=== PATIENT | female | born 1945 | race Caucasian/White ===

== ENCOUNTER 2018-06-09 00:29 | Outpatient (CLI) | payer MEDICARE, OTHER, SELFPAY ==
--- NOTE | 2018-06-09 13:30 | DI.CTLCSR_ITS ---
SYMPTOMS/DIAGNOSIS: FORMER SMOKER, Z87.891, COPD, J44.0 CT CHEST, LUNG CANCER SCREENING PROTOCOL: CT examination of the chest was performed utilizing the lung cancer screening protocol. Images obtained through the upper abdomen show a 3.1 cm in diameter aneurysm of the abdominal aorta. Correlation with abdominal ultrasound recommended to evaluate the entire abdominal aorta and assess maximal aneurysm size. There is no evidence of mediastinal or hilar adenopathy. Tracheobronchial tree appears intact. There is scattered peripheral pulmonary and pleural scarring. No consolidation. No nodule. CONCLUSION: No pulmonary nodule identified. Incidental finding of 3.1 cm in diameter incompletely imaged upper abdominal aortic aneurysm. Abdominal ultrasound recommended to evaluate extent and size of abdominal aortic aneurysm. Category 1. Lung-RAD Category: 1- Negative Lung- RAD Management of Findings: Continue annual LDCT screening in 12 months
== END 2018-06-09 00:49 ==
PROVIDERS: PCP Student in an Organized Health Care Education/Training Program; Visit Provider Internal Medicine
DX: Z12.2 Encounter for screening for malignant neoplasm of respiratory organs (principal); J44.0 Chronic obstructive pulmonary disease with (acute) lower respiratory infection; I71.4 Abdominal aortic aneurysm, without rupture; Z87.891 Personal history of nicotine dependence
CPT/HCPCS: G0297

== ENCOUNTER 2018-07-20 16:07 | Outpatient (REF) | payer MEDICARE, OTHER, SELFPAY | END 2018-07-20 16:27 | LOC: LBN 16:07 | PROVIDERS: PCP Student in an Organized Health Care Education/Training Program; Visit Provider Nurse Practitioner Family | DX: R35.0 Frequency of micturition (principal) | CPT/HCPCS: 87077; 87086; 87186 ==

== ENCOUNTER 2018-10-14 15:03 | Outpatient (CLI) | payer MEDICARE, OTHER, SELFPAY ==
--- NOTE | 2018-10-14 14:30 | DI.RAD_ITS ---
SYMPTOMS/DIAGNOSIS: COUGH, LUNG CRACKLES, SHORTNESS OF BREATH, R06.02, R09.89 CHEST X-RAY, FRONTAL AND LATERAL VIEWS: Comparison is 02/24/16. The heart size and pulmonary vasculature are stable and within normal limits. There is again seen scarring in the left lung base. This appears unchanged compared to the prior examination. No new infiltrates, effusions or pneumothoraces are identified. The lungs appear hyperinflated consistent with underlying COPD. Degenerative changes are seen in the spine. IMPRESSION: COPD. No acute pulmonary process.
== END 2018-10-14 15:23 ==
PROVIDERS: PCP Student in an Organized Health Care Education/Training Program; Visit Provider Student in an Organized Health Care Education/Training Program
DX: R05 Cough (principal); R06.02 Shortness of breath; R09.89 Other specified symptoms and signs involving the circulatory and respiratory systems; J44.9 Chronic obstructive pulmonary disease, unspecified
CPT/HCPCS: 71046

== ENCOUNTER 2019-03-26 08:25 | Outpatient (REF) | payer MEDICARE, OTHER, SELFPAY ==
[2019-03-26 13:39] LABS: HGB 13.9 g/dL (12.0-15.5); Mean Corp. HGB Concentration 32.3 g/dL (32.0-36.0); Mean Corpuscular Hemoglobin 30.1 pg (27.0-33.0); Mean Corpuscular Volume 93.1 fL (80-95); Mean Platelet Volume 9.5 fL (8.0-11.0); Platelet Count 227 x1000/uL (130-400); RBC 4.62 m/cumm (4.00-5.20); RBC Distribution Width 13.4 % (11.7-14.6); White Blood Cell Count 3.71 k/cumm (4.4-10.8)
[2019-03-26 13:47] LABS: ALT 25 U/L (12-78); AST 31 U/L (15-37); Albumin 3.1 g/dL (3.4-5.0); Alkaline Phosphatase 144 U/L (46-116); Anion Gap 12.5 mmol/L (3-11); BUN 18 mg/dL (7-18); Bilirubin, Total 0.4 mg/dL (0.2-1.0); CO2 23.5 mmol/L (21.0-32.0); CREATININE 0.79 mg/dL (0.55-1.02); Calcium 8.7 mg/dL (8.5-10.1); Calculated LDL 110; Chloride 107 mmol/L (98-107); Cholesterol 177 mg/dL (50-200); Glucose 100 mg/dL (70-100); HDL Cholesterol 55 mg/dL (40-60); Potassium 4.1 mmol/L (3.5-5.1); Sodium 143 mmol/L (136-145); Total Protein 6.3 g/dL (6.4-8.2); Triglyceride 63 mg/dL (30-150)
== END 2019-03-26 08:45 ==
LOC: LBN 08:25
PROVIDERS: PCP Student in an Organized Health Care Education/Training Program; Visit Provider Student in an Organized Health Care Education/Training Program
DX: J44.9 Chronic obstructive pulmonary disease, unspecified (principal); R79.89 Other specified abnormal findings of blood chemistry; R53.83 Other fatigue; Z13.6 Encounter for screening for cardiovascular disorders
CPT/HCPCS: 80053; 80061; 83721; 85027

== ENCOUNTER 2019-06-28 00:29 | Outpatient (CLI) | payer MEDICARE, OTHER, SELFPAY ==
--- NOTE | 2019-06-28 13:30 | DI.CTLCSR_ITS ---
EXAM: CT CHEST LUNG CANCER SCREEN CLINICAL HISTORY: PERSONAL H/O NICOTINE DEPENDENCE, Z87.891. TECHNIQUE: COMPARISON: CT CHEST LUNG CANCER SCREEN from 06/09/2018 FINDINGS: Emphysematous changes are demonstrated in the lungs. There are regions of scarring involving the left lower lobe. No infiltrate, mass or nodular density is identified. As visualized, the hilar structu res appear intact. There is no evidence of adenopathy. There is no evidence of a pleural or pericardi al effusion. The aorta appears intact. IMPRESSION: COPD. No evidence of a pulmonary mass, or nodule or adenopathy. This is a lung RADS category 1 examin [facility]. Follow-up surveillance with a repeat low-dose chest CT in 1 year is recommended. Lung RADS Cat 1 - Negative: No nodules and definitely benign nodules
== END 2019-06-28 00:49 ==
PROVIDERS: PCP Student in an Organized Health Care Education/Training Program; Visit Provider Internal Medicine
DX: Z12.2 Encounter for screening for malignant neoplasm of respiratory organs (principal); J44.9 Chronic obstructive pulmonary disease, unspecified; Z87.891 Personal history of nicotine dependence
CPT/HCPCS: G0297

== ENCOUNTER 2019-07-23 16:28 | Outpatient (REF) | payer MEDICARE, OTHER, SELFPAY | END 2019-07-23 16:48 | LOC: LBO 16:28 | PROVIDERS: PCP Student in an Organized Health Care Education/Training Program; Visit Provider Student in an Organized Health Care Education/Training Program | DX: N39.0 Urinary tract infection, site not specified (principal) | CPT/HCPCS: 87086 ==

== ENCOUNTER 2019-07-27 15:59 | Outpatient (REF) | payer MEDICARE, OTHER, SELFPAY | END 2019-07-27 16:19 | LOC: LBN 15:59 | PROVIDERS: PCP Student in an Organized Health Care Education/Training Program; Visit Provider Nurse Practitioner Family | DX: R10.32 Left lower quadrant pain (principal) | CPT/HCPCS: 87086 ==

== ENCOUNTER 2019-07-30 01:16 | Outpatient (CLI) | payer MEDICARE, OTHER, SELFPAY ==
--- NOTE | 2019-07-30 08:55 | DI.CT_ITS ---
EXAM: CT ABDOMEN PELVIS WO/W CLINICAL HISTORY: Hematuria and LLQ pain, R31.9 TECHNIQUE: CT examination of the abdomen and pelvis was performed utilizing CT urogram protocol. COMPARISON: PELVIS TRANSVAG from 03/03/2015 CHEST - LUNG CANCER SCREENING from 06/17/2017 CT CHEST LUNG CANCER SCREEN from 06/09/2018 FINDINGS: Note is made of apparent areas of consolidation of the left lung base. Liver, spleen and pancreas are unremarkable. Gallbladder not visualized. No biliary dilatation. Sm all fat containing umbilical hernia noted. No other significant abdominal wall hernia seen. No abdo frances or pelvic adenopathy. There is a 39 millimeter in diameter infrarenal abdominal aortic aneurysm. No other significant vasc ular abnormality seen apart from mild atheromatous calcification of aorta and origins of the major vi sceral vessels. Appendix is normal. Colonic diverticulosis noted. without diverticulitis. Note is made of a 5 cm in diameter low-attenuation homogeneous left ovarian lesion with minimal rim calcification, this is cons istent with an ovarian cyst and unchanged in size from previous pelvic ultrasound of 2014. Adrenals appear normal. There is no evidence of tract calcification. There is an approximately 1 cm in diameter intermediate attenuation well-circumscribed mass of the lower pole of the left kidney, t his may represent a hyperdense renal cyst. MR correlation or follow-up CT in 6 months should be cons idered to further evaluate this indeterminate lesion. IMPRESSION: 1. Unexpected finding of apparent left lower lobe consolidation, please correlate clinically regardin g the possibility of pneumonia. This finding was not present on previous examination of 06/09/2018. 2. 39 millimeter in diameter infrarenal abdominal aortic aneurysm. 3. Unchanged 5 cm left ovarian cyst. 4. Indeterminate but probably benign left renal cortical lesion, likely hyperdense cyst. Follow-up C T or additional evaluation with renal MRI recommended.
[2019-07-30 09:31] LABS: CREATININE 0.73 mg/dL (0.55-1.02)
[2019-07-30 09:55] LABS: ALT 25 U/L (14-59); AST 19 U/L (15-37); Albumin 2.6 g/dL (3.4-5.0); Alkaline Phosphatase 131 U/L (46-116); Bilirubin, Direct 0.13 mg/dL (0.00-0.20); Bilirubin, Total 0.4 mg/dL (0.2-1.0); Total Protein 6.5 g/dL (6.4-8.2)
[2019-07-30] MEDS: Omnipaque 350 MG/ML 100 ML BTL IJ (10:25)
--- NOTE | 2019-07-30 10:35 | DI.US_ITS ---
EXAM: US PELVIS TRANSVAGINAL CLINICAL HISTORY: Hx left ovarian cyst on US 2014, LLQ, R10.32 TECHNIQUE: Ultrasound performed using standard protocol. COMPARISON: PELVIS TRANSVAG from 03/03/2015 FINDINGS: Pelvic ultrasound was performed transabdominally and transvaginally. Limited scanning of the kidneys is unremarkable. Note is again made of a previously described simple cyst of the left ovary with mi nimal rim calcification measuring up to about 4.3 cm in diameter. Some myometrial calcifications are noted consistent with uterine fibroids. No gross mass identified. Endometrial stripe is about 4 mi llimeters in thickness and appears homogeneous. No free fluid identified in the cul-de-sac. Right ovary nonvisualized. IMPRESSION: Stable left ovarian cyst. Presumed calcified uterine fibroids. No other significant findings.
== END 2019-07-30 01:36 ==
PROVIDERS: Internal Medicine; PCP Student in an Organized Health Care Education/Training Program; Visit Provider Nurse Practitioner Family
DX: R10.32 Left lower quadrant pain (principal); R31.9 Hematuria, unspecified; N83.292 Other ovarian cyst, left side; D25.9 Leiomyoma of uterus, unspecified; J44.9 Chronic obstructive pulmonary disease, unspecified; R91.8 Other nonspecific abnormal finding of lung field; K42.9 Umbilical hernia without obstruction or gangrene; I71.4 Abdominal aortic aneurysm, without rupture; N28.1 Cyst of kidney, acquired
CPT/HCPCS: 80076; 74178; 76830; 76856; 82565; J3490

== ENCOUNTER 2019-08-13 10:12 | Outpatient (REF) | payer MEDICARE, OTHER, SELFPAY ==
[2019-08-13 13:59] LABS: Bilirubin Negative (Negative); Blood Trace-lysed (Negative); Clarity Sl Cloudy (Clear); Glucose Negative (Negative); Ketones Negative (Negative); Leukocyte Esterase Moderate (Negative); Nitrite Negative (Negative); Specific Gravity 1.015 (1.005-1.025); Urobilinogen 0.2 EU/dL (Up TO 0.2); pH 5.5 (5-8)
[2019-08-13 14:22] LABS: Bacteria Packed HPF (Negative)
[2019-08-13 14:23] LABS: C & S Indicated? C&S Done As Ordered
[2019-08-13 14:36] LABS: WBC >50 HPF (0-5)
== END 2019-08-13 10:32 ==
LOC: LBN 10:12
PROVIDERS: PCP Student in an Organized Health Care Education/Training Program; Visit Provider Student in an Organized Health Care Education/Training Program
DX: R30.0 Dysuria (principal); R31.9 Hematuria, unspecified
CPT/HCPCS: 87077; 81003; 81015; 87086; 87186

== ENCOUNTER → 2019-10-26 12:47 | Outpatient (BNVA) | payer MEDICARE, OTHER, SELFPAY | PROVIDERS: PCP Student in an Organized Health Care Education/Training Program; Referring Provider Student in an Organized Health Care Education/Training Program; Visit Provider Urology | DX: R31.29 Other microscopic hematuria (principal); R35.0 Frequency of micturition; N28.89 Other specified disorders of kidney and ureter | CPT/HCPCS: 81003; 99203; 99214 ==

== ENCOUNTER 2019-11-08 16:46 | Outpatient (CLI) | payer MEDICARE, OTHER, SELFPAY ==
--- NOTE | 2019-11-08 16:04 | DI.RAD_ITS ---
EXAM: XR CHEST 2V PA LATERAL INDICATION: r/o acute process/PNA; scattered rhonchi exp whEEZE, J44.1 COPD W/ EXACERBATION COMPARISON: XR CHEST 2V PA LATERAL from 10/14/2018 TECHNIQUE: 2D digital imaging was performed. FINDINGS: The heart size is within normal limits. There is atherosclerosis of the thoracic aorta. The pulmona ry vasculature is otherwise unremarkable. There is scarring again seen in the left lung base. There does appear to be an infiltrate in the left lower lobe. No pleural effusion or pneumothorax is iden tified. There is underlying COPD. Stable degenerative changes are seen in the spine. IMPRESSION: Left basilar infiltrate. This may represent atelectasis or pneumonia.
== END 2019-11-08 17:06 ==
PROVIDERS: PCP Student in an Organized Health Care Education/Training Program; Visit Provider Nurse Practitioner Adult Health
DX: R91.8 Other nonspecific abnormal finding of lung field (principal); J98.8 Other specified respiratory disorders; R06.2 Wheezing; J44.1 Chronic obstructive pulmonary disease with (acute) exacerbation
CPT/HCPCS: 71046

== ENCOUNTER 2019-11-26 00:57 | Outpatient (CLI) | payer MEDICARE, OTHER, SELFPAY ==
[2019-11-26 12:02] LABS: ALT 24 U/L (14-59); AST 20 U/L (15-37); Albumin 3.1 g/dL (3.4-5.0); Alkaline Phosphatase 111 U/L (46-116); Bilirubin, Total 0.3 mg/dL (0.2-1.0); Total Protein 6.3 g/dL (6.4-8.2)
== END 2019-11-26 01:17 ==
PROVIDERS: PCP Student in an Organized Health Care Education/Training Program; Visit Provider Internal Medicine
DX: J44.9 Chronic obstructive pulmonary disease, unspecified (principal); J98.4 Other disorders of lung; M48.14 Ankylosing hyperostosis [Forestier], thoracic region
CPT/HCPCS: 36415; 80076; 71046

== ENCOUNTER 2019-11-26 02:41 | Outpatient (CLI) | payer MEDICARE, OTHER, SELFPAY ==
--- NOTE | 2019-11-26 10:25 | DI.RAD_ITS ---
EXAM: XR CHEST 2V PA LATERAL INDICATION: CHRONIC OBSTRUCTIVE LUNG DISEASE J44.9. COMPARISON: XR CHEST 2V PA LATERAL from 10/14/2018 CT ABDOMEN PELVIS WO/W from 07/30/2019 TECHNIQUE: 2D digital imaging was performed. FINDINGS: The heart size is within normal limits. The aorta shows calcification and mild tortuosity. Scarri ng is seen at the left lung base. No definite superimposed infiltrate, effusion or pulmonary edema i s seen. Flowing osteophytes are noted in the thoracic spine. IMPRESSION: No acute abnormality. DATA REPOSITORY: RADIATION DOSE DELIVERED:
== END 2019-11-26 03:01 ==
PROVIDERS: PCP Student in an Organized Health Care Education/Training Program; Visit Provider Internal Medicine
DX: J44.9 Chronic obstructive pulmonary disease, unspecified (principal); J98.4 Other disorders of lung; M48.14 Ankylosing hyperostosis [Forestier], thoracic region
CPT/HCPCS: 71046

== ENCOUNTER 2019-12-28 16:24 | Outpatient (CLI) | payer MEDICARE, OTHER, SELFPAY ==
[2019-12-28 18:38] LABS: Bilirubin Negative (Negative); Blood Trace-lysed (Negative); Clarity Cloudy (Clear); Glucose Negative (Negative); Ketones Negative (Negative); Leukocyte Esterase Moderate (Negative); Nitrite Negative (Negative); Urobilinogen 0.2 EU/dL (Up TO 0.2)
[2019-12-28 18:46] LABS: Bacteria Many HPF (Negative); C & S Indicated? Yes; Casts Negative LPF (Negative); Crystals Negative HPF (Negative); Epithelial Cells Rare HPF (Negative); Mucus Negative (Negative); Other Cells Negative (Negative); RBC 0-2 HPF (0-2); WBC >50 HPF (0-5)
== END 2019-12-28 16:44 ==
LOC: LBO 16:24 → LBN 16:27
PROVIDERS: PCP Student in an Organized Health Care Education/Training Program; Visit Provider Nurse Practitioner
DX: R30.0 Dysuria (principal); R35.0 Frequency of micturition
CPT/HCPCS: 87077; 81003; 81015; 87086; 87186

== ENCOUNTER 2020-02-15 00:37 | Outpatient (CLI) | payer MEDICARE, OTHER, SELFPAY ==
--- NOTE | 2020-02-15 06:45 | DI.CT_ITS ---
EXAM: CT ABDOMEN PELVIS W CLINICAL HISTORY: 6 mos follow up, aaa,i71.4, lt kidney mass COMPARISON: CT CT ABDOMEN PELVIS WO/W from 07/30/2019 FINDINGS: CT examination of the abdomen and pelvis was performed with a bolus infusion 100 cc of Omnipaque 350 and ingestion of dilute barium. Images obtained through the lung bases are unremarkable with resolut ion of previously noted left lower lobe consolidation seen on prior CT of July 30, 2019. The liver and spleen are normal in appearance. Pancreas is partially fatty replaced but otherwise un remarkable. No biliary dilatation is seen. There is an abdominal aortic aneurysm measuring about 41 millimeters in greatest diameter. No other significant vascular abnormality seen. No abdominal or pelvic adenopathy. Adrenals are unremarkable in appearance. Previously described 10 millimeter intermediate attenuation left renal lesion is unchanged from prior study and is likely to be benign. No evidence of urinary t ract calcification or obstruction. Appendix is normal. There is colonic diverticulosis without diverticulitis. Presumed left ovarian c yst again noted, stable at about 51 millimeters in greatest diameter. IMPRESSION: No change in appearance of likely benign, 10 millimeter, left renal, well circumscribed, cortical, in termediate attenuation lesion. Follow-up CT recommended in 12 months. Stable 5 cm in diameter low-attenuation left adnexal lesion, presumed ovarian cyst, follow-up CT in 1 2 months. 41 millimeter in diameter abdominal aortic aneurysm.
[2020-02-15 08:10] LABS: CREATININE 0.75 mg/dL (0.55-1.02)
[2020-02-15] MEDS: Breeza Beverage 473 ML BTL PO ×2 (08:39→08:40)
[2020-02-15] MEDS: Omnipaque 350 MG/ML 100 ML BTL IJ (09:23)
== END 2020-02-15 00:57 ==
PROVIDERS: Urology; PCP Student in an Organized Health Care Education/Training Program; Visit Provider Student in an Organized Health Care Education/Training Program
DX: N28.89 Other specified disorders of kidney and ureter (principal); I71.4 Abdominal aortic aneurysm, without rupture; N83.292 Other ovarian cyst, left side
CPT/HCPCS: 74177; 82565; J3490

== ENCOUNTER 2020-03-29 01:45 | Outpatient (CLI) | payer MEDICARE, OTHER, SELFPAY ==
--- NOTE | 2020-03-29 06:45 | DI.US_ITS ---
EXAM: US ABDOMEN LIMITED CLINICAL HISTORY: r/o biliary pathology,RUQ PAIN,R10.11, F/U ABNL CT TECHNIQUE: Ultrasound performed using standard protocol. COMPARISON: US US PELVIS TRANSVAGINAL from 07/30/2019 FINDINGS: The liver is unremarkable in appearance. Gallbladder has been surgically removed. No biliary dilata tion. Pancreas is of increased echogenicity, no other significant focal abnormality seen as visualiz ed but visualization of the pancreas is suboptimal. Right kidney appears normal with no evidence of hydronephrosis or nephrolithiasis. Abdominal aorta is noted to have an infrarenal aneurysm measuring about 39 x 43 millimeters in transv erse diameter. IVC is of normal diameter. IMPRESSION: No evidence of biliary obstruction. Abdominal aortic aneurysm, 43 millimeters maximal diameter. DATA REPOSITORY:
== END 2020-03-29 02:05 ==
PROVIDERS: PCP Student in an Organized Health Care Education/Training Program; Visit Provider Student in an Organized Health Care Education/Training Program
DX: R10.11 Right upper quadrant pain (principal); I71.4 Abdominal aortic aneurysm, without rupture
CPT/HCPCS: 76705

== ENCOUNTER 2020-06-16 15:53 | Outpatient (REF) | payer MEDICARE, OTHER, SELFPAY | END 2020-06-16 16:13 | LOC: LBN 15:53 | PROVIDERS: PCP Student in an Organized Health Care Education/Training Program; Visit Provider Student in an Organized Health Care Education/Training Program | DX: R31.9 Hematuria, unspecified (principal) | CPT/HCPCS: 87086 ==

== ENCOUNTER 2020-06-30 04:05 | Outpatient (CLI) | payer MEDICARE, OTHER, SELFPAY ==
--- NOTE | 2020-06-30 | DI.CTLCSR_ITS ---
EXAM: CT CHEST LUNG CANCER SCREEN CLINICAL HISTORY: SCREENING FOR LUNG CA,FORMER SMOKER, Z87.891 TECHNIQUE: Imaging Protocol: Axial computed tomography images with coronal and sagittal reformatted images were created and reviewed COMPARISON: CT CT CHEST LUNG CANCER SCREEN from 06/28/2019 FINDINGS: Tracheobronchial tree: Patent where visualized. Mediastinum and [place]: No dominant adenopathy or fluid collection. Pulmonary parenchyma: No focal consolidation. There is a new 1 x 0.8 cm nodule in the left upper lobe . (Series 5, image 260). Centrilobular emphysematous changes are present in the lungs. There is scar ring in the lung bases. Lung Nodules: Please see above. Pleura: No effusion or pneumothorax. Heart: The heart is not dilated. Mild coronary artery calcification. No significant pericardial effus ion. Aorta: Thoracic aorta non-dilated.Atherosclerosis. Upper abdomen: Unremarkable. Bones: [facility] in the thoracic spine. Soft Tissues: Unremarkable. IMPRESSION: New 1 cm nodule in the left upper lobe. Lung RADS Cat 4B - Suspicious: Findings for which additional diagnostic testing and/or tissue samplin g is recommended Lung-RADS 1.0 CATEGORIES: Category 0 - Prior chest CT exam(s) being located for comparison. Category 1 - Annual screening in 12 months. No nodules or definitely benign nodules. Category 2 - Annual screening in 12 months. Benign appearance. Nodules with low likelihood of becomin g active cancer. Category 3 - 6-month follow-up. Probably benign. Short-term follow-up suggested. Nodules with low lik elihood of becoming active cancer. Category 4A - 3-month follow-up and CT/PET if >8 mm in size. Suspicious finding. Findings which requi re additional testing. Category 4B - Findings which require additional testing and tissue sampling. Suspicious finding. C Added to Any of the Above - History of prior lung cancer screening. S Added to Any of the Above - Significant unexpected other finding. RADIATION DOSE DELIVERED: 73.44mGy.cm Total DLP DATA REPOSITORY: All CT scans at this facility are submitted to the National Radiology Data Registry (NRDR) Dose Index Registry (DIR) with the [employer] ([employer]). RADIATION OPTIMIZATION: All CT scans at this facility use at least one of these dose optimization te chniques: automated exposure control; mA and/or kV adjustment per patient size (includes targeted exa ms where dose is matched to clinical indication); or iterative reconstruction.
== END 2020-06-30 04:25 ==
PROVIDERS: PCP Student in an Organized Health Care Education/Training Program; Visit Provider Internal Medicine
DX: Z87.891 Personal history of nicotine dependence (principal); R91.1 Solitary pulmonary nodule
CPT/HCPCS: G0297

== ENCOUNTER 2020-08-24 01:11 | Outpatient (CLI) | payer MEDICARE, OTHER, SELFPAY ==
--- NOTE | 2020-08-24 13:00 | DI.CT_ITS ---
EXAM: CT CHEST WO CLINICAL HISTORY: COPD,J44.9. TECHNIQUE: Imaging protocol: Axial computed tomography images were obtained and coronal and sagittal reformatted images were created and reviewed. COMPARISON: CT CT CHEST LUNG CANCER SCREEN from 06/30/2020 FINDINGS: Tracheobronchial tree: Patent where visualized. Mediastinum and [place]: No dominant adenopathy or fluid collection. Pulmonary parenchyma: The nodular opacity seen in the left upper lobe on the prior examination is no longer visualized. There are no new infiltrates. No suspicious pulmonary nodules are seen. There a re centrilobular emphysematous changes present. There is scarring seen in the lung bases Pleura: No effusion or pneumothorax. Heart: The heart is not dilated. Coronary artery calcifications are present. There is a small pleura l effusion. Aorta: Thoracic aorta non-dilated. Atherosclerosis. Upper abdomen: Fatty infiltration of the pancreas. Stable 4.2 cm infrarenal abdominal aortic aneury sm is incompletely imaged. Lymph nodes: Within normal limits. Bones:No acute osseous abnormality. Soft tissues: Unremarkable. IMPRESSION: Resolution of the nodular infiltrate in the left upper lobe. No acute pulmonary process. Chronic findings as described above. RADIATION DOSE DELIVERED: 774.46mGy.cm Total DLP 774.46mGy.cm Total DLP DATA REPOSITORY: All CT scans at this facility are submitted to the National Radiology Data Registry (NRDR) Dose Index Registry (DIR) with the [employer] ([employer]). RADIATION OPTIMIZATION: All CT scans at this facility use at least one of these dose optimization te chniques: automated exposure control; mA and/or kV adjustment per patient size (includes targeted exa ms where dose is matched to clinical indication); or iterative reconstruction.
== END 2020-08-24 01:31 ==
PROVIDERS: PCP Student in an Organized Health Care Education/Training Program; Visit Provider Internal Medicine
DX: J44.9 Chronic obstructive pulmonary disease, unspecified
CPT/HCPCS: 71250

== ENCOUNTER 2020-08-27 13:45 | Emergency (ER) | payer MEDICARE, OTHER, SELFPAY ==
[2020-08-27] VITALS (13 sets, daily range): BP systolic 124–145; BP diastolic 72–78; PULSE 57–85; RESP 17–28; TEMP 36.4; O2SAT 97–100
--- NOTE | 2020-08-27 13:45 | RT.EKG_ITS ---
APPROVED REPORT Exam: Resting ECG Patient Location: E HR:64 bpm ECG Measurements Heart Rate 64 AXIS ID [id number] P -16 QRSd 104 QRS 92 QT 388 T 104 QTc 400 Conclusion Sinus rhythm. +stemi Inferior infarct, acute...ST>0.10mV, T upright, II III aVF
--- NOTE | 2020-08-27 14:00 | DI.RAD_ITS ---
EXAM: XR PORTABLE CHEST AP. CLINICAL HISTORY: stemi TECHNIQUE: 2D digital imaging was performed. COMPARISON: CR XR CHEST 2V PA LATERAL from 11/26/[address] CHEST WO from 08/24/2020 FINDINGS: The heart size is mildly enlarged, unchanged. The aorta is mildly ectatic. The lung bases are subop timally penetrated. Scarring is again noted at the left lung base. There are under underlying fibro tic changes. No superimposed infiltrate, effusion or pulmonary edema is seen. IMPRESSION: No acute pulmonary findings. DATA REPOSITORY: RADIATION DOSE DELIVERED:
[2020-08-27 14:07] LABS: Abs Immature Grans 0.02 10^3/uL (0.0-0.06); Absolute Basophil Count 0.04 10^3/uL (0.0-0.2); Absolute Eosinophil Count 0.06 10^3/uL (0.0-0.7); Absolute Lymphocyte Count 1.35 10^3/uL (1.2-3.4); Absolute Monocyte Count 0.55 10^3/uL (0.1-0.8); Absolute Neutrophil Count 4.93 10^3/uL (1.2-6.7); Basophils % 0.6; Eosinophils % 0.9; HCT 42.6 % (36.0-46.0); Immature Grans % 0.3; Lymphocytes % 19.4; MCH 31.3 pg (27.0-33.0); MCHC 32.9 % (32.0-36.0); MCV 95.1 fL (80-95); MPV 9.5 fL (8.0-11.0); Monocytes % 7.9; Neutrophils % 70.9; Nucleated RBC 0 %; Platelet Count 219 10^3/uL (130-400); RBC 4.48 10^6/uL (3.93-5.22); RDW 12.9 % (11.7-14.6); RDW-SD 44.9 fL; WBC 6.95 10^3/uL (4.4-10.8)
--- NOTE | 2020-08-27 14:07 | ED.GENADUL_ITS ---
Discharge Plan Disposition Patient Disposition: [facility] Condition: Serious Discharge Details Clinical Impression: ST elevation SC (STEMI) Primary Care Provider: Aliyah De Paz ED Provider: Stewart Christianson Home Meds and New Rx's Prescriptions: No Action (DME) compressor, for nebulizer device See Dose Instructions .ROUTE .MEDSUPPLY Qty: 1 RF: 0 Daliresp 500 mcg tablet 500 mcg PO DAILY RF: 0 cyanocobalamin (vitamin B-12) [Vitamin B-12] 100 mcg tablet 100 mcg PO DAILY RF: 0 cholecalciferol (vitamin D3) [Vitamin D3] 1,000 UNIT capsule 1,000 unit PO DAILY RF: 0 acetaminophen [Arthritis Pain Relief (acetam)] 650 MG tablet extended release 650 mg PO PRN RF: 0 Oxygen EACH Inhalation DAILY Qty: 2 RF: 0 thiamine mononitrate (vit B1) 100 MG tablet 100 mg PO DAILY RF: 0 Spiriva with HandiHaler 18 mcg capsule, w/inhalation device 1 cap IH DAILY RF: 0 albuterol sulfate [ProAir HFA] 90 mcg/actuation HFA aerosol inhaler 1 puff Inhalation Q4H PRN Qty: 3 RF: 3 codeine-guaifenesin [Virtussin AC] 10-100 mg/5 mL liquid 10 ml PO Q6H Qty: 237 RF: 1 ipratropium-albuterol 0.5 mg-3 mg(2.5 mg base)/3 mL solution for nebulization 3 ml IH Q8H PRN (Reason: shortness of breath or wheezing) Qty: 270 RF: 2 fluoxetine 10 mg tablet 10 mg PO DAILY Qty: 90 RF: 3 clotrimazole 1 % cream 1 applic TP BID Qty: 30 RF: 3 fluticasone propionate 50 mcg/actuation spray,suspension 2 spray NS BID PRN (Reason: nasal congestion) Qty: 18.2 RF: 3 fluticasone propion-salmeterol [Advair Diskus] 250-50 mcg/dose blister with device 1 inh inhalation BID PRNRF: 0 cetirizine [Zyrtec] 10 mg tablet 5 mg PO DAILY RF: 0 Medical Decision Making <JULIUS Arciniega - Last Filed: 08/27/20 14:51> 75-year-old female with history of COPD presents with chest pain, diaphoresis, nausea that began yesterday, now radiates into her back and her left arm aches. Upon presentation to room 3 EKG immediately obtained and reveals anterior STEMI. Case was immediately discussed with Dr. Valente who personally evaluated the patient. Emergent cardiac work-up initiated and call placed to [facility]. I was able to speak with Dr. Najera, cardiology, who was able to personally review the EKG. He recommends initiating 180 mg of Brilinta, full dose aspirin, atorvastatin 80, heparin bolus of 4000 units and then initiating a drip. Does not want to initiate any lytics at this time. Given her heart rate is in the 60s he also recommends holding any beta-blockers. He states that if the pain is to increase we could consider giving a single sublingual nitro but to give this medication very carefully. The patient will be transferred into the care of Dr. Verduzco, senior supplier quality engineer, directly to the [facility]. At the time of transfer only her complete blood cell count had been resulted. Medications given per cardiology. Held any nitro at this time. Given 2 mg IV morphine for discomfort. Subsequent laboratory values reveal an INR of 1.0 electrolytes are unremarkable. Creatinine 0.82 GFR greater than 60, troponin 1.68. Chest x-ray read by virtual radiology is unremarkable. Patient reports pain is a 3 out of 10 after the morphine was given. All appropriate transfer paperwork signed. Patient remained hemodynamically stable while under my care prior to discharge. As I was consulting with [facility], a RN from our ER was able to update the family with what was going on. Medical Records Medical records reviewed: Yes I reviewed the patient's medical records. Imaging Data Radiologic Study: Attestation: I personally reviewed and interpreted this imaging study as follows: Imaging: X-Ray Radiologist's impression: Chest x-ray unremarkable per virtual radiology Lab Data Lab results reviewed: Yes I reviewed the patient's lab results. Lab results narrative: Laboratory Tests Range/Units 08/27/20 08/27/20 08/27/20 14:00 14:00 14:00 WBC (4.4-10.8) 10^3/uL 6.95 RBC (3.93-5.22) 10^6/uL 4.48 Hgb (11.2-15.7) g/dL 14.0 Hct (36.0-46.0) % 42.6 MCV (80-95) fL 95.1 H MCH (27.0-33.0) pg 31.3 MCHC (32.0-36.0) % 32.9 RDW (11.7-14.6) % 12.9 Plt Count (130-400) 10^3/uL 219 MPV (8.0-11.0) fL 9.5 Immature Gran % 0.3 Neutrophils % 70.9 Lymphocytes % 19.4 Monocytes % 7.9 Eosinophils % 0.9 Basophils % 0.6 Nucleated RBC % % 0 Absolute Neutrophils (1.2-6.7) 10^3/uL 4.93 Absolute Lymphocytes (1.2-3.4) 10^3/uL 1.35 Absolute Monocytes (0.1-0.8) 10^3/uL 0.55 Absolute Eosinophils (0.0-0.7) 10^3/uL 0.06 Absolute Basophils (0.0-0.2) 10^3/uL 0.04 PT (9.3-11.0) sec 10.3 INR (0.9-1.1) 1.0 APTT (21.0-27.5) sec 21.0 Sodium (136-145) mmol/L 136 Potassium (3.5-5.1) mmol/L 4.0 Chloride (98-107) mmol/L 102 Carbon Dioxide (21.0-32.0) mmol/L 28.6 Anion Gap (3-11) mmol/L 5.4 BUN (7-18) mg/dL 9 Creatinine (0.55-1.02) mg/dL 0.82 Estimated GFR/1.73 m2 (mL/min/1.73m2) >= 60.00 Glucose (74-106) mg/dL 114 H Calcium (8.5-10.1) mg/dL 8.9 Magnesium (1.8-2.4) mg/dL 1.9 Total Bilirubin (0.2-1.0) mg/dL 0.7 AST (15-37) U/L 51 H ALT (14-59) U/L 29 Alkaline Phosphatase (46-116) U/L 131 H Troponin I (<0.06) ng/mL 1.68 H* Total Protein (6.4-8.2) g/dL 7.4 Albumin (3.4-5.0) g/dL 3.3 L ECG Data Attestation: I personally reviewed and interpreted this ECG (s) as follows: Interpretation: Please see official report by Dr. Valente. Sinus rhythm. Appears to have a inferior STEMI <Tye Valente MD - Last Filed: 08/27/20 14:20> Patient seen, examined [id number], discussed with Den PerezSammy. This pleasant 75-year-old female has evidence of acute inferolateral STEMI. I agree with his assessment and plan including urgent/emergent consultation with [facility] for transfer. HPI <JULIUS Arciniega - Last Filed: 08/27/20 14:51> General Mode of arrival: ambulatory . Date/Time Provider Initiated Documentation: 08/27/20 13:46 . Limitations to Documentation: no limitations . Information obtained by: patient . HPI Narrative: This is a 75-year-old female with a past medical history of COPD, abdominal aortic aneurysm, cor pulmonale, presenting to the ER today with chief complaint of chest pain. She reports substernal chest pain that began yesterday around 1 PM, she felt nauseous and sweaty at that time. The pain was 8 out of 10. Subsequently the pain in her chest has diminished to a 4 out of 10 but now travels into her back and her left arm is aching. She reports a history of COPD, chronic shortness of breath that is may be slightly worse over the past 24 hours. She took a Tums yesterday when she had her nausea with no relief. Approximately 30 minutes ago she took her daughter's sublingual nitro without any relief. Patient denies recent illness or trauma. She denies headache, neck pain, fever, abdominal pain, vomiting, change in bowel or bladder function, numbness, tingling, weakness, skin rash. She denies ever smoking. She tells me that she had a stress test maybe 4 or 5 years ago but was unable to adequately complete the test. She denies recent travel, trauma, surgery, or any bleeding disorder. Related Data Home Medications Medication Instructions Recorded Confirmed cholecalciferol (vitamin D3) 1,000 unit PO DAILY cap 08/02/16 08/27/20 [Vitamin D3] acetaminophen [Arthritis Pain] 650 mg PO PRN tab 11/08/16 08/27/20 Oxygen l INHALATION DAILY #2 06/12/17 06/17/20 thiamine mononitrate (vit B1) 100 mg PO DAILY 12/24/17 08/27/20 compressor, for nebulizer #1 each 10/14/18 06/17/20 cyanocobalamin (vitamin B-12) 100 100 mcg PO DAILY 07/27/19 08/27/20 mcg tablet roflumilast 500 mcg tablet 500 mcg PO DAILY 07/27/19 08/27/20 tiotropium bromide 18 mcg capsule 1 cap IH DAILY 11/12/19 06/17/20 with inhalation device albuterol sulfate 90 mcg/actuation 1 puff INHALATION Q4H PRN #3 11/27/19 08/27/20 aerosol inhaler inhaler codeine 10 mg-guaifenesin 100 mg/5 10 ml PO Q6H #237 ml 12/17/19 08/27/20 mL oral liquid ipratropium 0.5 mg-albuterol 3 mg 3 ml IH Q8H PRN #270 ml 03/01/20 08/27/20 (2.5 mg base)/3 mL nebulization soln clotrimazole 1 % topical cream 1 applic TP BID #30 gm 03/22/20 08/27/20 fluoxetine 10 mg tablet 10 mg PO DAILY #90 tab 03/22/20 08/27/20 fluticasone propionate 50 2 spray NS BID PRN #18.2 ml 06/25/20 08/27/20 mcg/actuation nasal spray,suspension cetirizine 10 mg tablet 5 mg PO DAILY 07/13/20 08/27/20 fluticasone 250 mcg-salmeterol 50 1 inh INHALATION BID PRN 07/13/20 08/27/20 mcg/dose blistr powdr for inhalation Previous Rx's Medication Instructions Recorded compressor, for nebulizer #1 each 10/14/18 albuterol sulfate 90 mcg/actuation 1 puff INHALATION Q4H PRN #3 11/27/19 aerosol inhaler inhaler codeine 10 mg-guaifenesin 100 mg/5 10 ml PO Q6H #237 ml 12/17/19 mL oral liquid ipratropium 0.5 mg-albuterol 3 mg 3 ml IH Q8H PRN #270 ml 03/01/20 (2.5 mg base)/3 mL nebulization soln clotrimazole 1 % topical cream 1 applic TP BID #30 gm 03/22/20 fluoxetine 10 mg tablet 10 mg PO DAILY #90 tab 03/22/20 fluticasone propionate 50 2 spray NS BID PRN #18.2 ml 06/25/20 mcg/actuation nasal spray,suspension Allergies Allergy/AdvReac Type Severity Reaction Status Date / Time Fish Containing Products AdvReac Severe vomiting, Verified 08/27/20 14:24 diarrhea, headache General Stated Complaint: Chest Pain SHAILA: 2 Review of Systems <JULIUS Arciniega - Last Filed: 08/27/20 14:51> Constitutional Constitutional: Denies fatigue, Denies fever(s) and Denies headache(s) Eyes Eyes: Denies change in vision ENT Ears, Nose, Mouth, and Throat: Denies headache(s) and Denies neck pain Cardiovascular Cardiovascular: Reports chest pain and Reports dyspnea Respiratory Respiratory: Denies cough and Reports dyspnea Gastrointestinal Gastrointestinal: Denies abdominal pain, Reports nausea and Denies vomiting Genitourinary Genitourinary: Denies dysuria Musculoskeletal Musculoskeletal: Denies neck pain Integumentary/Breasts Skin/Breast: Denies rash Neurologic Neurologic: Denies headache(s) Endocrine Endocrine: Denies fatigue Hematologic/Lymphatic Hematologic/Lymphatic: Denies easy bleeding PFSH <JULIUS Arciniega - Last Filed: 08/27/20 14:51> Medical History (Updated 08/27/20 @ 14:45 by JULIUS Arciniega) COPD (chronic obstructive pulmonary disease) Depressive disorder (07/24/12) Hematuria Varicose veins Surgical History Cholecystectomy (10/06/1966) Colonoscopy - MAC (07/23/17) Ligation of fallopian tube (10/06/69) Family History Mother , complications DM at age 67. Diabetes Father , stomach cancer at age 30. No problems noted. 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 Pets and animals: No Current gender identity: female What is your relationship status?: Panel score (0-1 are the most socially isolated patients): 0 What type of physical activity do you participate in: walking and regular exercise Frequency: daily Seatbelt use: always Drive intox or ride w/intox entry driver operator: No Working smoke detector in home: Yes Fire extinguisher in home: Yes Carbon monox detector in home: Yes Do you feel safe at home: Yes Do you feel safe in your relationship?: Yes Exam <JULIUS Arciniega - Last Filed: 08/27/20 14:51> Const General: cooperative, healthy appearing and no acute distress Orientation: alert, awake and oriented x3 HENMT Head: normal to inspection, normocephalic and atraumatic Face and sinus: normal facial exam Mouth: moist mucous membranes Throat: posterior oropharynx normal Eyes General: appearance normal, both eyes and all related structures Alignment and Position: alignment normal Periorbital: periorbital findings normal Eyelids: eyelids normal Conjunctivae: conjunctivae normal Sclera: sclerae normal Cornea: corneas normal Pupils: PERRL EOM: EOM intact bilaterally Direct ophthalmoscopy: normal light reflex Neck Neck: normal visual inspection, full ROM, no lymphadenopathy, no meningeal signs, trachea midline, supple and nontender Chest Chest: normal inspection of the chest and normal palpation of entire chest wall Resp Effort & Inspection: normal respiratory effort and able to speak in complete sentences Auscultation: clear to auscultation bilaterally Cardio Jugular venous pressure: no JVD Rate: regular rate Rhythm: regular rhythm GI Palpation: soft, not firm, no guarding, no pulsatile masses and nontender Auscultation: normal bowel sounds Back/Spine/Pelvis Back: No back tenderness Skin General skin exam: no rashes or lesions noted Neuro General: patient alert, patient awake, patient oriented x3, moves all extremities and no focal motor deficits Cranial Nerves: CN's II-XI intact bilaterally Cognition: normal cognition Speech: speech normal Gait: normal gait Motor: muscle tone normal throughout Sensory Exam: no sensory deficits noted Extrem General: normal to inspection, full ROM, capillary refill normal, no pedal edema and no calf tenderness Psych Appearance: grossly normal Mental Status: mental status grossly normal Course <JULIUS Arciniega - Last Filed: 08/27/20 14:51> Vital Signs Vital signs: Vital Signs Temperature 36.4 C L 08/27/20 13:52 Pulse 63 08/27/20 13:52 Respiratory Rate 17 08/27/20 13:52 Blood Pressure 124/72 08/27/20 13:52 Pulse Oximetry 97 08/27/20 13:52 Temperature 36.4 C L 08/27/20 13:52 Pulse 63 08/27/20 13:52 Respiratory Rate 17 08/27/20 13:52 Respiratory Effort Non-Labored 08/27/20 13:59 Blood Pressure 124/72 08/27/20 13:52 Blood Pressure Position Supine 08/27/20 13:52 Pulse Oximetry 97 08/27/20 13:52 Oxygen Delivery Method Room Air 08/27/20 13:52 Oxygen Flow Rate 0 08/27/20 13:52 Pain Level 5 08/27/20 13:52 Critical Care Time <JULIUS Arciniega - Last Filed: 08/27/20 14:51> Critical Care Time Critical Care Time: Yes Total Critical Care Time: 45 Attestation: Upon my evaluation, this patient had a high probability of clinically significant, life-threatening deterioration due to their current medical conditions, which required my direct attention, intervention, and personal management. I have personally provided greater than 30 minutes of critical care time exclusive of the time spend on separately billable procedures. Time includes obtaining a history, examining the patient, pulse oximetry, review of laboratory data, radiology results, discussion with consultants, arranging urgent treatment with development of a management plan, evaluation of patient's response to treatment, and monitoring for potential decompensation. Interventions were performed as documented above.
--- NOTE | 2020-08-27 14:19 | NUR.NOTE ---
Nursing Note: Pt daughter Capri updated on patient status per patients request. Capri cell phone number is [phone] if any further updates are needed to be given
[2020-08-27 14:21] LABS: Prothrombin Time 10.3 sec (9.3-11.0)
[2020-08-27 14:23] LABS: ALT 29 U/L (14-59); AST 51 U/L (15-37); Albumin 3.3 g/dL (3.4-5.0); Alkaline Phosphatase 131 U/L (46-116); Anion Gap 5.4 mmol/L (3-11); BUN 9 mg/dL (7-18); Bilirubin, Total 0.7 mg/dL (0.2-1.0); CO2 28.6 mmol/L (21.0-32.0); CREATININE 0.82 mg/dL (0.55-1.02); Calcium 8.9 mg/dL (8.5-10.1); Chloride 102 mmol/L (98-107); Glucose 114 mg/dL (74-106); Magnesium 1.9 mg/dL (1.8-2.4); Sodium 136 mmol/L (136-145); Total Protein 7.4 g/dL (6.4-8.2)
[2020-08-27 14:32] LABS: Troponin I 1.68 ng/mL (<0.06)
--- NOTE | 2020-08-27 14:35 | DI.VRAD_ITS ---
PROCEDURE INFORMATION: Exam: XR Chest, 1 View Exam date and time: 08/27/2020 2:19 PM Age: 75 years old Clinical indication: Other: Stemi TECHNIQUE: Imaging protocol: XR of the chest Views: 1 view. COMPARISON: CT CHEST WO 08/24/2020 12:49 PM FINDINGS: Lungs: Emphysematous change. Bibasilar atelectasis and/or scarring. No consolidation. Pleural space: No pleural effusion. No pneumothorax. Heart/Mediastinum: No cardiomegaly. Bones/joints: Unremarkable. IMPRESSION: No acute findings. Dictated and Authenticated by: Jewel Vasquez MD. Ordering:RENEE William MD
[2020-08-27] MEDS: Aspirin 81 MG CHEW 324 MG CH (14:36)
[2020-08-27] MEDS: Atorvastatin 40 MG TAB 80 MG PO (14:41)
[2020-08-27] MEDS: Ticagrelor 90 MG TAB 180 MG PO (14:41)
== END 2020-08-27 14:55 | disposition short-term general hospital (02) ==
PROVIDERS: Emergency Provider Physician Assistant; PCP Student in an Organized Health Care Education/Training Program
DX: I21.19 ST elevation (STEMI) myocardial infarction involving other coronary artery of inferior wall (principal); R11.0 Nausea; J44.9 Chronic obstructive pulmonary disease, unspecified; Z87.891 Personal history of nicotine dependence
CPT/HCPCS: 36415; 80053; 93005; 96365; 96375; 96376; 99291; 71045; 83735; 84484; 85025; 85610; 85730; 93010; J3490

== ENCOUNTER → 2020-09-25 13:07 | Outpatient (BNVA) | payer MEDICARE, OTHER, SELFPAY | PROVIDERS: PCP Student in an Organized Health Care Education/Training Program; Referring Provider Student in an Organized Health Care Education/Training Program; Visit Provider Internal Medicine Cardiovascular Disease | DX: I21.3 ST elevation (STEMI) myocardial infarction of unspecified site (principal); G47.33 Obstructive sleep apnea (adult) (pediatric); I71.4 Abdominal aortic aneurysm, without rupture; I10 Essential (primary) hypertension; J44.9 Chronic obstructive pulmonary disease, unspecified | CPT/HCPCS: 99204; 99215 ==

== ENCOUNTER 2021-02-27 01:44 | Outpatient (CLI) | payer MEDICARE, OTHER, SELFPAY ==
--- NOTE | 2021-02-27 07:00 | DI.CT_ITS ---
Exam(s) CT ABDOMEN WO/W EXAM: CT ABDOMEN WO/W CLINICAL HISTORY: monitor known renal mass,N28.89. TECHNIQUE: Imaging Protocol: Axial computed tomography images with coronal and sagittal reformatted images were created and reviewed CONTRAST MATERIAL: Intravenous: Omnipaque 350 Contrast volume:100 Oral: / no COMPARISON: CT CT ABDOMEN PELVIS WO/W from 07/30/[address] ABDOMEN PELVIS W from 02/15/2020 FINDINGS: A small hyperdense exophytic lesion is seen at the mid left kidney laterally. Its borders are smooth . This likely represents a hyperdense cyst and appears unchanged from previous exam. There is no ev idence of hydronephrosis or calcification. The kidneys shows symmetric nephrograms and pyelograms. There has been no change in the abdominal aortic aneurysm. The heart is enlarged. The liver, spleen and adrenals are unremarkable. Patient is status post cholecystectomy. The pancreas is atrophic. Scattered diverticulosis is seen in visualized portions of the bowel. No abnormal bowel distention. Appendix normal, projecting in the right upper quadrant. IMPRESSION: Stable benign appearing lesion in the mid left kidney, likely a hyperdense cyst. RADIATION DOSE DELIVERED: 1,615.03mGy.cm Total DLP DATA REPOSITORY: All CT scans at this facility are submitted to the National Radiology Data Registry (NRDR) Dose Index Registry (DIR) with the [employer] (ACR). RADIATION OPTIMIZATION: All CT scans at this facility use at least one of these dose optimization te chniques: automated exposure control; mA and/or kV adjustment per patient size (includes targeted exa ms where dose is matched to clinical indication); or iterative reconstruction.
[2021-02-27 08:34] LABS: Anion Gap 5.8 mmol/L (3-11); BUN 15 mg/dL (7-18); CO2 28.2 mmol/L (21.0-32.0); CREATININE 0.9 mg/dL (0.55-1.02); Calcium 8.6 mg/dL (8.5-10.1); Chloride 105 mmol/L (98-107); Glucose 103 mg/dL (74-106); Potassium 3.9 mmol/L (3.5-5.1); Sodium 139 mmol/L (136-145)
[2021-02-27] MEDS: Omnipaque 350 MG/ML 100 ML BTL IJ (08:45)
[2021-02-27] MEDS: Normal Saline - Diluent 50 ML VIAL IV (08:46)
== END 2021-02-27 02:04 ==
PROVIDERS: Family Medicine; PCP Student in an Organized Health Care Education/Training Program; Visit Provider Urology
DX: R31.29 Other microscopic hematuria (principal); N28.89 Other specified disorders of kidney and ureter; K42.9 Umbilical hernia without obstruction or gangrene; J44.9 Chronic obstructive pulmonary disease, unspecified; I25.2 Old myocardial infarction
CPT/HCPCS: 80048; 81003; 99213; 99214; 74170; J3490

== ENCOUNTER 2021-07-23 03:15 | Outpatient (CLI) | payer MEDICARE, OTHER, SELFPAY ==
[2021-07-23] MEDS: Inhaler, Assist Device 1 EACH MC (09:03)
[2021-07-23] MEDS: Albuterol HFA 18 GM 200 PUFF INH IH (09:03)
--- NOTE | 2021-07-24 17:29 | W.PFT ---
Date of service: 07/23/21 Time of Service: 08:00 Pulmonary Function Test Result Requesting Provider Aliyah De Paz Indications: COPD Interpretation Spirometry: There is severe airflow obstruction. There is no significant bronchodilator effect. Lung Volumes: There is evidence of air trapping. Diffusion Capacity: The diffusion and is reduced Airway Pressure: Airways resistance is elevated. Impression Severe airflow limitation with air trapping and a reduced diffusion consistent with the patient's known history of COPD. Note: When compared to pulmonary function testing obtained in 2010 there is improvement in the FEV1 and FVC as well as improvement in the degree of air trapping present. There is a reduction in diffusion. Clinical Correlation therefore is recommended.
== END 2021-07-23 03:16 | disposition home or self-care (01) ==
LOC: RT 03:15
PROVIDERS: PCP Student in an Organized Health Care Education/Training Program; Visit Provider Student in an Organized Health Care Education/Training Program
DX: J44.9 Chronic obstructive pulmonary disease, unspecified (principal); R06.09 Other forms of dyspnea; Z87.891 Personal history of nicotine dependence; J30.2 Other seasonal allergic rhinitis; Z77.098 Contact with and (suspected) exposure to other hazardous, chiefly nonmedicinal, chemicals
CPT/HCPCS: 94060; 94726; 94729

== ENCOUNTER 2021-07-30 11:15 | Outpatient (REF) | payer MEDICARE, OTHER, SELFPAY | END 2021-07-30 11:16 | disposition home or self-care (01) | LOC: LBN 11:15 | PROVIDERS: PCP Student in an Organized Health Care Education/Training Program; Visit Provider Nurse Practitioner Adult Health | DX: N39.0 Urinary tract infection, site not specified (principal) | CPT/HCPCS: 87077; 87086; 87186 ==

== ENCOUNTER → 2021-08-17 08:35 | Outpatient (BNVA) | payer MEDICARE, OTHER, SELFPAY | PROVIDERS: PCP Student in an Organized Health Care Education/Training Program; Referring Provider Student in an Organized Health Care Education/Training Program; Visit Provider Internal Medicine Cardiovascular Disease | DX: I25.10 Atherosclerotic heart disease of native coronary artery without angina pectoris (principal); J44.9 Chronic obstructive pulmonary disease, unspecified | CPT/HCPCS: 99214; 99213 ==

== ENCOUNTER 2021-08-17 16:41 | Outpatient (REF) | payer MEDICARE, OTHER, SELFPAY ==
[2021-08-17 19:57] LABS: Clarity Sl Cloudy (Clear); pH 5.5 (5-8)
[2021-08-17 19:58] LABS: Bilirubin Negative (Negative); Blood Moderate (Negative); Glucose Negative (Negative); Ketones Negative (Negative); Leukocyte Esterase Trace (Negative); Nitrite Negative (Negative); Urobilinogen 0.2 EU/dL (Up TO 0.2)
[2021-08-17 21:31] LABS: Bacteria Rare HPF (Negative); Crystals Negative HPF (Negative); Epithelial Cells Rare HPF (Negative); RBC 0-2 HPF (0-2)
[2021-08-17 21:32] LABS: C & S Indicated? C&S Done As Ordered; Mucus Negative (Negative)
== END 2021-08-17 16:42 | disposition home or self-care (01) ==
LOC: LBN 16:41
PROVIDERS: PCP Student in an Organized Health Care Education/Training Program; Visit Provider Student in an Organized Health Care Education/Training Program
DX: R82.998 Other abnormal findings in urine (principal)
CPT/HCPCS: 87077; 81003; 81015; 87086; 87186

== ENCOUNTER 2021-09-21 01:45 | Outpatient (CLI) | payer MEDICARE, OTHER, SELFPAY ==
--- NOTE | 2021-09-21 14:45 | DI.CTLCSR_ITS ---
Exam(s) CT CHEST LUNG CANCER SCREEN EXAM: CT CHEST LUNG CANCER SCREEN CLINICAL HISTORY: Screening for lung cancer,FORMER SMOKER, Z87.891 TECHNIQUE: Imaging Protocol: Axial computed tomography images with coronal and sagittal reformatted images were created and reviewed COMPARISON: CT CT CHEST WO from 08/24/[address] ABDOMEN WO/W from 02/27/[address] ABDOMEN WO/W from 02/27/2021 FINDINGS: Tracheobronchial tree: Patent where visualized. Pulmonary parenchyma: No dominant measurable mass. There is basilar atelectasis or scarring. Mild c entrilobular emphysematous changes are present. There is parenchymal and pleural scarring present. There is volume loss in the right middle lobe with bronchiectasis present. This may represent atelec tasis or scarring. Lung Nodules: None. Mediastinum and [place]: No dominant adenopathy or fluid collection. The esophagus is unremarkable. Thyroid gland: Unremarkable. Lymph nodes: Unremarkable. Pleura: No effusion or pneumothorax. Heart: The heart is not dilated. Coronary artery calcification is present. No pericardial effusion. Aorta: Thoracic aorta non-dilated.Atherosclerosis. Upper abdomen: There is again seen a 4.1 cm infrarenal abdominal aortic aneurysm. It is incompletel y imaged on the current examination. Status post cholecystectomy. Soft Tissues: Unremarkable. Bones: Within normal limits. IMPRESSION: 1. No pulmonary nodules. 2. Volume loss the right middle lobe with associated bronchiectasis. This may represent atelectasis or scarring. 3. Incompletely imaged stable 4.1 cm infrarenal abdominal aortic aneurysm. Category Lung-RADS 1.0 CATEGORIES: Category 0 - Prior chest CT exam(s) being located for comparison. Category 1 - Annual screening in 12 months. No nodules or definitely benign nodules. Category 2 - Annual screening in 12 months. Benign appearance. Nodules with low likelihood of becomin g active cancer. Category 3 - 6-month follow-up. Probably benign. Short-term follow-up suggested. Nodules with low lik elihood of becoming active cancer. Category 4A - 3-month follow-up and CT/PET if >8 mm in size. Suspicious finding. Findings which requi re additional testing. Category 4B - Findings which require additional testing and tissue sampling. Suspicious finding. Modifier S- Potentially clinically significant finding. (Non lung cancer) RADIATION DOSE DELIVERED: 79.43mGy.cm Total DLP 1.84mGy CTDIvol 79.43mGy.cm Total DLP 1.84mGy CTDIvol DATA REPOSITORY: All CT scans at this facility are submitted to the National Radiology Data Registry (NRDR) Dose Index Registry (DIR) with the [employer] (ACR). RADIATION OPTIMIZATION: All CT scans at this facility use at least one of these dose optimization te chniques: automated exposure control; mA and/or kV adjustment per patient size (includes targeted exa ms where dose is matched to clinical indication); or iterative reconstruction.
== END 2021-09-21 02:05 ==
PROVIDERS: PCP Student in an Organized Health Care Education/Training Program; Visit Provider Student in an Organized Health Care Education/Training Program
DX: Z12.2 Encounter for screening for malignant neoplasm of respiratory organs (principal); J47.9 Bronchiectasis, uncomplicated; R91.8 Other nonspecific abnormal finding of lung field; Z87.891 Personal history of nicotine dependence; I71.4 Abdominal aortic aneurysm, without rupture
CPT/HCPCS: 71271

== ENCOUNTER 2021-12-05 00:55 | Outpatient (CLI) | payer MEDICARE, OTHER, SELFPAY ==
--- NOTE | 2021-12-05 07:17 | DI.CT_ITS ---
Exam(s) CT ABDOMEN PELVIS W EXAM: CT ABDOMEN PELVIS W INDICATION: F/U AAA,RENAL LESION,LT OVARIAN CYST,PELVIC MASS,I71.4,N28.9,N83.202,R19.00. COMPARISON: CT CT ABDOMEN PELVIS W from 02/15/[address] ABDOMEN WO/W from 02/27/2021 TECHNIQUE: FINDINGS: CT examination of the abdomen and pelvis was performed with a bolus infusion of 100 cc of Omnipaque 3 50. Images obtained through the lung bases are unremarkable. Coronary artery stents or calcification appear to be present. The liver is unremarkable in appearance. Gallbladder is not clearly visualized, no biliary dilatation.. Pancreas shows fatty replacement period. Spleen is unremarkable in appearance. Adrenals appear normal. Previously described 9 millimeter hyperdense homogeneous left renal cortical lesion is unchanged in a ppearance comparison with examination of February 2020. No other renal mass. No hydronephrosis or nephro lithiasis. Urinary bladder is unremarkable. There is a approximately 4 cm in diameter abdominal aortic aneurysm, unchanged in size from prior wojciech dy. Small fat containing umbilical hernia noted.. No abdominal or pelvic adenopathy. Previously described low-attenuation left adnexal lesion measures 51 x 38 millimeters on today's exam ination on transaxial imaging, unchanged from prior examination.. Appendix is normal. No evidence of diverticulitis or bowel obstruction. IMPRESSION: Stable appearance of left adnexal mass and left renal cortical mass as described above. 4 cm in diam eter abdominal aortic aneurysm, not grossly changed in size.. RADIATION DOSE DELIVERED: 1,162.92mGy.cm Total DLP 1,162.92mGy.cm Total DLP !Error CTDIvol RADIATION OPTIMIZATION: All CT scans at this facility use at least one of these dose optimization te chniques: automated exposure control; mA and/or kV adjustment per patient size (includes targeted exa ms where dose is matched to clinical indication); or iterative reconstruction.
[2021-12-05] MEDS: Breeza Beverage 473 ML BTL PO (10:02)
[2021-12-05] MEDS: Omnipaque 350 MG/ML 50 ML BTL IJ (10:02)
[2021-12-05 10:09] LABS: CREATININE 1.1 mg/dL (0.55-1.02); Estimated GFR 48.42 (mL/min/1.73m2)
[2021-12-05] MEDS: Omnipaque 350 MG/ML 100 ML BTL IJ (11:35)
== END 2021-12-05 01:15 ==
PROVIDERS: PCP Student in an Organized Health Care Education/Training Program; Visit Provider Student in an Organized Health Care Education/Training Program
DX: N28.9 Disorder of kidney and ureter, unspecified (principal); I71.4 Abdominal aortic aneurysm, without rupture; N83.202 Unspecified ovarian cyst, left side
CPT/HCPCS: 74177; 82565; J3490; Q9967

== ENCOUNTER → 2022-03-01 09:53 | Outpatient (BNVA) | payer MEDICARE, OTHER, SELFPAY | PROVIDERS: PCP Student in an Organized Health Care Education/Training Program; Referring Provider Student in an Organized Health Care Education/Training Program; Visit Provider Urology | DX: R31.29 Other microscopic hematuria (principal); N28.9 Disorder of kidney and ureter, unspecified | CPT/HCPCS: 81003; 99213 ==

== ENCOUNTER 2022-03-18 04:42 | Outpatient (CLI) | payer MEDICARE, OTHER, SELFPAY ==
--- NOTE | 2022-03-19 15:57 | W.PFT ---
Date of service: 03/18/22 Time of Service: 15:58 Pulmonary Function Test Result Requesting Provider Eloina Indications: COPD 6 Minute Walk Test Distance walked:400 feet Desaturations:4LPM required for exertion Heart rate changes:no significant changes Recommendation:Increase oxygen prescription to 4LPM with exertion and 2LPM with rest Elida Duvall MD Pulmonary & Critical Care Medicine
== END 2022-03-18 04:43 | disposition home or self-care (01) ==
LOC: RT 04:42
PROVIDERS: PCP Student in an Organized Health Care Education/Training Program; Visit Provider Student in an Organized Health Care Education/Training Program
DX: J44.9 Chronic obstructive pulmonary disease, unspecified (principal); R94.2 Abnormal results of pulmonary function studies
CPT/HCPCS: 94618

== ENCOUNTER → 2022-05-17 09:12 | Outpatient (BNVA) | payer MEDICARE, OTHER, SELFPAY | PROVIDERS: PCP Student in an Organized Health Care Education/Training Program; Visit Provider Internal Medicine Cardiovascular Disease | DX: I25.2 Old myocardial infarction (principal); Z95.5 Presence of coronary angioplasty implant and graft; Z99.81 Dependence on supplemental oxygen; I25.10 Atherosclerotic heart disease of native coronary artery without angina pectoris; J44.9 Chronic obstructive pulmonary disease, unspecified | CPT/HCPCS: 99213 ==

== ENCOUNTER 2022-05-20 12:30 | Outpatient (REF) | payer MEDICARE, OTHER, SELFPAY ==
[2022-05-20 14:27] LABS: ALT 24 U/L (14-59); AST 24 U/L (15-37); Albumin 2.8 g/dL (3.4-5.0); Alkaline Phosphatase 125 U/L (46-116); Anion Gap 5.6 mmol/L (3-11); BUN 21 mg/dL (7-18); Bilirubin, Total 0.6 mg/dL (0.2-1.0); CO2 29.4 mmol/L (21.0-32.0); CREATININE 0.9 mg/dL (0.55-1.02); Calcium 8.6 mg/dL (8.5-10.1); Chloride 105 mmol/L (98-107); Glucose 104 mg/dL (74-106); Potassium 3.9 mmol/L (3.5-5.1); Sodium 140 mmol/L (136-145); Total Protein 6.5 g/dL (6.4-8.2)
== END 2022-05-20 12:31 | disposition home or self-care (01) ==
LOC: LBN 12:30
PROVIDERS: PCP Student in an Organized Health Care Education/Training Program; Visit Provider Student in an Organized Health Care Education/Training Program
DX: R77.0 Abnormality of albumin (principal); R79.89 Other specified abnormal findings of blood chemistry
CPT/HCPCS: 80053

== ENCOUNTER → 2022-06-14 09:02 | Outpatient (BNVA) | payer MEDICARE, OTHER, SELFPAY | PROVIDERS: PCP Student in an Organized Health Care Education/Training Program; Referring Provider Student in an Organized Health Care Education/Training Program; Visit Provider Urology | DX: R31.29 Other microscopic hematuria (principal); N28.89 Other specified disorders of kidney and ureter; R35.0 Frequency of micturition; R30.0 Dysuria | CPT/HCPCS: 81003; 99214 ==

== ENCOUNTER 2022-06-14 20:25 | Outpatient (REF) | payer MEDICARE, OTHER, SELFPAY | END 2022-06-14 20:26 | disposition home or self-care (01) | LOC: LBN 20:25 | PROVIDERS: PCP Student in an Organized Health Care Education/Training Program; Visit Provider Urology | DX: R31.9 Hematuria, unspecified (principal) | CPT/HCPCS: 87077; 87186; 87086 ==

== ENCOUNTER → 2022-09-26 01:11 | Outpatient (CLI) | payer MEDICARE, OTHER, SELFPAY ==
--- NOTE | 2022-09-26 07:30 | DI.CT_ITS ---
Exam(s) CT ABDOMEN PELVIS W EXAM: CT ABDOMEN PELVIS W CLINICAL HISTORY: f/u lt ovarian cyst,aaa,pelvic mass,i71.4,n83.202,r19.00. TECHNIQUE: Imaging Protocol: Axial computed tomography images with coronal and sagittal reformatted images were created and reviewed CONTRAST MATERIAL: Intravenous: Omnipaque 350 Contrast volume:100 ml Oral: yes COMPARISON: CT CT ABDOMEN PELVIS W from 12/05/[address] CHEST LUNG CANCER SCREEN from 09/26/2022 FINDINGS: ABDOMEN: Lung Bases: Motion limits evaluation. Heart is enlarged. Coronary artery calcifications seen. Liver: Normal density. No measurable mass. Gallbladder and biliary tract: No radiodense calculus or dilation. Pancreas: Fatty infiltration, no abnormal calcifications or inflammatory process. Spleen: Normal. Kidneys: Normal size, contour and axis. No radiodense stones or obstructive uropathy. Stable small bi lateral renal cysts. Adrenal glands: No masses seen. Abdominal Aorta: Interval increase in size of abdominal aortic aneurysm to 4.7 transverse by 4.2 AP b y 5 point 7 cm in length compared with 4.1 x 3.9 by 5.2 on the prior exam. Increased mural thrombus a nteriorly. Soft tissues:: Stable small fatty containing umbilical hernia. PELVIS: Bladder: No gross wall thickening. No calculi.No focal mass. Bowel: Diverticulosis of the descending sigmoid. No diverticulitis. No obstruction or bowel wall thic kening. Appendix normal. Peritoneal cavity: No ascites, collection or mesenteric inflammatory response. Bones: Degenerative changes mainly of the facet joints.. Reproductive organs: Stable size and appearance of previously noted left ovarian cyst. Uterus and rig ht ovary unremarkable. Lymph nodes: Unremarkable. Impression: Interval increase in size of abdominal aortic aneurysm with increased mural thrombus. Stable size and appearance of left ovarian cyst. RADIATION DOSE DELIVERED: 1,176.26mGy.cm Total DLP DATA REPOSITORY: All CT scans at this facility are submitted to the National Radiology Data Registry (NRDR) Dose Index Registry (DIR) with the [employer] (ACR). RADIATION OPTIMIZATION: All CT scans at this facility use at least one of these dose optimization te chniques: automated exposure control; mA and/or kV adjustment per patient size (includes targeted exa ms where dose is matched to clinical indication); or iterative reconstruction.
--- NOTE | 2022-09-26 07:30 | DI.CTLCSR_ITS ---
Exam(s) CT CHEST LUNG CANCER SCREEN EXAM: CT CHEST LUNG CANCER SCREEN CLINICAL HISTORY: Screening for lung cancer,former smoker, z87.891 TECHNIQUE: Imaging Protocol: Axial computed tomography images with coronal and sagittal reformatted images were created and reviewed. Low dose screening protocol. COMPARISON: CT CT CHEST LUNG CANCER SCREEN from 09/21/2021 FINDINGS: Exam is somewhat limited by respiratory motion particularly at the lung bases. Tracheobronchial tree : Mild bronchial wall thickening seen in the right lower lobe. No bronchiectasis or mucus plugging.. Mediastinum and [place]: No dominant adenopathy or fluid collection. Pulmonary parenchyma: Scarring and atelectasis at the lung bases. Other linear multifocal areas of s carring, stable. Previously noted atelectasis at the right middle lobe no longer present. No consol idation or dominant measurable mass. Mild emphysematous changes. Lung Nodules: None. Pleura: No effusion. No pneumothorax. Heart: The heart is not dilated. coronary artery calcifications are seen. Aorta: Atherosclerotic changes. Thoracic aorta non-dilated.Abdominal aorta dilated. Please see abdo men pelvic CT report. Upper abdomen: Unremarkable. Status post cholecystectomy. Bones: Prominent thoracic spine osteophytes. Soft Tissues: Unremarkable. IMPRESSION: No suspicious pulmonary nodules. Lung RADS Cat 1 - Negative: No nodules and definitely benign nodules Lung-RADS 1.0 CATEGORIES: Category 0 - Prior chest CT exam(s) being located for comparison. Category 1 - Annual screening in 12 months. No nodules or definitely benign nodules. Category 2 - Annual screening in 12 months. Benign appearance. Nodules with low likelihood of becomin g active cancer. Category 3 - 6-month follow-up. Probably benign. Short-term follow-up suggested. Nodules with low lik elihood of becoming active cancer. Category 4A - 3-month follow-up and CT/PET if >8 mm in size. Suspicious finding. Findings which requi re additional testing. Category 4B - Findings which require additional testing and tissue sampling. Category 4X - Category 3 or 4 nodules with additional features or imaging findings that increases the suspicion of malignancy. Modifier S- Potentially clinically significant findings (non lung cancer) RADIATION DOSE DELIVERED: 92.53mGy.cm Total DLP DATA REPOSITORY: All CT scans at this facility are submitted to the National Radiology Data Registry (NRDR) Dose Index Registry (DIR) with the [employer] (ACR). RADIATION OPTIMIZATION: All CT scans at this facility use at least one of these dose optimization te chniques: automated exposure control; mA and/or kV adjustment per patient size (includes targeted exa ms where dose is matched to clinical indication); or iterative reconstruction.
[2022-09-26 08:41] LABS: CREATININE 0.9 mg/dL (0.55-1.02); Estimated GFR 66.26 (mL/min/1.73m2)
[2022-09-26] MEDS: Barium Sulfate 2% W/V-Berry Smoothie 450 ML BTL 900 ML PO (08:51)
[2022-09-26] MEDS: Omnipaque 350 MG/ML 100 ML BTL IJ (08:54)
== END ==
PROVIDERS: PCP Student in an Organized Health Care Education/Training Program; Visit Provider Student in an Organized Health Care Education/Training Program
DX: I71.40 Abdominal aortic aneurysm, without rupture, unspecified (principal); R79.89 Other specified abnormal findings of blood chemistry; R93.89 Abnormal findings on diagnostic imaging of other specified body structures; N83.202 Unspecified ovarian cyst, left side; Z12.2 Encounter for screening for malignant neoplasm of respiratory organs; Z87.891 Personal history of nicotine dependence
CPT/HCPCS: 71271; 74177; 82565; J3490

== ENCOUNTER → 2022-10-29 09:00 | Outpatient (BNVA) | payer MEDICARE, OTHER, SELFPAY | PROVIDERS: PCP Student in an Organized Health Care Education/Training Program; Referring Provider Student in an Organized Health Care Education/Training Program; Visit Provider Urology | DX: R10.2 Pelvic and perineal pain (principal) | CPT/HCPCS: 99443 ==

== ENCOUNTER → 2023-02-11 09:44 | Outpatient (BNVA) | payer MEDICARE, OTHER, SELFPAY | PROVIDERS: PCP Student in an Organized Health Care Education/Training Program; Referring Provider Student in an Organized Health Care Education/Training Program; Visit Provider Surgery | DX: K42.9 Umbilical hernia without obstruction or gangrene (principal) | CPT/HCPCS: 99202; 99213 ==

== ENCOUNTER → 2023-02-28 09:38 | Outpatient (BNVA) | payer MEDICARE, OTHER, SELFPAY | PROVIDERS: PCP Student in an Organized Health Care Education/Training Program; Visit Provider Urology | DX: R35.0 Frequency of micturition (principal); R10.2 Pelvic and perineal pain | CPT/HCPCS: 99213 ==

== ENCOUNTER 2023-05-08 15:01 | Emergency (ER) | payer MEDICARE, OTHER, SELFPAY ==
[2023-05-08] VITALS (34 sets, daily range): BP systolic 143–161; BP diastolic 61–128; PULSE 48–62; RESP 18; TEMP 36.5; O2SAT 85–100
--- NOTE | 2023-05-08 15:11 | ED.GENADUL_ITS ---
Discharge Plan Disposition Patient Disposition: Home Discharge Details Clinical Impression: Acute UTI Primary Care Provider: Aliyah De Paz ED Provider: Ale Bennett Home Meds and New Rx's Prescriptions: New cephalexin 500 mg capsule 500 mg PO Q12H Qty: 10 0RF No Action (DME) compressor, for nebulizer device See Dose Instructions .ROUTE .MEDSUPPLY Qty: 1 0RF Dose Instruction: As directed Rx Instructions: As directed amitriptyline 10 mg tablet 10 mg PO QHS Qty: 90 4RF benzonatate 100 mg capsule 100 mg PO BID PRN (Reason: cough) Qty: 60 1RF atorvastatin 80 mg tablet 80 mg PO QHS Qty: 90 3RF Rx Instructions: per [facility] [place] d/c 08/29/20 s/p STEMI codeine-guaifenesin [Virtussin AC] 10-100 mg/5 mL liquid 10 ml PO Q6H Qty: 237 1RF Rx Instructions: Use sparingly, to rest/sleep fluticasone propionate 50 mcg/actuation spray,suspension 2 spray NS BID PRN (Reason: nasal congestion) Qty: 48 3RF Rx Instructions: for allergic rhinitis ipratropium-albuterol 0.5 mg-3 mg(2.5 mg base)/3 mL solution for nebulization 3 ml inhalation Q4H PRN (Reason: wheezing) Qty: 540 12RF lisinopril 5 mg tablet 5 mg PO DAILY Qty: 90 3RF Rx Instructions: per [facility] d/c 08/29/20 s/p STEMI ibuprofen 200 mg tablet 400 mg PO Q6H PRN acetaminophen [Arthritis Pain Relief (acetam)] 650 MG tablet extended release 650 mg PO PRN aspirin [Adult Low Dose Aspirin] 81 mg tablet,delayed release (DR/EC) 81 mg PO DAILY Qty: 90 3RF metoprolol succinate 50 mg tablet extended release 24 hr 50 mg PO DAILY Qty: 90 3RF Rx Instructions: per [facility] d/c 08/29/20 s/p STEMI (DME) Oxygen 2.5 L Continuous EACH See Rx Instructions .Route .MEDSUPPLY Qty: 1 Rx Instructions: use 2 - 4 liters dependant on exertion, pt feels 2.5 is good. cc roflumilast [Daliresp] 500 mcg tablet 500 mcg PO DAILY Qty: 90 3RF loratadine [Allergy Relief (loratadine)] 10 mg tablet 10 mg PO DAILY Qty: 90 2RF Spiriva with HandiHaler 18 mcg capsule, w/inhalation device See Rx Instructions .ROUTE .COMPLEX Qty: 90 12RF Hold Instructions: Formulary/Insurance Dose Instruction: INHALE THE CONTENTS OF 1 CAPSULE VIA INHALATION DEVICE DAILY Rx Instructions: INHALE THE CONTENTS OF 1 CAPSULE VIA INHALATION DEVICE DAILY albuterol sulfate [Ventolin HFA] 90 mcg/actuation HFA aerosol inhaler 2 puff inhalation Q4H PRN (Reason: shortness of breath or wheezing) Qty: 18 12RF fluticasone propion-salmeterol [Advair Diskus] 500-50 mcg/dose blister with device 1 inh inhalation BID PRN (Reason: Severe wheezing) Qty: 180 12RF fluoxetine 10 mg tablet 10 mg PO DAILY Qty: 90 3RF Rx Instructions: for depressed mood atorvastatin 80 mg Tablet 80 mg PO HS amitriptyline 10 mg Tablet 10 mg PO ONCE fluticasone propion-salmeterol [Advair Diskus] 500-50 mcg/dose Blister With Device 500 ea INHALATION BID roflumilast [Daliresp] 500 mcg Tablet 500 mcg PO ONCE Spiriva Respimat 1.25 mcg/actuation Mist 150 mcg INHALATION ONCE Discharge Instructions Instructions: Urinary Tract Infection in Women (ED) Referrals: Aliyah De Paz DO [Primary Care Provider] - 3 days Discharge Data Discharge Physician: Ale Bennett Medical Decision Making 78-year-old female presents for evaluation of abdominal pain as well as symptoms of a UTI. Laboratory studies consistent with UTI. Patient is given a dose of IV ceftriaxone. I am unable to find prior urine microscopy's. Patient is not sure what antibiotics she has used in the past. Urine culture is pending. CT of abdomen pelvis was obtained. She is aware of her stable aneurysm, left ovarian cyst, and kidney cyst. We discussed the unclear significance of the dilated duodenum. Patient is feeling much improved at this time. We will continue on antibiotics for UTI. She will follow-up with urology. She did have a bladder scan prior to discharge which showed over 400 of mL of urine in her bladder. She then urinated and had 120 mL left. She will discuss this with her urologist. We have discussed signs and symptoms of urinary retention. She understands indications to return. HPI General Date/Time Provider Initiated Documentation: 05/08/23 15:11 . HPI Narrative: 78-year-old female with history of COPD on 2 L nasal cannula oxygen at home presents for evaluation of right flank/abdominal pain. Patient states that she began having pain in her right flank around noon. She was leaning over a table at the time. She has had some symptoms of UTI recently. She has had frequent urinary tract infections. She denies any gross hematuria. No fevers or chills. No cough or cold. No nausea or vomiting. She has had some constipation. She is due for a colonoscopy. She has had a cholecystectomy as well as a tubal ligation in the past. Denies any history of kidney infections or kidney stones. Denies any heavy lifting or falls. No known injuries. Related Data Home Medications Medication Instructions Recorded Confirmed acetaminophen 650 mg 650 mg PO PRN 11/08/16 05/08/23 tablet,extended release (Arthritis Pain Relief (acetaminophen) ER) compressor, for nebulizer #1 ea 10/14/18 02/28/23 aspirin 81 mg tablet,delayed 81 mg PO DAILY #90 tabs 07/18/22 05/08/23 release (Adult Low Dose Aspirin) metoprolol succinate 50 mg 50 mg PO DAILY #90 tabs 07/18/22 05/08/23 tablet,extended release 24 hr Oxygen #1 ea 08/20/22 02/28/23 benzonatate 100 mg capsule 100 mg PO BID PRN cough #60 caps 08/20/22 02/28/23 roflumilast 500 mcg tablet 500 mcg PO DAILY #90 tabs 10/21/22 02/28/23 (Daliresp) loratadine 10 mg tablet (Allergy 10 mg PO DAILY #90 tabs 11/13/22 02/28/23 Relief (loratadine)) tiotropium bromide 18 mcg capsule See Rx Instructions .Route 11/25/22 02/28/23 with inhalation device (Spiriva .COMPLEX #90 caps with HandiHaler) Ventolin HFA 90 mcg/actuation 2 puff inhalation Q4H PRN 01/06/23 02/28/23 aerosol inhaler (albuterol sulfate) shortness of breath or wheezing #18 grams atorvastatin 80 mg tablet 80 mg PO QHS #90 tabs 01/31/23 05/08/23 codeine 10 mg-guaifenesin 100 mg/5 10 ml PO Q6H #237 mL 01/31/23 02/28/23 mL oral liquid (Virtussin AC) fluticasone propionate 50 2 spray NS BID PRN nasal 01/31/23 02/28/23 mcg/actuation nasal congestion #48 grams spray,suspension ipratropium 0.5 mg-albuterol 3 mg 3 ml inhalation Q4H PRN wheezing 01/31/23 05/08/23 (2.5 mg base)/3 mL nebulization #540 mL soln lisinopril 5 mg tablet 5 mg PO DAILY #90 tabs 01/31/23 05/08/23 ibuprofen 200 mg tablet 400 mg PO Q6H PRN 02/11/23 02/28/23 amitriptyline 10 mg tablet 10 mg PO QHS #90 tabs 02/28/23 05/08/23 Advair Diskus 500 mcg-50 mcg/dose 1 inh inhalation BID PRN Severe 04/16/23 powder for inhalation (fluticasone wheezing #180 ea propion-salmeterol) fluoxetine 10 mg tablet 10 mg PO DAILY #90 tabs 05/01/23 05/08/23 amitriptyline 10 mg tablet 10 mg PO ONCE 05/08/23 05/08/23 atorvastatin 80 mg tablet 80 mg PO HS 05/08/23 05/08/23 cephalexin 500 mg capsule 500 mg PO Q12H #10 caps 05/08/23 fluticasone 500 mcg-salmeterol 50 500 ea inhalation BID 05/08/23 05/08/23 mcg/dose blistr powdr for inhalation (Advair Diskus) roflumilast 500 mcg tablet 500 mcg PO ONCE 05/08/23 05/08/23 (Daliresp) tiotropium bromide 1.25 150 mcg inhalation ONCE 05/08/23 05/08/23 mcg/actuation mist for inhalation (Spiriva Respimat) Previous Rx's Medication Instructions Recorded compressor, for nebulizer #1 ea 10/14/18 aspirin 81 mg tablet,delayed 81 mg PO DAILY #90 tabs 07/18/22 release (Adult Low Dose Aspirin) metoprolol succinate 50 mg 50 mg PO DAILY #90 tabs 07/18/22 tablet,extended release 24 hr benzonatate 100 mg capsule 100 mg PO BID PRN cough #60 caps 08/20/22 roflumilast 500 mcg tablet 500 mcg PO DAILY #90 tabs 10/21/22 (Daliresp) loratadine 10 mg tablet (Allergy 10 mg PO DAILY #90 tabs 11/13/22 Relief (loratadine)) tiotropium bromide 18 mcg capsule See Rx Instructions .Route 11/25/22 with inhalation device (Spiriva .COMPLEX #90 caps with HandiHaler) Ventolin HFA 90 mcg/actuation 2 puff inhalation Q4H PRN 01/06/23 aerosol inhaler (albuterol sulfate) shortness of breath or wheezing #18 grams atorvastatin 80 mg tablet 80 mg PO QHS #90 tabs 01/31/23 codeine 10 mg-guaifenesin 100 mg/5 10 ml PO Q6H #237 mL 01/31/23 mL oral liquid (Virtussin AC) fluticasone propionate 50 2 spray NS BID PRN nasal 01/31/23 mcg/actuation nasal congestion #48 grams spray,suspension ipratropium 0.5 mg-albuterol 3 mg 3 ml inhalation Q4H PRN wheezing 01/31/23 (2.5 mg base)/3 mL nebulization #540 mL soln lisinopril 5 mg tablet 5 mg PO DAILY #90 tabs 01/31/23 amitriptyline 10 mg tablet 10 mg PO QHS #90 tabs 02/28/23 Advair Diskus 500 mcg-50 mcg/dose 1 inh inhalation BID PRN Severe 04/16/23 powder for inhalation (fluticasone wheezing #180 ea propion-salmeterol) fluoxetine 10 mg tablet 10 mg PO DAILY #90 tabs 05/01/23 cephalexin 500 mg capsule 500 mg PO Q12H #10 caps 05/08/23 Allergies Allergy/AdvReac Type Severity Reaction Status Date / Time Fish Containing Products AdvReac Severe vomiting, Verified 02/28/23 09:48 diarrhea, headache General Stated Complaint: Abd Prob SHAILA: 3 Review of Systems Narrative: Remainder of review of systems otherwise negative except for as noted in the HPI x10. PFSH All Active Problems (Updated 05/08/23 @ 18:57 by Ale Bennett MD) Acute UTI (Acute) Abnormal finding on imaging (Acute) Followed by US/CT: AAA, Umb Hernia, Ov Cyst (lft), Renal lesion (lft) .. Asthma (Chronic) Elevated serum creatinine (Acute) per december 2021 labs .. improved? AAA (abdominal aortic aneurysm) (Chronic) Apparent > 5mm growth since 12/2021, per Abd CT (09/2022). [ ] Vasc, ik .. Stable per 09/2021 CT (4.1cm) .. Hx: 39mm infrarenal; found on 07/30/19 CT.. AAA > 5.5 cm present high risk and surgical review. Oxygen dependent (Acute) 2L ... Can go without if sitting/resting only. 04/2022: 2.5L with URI (2' PulsOx in 80s) Environmental allergies (Acute) Long Hx loratidine, trial cetirizine (03/2021) Personal history of nicotine dependence (Acute) TAMRA (obstructive sleep apnea) (Chronic ~2015) Aníbal- moderately severe CPAP Chronic airway obstruction, mixed type (Acute) GOLD III severe COPD, FEV1 0.9 (41%pred, 48%FVC) 03/2011; significant response dilator; similar 11/07/15 Cor pulmonale (Acute 03/19/16) edema, hypoxia, arrhythmia at [facility] 02/26/16 Abnormal screening computed tomography (CT) of chest (Acute ~06/30/20) CT (2019) shows NO NODULE. New 1 cm nodule in the left upper lobe. Dr. Miller Umbilical hernia (Acute) ID'd on CT; Surgery Eval for management recommendations CAD (coronary artery disease) (Chronic) s/p PCI Distal RCA (DON x2)([facility]), 08/2020 .. 2' STEMI ([facility]).. Increased frequency of urination (Acute) Hematuria (Acute) Pelvic mass (Acute 02/24/15) Followed by [facility], yearly imaging planned... Left renal, Left ovarian lesions .. stable, 2020 CT. Renal lesion (Acute) Ovarian cyst, left (Acute) US 1999, 2006; again on MRI of hip 2014, US 2014 Dysuria (Acute) Acute on chronic complaint .. 08/17/21, 07/30/21 ... Cough (Chronic) Chronic, calms with cough syrup/lozenges. Worsens with COPD exacerbations. Venous insufficiency of both lower extremities (Acute 03/19/16) Greater trochanteric bursitis of right hip (Acute 05/16/15) Hip pain, right (Acute 12/26/14) DJD, ? AVN on MRI (Dr Llaons) Medical History Cataracts, bilateral Scheduled for cataract surgery with Dr. Pappas ([facility]) 08/23 (OS) & 09/06 (OD) .. COPD (chronic obstructive pulmonary disease) COPD exacerbation Depressive disorder (07/24/12) History of ST elevation myocardial infarction (STEMI) Involving L main coronary artery. Per [facility] 10/31/22 note.HE Osteoarthritis, hand (10/17/14) Tubular adenoma of colon (07/23/17) Varicose veins Surgical History Cholecystectomy (10/06/1966) Colonoscopy - MAC (07/23/17) Ligation of fallopian tube (10/06/69) Family History Mother , complications DM at age 67. Diabetes Father , stomach cancer at age 30. No problems noted. 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 Pets and animals: No Sexually active: No Do you think of yourself as: straight/heterosexual Current gender identity: female What is your relationship status?: Panel score (0-1 are the most socially isolated patients): 0 What type of physical activity do you participate in: other Details: Yardwork; Housework Duration: 30-45 minutes/day Frequency: daily Linda/Adventism: Judaism Seatbelt use: always Helmet use: No (Never) Drive intox or ride w/intox electric mule driver: No Working smoke detector in home: Yes Fire extinguisher in home: Yes Carbon monox detector in home: Yes Do you feel safe at home: Yes Do you feel safe in your relationship?: Yes Exam Narrative Exam Narrative: General: non-toxic, no respiratory distress, comfortable HEENT: normocephalic, atraumatic, lids and lashes normal, PERRL, EOMI, anicteric sclera, no conjunctival injection, moist oral mucosa Card: regular rate and rhythm, S1S2, no murmurs, rubs, or gallops Lungs: good air entry, clear to auscultation bilaterally. no wheezes, rales, rhonchi, or retractions Abd: soft, mild right upper quadrant tenderness, non-distended, normal bowel sounds, no rebound or guarding, no peritoneal signs, no CVAT Musculoskeletal: full range of motion of arms and legs, no tenderness to palpation. no clubbing, cyanosis, or edema Neurologic: appropriate for age, strength normal Psych: alert and oriented Skin: no petechiae, no lesions, warm and dry Course Vital Signs Vital signs: Vital Signs Temperature 36.5 C 05/08/23 15:03 Pulse 56 L 05/08/23 15:03 Respiratory Rate 18 05/08/23 15:03 Blood Pressure 144/128 H 05/08/23 15:03 Pulse Oximetry 95 05/08/23 15:03 Temperature 36.5 C 05/08/23 15:03 Temperature Source Oral 05/08/23 15:03 Pulse 56 L 05/08/23 15:03 Respiratory Rate 18 05/08/23 15:03 Respiratory Effort Normal 05/08/23 15:07 Blood Pressure 144/128 H 05/08/23 15:03 Blood Pressure Position Sitting 05/08/23 15:03 Pulse Oximetry 95 05/08/23 15:03 Oxygen Delivery Method Nasal Cannula 05/08/23 15:03 Oxygen Flow Rate 2 05/08/23 15:03
[2023-05-08] MEDS: Normal Saline 1,000 ML 1000 ML IV (15:43)
[2023-05-08] MEDS: Ondansetron 4 MG/2 ML VIAL IVP (15:43)
[2023-05-08 15:51] LABS: Abs Immature Grans 0.01 10^3/uL (0.0-0.06); Absolute Basophil Count 0.04 10^3/uL (0.0-0.2); Absolute Eosinophil Count 0.13 10^3/uL (0.0-0.7); Absolute Lymphocyte Count 1.17 10^3/uL (1.2-3.4); Absolute Monocyte Count 0.53 10^3/uL (0.1-0.8); Absolute Neutrophil Count 5.17 10^3/uL (1.2-6.7); Basophils % 0.6; Eosinophils % 1.8; HCT 37.9 % (36.0-46.0); HGB 12.3 g/dL (11.2-15.7); Immature Grans % 0.1; Lymphocytes % 16.6; MCH 30.1 pg (27.0-33.0); MCHC 32.5 % (32.0-36.0); MCV 93 fL (80-95); MPV 8.9 fL (8.0-11.0); Monocytes % 7.5; Neutrophils % 73.4; Platelet Count 239 10^3/uL (130-400); RBC 4.09 10^6/uL (3.93-5.22); RDW 13.5 % (11.7-14.6); RDW-SD 46.5 fL; WBC 7.05 10^3/uL (4.4-10.8)
[2023-05-08 16:45] LABS: Bilirubin Negative (Negative); Blood Moderate (Negative); Clarity Clear (Clear); Glucose Negative (Negative); Ketones Negative (Negative); Leukocyte Esterase Small (Negative); Nitrite Positive (Negative); Urobilinogen 0.2 mg/dL (Up to 0.2); pH 5.5 (5-8)
--- NOTE | 2023-05-08 16:45 | DI.CT_ITS ---
Exam(s) CT ABDOMEN PELVIS WO EXAM: CT ABDOMEN PELVIS WO CLINICAL HISTORY: right flank pain. TECHNIQUE: Imaging Protocol: Axial computed tomography images with coronal and sagittal reformatted images were created and reviewed CONTRAST MATERIAL: Intravenous: none Oral: None COMPARISON: CT CT ABDOMEN PELVIS W from 09/26/2022 FINDINGS: VISUALIZED LUNG BASES: Mild infiltrate in both lung bases. No associated pleural effusions.. ABDOMEN: There is no ascites. The stomach and duodenum are somewhat prominent in size. No distal small bowel obstruction evident. Size of jejunal and distal small bowel loops is normal. LIVER: There are no obvious focal hepatic lesions evident of this noninfused study. GALLBLADDER/BILIARY: Is not visualized. CBD is not dilated. PANCREAS: No evidence of pancreatic mass nor dilatation of the pancreatic duct. SPLEEN: Spleen is not enlarged. No obvious intrasplenic lesions. ADRENALS: There are no significant adrenal masses. KIDNEYS:There is a small benign hemorrhagic cyst off the lateral cortex of the left kidney. No other significant renal findings. No hydronephrosis. No calculi. No solid renal masses. No calculi nor hydronephrosis. . ABDOMINAL AORTA: Abdominal aorta aneurysm is again noted with maximum external diameter of 4.7 cm, un changed. There is no significant aneurysmal dilatation of the iliac arteries. LYMPH NODES: There is no retroperitoneal nor paraaortic adenopathy. ABDOMINAL WALL: There is a fat containing midline supraumbilical hernia. Hernia sac does not contain bowel loops. There is no bowel obstruction. GI: There is no evidence of bowel obstruction, free air, nor abscess. PELVIS: LYMPH NODES: There is no intrapelvic nor inguinal adenopathy. GI: No evidence of appendicitis.No evidence of sigmoid diverticulitis. URINARY BLADDER: No obvious abnormality. REPRODUCTIVE: Uterus and right adnexa unremarkable. There is a cyst in the left adnexa measuring 5.5 by 3.0 cm, unchanged and containing a single mural calcification. This is unchanged from the previo us study. There is no free fluid. Right ovary is unremarkable. OSSEOUS: No significant osseous lesions. No fractures IMPRESSION: 1. Compared to the prior CT scan of September 2022 there is again noted an abdominal aortic aneurysm w ith maximum external diameter 4.7 cm, unchanged. No iliac artery aneurysms evident. 2. Persistent stable left ovarian cyst again noted. No free fluid. 3. No evidence of appendicitis nor diverticulitis. No bowel obstruction. 4. Dilated duodenum and proximal jejunum. No true bowel obstruction. 5. There is a fat containing anterior abdominal wall supraumbilical hernia. There is some streaking in the contain fat but no bowel loops therein. Also no fluid evident within the hernia sac. Findings discussed with ER physician. RADIATION DOSE DELIVERED: 913.36mGy.cm Total DLP DATA REPOSITORY: All CT scans at this facility are submitted to the National Radiology Data Registry (NRDR) Dose Index Registry (DIR) with the [employer] (ACR). RADIATION OPTIMIZATION: All CT scans at this facility use at least one of these dose optimization te chniques: automated exposure control; mA and/or kV adjustment per patient size (includes targeted exa ms where dose is matched to clinical indication); or iterative reconstruction.
[2023-05-08 16:47] LABS: Bacteria Moderate HPF (Negative); C & S Indicated? Yes; Casts Negative LPF (Negative); Crystals Negative HPF (Negative); Epithelial Cells Few HPF (Negative); Mucus Trace (Negative)
[2023-05-08 16:57] LABS: ALT 23 U/L (14-59); AST 29 U/L (15-37); Alkaline Phosphatase 139 U/L (46-116); Anion Gap 6.1 mmol/L (3-11); BUN 15 mg/dL (7-18); Bilirubin, Total 0.6 mg/dL (0.2-1.0); CO2 28.9 mmol/L (21.0-32.0); Chloride 96 mmol/L (98-107); Estimated GFR 58.02 (mL/min/1.73m2); Glucose 101 mg/dL (74-106); Lipase 42 U/L (16-77); Magnesium 1.7 mg/dL (1.8-2.4); Potassium 3.8 mmol/L (3.5-5.1); Sodium 131 mmol/L (136-145); Total Protein 7.4 g/dL (6.4-8.2); Troponin I < 50 ng/L (<or=60)
[2023-05-08] MEDS: cefTRIAXone 2 GM/50 ML BAG IVPB (17:45)
== END 2023-05-08 19:23 | disposition home or self-care (01) ==
PROVIDERS: Emergency Provider Emergency Medicine Emergency Medical Services; PCP Student in an Organized Health Care Education/Training Program
DX: N39.0 Urinary tract infection, site not specified (principal)
CPT/HCPCS: 80053; 83690; 87077; 96361; 96365; 96375; 99284; 74176; 81003; 81015; 83735; 84484; 85025; 87086; 87186; J2405

== ENCOUNTER 2023-05-20 07:47 | Outpatient (CLI) | payer MEDICARE, SELFPAY ==
--- NOTE | 2023-05-20 07:45 | RT.EKG_ITS ---
APPROVED REPORT Exam: Resting ECG Reason for Exam: CAD Patient Location: O HR:70 bpm ECG Measurements Heart Rate 70 AXIS IL 163 P -84 QRSd 115 QRS 77 QT 392 T 102 QTc 423 Conclusion Sinus rhythm...P axis (-45,135) Borderline IVCD Low voltage Nonspecific T abnormalities, lateral leads...T <-0.10mV, I aVL V5 V6 Baseline wander in lead(s) V2
== END 2023-05-20 07:48 | disposition home or self-care (01) ==
LOC: DI.CARD 07:48
PROVIDERS: PCP Student in an Organized Health Care Education/Training Program; Visit Provider Internal Medicine Cardiovascular Disease
DX: I25.10 Atherosclerotic heart disease of native coronary artery without angina pectoris (principal)
CPT/HCPCS: 93010

== ENCOUNTER → 2023-05-20 08:44 | Outpatient (BNVA) | payer MEDICARE, SELFPAY | PROVIDERS: PCP Student in an Organized Health Care Education/Training Program; Visit Provider Internal Medicine Cardiovascular Disease | DX: Z95.5 Presence of coronary angioplasty implant and graft (principal); I25.10 Atherosclerotic heart disease of native coronary artery without angina pectoris; J44.9 Chronic obstructive pulmonary disease, unspecified | CPT/HCPCS: 93005; 99214 ==

== ENCOUNTER → 2023-06-12 03:00 | Outpatient (CLI) | payer MEDICARE, SELFPAY ==
--- NOTE | 2023-06-12 07:45 | DI.DEXA_ITS ---
Exam(s) XR DEXA BONE DENSITY W/WO ARINA EXAM: XR DEXA BONE DENSITY W/WO ARINA CLINICAL HISTORY: eval bone density,SCREENING FOR OSTEOPOROSIS IN POSTMENOPAUSAL WOMAN,Z78.0 TECHNIQUE: Routine DEXA evaluation of the lumbar spine, hip, or forearm. COMPARISON: Prior DEXA scan May 2008 FINDINGS: Performed on a HoloSqurl unit. Lateral image: No compression fractures. Lumbar Spine total T-score: -1.1. Prior 2007 reading was -1.7 Hip total T-score:-0.5. Prior 2007 reading was 1.1 Independent reading at the level of the femoral neck yields T-score of -1.9 Forearm total T-score: -2.6 IMPRESSION: Bone mineral density measures in the osteopenia range for lumbar spine and hip and osteoporosis for t he form-wrist.. Fracture risk is moderate-high Note: Any spine fracture indicates 5x risk for subsequent spine fracture and 2x risk for subsequent h ip fracture. World Health Organization criteria for BMD interpretation classify patients: Normal...... T- Score at or above -1.0 Osteopenic... T- Score between -1.0 and -2.5 Osteoporosis... T-Score at or below -2.5
== END ==
PROVIDERS: PCP Student in an Organized Health Care Education/Training Program; Visit Provider Student in an Organized Health Care Education/Training Program
DX: M81.0 Age-related osteoporosis without current pathological fracture (principal); Z78.0 Asymptomatic menopausal state; Z13.820 Encounter for screening for osteoporosis
CPT/HCPCS: 77080

== ENCOUNTER → 2023-07-07 14:14 | Outpatient (BNVA) | payer MEDICARE, SELFPAY | PROVIDERS: PCP Student in an Organized Health Care Education/Training Program; Referring Provider Student in an Organized Health Care Education/Training Program; Visit Provider Surgery | DX: Z12.11 Encounter for screening for malignant neoplasm of colon (principal); Z86.010 Personal history of colon polyps | CPT/HCPCS: 99212 ==

== ENCOUNTER 2023-07-16 18:55 | Emergency (ER) | payer MEDICARE, SELFPAY ==
[2023-07-16 19:06] VITALS: BP 100/71; PULSE 87; RESP 20; TEMP 37; O2SAT 93
--- NOTE | 2023-07-16 19:15 | DI.CT_ITS ---
Exam(s) CT HEAD WO EXAM: CT HEAD WO CLINICAL HISTORY: History of fall with head strike. TECHNIQUE: Imaging Protocol: Axial computed tomography images with coronal and sagittal reformatted images were created and reviewed COMPARISON: No exams were available for comparison FINDINGS: Ventricles and Extra axial spaces: Normal in size and morphology for the patient's age. Hemorrhage: None. Cerebral parenchyma: There are areas of decreased attenuation in the white matter most consistent wit h small vessel ischemic disease. Midline shift: None. Brainstem/Cerebellum: Normal. Calvarium: Normal. Visualized Paranasal sinuses/Mastoids: Clear. Soft Tissues: Unremarkable. IMPRESSION: No acute intracranial process. RADIATION DOSE DELIVERED: Total DLP DATA REPOSITORY: All CT scans at this facility are submitted to the National Radiology Data Registry (NRDR) Dose Index Registry (DIR) with the [employer] (ACR). RADIATION OPTIMIZATION: All CT scans at this facility use at least one of these dose optimization te chniques: automated exposure control; mA and/or kV adjustment per patient size (includes targeted exa ms where dose is matched to clinical indication); or iterative reconstruction.
--- NOTE | 2023-07-16 19:22 | ED.GENADUL_ITS ---
Discharge Plan Disposition Patient Disposition: Home Discharge Details Clinical Impression: History of fall, Acute exacerbation of chronic obstructive pulmonary disease (COPD), Multifocal pneumonia Primary Care Provider: Aliyah De Paz ED Provider: Jewel Mayorga [place] Meds and New Rx's Prescriptions: New doxycycline hyclate 100 mg capsule 100 mg PO BID 5 Days Qty: 10 0RF prednisone 50 mg tablet 50 mg PO DAILY Qty: 4 0RF Rx Instructions: Please begin taking tomorrow as you have received steroids in the emergency department Continued (DME) compressor, for nebulizer device See Dose Instructions .ROUTE .MEDSUPPLY Qty: 1 0RF Dose Instruction: As directed Rx Instructions: As directed amitriptyline 10 mg tablet 10 mg PO QHS Qty: 90 4RF benzonatate 100 mg capsule 100 mg PO BID PRN (Reason: cough) Qty: 60 1RF atorvastatin 80 mg tablet 80 mg PO QHS Qty: 90 3RF Rx Instructions: per [facility] [place]29/20 s/p STEMI codeine-guaifenesin [Virtussin AC] 10-100 mg/5 mL liquid 10 ml PO Q6H Qty: 237 1RF Rx Instructions: Use sparingly, to rest/sleep fluticasone propionate 50 mcg/actuation spray,suspension 2 spray NS BID PRN (Reason: nasal congestion) Qty: 48 3RF Rx Instructions: for allergic rhinitis ipratropium-albuterol 0.5 mg-3 mg(2.5 mg base)/3 mL solution for nebulization 3 ml inhalation Q4H PRN (Reason: wheezing) Qty: 540 12RF lisinopril 5 mg tablet 5 mg PO DAILY Qty: 90 3RF Rx Instructions: per [facility] 08/29/20 s/p STEMI ibuprofen 200 mg tablet 400 mg PO Q6H PRN acetaminophen [Arthritis Pain Relief (acetam)] 650 MG tablet extended release 650 mg PO PRN aspirin [Adult Low Dose Aspirin] 81 mg tablet,delayed release (DR/EC) 81 mg PO DAILY Qty: 90 3RF metoprolol succinate 50 mg tablet extended release 24 hr 50 mg PO DAILY Qty: 90 3RF Rx Instructions: per [facility] 08/29/20 s/p STEMI (DME) Oxygen 2.5 L Continuous EACH See Rx Instructions .Route .MEDSUPPLY Qty: 1 Rx Instructions: use 2 - 4 liters dependant on exertion, pt feels 2.5 is good. cc roflumilast [Daliresp] 500 mcg tablet 500 mcg PO DAILY Qty: 90 3RF loratadine [Allergy Relief (loratadine)] 10 mg tablet 10 mg PO DAILY Qty: 90 2RF tiotropium bromide [Spiriva with HandiHaler] 18 mcg capsule, w/inhalation device See Rx Instructions .ROUTE .COMPLEX Qty: 90 12RF Hold Instructions: Formulary/Insurance Dose Instruction: INHALE THE CONTENTS OF 1 CAPSULE VIA INHALATION DEVICE DAILY Rx Instructions: INHALE THE CONTENTS OF 1 CAPSULE VIA INHALATION DEVICE DAILY albuterol sulfate [Ventolin HFA] 90 mcg/actuation HFA aerosol inhaler 2 puff inhalation Q4H PRN (Reason: shortness of breath or wheezing) Qty: 18 12RF fluticasone propion-salmeterol [Advair Diskus] 500-50 mcg/dose blister with device 1 inh inhalation BID PRN (Reason: Severe wheezing) Qty: 180 12RF fluoxetine 10 mg tablet 10 mg PO DAILY Qty: 90 3RF Rx Instructions: for depressed mood ciprofloxacin HCl 250 mg tablet 250 mg PO BID Qty: 14 0RF clotrimazole 1 % cream 1 applic TP BID Qty: 30 3RF Rx Instructions: Apply under breasts, 2FTU x 2 BID (4g) est sulfamethoxazole-trimethoprim [Bactrim DS] 800-160 mg tablet 1 tab PO BID Qty: 14 0RF amitriptyline 10 mg Tablet 10 mg PO ONCE fluticasone propion-salmeterol [Advair Diskus] 500-50 mcg/dose Blister With Device 500 ea INHALATION BID roflumilast [Daliresp] 500 mcg Tablet 500 mcg PO ONCE Spiriva Respimat 1.25 mcg/actuation Mist 150 mcg INHALATION ONCE Discharge Instructions Instructions: COPD (Chronic Obstructive Pulmonary Disease) (ED) Additional Instructions: You were seen in the emergency department for your history of falling and shortness of breath. Your exam showed concerns for an exacerbation of your COPD for which you are receiving steroids and an antibiotic that you should take as directed. Your CAT scan showed concern that there could be a component of pneumonia for which you are receiving a second antibiotic. Please return to the emergency department if you develop worsening difficulty breathing chest pain fevers or any difficulty handling her secretions. HPI General Date/Time Provider Initiated Documentation: 07/16/23 19:08 . HPI Narrative: HPI This is a 78-year-old female with a history of COPD and AAA arriving via private vehicle following a fall that she sustained this morning at approximately 2 AM. Patient reports she was walking to the bathroom wearing socks. She reports that she slept after losing her balance. She reportedly hit her head. She did not lose consciousness. She has been up and a bit since her fall. She has remote history of a DVT. She is chronically on 2 and half liters of oxygen at baseline 4 L oxygen when she ambulates. She is complaining of back pain on the right side of her back. She says that this low back pain preceded her fall. She lives alone. Her daughter is with her at the moment. She has not been nauseous or vomiting nor had any fevers chest pain dysuria nor frequency. Her daughter says that she just appeared more short of breath. She denies black or bloody stools. Exam General: Well-appearing in no acute distress speaking in complete sentences. Wearing nasal cannula. Head: Normocephalic, atraumatic. Eye: Extraocular eye movements intact. No conjunctival injection. No scleral icterus. Ear, nose, mouth, throat: Grossly normal inspection. Normal voice, handling secretions normally. Neck: Trachea midline. No midline cervical spinal tenderness. Cardiovascular: Well-perfused distal extremities. Respiratory: Nonlabored respiration. Quiet tachypnea with a respiratory rate of 25. Mild accessory muscle use. Markedly prolonged and expiratory wheeze. No stridor. Gastrointestinal: Nondistended abdomen. Soft nontender. Back: No midline thoracic nor lumbar spinal tenderness. No ecchymoses to back. Back nontender. Musculoskeletal: No edema. Moving all 4 extremities spontaneously. Skin: Normal for age and race, grossly normal temperature and turgor. No acute rash. Neurologic: Alert and appropriate, no apparent acute deficits. GCS 15. Psychiatric: Mood and manner are appropriate. Grooming and personal hygiene are appropriate. MDM This is an overall very well-appearing normothermic and not tachycardic 78-year-old female with history of fall at home not seems mechanical now with persistent shortness of breath back pain and prolonged expiratory phase concerning for COPD exacerbation which patient will receive nebulized ipratropium albuterol, doxycycline, and prednisone. Patient has not had any syncope to suggest ruptured AAA. No chest pain to suggest ACS. No midline thoracic nor lumbar spinal tenderness to suggest fracture so will defer cross- sectional imaging at this point time. Patient has not been nauseous or vomiting so doubt acute electrolyte abnormalities. Patient remotely had a DVT so we will order a D-dimer to restratify for PE. Given patient's fall will obtain a CK to assess for rhabdomyolysis. No pain or proportion to suggest necrotizing soft tissue infection. No focal neurological deficits to suggest CVA. No chest pain to suggest ACS. Patient has been taking acetaminophen at home. Will defer analgesics at this point time. I ordered a CT head at this patient on her age and her fall and this was negative for any acute intracranial abnormalities. 8:55 PM CBC showing mild normocytic anemia. No leukocytosis. No thrombocytopenia. 9:20 PM Reassuring normal CK. Basic metabolic panel showing no KITTY. Very mild hyponatremia. Very mild hypoglycemia. No anion gap. Normal bicarbonate??not consistent with DKA. 11:[address] scan read showing concern for multifocal pneumonia with bronchiolitis and en dobronchial mucus. Given history of COPD and comorbidities will add on amoxicillin clavulanic acid. We will ask health community cultural development officer Bertha to have the patient seen later this week by her primary care provider. Patient had a port score of 67 making her class II risk and appropriate for empiric trial of expectant outpatient management. Patient was motivated to go home. She understood her return indications including any worsening shortness of breath any fevers or any inability to tolerate p.o. CT scan showed no sign of a ruptured AAA. Chronic conditions affecting the care of the patient: History of AAA History obtained from an outside historian: Patient's daughter External record review: [facility] [place] Medications: Doxycycline prednisone I independently interpreted the following results: Chest x-ray: Increased bibasilar markings Social determinants of health affecting disposition: Management discussed with: Treatment/interventions considered: Hospitalization but deferred Response to therapies provided: Pain improved in the ED Related Data Home Medications Medication Instructions Recorded Confirmed acetaminophen 650 mg 650 mg PO PRN 11/08/16 07/07/23 tablet,extended release (Arthritis Pain Relief (acetaminophen) ER) compressor, for nebulizer #1 ea 10/14/18 07/07/23 aspirin 81 mg tablet,delayed 81 mg PO DAILY #90 tabs 07/18/22 07/07/23 release (Adult Low Dose Aspirin) metoprolol succinate 50 mg 50 mg PO DAILY #90 tabs 07/18/22 07/07/23 tablet,extended release 24 hr Oxygen #1 ea 08/20/22 07/07/23 benzonatate 100 mg capsule 100 mg PO BID PRN cough #60 caps 08/20/22 07/07/23 roflumilast 500 mcg tablet 500 mcg PO DAILY #90 tabs 10/21/22 07/07/23 (Daliresp) loratadine 10 mg tablet (Allergy 10 mg PO DAILY #90 tabs 11/13/22 07/07/23 Relief (loratadine)) tiotropium bromide 18 mcg capsule See Rx Instructions .Route 11/25/22 07/07/23 with inhalation device (Spiriva .COMPLEX #90 caps with HandiHaler) Ventolin HFA 90 mcg/actuation 2 puff inhalation Q4H PRN 01/06/23 07/07/23 aerosol inhaler (albuterol sulfate) shortness of breath or wheezing #18 grams atorvastatin 80 mg tablet 80 mg PO QHS #90 tabs 01/31/23 07/07/23 codeine 10 mg-guaifenesin 100 mg/5 10 ml PO Q6H #237 mL 01/31/23 07/07/23 mL oral liquid (Virtussin AC) fluticasone propionate 50 2 spray NS BID PRN nasal 01/31/23 07/07/23 mcg/actuation nasal congestion #48 grams spray,suspension ipratropium 0.5 mg-albuterol 3 mg 3 ml inhalation Q4H PRN wheezing 01/31/23 1 (2.5 mg base)/3 mL nebulization #540 mL soln lisinopril 5 mg tablet 5 mg PO DAILY #90 tabs 01/31/23 07/07/23 ibuprofen 200 mg tablet 400 mg PO Q6H PRN 02/11/23 07/07/23 amitriptyline 10 mg tablet 10 mg PO QHS #90 tabs 02/28/23 07/07/23 Advair Diskus 500 mcg-50 mcg/dose 1 inh inhalation BID PRN Severe 04/16/23 07/07/23 powder for inhalation (fluticasone wheezing #180 ea propion-salmeterol) fluoxetine 10 mg tablet 10 mg PO DAILY #90 tabs 05/01/23 07/07/23 amitriptyline 10 mg tablet 10 mg PO ONCE 05/08/23 07/07/23 fluticasone 500 mcg-salmeterol 50 500 ea inhalation BID 05/08/23 07/07/23 mcg/dose blistr powdr for inhalation (Advair Diskus) roflumilast 500 mcg tablet 500 mcg PO ONCE 05/08/23 07/07/23 (Daliresp) tiotropium bromide 1.25 150 mcg inhalation ONCE 05/08/23 07/07/23 mcg/actuation mist for inhalation (Spiriva Respimat) ciprofloxacin HCl 250 mg tablet 250 mg PO BID antibiotic #14 tabs 05/16/23 07/07/23 clotrimazole 1 % topical cream 1 applic topical BID #30 grams 06/02/23 07/07/23 sulfamethoxazole 800 1 tab PO BID #14 tabs 06/19/23 07/07/23 mg-trimethoprim 160 mg tablet (Bactrim DS) doxycycline hyclate 100 mg capsule 100 mg PO BID 5 days #10 caps 07/16/23 prednisone 50 mg tablet 50 mg PO DAILY #4 tabs 07/16/23 Previous Rx's Medication Instructions Recorded compressor, for nebulizer #1 ea 10/14/18 aspirin 81 mg tablet,delayed 81 mg PO DAILY #90 tabs 07/18/22 release (Adult Low Dose Aspirin) metoprolol succinate 50 mg 50 mg PO DAILY #90 tabs 07/18/22 tablet,extended release 24 hr benzonatate 100 mg capsule 100 mg PO BID PRN cough #60 caps 08/20/22 roflumilast 500 mcg tablet 500 mcg PO DAILY #90 tabs 10/21/22 (Daliresp) loratadine 10 mg tablet (Allergy 10 mg PO DAILY #90 tabs 11/13/22 Relief (loratadine)) tiotropium bromide 18 mcg capsule See Rx Instructions .Route 11/25/22 with inhalation device (Spiriva .COMPLEX #90 caps with HandiHaler) Ventolin HFA 90 mcg/actuation 2 puff inhalation Q4H PRN 01/06/23 aerosol inhaler (albuterol sulfate) shortness of breath or wheezing #18 grams atorvastatin 80 mg tablet 80 mg PO QHS #90 tabs 01/31/23 codeine 10 mg-guaifenesin 100 mg/5 10 ml PO Q6H #237 mL 01/31/23 mL oral liquid (Virtussin AC) fluticasone propionate 50 2 spray NS BID PRN nasal 01/31/23 mcg/actuation nasal congestion #48 grams spray,suspension ipratropium 0.5 mg-albuterol 3 mg 3 ml inhalation Q4H PRN wheezing 01/31/23 (2.5 mg base)/3 mL nebulization #540 mL soln lisinopril 5 mg tablet 5 mg PO DAILY #90 tabs 01/31/23 amitriptyline 10 mg tablet 10 mg PO QHS #90 tabs 02/28/23 Advair Diskus 500 mcg-50 mcg/dose 1 inh inhalation BID PRN Severe 04/16/23 powder for inhalation (fluticasone wheezing #180 ea propion-salmeterol) fluoxetine 10 mg tablet 10 mg PO DAILY #90 tabs 05/01/23 ciprofloxacin HCl 250 mg tablet 250 mg PO BID antibiotic #14 tabs 05/16/23 clotrimazole 1 % topical cream 1 applic topical BID #30 grams 06/02/23 sulfamethoxazole 800 1 tab PO BID #14 tabs 06/19/23 mg-trimethoprim 160 mg tablet (Bactrim DS) doxycycline hyclate 100 mg capsule 100 mg PO BID 5 days #10 caps 07/16/23 prednisone 50 mg tablet 50 mg PO DAILY #4 tabs 07/16/23 Allergies Allergy/AdvReac Type Severity Reaction Status Date / Time Fish Containing Products AdvReac Severe vomiting, Verified 07/16/23 19:09 diarrhea, headache General Stated Complaint: Fall/Non TraumaCriteria SHAILA: 3 PFSH All Active Problems (Updated 07/16/23 @ 23:13 by Jewel Mayorga MD) History of fall (Acute) Acute exacerbation of chronic obstructive pulmonary disease (COPD) (Acute) Multifocal pneumonia (Acute) Abdominal wall hernia (Acute) ASCVD (arteriosclerotic cardiovascular disease) (Acute) At risk of fracture due to osteoporosis (Acute) Abnormal finding on imaging (Acute) Followed by US/CT: AAA, Umb Hernia, Ov Cyst (lft), Renal lesion (lft) .. Asthma (Chronic) Elevated serum creatinine (Acute) per december 2021 labs .. improved? AAA (abdominal aortic aneurysm) (Chronic) 05/[address] 10/25/22 measures 4.5 on US Apparent > 5mm growth since 12/2021, per Abd CT (09/2022). [ ] Vasc, ik .. Stable per 09/2021 CT (4.1cm) .. Hx: 39mm infrarenal; found on 07/30/19 CT.. AAA > 5.5 cm present high risk and surgical review. Oxygen dependent (Acute) 2L ... Can go without if sitting/resting only. 04/2022: 2.5L with URI (2' PulsOx in 80s) Environmental allergies (Acute) Long Hx loratidine, trial cetirizine (03/2021) Personal history of nicotine dependence (Acute) TAMRA (obstructive sleep apnea) (Chronic ~2015) Aníbal- moderately severe CPAP Chronic airway obstruction, mixed type (Acute) GOLD III severe COPD, FEV1 0.9 (41%pred, 48%FVC) 03/2011; significant response dilator; similar 11/07/15 Cor pulmonale (Acute 03/19/16) edema, hypoxia, arrhythmia at [facility] 02/26/16 Abnormal screening computed tomography (CT) of chest (Acute ~06/30/20) CT (2019) shows NO NODULE. New 1 cm nodule in the left upper lobe. Dr. Miller Umbilical hernia (Acute) ID'd on CT; Surgery Eval for management recommendations CAD (coronary artery disease) (Chronic) s/p PCI Distal RCA (DON x2)([facility] 08/2020 .. 2' STEMI ([facility]).. Increased frequency of urination (Acute) Hematuria (Acute) Pelvic mass (Acute 02/24/15) Followed by [facility], yearly imaging planned... Left renal, Left ovarian lesions .. stable, 2020 CT. Renal lesion (Acute) Ovarian cyst, left (Acute) US 1999, 2006; again on MRI of hip 2014, US 2014 Dysuria (Acute) Acute on chronic complaint .. 08/17/21, 07/30/21 ... Cough (Chronic) Chronic, calms with cough syrup/lozenges. Worsens with COPD exacerbations. Venous insufficiency of both lower extremities (Acute 03/19/16) Greater trochanteric bursitis of right hip (Acute 05/16/15) Hip pain, right (Acute 12/26/14) DJD, ? AVN on MRI (Dr Llanos) Medical History Cataracts, bilateral Scheduled for cataract surgery with Dr. Pappas ([facility]) 08/23 (OS) & 09/06 (OD) .. COPD (chronic obstructive pulmonary disease) COPD exacerbation Depressive disorder (07/24/12) History of ST elevation myocardial infarction (STEMI) Involving L main coronary artery. Per [facility] 10/31/22 note.HE Osteoarthritis, hand (10/17/14) Tubular adenoma of colon (07/23/17) Varicose veins Surgical History Cholecystectomy (10/06/1966) Colonoscopy - MAC (07/23/17) Ligation of fallopian tube (10/06/69) Family History Mother , complications DM at age 67. Diabetes Father , stomach cancer at age 30. No problems noted. 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 Pets and animals: No Sexually active: No Do you think of yourself as: straight/heterosexual Current gender identity: female What is your relationship status?: Panel score (0-1 are the most socially isolated patients): 0 What type of physical activity do you participate in: other Details: Yardwork; Housework Duration: 30-45 minutes/day Frequency: daily Linda/Evangelical: Adventism Seatbelt use: always Helmet use: No (Never) Drive intox or ride w/intox experienced truck driver: No Working smoke detector in home: Yes Fire extinguisher in home: Yes Carbon monox detector in home: Yes Do you feel safe at home: Yes Do you feel safe in your relationship?: Yes Course Vital Signs Vital signs: Vital Signs Temperature 37.0 C 07/16/23 19:06 Pulse 87 07/16/23 19:06 Respiratory Rate 20 07/16/23 19:06 Blood Pressure 100/71 07/16/23 19:06 Pulse Oximetry 93 07/16/23 19:06 Temperature 37.0 C 07/16/23 19:06 Pulse 87 07/16/23 19:06 Respiratory Rate 20 07/16/23 19:06 Blood Pressure 100/71 07/16/23 19:06 Blood Pressure Position Sitting 07/16/23 19:06 Pulse Oximetry 93 07/16/23 19:06 Oxygen Delivery Method Nasal Cannula 07/16/23 19:06 Oxygen Flow Rate 4 07/16/23 19:06
--- NOTE | 2023-07-16 19:46 | DI.VRAD_ITS ---
PROCEDURE INFORMATION: Exam: CT Head Without Contrast Exam date and time: 07/16/2023 7:31 PM Age: 78 years old Clinical indication: Other: Fall head strike TECHNIQUE: Imaging protocol: Computed tomography of the head without contrast. COMPARISON: No relevant prior studies available. FINDINGS: Brain: Mild volume loss No hemorrhage. Mild white matter disease. No mass effect. Cerebral ventricles: No ventriculomegaly. Paranasal sinuses: Visualized sinuses are unremarkable. No fluid levels. Mastoid air cells: Visualized mastoid air cells are well aerated. Bones/joints: Unremarkable. No acute fracture. Soft tissues: Unremarkable. IMPRESSION: No acute intracranial abnormality. Dictated and Authenticated by: Higinio Haas MD. Ordering:RODGER Holloway MD
--- NOTE | 2023-07-16 20:00 | DI.RAD_ITS ---
Exam(s) XR CHEST 2V PA LATERAL EXAM: XR CHEST 2V PA LATERAL CLINICAL HISTORY: Shortness of breath TECHNIQUE: 2D digital imaging was performed of the chest. Two images were obtained. PA and lateral views were obtained. COMPARISON: CR XR CHEST 2V PA LATERAL from 11/26/2019 FINDINGS: MEDIASTINUM: Normal. HEART: Normal. PULMONARY VASCULATURE: Normal. LUNGS: There are bilateral basilar opacities present. There is an also an opacity seen in the entrepreneurial finance professor ior lung on the lateral view. The lungs are hyperinflated with flattened diaphragms suggesting under lying COPD. Mild prominence of the interstitium bilaterally. PLEURAL SPACE: No pleural effusion or pneumothorax. BONE:Within normal limits for the patient's age. OTHER FINDINGS:Normal. IMPRESSION: 1. Bilateral basilar opacities which may represent atelectasis or pneumonia. Please refer to the CT scan of the chest performed the same day. 2. Mild interstitial prominence which may represent edema or pneumonitis. DATA REPOSITORY: RADIATION DOSE DELIVERED:
[2023-07-16] MEDS: Doxycycline Hyclate 100 MG CAP PO (20:16)
[2023-07-16] MEDS: Albuterol/Ipratropium 3 ML UPD VIAL UPD (20:16)
[2023-07-16] MEDS: predniSONE 20 MG TAB 60 MG PO (20:16)
[2023-07-16 20:47] LABS: Abs Immature Grans 0.08 10^3/uL (0.0-0.06); Absolute Basophil Count 0.05 10^3/uL (0.0-0.2); Absolute Eosinophil Count 0.05 10^3/uL (0.0-0.7); Absolute Lymphocyte Count 0.86 10^3/uL (1.2-3.4); Absolute Monocyte Count 0.96 10^3/uL (0.1-0.8); Basophils % 0.3; Eosinophils % 0.3; HCT 33.9 % (36.0-46.0); HGB 11.1 g/dL (11.2-15.7); Immature Grans % 0.5; Lymphocytes % 5.4; MCH 30.2 pg (27.0-33.0); MCHC 32.7 % (32.0-36.0); MCV 92 fL (80-95); MPV 8.4 fL (8.0-11.0); Neutrophils % 87.5; Platelet Count 254 10^3/uL (130-400); RBC 3.68 10^6/uL (3.93-5.22); RDW 13.3 % (11.7-14.6); RDW-SD 45.2 fL; WBC 15.93 10^3/uL (4.4-10.8)
[2023-07-16 20:51] LABS: Absolute Neutrophil Count 13.94 10^3/uL (1.2-6.7)
--- NOTE | 2023-07-16 21:08 | DI.VRAD_ITS ---
PROCEDURE INFORMATION: Exam: XR Chest Exam date and time: 07/16/2023 8:57 PM Age: 78 years old Clinical indication: Shortness of breath; Patient HX: SOB TECHNIQUE: Imaging protocol: Radiologic exam of the chest. Views: 2 views. COMPARISON: CT CHEST LUNG CANCER SCREEN 09/26/2022 8:04 AM FINDINGS: Lungs: Mild left basilar opacity. Minimal right basilar opacity. Question mild interstitial thickening Pleural spaces: No pleural effusion. No pneumothorax. Heart/Mediastinum: Grossly stable. Bones/joints: Unremarkable. IMPRESSION: Left greater than right basilar opacities which may represent subsegmental atelectasis versus developing pneumonia Mild interstitial pneumonitis/edema not excluded Dictated and Authenticated by: Higinio Haas MD. Ordering:RODGER Holloway MD
[2023-07-16 21:16] LABS: Anion Gap 7.2 mmol/L (3-11); BUN 11 mg/dL (7-18); CO2 26.8 mmol/L (21.0-32.0); Calcium 9.5 mg/dL (8.5-10.1); Chloride 96 mmol/L (98-107); Creatine Kinase 53 U/L (26-192); Estimated GFR 58.02 (mL/min/1.73m2); Glucose 118 mg/dL (74-106); Potassium 4.1 mmol/L (3.5-5.1); Sodium 130 mmol/L (136-145)
--- NOTE | 2023-07-16 21:30 | DI.CT_ITS ---
Exam(s) CT THORAX ABD/PEL CTA EXAM: CT THORAX ABD/PEL CTA CLINICAL HISTORY: Positive D-dimer SOB Hx AAA. TECHNIQUE: Imaging Protocol: Axial CT angiography was performed with multi-slice acquisition and m ulti-planar and/or 3D reconstructions. CONTRAST MATERIAL: Intravenous: Omnipaque 350 contrast volume:100 mL Oral: No COMPARISON: CT CT CHEST LUNG CANCER SCREEN from 09/26/[address] ABDOMEN PELVIS WO from 05/08/2023 FINDINGS: CHEST: Tracheobronchial tree: Patent where visualized. Pulmonary parenchyma: Emphysematous changes are seen in the lungs. There are bilateral peripheral ar eas of consolidation in the lower lobes which have progressed since the prior examination. Mucous pl ugging is seen seen. Tree in bud opacities are present. Ground-glass opacities and septal thickenin g are also noted. Pulmonary Arteries: Evaluation of pulmonary emboli in the pulmonary arteries is suboptimal due to hedy us timing. Mediastinum and [place]: There are mildly enlarged lymph nodes seen in the mediastinum and hilum. The l argest lymph node is seen in the supraclavicular region and measures 1.3 x 2.2 cm. The esophagus is unremarkable. Visualized thyroid: Unremarkable. Pleura: No effusion or pneumothorax. Heart: The heart is not dilated. Coronary artery calcification and/or stents are present. No pericar dial effusion.There is again seen a fat density mass in the intra arterial septum. It measures 6.8 x 4.8 x 5.1 cm. It is unchanged. Aorta: Thoracic aorta non-dilated. Atherosclerosis is present. There is no evidence of dissection. There is mild stenosis of the proximal left subclavian artery. Soft Tissues: Unremarkable. Bones: Within normal limits for the patient's age. ABDOMEN AND PELVIS: Abdomen: Celiac axis/mesenteric arteries: No evidence of occlusion or significant stenosis. Atherosclerosis. Renal Arteries: There is moderate stenosis of the right renal artery origin. No significant stenosis is seen in the left renal artery. There is a single renal artery perfusing each kidney. Atheroscler osis. Aorta: No evidence of occlusion or significant stenosis. There is a 4.7 x 4.4 cm infrarenal abdomin al aortic aneurysm. Pelvis: Iliac Arteries: No evidence of occlusion or significant stenosis. Atherosclerosis. Common Femoral Arteries: No evidence of occlusion or significant stenosis. Atherosclerosis. ABDOMEN: Liver: Normal density. No measurable mass. Gallbladder and Biliary Tract: Status post cholecystectomy. No biliary ductal dilatation. Pancreas: Fatty atrophy. No evidence of a pancreatic mass. Spleen: Normal. Adrenals: No masses seen. Kidneys: Normal size, contour and axis. No radiodense stones or obstructive uropathy. No masses seen. Bowel: There is diverticulosis of the colon but no evidence of acute diverticulitis. There is no yaw dence of bowel obstruction or bowel wall thickening. Appendix is unremarkable. Peritoneal Cavity: No ascites, collection or mesenteric inflammatory response. No free air. Lymph Nodes: Within normal limits. Bones: Within normal limits for the patient's age. Soft Tissues: There is a small fat containing umbilical hernia. PELVIS: Bladder: Symmetric distention, no gross wall thickening. Reproductive Organs: Unremarkable as visualized. There is a stable left adnexal/ovarian cyst measurin g 3.5 x 5.5 cm. Lymph Nodes: Within normal limits. Bones: Within normal limits for the patient's age. IMPRESSION: 1. Multifocal infiltrates in the lungs suspicious for pneumonia with bronchiolitis and mucous pluggin g. 2. There has been no change in the large fatty mass in the intra arterial septum. 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 No solid components are observed. Liposarcoma cannot be entirely excluded in t his patient. 3. Mild mediastinal adenopathy. 4. Infrarenal abdominal aortic aneurysm which is stable. No evidence of aortic dissection. 5. No evidence of bowel obstruction. Unexpected findings RADIATION DOSE DELIVERED: Total DLP DATA REPOSITORY: All CT scans at this facility are submitted to the National Radiology Data Registry (NRDR) Dose Index Registry (DIR) with the [employer] (ACR). RADIATION OPTIMIZATION: All CT scans at this facility use at least one of these dose optimization te chniques: automated exposure control; mA and/or kV adjustment per patient size (includes targeted exa ms where dose is matched to clinical indication); or iterative reconstruction.
[2023-07-16 21:35] LABS: D-Dimer 4152 ng/mlFEU (<500)
[2023-07-16] MEDS: Normal Saline Flush 10 ML SYR IVP (22:00)
[2023-07-16] MEDS: Normal Saline - Diluent 50 ML VIAL IJ (22:01)
[2023-07-16] MEDS: Omnipaque 350 MG/ML 100 ML BTL IJ (22:02)
--- NOTE | 2023-07-16 23:08 | DI.VRAD_ITS ---
PROCEDURE INFORMATION: Exam: CTA Chest With Contrast CTA Abdomen and Pelvis With Contrast Exam date and time: 07/16/2023 9:54 PM Age: 78 years old Clinical indication: Abnormal findings; Abnormal diagnostic tests; Elevated d-dimer; Shortness of breath; Abnormal lab test and other: H/o aaa TECHNIQUE: Imaging protocol: Computed tomographic angiography of the chest with contrast. Exam focused on the arteries. Computed tomographic angiography of the abdomen and pelvis with contrast. Exam focused on the arteries. 3D rendering (Not supervised by radiologist): MIP and/or 3D reconstructed images were created by the technologist. Contrast material: OMNIPAQUE; Contrast volume: 350 ml; Contrast route: INTRAVENOUS (IV); COMPARISON: 1. CT CHEST LUNG CANCER SCREEN 09/26/2022 8:[address] CHEST LUNG CANCER SCREEN 09/21/2021 2:42 PM FINDINGS: VASCULATURE: Great vessels off aortic arch: Arch vessel origins are patent. Mild stenosis is observed in the proximal left subclavian artery, 48%. Pulmonary arteries: Pulmonary artery contrast is low. Study is designed for evaluation of the aorta. Aorta: The thoracic aorta is negative for aneurysm or dissection. Mild plaque is observed. An infrarenal abdominal aortic aneurysm measures 4.7 cm AP diameter, similar previous. The aneurysm is 2.8 cm inferior to the renal arteries, and extends to the aortic bifurcation. Mild eccentric thrombus and plaque are present at the anterior margin of the aneurysm. There is no ulceration or dissection within the plaque. Exam is negative for aortic dissection. Celiac trunk and mesenteric arteries: No occlusion or significant stenosis. Renal arteries: Moderate stenosis noted in the right renal artery origin. The left renal artery is tortuous, without significant stenosis. Right iliac arteries: No occlusion or significant stenosis. Mild plaque. Left iliac arteries: No occlusion or significant stenosis. Mild plaque. 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 The distal superior vena cava, superiorly in the mediastinum, is not abnormally distended. Mixing of unopacified and opacified blood is observed in the superior vena cava, and there is no thrombus observed in the superior vena cava. CHEST: Lungs: Moderate emphysema noted. Peripheral consolidations are present in both lower lobes, significantly progressed and new from previous. Moderate endobronchial mucus is noted. Sites of tree-in-bud opacity are present. Septal thickening and ground-glass opacity are additionally noted. Pleural spaces: Unremarkable. No pneumothorax. No pleural effusion. Heart: Mild cardiomegaly. No pericardial effusion. Moderate coronary artery calcifications. A large mass is present at the right atrium, extending across the intra-atrial septum. The mass is entirely fat attenuation. The mass measures 6.8 x 4.8 x 5.1 cm. 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 The mass is visible in retrospect on prior studies, and is not significantly changed since 09/21/2021. ABDOMEN AND PELVIS: Liver: Negative for hypervascular mass in the liver. Gallbladder and bile ducts: The gallbladder is absent or collapsed. No significant biliary ductal dilatation. Pancreas: Mild fatty replaced pancreas. No inflammatory change. No ductal dilatation. Spleen: Unremarkable. No splenomegaly. Adrenal glands: Unremarkable. No mass. Kidneys and ureters: Kidneys enhance symmetrically. No significant renal atrophy. No hydronephrosis. Stomach and bowel: Unremarkable stomach. Nondilated small bowel. Multiple loops of small bowel are clustered in the pelvis around the uterus and urinary bladder; adhesions are suspected. Terminal ileum is unremarkable. There are no inflammatory changes around the colon. Diverticula are noted in the descending and sigmoid colon. Appendix: Normal appendix. Intraperitoneal space: No free fluid. No free air. No retroperitoneal hematoma. Urinary bladder: Unremarkable. Reproductive: Unremarkable uterus. A left ovarian/adnexal cyst measures 3.5 x 5.5 cm, similar to previous. Lymph nodes: Mild mediastinal lymphadenopathy is observed. A subcarinal lymph node measures 1.1 x 2.3 cm. Additional peribronchial and paratracheal lymph nodes are mildly enlarged. No axillary lymphadenopathy. No internal mammary lymphadenopathy. Bones/joints: Intact sternum. Unremarkable ribs. No compression fractures. Anterior longitudinal ligamentous ossification noted in the thoracic spine. Moderate multilevel facet arthropathy noted in the lumbar spine. Disc space narrowing and osteophytes are minimal. Moderate narrowing and osteophyte formation are noted in the hips, right greater than left. Soft tissues: Partial fatty replacement of gluteal muscles is observed bilaterally. Small periumbilical hernia contains fat. IMPRESSION: 1. Multifocal pneumonia with bronchiolitis and endobronchial mucus. 2. Background emphysema. 3. Large fatty mass in the right atrium with narrowing of the superior vena cava. This is unchanged from 2020. 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 The irregular shape and narrowing of the superior vena cava raises some concern for liposarcoma. No solid components are observed. 4. Mild mediastinal lymphadenopathy. 5. No aortic dissection. 6. Infrarenal abdominal aortic aneurysm, 4.7 cm, similar to previous. 7. Presumed bowel adhesions in the pelvis. No bowel obstruction. 8. Colonic diverticulosis, without diverticulitis. Dictated and Authenticated by: Sven Farah MD. Ordering:RODGER Holloway MD
--- NOTE | 2023-07-16 23:14 | NUR.NOTE ---
Referral faxed to [facility] (Dr De Paz) to f/u this week for multifocal pneumonia.Nursing Note:
[2023-07-16] MEDS: Amoxicillin 875/Clav. 125 TAB PO (23:20)
[2023-07-16 23:30] VITALS: BP 107/71; PULSE 77; RESP 20; TEMP 37; O2SAT 98
== END 2023-07-16 23:36 | disposition home or self-care (01) ==
PROVIDERS: Emergency Provider Emergency Medicine; PCP Student in an Organized Health Care Education/Training Program
DX: J18.9 Pneumonia, unspecified organism (principal); J44.1 Chronic obstructive pulmonary disease with (acute) exacerbation; Z91.81 History of falling; W01.10XA Fall on same level from slipping, tripping and stumbling with subsequent striking against unspecified object, initial encounter
CPT/HCPCS: 71275; 80048; 82550; 99285; 70450; 71046; 74174; 85025; 85379; 99284; J3490; J7512; J7620

== ENCOUNTER → 2023-08-18 14:35 | Outpatient (BNVA) | payer MEDICARE, SELFPAY | PROVIDERS: PCP Student in an Organized Health Care Education/Training Program; Referring Provider Student in an Organized Health Care Education/Training Program; Visit Provider Student in an Organized Health Care Education/Training Program | DX: J44.9 Chronic obstructive pulmonary disease, unspecified (principal); Z79.51 Long term (current) use of inhaled steroids; Z99.81 Dependence on supplemental oxygen; Z87.891 Personal history of nicotine dependence; J96.91 Respiratory failure, unspecified with hypoxia; G47.33 Obstructive sleep apnea (adult) (pediatric) | CPT/HCPCS: 99214 ==

== ENCOUNTER 2023-08-25 04:45 | Outpatient (CLI) | payer MEDICARE, SELFPAY ==
[2023-08-25] MEDS: Levalbuterol HFA 15 GM INH 4 PUFF IH (16:26)
[2023-08-25] MEDS: Inhaler, Assist Device 1 EACH MC (16:27)
--- NOTE | 2023-08-26 07:20 | W.PFT ---
Date of service: 08/25/23 Time of Service: 14:51 Pulmonary Function Test Result Indications: COPD Interpretation Spirometry: There is severe airflow limitation. No bronchodilator response. Lung Volumes: There is air trapping Diffusion Capacity: Decreased diffusion Airway Pressure: Increased airways resistance Impression Severe airflow obstruction with air trapping and a decreased diffusion. Clinical Correlation therefore is recommended.
== END 2023-08-25 04:46 | disposition home or self-care (01) ==
PROVIDERS: PCP Student in an Organized Health Care Education/Training Program; Visit Provider Student in an Organized Health Care Education/Training Program
DX: J44.9 Chronic obstructive pulmonary disease, unspecified (principal)
CPT/HCPCS: 94060; 94726; 94729

== ENCOUNTER 2023-10-15 11:23 | Observation (INO) | payer MEDICARE, SELFPAY ==
[2023-10-15] VITALS (19 sets, daily range): BP systolic 102–144; BP diastolic 57–77; PULSE 59–72; RESP 16–18; TEMP 36.8–37.2; O2SAT 90–100
--- NOTE | 2023-10-15 11:30 | DI.RAD_ITS ---
Exam(s) XR PELVIS AP XR FEMUR RT EXAM: XR PELVIS AP and XR femur RT CLINICAL HISTORY: right hip pain. TECHNIQUE: 2D digital imaging was performed of the right hip. Six images were obtained. AP pelvis a nd lateral right hip views were obtained. COMPARISON: CR RT HIP COMPLETE AP PELVIS from 12/26/2014 FINDINGS: BONES: There are acute nondisplaced fractures involving both the right superior and inferior pubic ra mi. Symphysis pubis appears intact. There are degenerative changes seen at the sacroiliac joints. No bony destructive lesion is seen. There is no evidence of a femur fracture. Degenerative changes a re seen in the knee. JOINTS: No dislocation present. Degenerative changes are seen in the lower lumbar spine in the hips b ilaterally. SOFT TISSUE: Vascular calcifications are present. IMPRESSION: 1. Nondisplaced fractures involving the right superior and inferior pubic rami. 2. No evidence of a femoral fracture. DATA REPOSITORY: RADIATION DOSE DELIVERED:
--- NOTE | 2023-10-15 11:30 | DI.RAD_ITS ---
Exam(s) XR ELBOW RT COMPLETE EXAM: XR ELBOW RT COMPLETE CLINICAL HISTORY: right elbow pain. TECHNIQUE: 2D digital imaging was performed of the left elbow. Three images were obtained. AP, lat eral and oblique views were obtained. COMPARISON: No exams were available for comparison FINDINGS: BONES: No acute fracture is present. No bony destructive lesion is seen. JOINTS: The elbow is normally aligned. No joint effusion is seen. SOFT TISSUE: Normal. IMPRESSION: No acute fracture or dislocation. DATA REPOSITORY: RADIATION DOSE DELIVERED:
--- NOTE | 2023-10-15 11:40 | W.ED.GENAD ---
HPI General Stated Complaint: Fall/Non TraumaCriteria SHAILA: 3 Date/Time Provider Initiated Documentation: 10/15/23 11:38. Limitations to Documentation: no limitations. Information obtained by: patient. HPI Narrative: 78-year-old female with past medical history of COPD, oxygen dependence, AAA osteoporosis presents for evaluation of acute onset right hip pain. Patient was ambulating in her home when she tripped over her oxygen cable. She lost her balance and fell onto her right hip and right elbow. Did not her head. No loss of consciousness. She has not been able to bear weight since that time. She attempted at home. She took Tylenol prior to arrival without significant improvement in her pain. Pain localized to the right hip, worse with any movement. No numbness or tingling. Related Data Home Medications Medication Instructions Recorded Confirmed acetaminophen 650 mg 650 mg PO PRN 11/08/16 10/15/23 tablet,extended release (Arthritis Pain Relief (acetaminophen) ER) compressor, for nebulizer #1 ea 10/14/18 10/15/23 aspirin 81 mg tablet,delayed 81 mg PO DAILY #90 tabs 07/18/22 10/15/23 release (Adult Low Dose Aspirin) Oxygen #1 ea 08/20/22 10/15/23 benzonatate 100 mg capsule 100 mg PO BID PRN cough #60 caps 08/20/22 10/15/23 roflumilast 500 mcg tablet 500 mcg PO DAILY #90 tabs 10/21/22 10/15/23 (Daliresp) loratadine 10 mg tablet (Allergy 10 mg PO DAILY #90 tabs 11/13/22 10/15/23 Relief (loratadine)) tiotropium bromide 18 mcg capsule See Rx Instructions .Route 11/25/22 10/15/23 with inhalation device (Spiriva .COMPLEX #90 caps with HandiHaler) atorvastatin 80 mg tablet 80 mg PO QHS #90 tabs 01/31/23 10/15/23 codeine 10 mg-guaifenesin 100 mg/5 10 ml PO Q6H #237 mL 01/31/23 10/15/23 mL oral liquid (Virtussin AC) fluticasone propionate 50 2 spray NS BID PRN nasal 01/31/23 10/15/23 mcg/actuation nasal congestion #48 grams spray,suspension ipratropium 0.5 mg-albuterol 3 mg 3 ml inhalation Q4H PRN wheezing 01/31/23 10/15/23 (2.5 mg base)/3 mL nebulization #540 mL soln lisinopril 5 mg tablet 5 mg PO DAILY #90 tabs 01/31/23 10/15/23 ibuprofen 200 mg tablet 400 mg PO Q6H PRN 02/11/23 10/15/23 amitriptyline 10 mg tablet 10 mg PO QHS #90 tabs 02/28/23 10/15/23 Advair Diskus 500 mcg-50 mcg/dose 1 inh inhalation BID PRN Severe 04/16/23 10/15/23 powder for inhalation (fluticasone wheezing #180 ea propion-salmeterol) fluoxetine 10 mg tablet 10 mg PO DAILY #90 tabs 05/01/23 10/15/23 amitriptyline 10 mg tablet 10 mg PO ONCE 05/08/23 10/15/23 fluticasone 500 mcg-salmeterol 50 500 ea inhalation BID 05/08/23 10/15/23 mcg/dose blistr powdr for inhalation (Advair Diskus) roflumilast 500 mcg tablet 500 mcg PO ONCE 05/08/23 10/15/23 (Daliresp) tiotropium bromide 1.25 150 mcg inhalation ONCE 05/08/23 10/15/23 mcg/actuation mist for inhalation (Spiriva Respimat) clotrimazole 1 % topical cream 1 applic topical BID #30 grams 06/02/23 10/15/23 metoprolol succinate 25 mg 25 mg PO DAILY #90 tabs 08/01/23 10/15/23 tablet,extended release 24 hr Ventolin HFA 90 mcg/actuation 2 puff inhalation Q4H PRN 09/05/23 10/15/23 aerosol inhaler (albuterol sulfate) shortness of breath or wheezing #18 grams Previous Rx's Medication Instructions Recorded compressor, for nebulizer #1 ea 10/14/18 aspirin 81 mg tablet,delayed 81 mg PO DAILY #90 tabs 07/18/22 release (Adult Low Dose Aspirin) benzonatate 100 mg capsule 100 mg PO BID PRN cough #60 caps 08/20/22 roflumilast 500 mcg tablet 500 mcg PO DAILY #90 tabs 10/21/22 (Daliresp) loratadine 10 mg tablet (Allergy 10 mg PO DAILY #90 tabs 11/13/22 Relief (loratadine)) tiotropium bromide 18 mcg capsule See Rx Instructions .Route 11/25/22 with inhalation device (Spiriva .COMPLEX #90 caps with HandiHaler) atorvastatin 80 mg tablet 80 mg PO QHS #90 tabs 01/31/23 codeine 10 mg-guaifenesin 100 mg/5 10 ml PO Q6H #237 mL 01/31/23 mL oral liquid (Virtussin AC) fluticasone propionate 50 2 spray NS BID PRN nasal 01/31/23 mcg/actuation nasal congestion #48 grams spray,suspension ipratropium 0.5 mg-albuterol 3 mg 3 ml inhalation Q4H PRN wheezing 01/31/23 (2.5 mg base)/3 mL nebulization #540 mL soln lisinopril 5 mg tablet 5 mg PO DAILY #90 tabs 01/31/23 amitriptyline 10 mg tablet 10 mg PO QHS #90 tabs 02/28/23 Advair Diskus 500 mcg-50 mcg/dose 1 inh inhalation BID PRN Severe 04/16/23 powder for inhalation (fluticasone wheezing #180 ea propion-salmeterol) fluoxetine 10 mg tablet 10 mg PO DAILY #90 tabs 05/01/23 clotrimazole 1 % topical cream 1 applic topical BID #30 grams 06/02/23 metoprolol succinate 25 mg 25 mg PO DAILY #90 tabs 08/01/23 tablet,extended release 24 hr Ventolin HFA 90 mcg/actuation 2 puff inhalation Q4H PRN 09/05/23 aerosol inhaler (albuterol sulfate) shortness of breath or wheezing #18 grams Allergies Allergy/AdvReac Type Severity Reaction Status Date / Time Fish Containing Products AdvReac Severe vomiting, Verified 10/15/23 11:39 diarrhea, headache PFSH All Active Problems (Updated 10/15/23 @ 14:49 by Yrn Mariscal MD) Contusion of elbow, right (Acute) Arthritis of right hip (Acute) Fracture of right superior pubic ramus (Acute) Fracture of right inferior pubic ramus (Acute) Abdominal wall hernia (Acute) ASCVD (arteriosclerotic cardiovascular disease) (Acute) At risk of fracture due to osteoporosis (Acute) Abnormal finding on imaging (Acute) Followed by US/CT: AAA, Umb Hernia, Ov Cyst (lft), Renal lesion (lft) .. Elevated serum creatinine (Acute) IMPROVED! .. per december 2021 labs .. re-check for CTA AAA (abdominal aortic aneurysm) (Chronic) 05/[address]; Q6mo recheck d/t 3mm increase.IK 10/25/22 measures 4.5 on US Apparent > 5mm growth since 12/2021, per Abd CT (09/2022). [ ] Vasc, ik .. Stable per 09/2021 CT (4.1cm) .. Hx: 39mm infrarenal; found on 07/30/19 CT.. AAA > 5.5 cm present high risk and surgical review. Oxygen dependent (Acute) 2L ... Can go without if sitting/resting only. 04/2022: 2.5L with URI (2' PulsOx in 80s) Environmental allergies (Acute) Long Hx loratidine, trial cetirizine (03/2021) Personal history of nicotine dependence (Acute) TAMRA (obstructive sleep apnea) (Chronic ~2015) Aníbal- moderately severe CPAP Chronic airway obstruction, mixed type (Acute) GOLD III severe COPD, FEV1 0.9 (41%pred, 48%FVC) 03/2011; significant response dilator; similar 11/07/15 Asthma (Chronic) Cor pulmonale (Acute 03/19/16) edema, hypoxia, arrhythmia at [facility] 02/26/16 Abnormal screening computed tomography (CT) of chest (Acute ~06/30/20) CT (2019) shows NO NODULE. New 1 cm nodule in the left upper lobe. Dr. Miller Umbilical hernia (Acute) ID'd on CT; Surgery Eval for management recommendations CAD (coronary artery disease) (Chronic) s/p [place]al [place] .. 2' STEMI ([facility]).. Increased frequency of urination (Acute) Hematuria (Acute) Pelvic mass (Acute 02/24/15) Followed by [facility], yearly imaging planned... Left renal, Left ovarian lesions .. stable, 2020 CT. Renal lesion (Acute) Ovarian cyst, left (Acute) US 1999, 2006; again on MRI of hip 2015, US 2015 Dysuria (Acute) Acute on chronic complaint .. 08/17/21, 07/30/21 ... Cough (Chronic) Chronic, calms with cough syrup/lozenges. Worsens with COPD exacerbations. Venous insufficiency of both lower extremities (Acute 03/19/16) Greater trochanteric bursitis of right hip (Acute 05/16/15) Hip pain, right (Acute 12/26/14) DJD, ? 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 [place] [facility] [place] note.HE COPD exacerbation Cataracts, bilateral Scheduled for cataract surgery with Dr. Pappas ([facility]) 08/23 (OS) & 09/06 (OD) .. Tubular adenoma of colon (07/23/17) Osteoarthritis, hand (10/17/14) Depressive disorder (07/24/12) Varicose veins COPD (chronic obstructive pulmonary disease) Surgical History Ligation of fallopian tube (10/06/69) Colonoscopy - MAC (07/23/17) Cholecystectomy (10/06/1966) Family History Mother , complications DM at age 67. Diabetes Father , stomach cancer at age 30. No problems noted. 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 Pets and animals: No Sexually active: No Do you think of yourself as: straight/heterosexual Current gender identity: female What is your relationship status?: Panel score (0-1 are the most socially isolated patients): 0 What type of physical activity do you participate in: other Details: Yardwork; Housework Duration: 30-45 minutes/day Frequency: daily Linda/Jain: Uatsdin Seatbelt use: always Helmet use: No (Never) Drive intox or ride w/intox independent driver: No Working smoke detector in home: Yes Fire extinguisher in home: Yes Carbon monox detector in home: Yes Do you feel safe at home: Yes Do you feel safe in your relationship?: Yes Exam Narrative Exam Narrative: Review of Systems: All systems reviewed & are unremarkable except as noted in HPI and below Well-developed, no acute distress NACT PERRL, normal conjunctiva RRR Unlabored respiratory effort, on baseline 4 L oxygen Nondistended abdomen, nontender No shortening or rotation of the lower extremity. Right hip and right groin tender to palpation Right elbow with bruising, no effusion, full range of motion No rashes or lesions. no focal neurologic deficits Appropriate mood and affect Course Vital Signs Vital signs: Vital Signs Temperature 37.2 C 10/15/23 11:28 Pulse 72 10/15/23 11:28 Respiratory Rate 16 10/15/23 11:28 Blood Pressure 144/77 H 10/15/23 11:28 Pulse Oximetry 90 L 10/15/23 11:28 Temperature 37.2 C 10/15/23 11:28 Temperature Source Skin 10/15/23 11:28 Pulse 72 10/15/23 11:28 Respiratory Rate 16 10/15/23 11:28 Respiratory Effort Normal 10/15/23 11:37 Blood Pressure 144/77 H 10/15/23 11:28 Blood Pressure Position Supine 10/15/23 11:28 Pulse Oximetry 96 10/15/23 11:38 Oxygen Delivery Method Nasal Cannula 10/15/23 11:38 Oxygen Flow Rate 4 10/15/23 11:38 Pain Level 3 10/15/23 11:28 Comment 2.5 to 4 liters oxygen as chronic use took 2 tylenol after fall 10/15/23 11:28 Medical Decision Making Emergent evaluation of traumatic right hip pain. Initial differential includes fracture, dislocation less likely given exam, contusion. Symptoms are consistent with mechanical fall. Unable to bear weight secondary to pain. Initial plan for pain control, lab work and imaging. Imaging reviewed. Right pubic rami fracture noted. Pain improved with IV morphine, but difficulty tolerating pain with any movement. Discussed with orthopedic surgery, this is a nonoperative fracture. Recommend CT imaging to rule out any other additional fractures. Pain control, PT OT. Given patient's level of debility, oxygen dependence it is in her best interest to stay in the hospital for pain control and PT OT. Daughter is also requesting this. Discussed with hospitalist, will admit to their service. Medical Records Medical records reviewed: Yes I reviewed the patient's medical records. Lab Data Lab results reviewed: Yes I reviewed the patient's lab results. Quality:[facility] Health Related Social Needs: No Data to Display Discharge Plan Disposition Patient Disposition: Admit to [facility] Discharge Details Chief Complaint: Fall/Non TraumaCriteria Clinical Impression: Hip pain, right, Fracture of right inferior pubic ramus, Fracture of right superior pubic ramus, Contusion of elbow, right Primary Care Provider: Aliyah De Paz ED Provider: Yrn Mariscal Home Meds and New Rx's Prescriptions: No Action metoprolol succinate 25 mg tablet extended release 24 hr 25 mg PO DAILY Qty: 90 3RF Rx Instructions: Decrease 2' low BP, Wt Loss (DME) compressor, for nebulizer device See Dose Instructions .ROUTE .MEDSUPPLY Qty: 1 0RF Dose Instruction: As directed Rx Instructions: As directed amitriptyline 10 mg tablet 10 mg PO QHS Qty: 90 4RF benzonatate 100 mg capsule 100 mg PO BID PRN (Reason: cough) Qty: 60 1RF atorvastatin 80 mg tablet 80 mg PO QHS Qty: 90 3RF Rx Instructions: [place] [facility] [place]/ s/p STEMI codeine-guaifenesin [Virtussin AC] 10-100 mg/5 mL liquid 10 ml PO Q6H Qty: 237 1RF Rx Instructions: Use sparingly, to rest/sleep fluticasone propionate 50 mcg/actuation spray,suspension 2 spray NS BID PRN (Reason: nasal congestion) Qty: 48 3RF Rx Instructions: for allergic rhinitis ipratropium-albuterol 0.5 mg-3 mg(2.5 mg base)/3 mL solution for nebulization 3 ml inhalation Q4H PRN (Reason: wheezing) Qty: 540 12RF lisinopril 5 mg tablet 5 mg PO DAILY Qty: 90 3RF Rx Instructions: [place] [facility] [place] 08/29/20 s/p STEMI ibuprofen 200 mg tablet 400 mg PO Q6H PRN acetaminophen [Arthritis Pain Relief (acetam)] 650 MG tablet extended release 650 mg PO PRN aspirin [Adult Low Dose Aspirin] 81 mg tablet,delayed release (DR/EC) 81 mg PO DAILY Qty: 90 3RF (DME) Oxygen 2.5 L Continuous EACH See Rx Instructions .Route .MEDSUPPLY Qty: 1 Rx Instructions: use 2 - 4 liters dependant on exertion, pt feels 2.5 is good. cc roflumilast [Daliresp] 500 mcg tablet 500 mcg PO DAILY Qty: 90 3RF loratadine [Allergy Relief (loratadine)] 10 mg tablet 10 mg PO DAILY Qty: 90 2RF tiotropium bromide [Spiriva with HandiHaler] 18 mcg capsule, w/inhalation device See Rx Instructions .ROUTE .COMPLEX Qty: 90 12RF Hold Instructions: Formulary/Insurance Dose Instruction: INHALE THE CONTENTS OF 1 CAPSULE VIA INHALATION DEVICE DAILY Rx Instructions: INHALE THE CONTENTS OF 1 CAPSULE VIA INHALATION DEVICE DAILY fluticasone propion-salmeterol [Advair Diskus] 500-50 mcg/dose blister with device 1 inh inhalation BID PRN (Reason: Severe wheezing) Qty: 180 12RF fluoxetine 10 mg tablet 10 mg PO DAILY Qty: 90 3RF Rx Instructions: for depressed mood clotrimazole 1 % cream 1 applic TP BID Qty: 30 3RF Rx Instructions: Apply under breasts, 2FTU x 2 BID (4g) est albuterol sulfate [Ventolin HFA] 90 mcg/actuation HFA aerosol inhaler 2 puff inhalation Q4H PRN (Reason: shortness of breath or wheezing) Qty: 18 12RF amitriptyline 10 mg Tablet 10 mg PO ONCE fluticasone propion-salmeterol [Advair Diskus] 500-50 mcg/dose Blister With Device 500 ea INHALATION BID roflumilast [Daliresp] 500 mcg Tablet 500 mcg PO ONCE Spiriva Respimat 1.25 mcg/actuation Mist 150 mcg INHALATION ONCE
[2023-10-15] MEDS: MORPHine 10 MG/ML VIAL 2 MG IVP (12:00)
[2023-10-15] MEDS: Ondansetron 4 MG/2 ML VIAL IVP (12:00)
[2023-10-15 12:13] LABS: Absolute Basophil Count 0.06 10^3/uL (0.0-0.2); Absolute Eosinophil Count 0.34 10^3/uL (0.0-0.7); Absolute Lymphocyte Count 0.91 10^3/uL (1.2-3.4); Absolute Monocyte Count 0.51 10^3/uL (0.1-0.8); Absolute Neutrophil Count 7.07 10^3/uL (1.2-6.7); Basophils % 0.7; Eosinophils % 3.8; HGB 11.7 g/dL (11.2-15.7); Immature Grans % 1.1; Lymphocytes % 10.1; MCH 29.5 pg (27.0-33.0); MCHC 31.6 % (32.0-36.0); MCV 93 fL (80-95); MPV 8.8 fL (8.0-11.0); Monocytes % 5.7; Neutrophils % 78.6; Platelet Count 225 10^3/uL (130-400); RBC 3.96 10^6/uL (3.93-5.22); RDW 13.5 % (11.7-14.6); RDW-SD 46.4 fL; WBC 8.99 10^3/uL (4.4-10.8)
[2023-10-15 12:23] LABS: ALT 32 U/L (14-59); AST 34 U/L (15-37); Albumin 2.8 g/dL (3.4-5.0); Alkaline Phosphatase 137 U/L (46-116); Anion Gap 3.7 mmol/L (3-11); BUN 17 mg/dL (7-18); Bilirubin, Total 0.5 mg/dL (0.2-1.0); CO2 31.3 mmol/L (21.0-32.0); CREATININE 0.9 mg/dL (0.55-1.02); Calcium 9.1 mg/dL (8.5-10.1); Chloride 104 mmol/L (98-107); Estimated GFR 65.84 (mL/min/1.73m2); Glucose 102 mg/dL (74-106); Potassium 3.9 mmol/L (3.5-5.1); Sodium 139 mmol/L (136-145)
--- NOTE | 2023-10-15 13:15 | DI.CT_ITS ---
Exam(s) CT PELVIC WO EXAM: CT PELVIC WO CLINICAL HISTORY: PELVIC FX. TECHNIQUE: Imaging Protocol: Axial computed tomography images with coronal and sagittal reformatted images were created and reviewed. COMPARISON: CT CT THORAX ABD/PEL CTA from 07/16/2023 CR XR PELVIS AP from 10/15/2023 FINDINGS: Bones: There is a nondisplaced fracture involving the right sacral ala. There is a comminuted minim ally displaced fracture involving the right superior pubic ramus. There is a comminuted fracture inv olving the right inferior pubic ramus. There is an small hematoma associated with the fractures. Th e fractures approach but appear to spare the symphysis pubis. The bones are osteopenic. There are d egenerative changes seen in the lumbar spine in the hips bilaterally. Soft Tissues: There is a fat containing umbilical hernia. There is diverticulosis of the colon witho ut evidence of acute diverticulitis. There is a 5.0 x 3.1 cm left adnexal cyst which appears stable. It appears to arise from the ovary. IMPRESSION: Fractures involving the right sacral ala and right superior and inferior pubic rami as described abov e. RADIATION DOSE DELIVERED: 593.22mGy.cm Total DLP 593.22mGy.cmTotal DLP DATA REPOSITORY: All CT scans at this facility are submitted to the National Radiology Data Registry (NRDR) Dose Index Registry (DIR) with the [employer] (ACR). RADIATION OPTIMIZATION: All CT scans at this facility use at least one of these dose optimization te chniques: automated exposure control; mA and/or kV adjustment per patient size (includes targeted exa ms where dose is matched to clinical indication); or iterative reconstruction.
--- NOTE | 2023-10-15 13:15 | W.ORTHOCONSU ---
Date of service: 10/15/23 Time of Service: 13:15 Assessment and Plan Assessment and plan (1) Fracture of right inferior pubic ramus: Status: Acute (2) Fracture of right superior pubic ramus: Status: Acute (3) Arthritis of right hip: Status: Acute Assessment and plan: 78-year-old female status post fall with mildly displaced right inferior and superior rami fractures in the setting of significant underlying hip arthritis Discussed with emergency room doctor. Imaging reviewed. Recommend protected weightbearing with a walker, multimodal pain control, dvt ppx, physical therapy, and medical admission/observation if needed. Optimize medical comorbidities. If unable to mobilize, low threshold to obtain CT scan pelvis through the proximal femurs to rule out occult hip fracture. Follow-up outpatient orthopedics in about 3 weeks. PFSH All Active Problems (Updated 10/15/23 @ 13:17 by Abe Beth MD) Arthritis of right hip (Acute) Fracture of right superior pubic ramus (Acute) Fracture of right inferior pubic ramus (Acute) Abdominal wall hernia (Acute) ASCVD (arteriosclerotic cardiovascular disease) (Acute) At risk of fracture due to osteoporosis (Acute) Abnormal finding on imaging (Acute) Followed by US/CT: AAA, Umb Hernia, Ov Cyst (lft), Renal lesion (lft) .. Elevated serum creatinine (Acute) IMPROVED! .. per december 2021 labs .. re-check for CTA AAA (abdominal aortic aneurysm) (Chronic) 05/[address]; Q6mo recheck d/t 3mm increase.IK 10/25/22 measures 4.5 on US Apparent > 5mm growth since 12/2021, per Abd CT (09/2022). [ ] Vasc, ik .. Stable per 09/2021 CT (4.1cm) .. Hx: 39mm infrarenal; found on 07/30/19 CT.. AAA > 5.5 cm present high risk and surgical review. Oxygen dependent (Acute) 2L ... Can go without if sitting/resting only. 04/2022: 2.5L with URI (2' PulsOx in 80s) Environmental allergies (Acute) Long Hx loratidine, trial cetirizine (03/2021) Personal history of nicotine dependence (Acute) TAMRA (obstructive sleep apnea) (Chronic ~2015) Aníbal- moderately severe CPAP Chronic airway obstruction, mixed type (Acute) GOLD III severe COPD, FEV1 0.9 (41%pred, 48%FVC) 03/2011; significant response dilator; similar 11/07/15 Asthma (Chronic) Cor pulmonale (Acute 03/19/16) edema, hypoxia, arrhythmia at [facility] 02/26/16 Abnormal screening computed tomography (CT) of chest (Acute ~06/30/20) CT (2019) shows NO NODULE. New 1 cm nodule in the left upper lobe. Dr. Miller Umbilical hernia (Acute) ID'd on CT; Surgery Eval for management recommendations CAD (coronary artery disease) (Chronic) s/p PCI Distal RCA [place] x2[place] 08[place] .. 2' STEMI ([facility]).. Increased frequency of urination (Acute) Hematuria (Acute) Pelvic mass (Acute 02/24/15) Followed by [facility], yearly imaging planned... Left renal, Left ovarian lesions .. stable, 2020 CT. Renal lesion (Acute) Ovarian cyst, left (Acute) US 1999, 2006; again on MRI of hip 2014, US 2014 Dysuria (Acute) Acute on chronic complaint .. 08/17/21, 07/30/21 ... Cough (Chronic) Chronic, calms with cough syrup/lozenges. Worsens with COPD exacerbations. Venous insufficiency of both lower extremities (Acute 03/19/16) Greater trochanteric bursitis of right hip (Acute 05/16/15) Hip pain, right (Acute 12/26/14) DJD, ? AVN on MRI (Dr Llanos) Medical History Cataracts, bilateral Scheduled for cataract surgery with Dr. Pappas ([facility]) 08/23 (OS) & 09/06 (OD) .. COPD (chronic obstructive pulmonary disease) COPD exacerbation Depressive disorder (07/24/12) History of ST elevation myocardial infarction (STEMI) Involving L main coronary artery. [place] [facility] [place] note.HE Osteoarthritis, hand (10/17/14) Tubular adenoma of colon (07/23/17) Varicose veins Surgical History Cholecystectomy (10/06/1966) Colonoscopy - MAC (07/23/17) Ligation of fallopian tube (10/06/69) Family History Mother , complications DM at age 67. Diabetes Father , stomach cancer at age 30. No problems noted. 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 Pets and animals: No Sexually active: No Do you think of yourself as: straight/heterosexual Current gender identity: female What is your relationship status?: Panel score (0-1 are the most socially isolated patients): 0 What type of physical activity do you participate in: other Details: Yardwork; Housework Duration: 30-45 minutes/day Frequency: daily Linda/Christianity: Denominational Seatbelt use: always Helmet use: No (Never) Drive intox or ride w/intox van driver helper: No Working smoke detector in home: Yes Fire extinguisher in home: Yes Carbon monox detector in home: Yes Do you feel safe at home: Yes Do you feel safe in your relationship?: Yes Results Last Vital Signs Temp 99.0 F 10/15/23 11:28 Pulse 72 10/15/23 11:28 Resp 16 10/15/23 11:28 BP 144/77 H 10/15/23 11:28 Pulse Ox 96 10/15/23 11:38 Labs 10/15/23 11:55 10/15/23 11:58 Labs: Laboratory Results - last 24 hr 10/15/23 10/15/23 11:55 11:58 WBC 8.99 RBC 3.96 Hgb 11.7 Hct 37.0 MCV 93 MCH 29.5 MCHC 31.6 L RDW 13.5 Plt Count 225 MPV 8.8 Immature Gran % 1.1 Neutrophils % 78.6 Lymphocytes % 10.1 Monocytes % 5.7 Eosinophils % 3.8 Basophils % 0.7 Nucleated RBC % 0.0 Absolute Neutrophils 7.07 H Absolute Lymphocytes 0.91 L Absolute Monocytes 0.51 Absolute Eosinophils 0.34 Absolute Basophils 0.06 Sodium 139 Potassium 3.9 Chloride 104 Carbon Dioxide 31.3 Anion Gap 3.7 BUN 17 Creatinine 0.9 Est GFR (CKD-EPI 2020) 65.84 Glucose 102 Calcium 9.1 Total Bilirubin 0.5 AST 34 ALT 32 Alkaline Phosphatase 137 H Total Protein 7.0 Albumin 2.8 L Patient ABO/Rh A Positive Antibody Screen NEGATIVE
[2023-10-15] MEDS: Ketorolac 15 MG/ML VIAL 10 MG IVP (13:44)
[2023-10-15] MEDS: ACETAMINOPHEN 1,000 MG/100 ML BTL 400 MG IVPB (14:45)
--- NOTE | 2023-10-15 15:59 | W.PM.HP.N ---
Date of service: 10/15/23 Time of Service: 16:00 Assessment and Plan Assessment and plan (1) Fracture of right inferior pubic ramus: Status: Acute Assessment and plan: mildly displaced right inferior and superior rami fractures in the setting of significant underlying hip arthritis referred to observation for pain management and PT consult orthopedic consultation with following recommendations: Recommend protected weightbearing with a walker, multimodal pain control, dvt ppx, physical therapy, Follow-up outpatient orthopedics in about 3 weeks. (2) Fracture of right superior pubic ramus: Status: Acute Assessment and plan: see above (3) Oxygen dependent: Status: Acute Assessment and plan: home oxygen with no increased requirements (4) Chronic airway obstruction, mixed type: Status: Acute Assessment and plan: continue home medication/inhalers (5) CAD (coronary artery disease): Status: Chronic Assessment and plan: stable, continue home medications (6) TAMRA (obstructive sleep apnea): Status: Chronic Assessment and plan: continue home cpap (7) Discharge planning issues: Status: Acute Assessment and plan: enoxaparin for DVT prophylaxis add gi prophylaxis while hospitalized PT/OT consult case management anticipate discharge to home discussed with Dr Moctezuma History of Present Illness History of Present Illness Chief Complaint: hip pain, mechanical fall Narrative: this is a 78-year-old female patient complex past medical history including oxygen dependency obstructive sleep apnea asthma cor pulmonale arthrosclerotic cardiovascular disease venous insufficiency right hip greater trochanteric bursitis who presented to the emergency department by EMS after sustaining a mechanical fall at home unable to get up complaining of right hip pain. Her workup in the emergency department was significant for right superior and inferior pubic rami fractures. Review of Systems All systems reviewed & are unremarkable except as noted in HPI and below PFSH All Active Problems (Updated 10/15/23 @ 18:17 by Alisa Gasca NP) Discharge planning issues (Acute) Contusion of elbow, right (Acute) Arthritis of right hip (Acute) Fracture of right superior pubic ramus (Acute) Fracture of right inferior pubic ramus (Acute) Abdominal wall hernia (Acute) ASCVD (arteriosclerotic cardiovascular disease) (Acute) At risk of fracture due to osteoporosis (Acute) Abnormal finding on imaging (Acute) Followed by US/CT: AAA, Umb Hernia, Ov Cyst (lft), Renal lesion (lft) .. Elevated serum creatinine (Acute) IMPROVED! .. per december 2021 labs .. re-check for CTA AAA (abdominal aortic aneurysm) (Chronic) 05/[address]; Q6mo recheck d/t 3mm increase.IK 10/25/22 measures 4.5 on US Apparent > 5mm growth since 12/2021, per Abd CT (09/2022). [ ] Vasc, ik .. Stable per 09/2021 CT (4.1cm) .. Hx: 39mm infrarenal; found on 07/30/19 CT.. AAA > 5.5 cm present high risk and surgical review. Oxygen dependent (Acute) 2L ... Can go without if sitting/resting only. 04/2022: 2.5L with URI (2' PulsOx in 80s) Environmental allergies (Acute) Long Hx loratidine, trial cetirizine (03/2021) Personal history of nicotine dependence (Acute) TAMRA (obstructive sleep apnea) (Chronic ~2015) Aníbal- moderately severe CPAP Chronic airway obstruction, mixed type (Acute) GOLD III severe COPD, FEV1 0.9 (41%pred, 48%FVC) 03/2011; significant response dilator; similar 11/07/15 Asthma (Chronic) Cor pulmonale (Acute 03/19/16) edema, hypoxia, arrhythmia at [facility] 02/26/16 Abnormal screening computed tomography (CT) of chest (Acute ~06/30/20) CT (2019) shows NO NODULE. New 1 cm nodule in the left upper lobe. Dr. Miller Umbilical hernia (Acute) ID'd on CT; Surgery Eval for management recommendations CAD (coronary artery disease) (Chronic) s/p PCI Distal RCA (DON x2)([facility]), 08/2020 .. 2' STEMI ([facility]).. Increased frequency of urination (Acute) Hematuria (Acute) Pelvic mass (Acute 02/24/15) Followed by [facility], yearly imaging planned... Left renal, Left ovarian lesions .. stable, 2020 CT. Renal lesion (Acute) Ovarian cyst, left (Acute) US 1999, 2006; again on MRI of hip 2014, US 2014 Dysuria (Acute) Acute on chronic complaint .. 08/17/21, 07/30/21 ... Cough (Chronic) Chronic, calms with cough syrup/lozenges. Worsens with COPD exacerbations. Venous insufficiency of both lower extremities (Acute 03/19/16) Greater trochanteric bursitis of right hip (Acute 05/16/15) Hip pain, right (Acute 12/26/14) DJD, ? 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 Per [facility] 10/31/22 note.HE COPD exacerbation Cataracts, bilateral Scheduled for cataract surgery with Dr. Pappas ([facility]) 08/23 (OS) & 09/06 (OD) .. Tubular adenoma of colon (07/23/17) Osteoarthritis, hand (10/17/14) Depressive disorder (07/24/12) Varicose veins COPD (chronic obstructive pulmonary disease) Surgical History Ligation of fallopian tube (10/06/69) Colonoscopy - MAC (07/23/17) Cholecystectomy (10/06/1966) Family History Mother , complications DM at age 67. Diabetes Father , stomach cancer at age 30. No problems noted. 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 Pets and animals: No Sexually active: No Do you think of yourself as: straight/heterosexual Current gender identity: female What is your relationship status?: Panel score (0-1 are the most socially isolated patients): 0 What type of physical activity do you participate in: other Details: Yardwork; Housework Duration: 30-45 minutes/day Frequency: daily Linda/Alevism: Buddhism Seatbelt use: always Helmet use: No (Never) Drive intox or ride w/intox lease purchase driver: No Working smoke detector in home: Yes Fire extinguisher in home: Yes Carbon monox detector in home: Yes Do you feel safe at home: Yes Do you feel safe in your relationship?: Yes Meds Allergies and Home Medications Allergies Allergy/AdvReac Type Severity Reaction Status Date / Time Fish Containing Products AdvReac Severe vomiting, Verified 10/15/23 11:39 diarrhea, headache Home Medications Medication Instructions Recorded Confirmed Type acetaminophen 650 mg 650 mg PO PRN 11/08/16 10/15/23 History tablet,extended release (Arthritis Pain Relief (acetaminophen) ER) compressor, for nebulizer #1 ea 10/14/18 10/15/23 Rx aspirin 81 mg tablet,delayed 81 mg PO DAILY #90 tabs 07/18/22 10/15/23 Rx release (Adult Low Dose Aspirin) Oxygen #1 ea 08/20/22 10/15/23 History roflumilast 500 mcg tablet 500 mcg PO DAILY #90 tabs 10/21/22 10/15/23 Rx (Daliresp) loratadine 10 mg tablet (Allergy 10 mg PO DAILY #90 tabs 11/13/22 10/15/23 Rx Relief (loratadine)) tiotropium bromide 18 mcg capsule See Rx Instructions .Route 11/25/22 10/15/23 Rx with inhalation device (Spiriva .COMPLEX #90 caps with HandiHaler) atorvastatin 80 mg tablet 80 mg PO QHS #90 tabs 01/31/23 10/15/23 Rx fluticasone propionate 50 2 spray NS BID PRN nasal 01/31/23 10/15/23 Rx mcg/actuation nasal congestion #48 grams spray,suspension ipratropium 0.5 mg-albuterol 3 mg 3 ml inhalation Q4H PRN wheezing 01/31/23 10/15/23 Rx (2.5 mg base)/3 mL nebulization #540 mL soln lisinopril 5 mg tablet 5 mg PO DAILY #90 tabs 01/31/23 10/15/23 Rx ibuprofen 200 mg tablet 400 mg PO Q6H PRN 02/11/23 10/15/23 History amitriptyline 10 mg tablet 10 mg PO QHS #90 tabs 02/28/23 10/15/23 Rx Advair Diskus 500 mcg-50 mcg/dose 1 inh inhalation BID PRN Severe 04/16/23 10/15/23 Rx powder for inhalation (fluticasone wheezing #180 ea propion-salmeterol) fluoxetine 10 mg tablet 10 mg PO DAILY #90 tabs 05/01/23 10/15/23 Rx metoprolol succinate 25 mg 25 mg PO DAILY #90 tabs 08/01/23 10/15/23 Rx tablet,extended release 24 hr Ventolin HFA 90 mcg/actuation 2 puff inhalation Q4H PRN 09/05/23 10/15/23 Rx aerosol inhaler (albuterol sulfate) shortness of breath or wheezing #18 grams Exam Const General: cooperative, healthy appearing, comfortable and no acute distress Nutritional Appearance: average body habitus Orientation: alert, awake and oriented x3 HENMT Head: normal to inspection, normocephalic and atraumatic Face and sinus: normal facial exam Eyes General: appearance normal, both eyes and all related structures Neck Neck: normal visual inspection, full ROM, nontender and no JVD Resp Effort & Inspection: normal respiratory effort (wearing nasal cannula which is baseline) Cardio Rate: regular rate Rhythm: regular rhythm GI Inspection: normal to inspection Palpation: soft Auscultation: normal bowel sounds Skin General skin exam: no rashes or lesions noted Neuro General: patient alert, patient awake, patient oriented x3 and no focal motor deficits Extrem General: normal to inspection and full ROM Right lower extremity: normal to inspection; no edema Results Labs 10/15/23 11:55 10/15/23 11:58 Labs: Laboratory Results - last 24 hr 10/15/23 10/15/23 11:55 11:58 WBC 8.99 RBC 3.96 Hgb 11.7 Hct 37.0 MCV 93 MCH 29.5 MCHC 31.6 L RDW 13.5 Plt Count 225 MPV 8.8 Immature Gran % 1.1 Neutrophils % 78.6 Lymphocytes % 10.1 Monocytes % 5.7 Eosinophils % 3.8 Basophils % 0.7 Nucleated RBC % 0.0 Absolute Neutrophils 7.07 H Absolute Lymphocytes 0.91 L Absolute Monocytes 0.51 Absolute Eosinophils 0.34 Absolute Basophils 0.06 Sodium 139 Potassium 3.9 Chloride 104 Carbon Dioxide 31.3 Anion Gap 3.7 BUN 17 Creatinine 0.9 Est GFR (CKD-EPI 2020) 65.84 Glucose 102 Calcium 9.1 Total Bilirubin 0.5 AST 34 ALT 32 Alkaline Phosphatase 137 H Total Protein 7.0 Albumin 2.8 L Patient ABO/Rh A Positive Antibody Screen NEGATIVE Last Vital Signs Temp 37.2 C 10/15/23 11:28 Pulse 62 10/15/23 12:31 Resp 16 10/15/23 11:28 BP 131/70 10/15/23 12:31 Pulse Ox 100 10/15/23 12:30 Time Spent Time spent with Patient: 40-54 minutes Time was spent: preparing to see the patient(eg.review tests), obtaining and/or reviewing separately otained hiistory, ordering medications,tests, procedures, indepentently interpreting results and counseling the patient
[2023-10-15] MEDS: Ibuprofen 200 MG TAB 400 MG PO ×2 (18:54→20:37)
[2023-10-15] MEDS: Acetaminophen 325 MG TAB 650 MG PO (20:37)
[2023-10-15] MEDS: Budesonide/Formoterol 160/4.5 6 GM 60 PUFF INH IH (20:46)
--- NOTE | 2023-10-15 20:48 | RESPIRATORY ---
RT seen pt. for TAMRA. Pt. has brought her HU CPAP machine [employer], has auto cpap min: 13 Max: 18, uses 2.5l O2 with humidifier attached in device. RT inspected device, it is in good condition to go. Pt. also uses O2 2.5L/min while resting and up to 4L/min during activity. DME is [facility].
[2023-10-15] MEDS: Amitriptyline 10 MG TAB PO (21:22)
[2023-10-15] MEDS: Normal Saline Flush 10 ML SYR IVP (21:23)
[2023-10-16] VITALS (7 sets, daily range): BP systolic 103–130; BP diastolic 63–78; PULSE 55–63; RESP 6–18; TEMP 35.8–36.5; O2SAT 92–98
[2023-10-16] MEDS: Famotidine 20 MG TAB PO (07:50)
[2023-10-16] MEDS: Multivitamin w/Minerals TAB 1 TAB PO (07:50)
[2023-10-16] MEDS: Enoxaparin 40 MG/0.4 ML SYR SC (07:50)
[2023-10-16] MEDS: Acetaminophen 325 MG TAB 650 MG PO ×4 (07:50→19:41)
[2023-10-16] MEDS: Loratidine 10 MG TAB PO (07:50)
[2023-10-16] MEDS: Aspirin E.C. 81 MG TABEC PO (07:50)
[2023-10-16] MEDS: Normal Saline Flush 10 ML SYR IVP ×2 (07:50→21:37)
[2023-10-16] MEDS: Metoprolol CR 25 MG TABCR PO (07:50)
[2023-10-16] MEDS: Lisinopril 5 MG TAB PO (07:50)
[2023-10-16] MEDS: Ibuprofen 200 MG TAB 400 MG PO ×4 (07:50→19:41)
[2023-10-16] MEDS: Calcium 600mg/Vit D 200U TAB 1 TAB PO ×2 (07:50→19:41)
[2023-10-16] MEDS: Roflumilast 500 MCG TAB PO (07:50)
[2023-10-16] MEDS: FLUoxetine 10 MG TAB PO (07:50)
[2023-10-16] MEDS: Tiotropium Bromide-Respimat 10 PUFF INH 2 PUFF IH (08:15)
[2023-10-16] MEDS: Budesonide/Formoterol 160/4.5 6 GM 60 PUFF INH IH ×2 (08:15→20:50)
[2023-10-16 08:51] LABS: ALT 36 U/L (14-59); AST 44 U/L (15-37); Albumin 2.6 g/dL (3.4-5.0); Alkaline Phosphatase 122 U/L (46-116); Anion Gap 3.3 mmol/L (3-11); BUN 18 mg/dL (7-18); Bilirubin, Total 0.6 mg/dL (0.2-1.0); CO2 29.7 mmol/L (21.0-32.0); CREATININE 0.9 mg/dL (0.55-1.02); Chloride 105 mmol/L (98-107); Estimated GFR 65.84 (mL/min/1.73m2); Glucose 119 mg/dL (74-106); Potassium 4.4 mmol/L (3.5-5.1); Sodium 138 mmol/L (136-145); Total Protein 6.6 g/dL (6.4-8.2)
--- NOTE | 2023-10-16 09:40 | INITIAL_ITS ---
Date of service: 10/16/23 Time of Service: 09:40 Care Management Initial Assmt Initial Assessment REASON FOR HOSPITALIZATION:: Fractured pelvis PREVIOUS FUNCTIONAL STATUS/SOCIAL/FAMILY SUPPORTS:: Radha resides in [place], she is and her daughter and step-daughter reside locally and are supportive. CURRENT FUNCTIONAL STATUS:: Ambulates with FWW; SBA. Awaiting PT consult to determine recommendations for discharge. CM following. ADVANCE DIRECTIVES:: Reports on file, CM unable to locate document. Has patient been provided with info about the portal/API?: Yes Did the patient sign up for the portal?: No CODE STATUS:: Full Code INSURANCE COVERAGE / FINANCIAL ISSUES:: [facility] CURRENT HOME/COMMUNITY SERVICES/EQUIPMENT:: Siderails, bedside commode, grab bars, tub seat, ramp, FWW, 4WW, CPAP-has own unit at [facility]. PRIMARY CARE PHYSICIAN:: Aliyah De Paz POTENTIAL DISCHARGE NEEDS:: Pain management, PT evaluation PATIENT/FAMILY EDUCATION NEEDS:: Review discharge instructions, discuss Ask Me Three. ANTICIPATED BARRIERS TO DISCHARGE:: None identified at this time. TRANSPORTATION:: Dependent on disposition and mobility PLAN:: Radha will be closely monitored for pain management and ambulate with PT for discharge planning considerations, and recommendations. CM following. [facility] All Active Problems (Updated 10/15/23 @ 18:17 by Alisa Gasca NP) Discharge planning issues (Acute) Contusion of elbow, right (Acute) Arthritis of right hip (Acute) Fracture of right superior pubic ramus (Acute) Fracture of right inferior pubic ramus (Acute) Abdominal wall hernia (Acute) ASCVD (arteriosclerotic cardiovascular disease) (Acute) At risk of fracture due to osteoporosis (Acute) Abnormal finding on imaging (Acute) Followed by US/CT: AAA, Umb Hernia, Ov Cyst (lft), Renal lesion (lft) .. Elevated serum creatinine (Acute) IMPROVED! .. per december 2021 labs .. re-check for CTA AAA (abdominal aortic aneurysm) (Chronic) 05/[address]; Q6mo recheck d/t 3mm increase.IK 10/25/22 measures 4.5 on US Apparent > 5mm growth since 12/2021, per Abd CT (09/2022). [ ] Vasc, ik .. Stable per 09/2021 CT (4.1cm) .. Hx: 39mm infrarenal; found on 07/30/19 CT.. AAA > 5.5 cm present high risk and surgical review. Oxygen dependent (Acute) 2L ... Can go without if sitting/resting only. 04/2022: 2.5L with URI (2' PulsOx in 80s) Environmental allergies (Acute) Long Hx loratidine, trial cetirizine (03/2021) Personal history of nicotine dependence (Acute) TAMRA (obstructive sleep apnea) (Chronic ~2015) Aníbal- moderately severe CPAP Chronic airway obstruction, mixed type (Acute) GOLD III severe COPD, FEV1 0.9 (41%pred, 48%FVC) 03/2011; significant response dilator; similar 11/07/15 Asthma (Chronic) Cor pulmonale (Acute 03/19/16) edema, hypoxia, arrhythmia at [facility] 02/26/16 Abnormal screening computed tomography (CT) of chest (Acute ~06/30/20) CT (2019) shows NO NODULE. New 1 cm nodule in the left upper lobe. Dr. Miller Umbilical hernia (Acute) ID'd on CT; Surgery Eval for management recommendations CAD (coronary artery disease) (Chronic) s/p PCI Distal RCA (DON x2)([facility] [place]), 08/2020 .. 2' STEMI ([facility]).. Increased frequency of urination (Acute) Hematuria (Acute) Pelvic mass (Acute 02/24/15) Followed by [facility], yearly imaging planned... Left renal, Left ovarian lesions .. stable, 2020 CT. Renal lesion (Acute) Ovarian cyst, left (Acute) US 1999, 2006; again on MRI of hip 2014, US 2014 Dysuria (Acute) Acute on chronic complaint .. 08/17/21, 07/30/21 ... Cough (Chronic) Chronic, calms with cough syrup/lozenges. Worsens with COPD exacerbations. Venous insufficiency of both lower extremities (Acute 03/19/16) Greater trochanteric bursitis of right hip (Acute 05/16/15) Hip pain, right (Acute 12/26/14) DJD, ? 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 Per [facility] 10/31/22 note.HE COPD exacerbation Cataracts, bilateral Scheduled for cataract surgery with Dr. Pappas ([facility]) 08/23 (OS) & 09/06 (OD) .. Tubular adenoma of colon (07/23/17) Osteoarthritis, hand (10/17/14) Depressive disorder (07/24/12) Varicose veins COPD (chronic obstructive pulmonary disease) Surgical History Ligation of fallopian tube (10/06/69) Colonoscopy - MAC (07/23/17) Cholecystectomy (10/06/1966) Family History Mother , complications DM at age 67. Diabetes Father , stomach cancer at age 30. No problems noted. 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 Pets and animals: No Sexually active: No Do you think of yourself as: straight/heterosexual Current gender identity: female What is your relationship status?: Panel score (0-1 are the most socially isolated patients): 0 What type of physical activity do you participate in: other Details: Yardwork; Housework Duration: 30-45 minutes/day Frequency: daily Linda/Church: Protestant Seatbelt use: always Helmet use: No (Never) Drive intox or ride w/intox school bus driver/teacher assistant: No Working smoke detector in home: Yes Fire extinguisher in home: Yes Carbon monox detector in home: Yes Do you feel safe at home: Yes Do you feel safe in your relationship?: Yes SDOH(Care Management) Screening Will the Patient Participate in the Screening?: Yes Do you worry about having a steady place to live?: no Problems where you live: no known problems In the past 12 months, have you had to go without electric, gas, oil or water in your home?: no Have you or anyone in your house had to go without enough food to eat?: no Has lack of transportation kept you from medical appointments or from doing things needed for daily living?: no Has anyone in your support network made you feel unsafe for any reason?: no
--- NOTE | 2023-10-16 10:04 | W.PM.PROGNOT ---
Date of Service Date of service: 10/16/23 Time of Service: 10:04 Assessment and Plan Assessment and plan (1) Fracture of right inferior pubic ramus: Status: Acute Assessment and plan: Continue recommendations as per orthopedic consultation. -protected weightbearing with a walker, multimodal pain control, dvt ppx, physical therapy: Gabapentin added with AM LFT's -Follow-up outpatient orthopedics in about 3 weeks, entered in discharge plan and discussed with patient. (2) Fracture of right superior pubic ramus: Status: Acute Assessment and plan: As above (3) Oxygen dependent: Status: Acute Assessment and plan: home oxygen with no additional requirements (4) Chronic airway obstruction, mixed type: Status: Acute Assessment and plan: continue home regimen-uses albuterol every day in the morning and at bedtime (5) CAD (coronary artery disease): Status: Chronic Assessment and plan: No signs and symptoms of acute decompensation continue home pharmacological regimen (6) TAMRA (obstructive sleep apnea): Status: Chronic Assessment and plan: On CPAP well-tolerated overnight; will continue (7) Discharge planning issues: Status: Acute Assessment and plan: Continue enoxaparin for DVT prophylaxis add gi prophylaxis while hospitalized, famotidine dose adjusted as per pharmacy consult Continue PT/OT Follow up by case management for increased need upon home discharge discussed with Dr Moctezuma Subjective Subjective Interval history since last seen: Patient reports feeling better, sleeping well, decreased pain, eating and drinking well. Patient is also requesting for albuterol nebs to be ordered as she takes them at home daily, in the morning and at bedtime. Patient denies dizziness, chills, night sweats, fever, headache, chest pain, shortness of breath, nausea and other gastrointestinal symptoms, dysuria. Exam Narrative Exam Narrative: The patient is well groomed without acute distress and has average body habitus HENMT: Head is atraumatic, normocephalic. Facial structures with normal appearance Eyes: Well aligned, Neck: Normal ROM, no meningeal signs Neuro:alert and oriented to self, person, place, time and situation. No neurological focal deficit Chest:Chest is symmetrical and normal appearance Resp: Normal respiratory pattern, clear lung bilaterally Cardio: regular rhythm, S1, S2, no murmur, positive pulses to all 4 extremities GI: Abdomen is not distended, soft and non tender, bowel sounds are present : Negative Costovertebral angle tenderness, Back/spine/Pelvis: No back tenderness, normal alignment, pain to right pelvis on mobilization?push pull Integumentary: Bruise to right elbow Extremities: strength 4/5 to right lower extremity Psych: RASS 0, congruent mood and normal affect. Objective Last Vital Signs Temp 35.8 C L 10/16/23 07:07 Pulse 55 L 10/16/23 07:07 Resp 16 10/16/23 07:07 BP 124/78 10/16/23 07:07 Pulse Ox 96 10/16/23 08:15 Laboratory Results - last 24 hr 10/15/23 10/15/23 11:55 11:58 WBC 8.99 RBC 3.96 Hgb 11.7 Hct 37.0 MCV 93 MCH 29.5 MCHC 31.6 L RDW 13.5 Plt Count 225 MPV 8.8 Immature Gran % 1.1 Neutrophils % 78.6 Lymphocytes % 10.1 Monocytes % 5.7 Eosinophils % 3.8 Basophils % 0.7 Nucleated RBC % 0.0 Absolute Neutrophils 7.07 H Absolute Lymphocytes 0.91 L Absolute Monocytes 0.51 Absolute Eosinophils 0.34 Absolute Basophils 0.06 Sodium 139 Potassium 3.9 Chloride 104 Carbon Dioxide 31.3 Anion Gap 3.7 BUN 17 Creatinine 0.9 Est GFR (CKD-EPI 2020) 65.84 Glucose 102 Calcium 9.1 Total Bilirubin 0.5 AST 34 ALT 32 Alkaline Phosphatase 137 H Total Protein 7.0 Albumin 2.8 L Patient ABO/Rh A Positive Antibody Screen NEGATIVE Time Spent with Patient Time Spent with Patient: >50 minutes Time was spent: preparing to see the patient(eg.review tests), ordering medications,tests, procedures, referring, communicating with other health healthcare management, indepentently interpreting results, counseling the patient and care coordination
[2023-10-16 10:13] LABS: Abs Immature Grans 0.02 10^3/uL (0.0-0.06); Absolute Basophil Count 0.06 10^3/uL (0.0-0.2); Absolute Eosinophil Count 0.34 10^3/uL (0.0-0.7); Absolute Lymphocyte Count 0.94 10^3/uL (1.2-3.4); Absolute Monocyte Count 0.55 10^3/uL (0.1-0.8); Absolute Neutrophil Count 3.54 10^3/uL (1.2-6.7); Basophils % 1.1; Eosinophils % 6.2; HCT 34.3 % (36.0-46.0); HGB 10.9 g/dL (11.2-15.7); Immature Grans % 0.4; Lymphocytes % 17.2; MCHC 31.8 % (32.0-36.0); MCV 95 fL (80-95); MPV 9.2 fL (8.0-11.0); Monocytes % 10.1; Platelet Count 220 10^3/uL (130-400); RBC 3.63 10^6/uL (3.93-5.22); RDW 13.5 % (11.7-14.6); WBC 5.45 10^3/uL (4.4-10.8)
--- NOTE | 2023-10-16 13:25 | IN_ITS ---
PT Notes Visit Reasons: fractured pelvis Inpatient Physical Therapy Evaluation Date: 10/16/23 Referring Doctor: Alisa Gasca NP PT Orders: PT CONSULT: limited ability to ambulate Precautions: protected weight bearing Patient Profile/Admitting Diagnosis: Admitted for management of pubic rami fx suffered after fall at home 10/15/23. Patient has severe COPD and is oxygen dependent at baseline, 2L at rest, 4L with activity. Social History/Home Situation: Lives in a private home with ramp to enter. Utilizes FWW or cane. Has family support, with family members checking in on her regularly and assisting with groceries, appointments, etc. Equipment Owned/DME: FWW, standard walker, cane Subjective: Radha states that she has no pain at rest. Has discomfort walking, but has been able to get to the chair and toilet with nursing assist. Has questions about what exercises she can do. Admits to previous fall about a month earlier. Unsure how either fall occurred; states that it happened so fast. Objective: General Observation: Seated in chair at initiation of session. Supplemental O2 via nasal cannula. Mental Status: A&Ox3. Pleasant and cooperative. Pain: well managed ROM: Right Upper Extremity: WFL Left Upper Extremity: WFL Right Lower Extremity: Tolerates active hip flexion to 100*. AB 20* with discomfort. Knee and ankle motion WFL. Left Lower Extremity: WFL Strength: Right Upper Extremity: Shoulder flexion 4/5. Biceps 4+/5. Triceps 4/5. Sidehand is strong. Left Upper Extremity: Shoulder flexion 4/5. Biceps 4+/5. Triceps 4/5. Sidehand is strong. Right Lower Extremity: Hip flexion 3-/5. Quads 5/5. Ankle DF 5/5. Left Lower Extremity: Hip flexion 4+/5. Quads 5/5. Ankle DF 5/5. Bed Mobility/Transfers: sit-stand: independent stand-sit: independent Gait: Ambulates 25' with FWW, SBA. Limited by TORRES, requiring seated rest with pursed lip breathing on 4L O2 for recovery. Instructed in increasing UE support to FWW for alleviation of pain during ambulation with excellent carryover. Balance: Static Sitting: Normal Dynamic Sitting: Normal Static Standing: Good Dynamic Standing: Fair Special Tests: Mobility Limitations Standardized Measure [facility] 6 clicks Basic Mobility Inpatient Short Form: Raw Score: 23 CMS Score: 11% impairment Informed Consent/Education: Patient instructed in purpose of PT consult and plan of care. Assessment: Patient is a 78 year old female referred to physical therapy services with the diagnosis of limited ability to ambulate due to pubic rami fx. Patient presents with clinical signs and symptoms consistent with diagnosis, as demonstrated by the following impairment level findings: 1. Pain with ambulation 2. Decreased RLE strength 3. DEcreased RLE ROM Impairments are contributing to the following functional limitations: 1. Decreased activity tolerance 2. Pain with ambulation Patient is assessed as Low 58260 complexity based on the following: History: Patient is a 78 year old female presenting 1 day s/p pubic rami fx. She tolerated early mobilization very well, and requires skilled PT intervention to maximize safe mobility and continue gait and transfer training for pain manage ment prior to returning home. She'll benefit from PT upon discharge to allow for continued gains in mobility. Complicating factor of severe COPD with oxygen dependence and h/o falls. Examination: functional limitations as above Presentation: stable Decision Making: low complexity Goals: Goals X1 week 1. Supine-Sit : independent 2. Sit-Supine : independent 3. Sit-Stand : independent 4. Stand-Sit : independent 5. Bed-Chair : independent with FWW 6. Chair-Bed : independent with FWW 7. Gait : independent with FWW x 50' Plan of Care/Treatment Plan: 1-2x/day, 7 days/week x 1 week. Plan of care has been reviewed with the INSULATION BLANKET MAKER providing the service under Physical Therapy direction. Initiate Physical Therapy intervention for strengthening, bed mobility, transfers, gait, stairs, balance training, use of assistive device. DISCHARGE RECOMMENDATIONS: Home with services: PT TREATMENT CODE/TIME: 4556 [id number] Thank you for this referral! Jesica Wright, PT, DPT [facility] Please sign an return this page within 30 days if you agree with the above POC. Thank you! Physician Signature Date [facility] COUNTS INCLUDE 234 BEDS AT THE [facility] All Active Problems (Updated 10/15/23 @ 18:17 by Alisa Gasca NP) Discharge planning issues (Acute) Contusion of elbow, right (Acute) Arthritis of right hip (Acute) Fracture of right superior pubic ramus (Acute) Fracture of right inferior pubic ramus (Acute) Abdominal wall hernia (Acute) ASCVD (arteriosclerotic cardiovascular disease) (Acute) At risk of fracture due to osteoporosis (Acute) Abnormal finding on imaging (Acute) Followed by US/CT: AAA, Umb Hernia, Ov Cyst (lft), Renal lesion (lft) .. Elevated serum creatinine (Acute) IMPROVED! .. per december 2021 labs .. re-check for CTA AAA (abdominal aortic aneurysm) (Chronic) 05/[address]; Q6mo recheck d/t 3mm increase.IK 10/25/22 measures 4.5 on US Apparent > 5mm growth since 12/2021, per Abd CT (09/2022). [ ] Vasc, ik .. Stable per 09/2021 CT (4.1cm) .. Hx: 39mm infrarenal; found on 07/30/19 CT.. AAA > 5.5 cm present high risk and surgical review. Oxygen dependent (Acute) 2L ... Can go without if sitting/resting only. 04/2022: 2.5L with URI (2' PulsOx in 80s) Environmental allergies (Acute) Long Hx loratidine, trial cetirizine (03/2021) Personal history of nicotine dependence (Acute) TAMRA (obstructive sleep apnea) (Chronic ~2015) Aníbal- moderately severe CPAP Chronic airway obstruction, mixed type (Acute) GOLD III severe COPD, FEV1 0.9 (41%pred, 48%FVC) 03/2011; significant response dilator; similar 11/07/15 Asthma (Chronic) Cor pulmonale (Acute 03/19/16) edema, hypoxia, arrhythmia at [facility] 02/26/16 Abnormal screening computed tomography (CT) of chest (Acute ~06/30/20) CT (2019) shows NO NODULE. New 1 cm nodule in the left upper lobe. Dr. Miller Umbilical hernia (Acute) ID'd on CT; Surgery Eval for management recommendations CAD (coronary artery disease) (Chronic) s/p PCI Distal RCA [place]DON x2[place] [place] 08/2020 .. 2' STEMI ([facility]).. Increased frequency of urination (Acute) Hematuria (Acute) Pelvic mass (Acute 02/24/15) Followed by [facility], yearly imaging planned... Left renal, Left ovarian lesions .. stable, 2020 CT. Renal lesion (Acute) Ovarian cyst, left (Acute) US 1999, 2006; again on MRI of hip 2014, US 2014 Dysuria (Acute) Acute on chronic complaint .. 08/17/21, 07/30/21 ... Cough (Chronic) Chronic, calms with cough syrup/lozenges. Worsens with COPD exacerbations. Venous insufficiency of both lower extremities (Acute 03/19/16) Greater trochanteric bursitis of right hip (Acute 05/16/15) Hip pain, right (Acute 12/26/14) DJD, ? 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 Per [facility] [place]22 note.HE COPD exacerbation Cataracts, bilateral Scheduled for cataract surgery with Dr. Pappas ([facility]) 08/23 (OS) & 09/06 (OD) .. Tubular adenoma of colon (07/23/17) Osteoarthritis, hand (10/17/14) Depressive disorder (07/24/12) Varicose veins COPD (chronic obstructive pulmonary disease) Surgical History Ligation of fallopian tube (10/06/69) Colonoscopy - MAC (07/23/17) Cholecystectomy (10/06/1966)
[2023-10-16] MEDS: Gabapentin 100 MG CAP PO ×2 (14:00→19:42)
--- NOTE | 2023-10-16 14:29 | PHA.REVIEW2 ---
Pharmacy Admission Review Admission Clinical Review Admission Pharmacy Review: (Updated 10/15/23 @ 18:17 by Alisa Gasca NP) Discharge planning issues (Acute) Contusion of elbow, right (Acute) Arthritis of right hip (Acute) Fracture of right superior pubic ramus (Acute) Fracture of right inferior pubic ramus (Acute) Oxygen dependent (Acute) Chronic airway obstruction, mixed type (Acute) Hip pain, right (Acute 12/26/14) Fish Containing Products Adverse Reaction (Severe, Verified 10/15/23 11:39) vomiting, diarrhea, headache Resuscitation Status Full Code Height 5 ft 2 in Weight 67.857 kg Pharmacy Admission Review Renal Dosing Renal Dosing: BUN 18 mg/dL (7-18) 10/16/23 06:11 Creatinine 0.9 mg/dL (0.55-1.02) 10/16/23 06:11 Medications needing adjustments: Intervened (CrCl 42.54 mL/min) List of meds needing interventions: Reached out to provider about famotidine dose, recommended to decrease from 20mg BID to 20mg once daily Anticoagulation Anticoagulation: Hgb 10.9 g/dL (11.2-15.7) L 10/16/23 06:11 Hct 34.3 % (36.0-46.0) L 10/16/23 06:11 Plt Count 220 10^3/uL (130-400) 10/16/23 06:11 Creatinine 0.9 mg/dL (0.55-1.02) 10/16/23 06:11 DVT Prophylaxis: Reviewed Medications: Enoxaparin (40mg q24h) Relevant Labs Relevant Labs: Sodium 138 mmol/L (136-145) 10/16/23 06:11 Potassium 4.4 mmol/L (3.5-5.1) 10/16/23 06:11 Chloride 105 mmol/L (98-107) 10/16/23 06:11 Electrolytes, C-Reactive P, ESR: Reviewed (AST increased from 34 to 44.) Cardiac Review BP, HR, EF%: Reviewed (BP WNL, HR 55, Nasal Cannula 2+) QTc Review QTc: Reviewed (Last EKG 05/20/23 and QTc was 423) IV to PO Switch IV Medications: Reviewed Home Meds Home Med List reviewed: Reviewed Relevent Home Meds Not ordered & why?: Formulary substitutions for patients at home Advair and Sp[employer]ia Handihaler. Current Meds Current Medication Order Review: Reviewed
[2023-10-16] MEDS: Albuterol/Ipratropium 3 ML UPD VIAL IH (18:11)
[2023-10-16] MEDS: Amitriptyline 10 MG TAB PO (19:41)
[2023-10-16] MEDS: Albuterol 2.5 MG/3 ML INH SOLN VIAL UPD (19:41)
[2023-10-16] MEDS: Atorvastatin 40 MG TAB 80 MG PO (19:41)
[2023-10-16] MEDS: Docusate Sodium 100 MG CAP PO (19:43)
[2023-10-17 07:22] LABS: Abs Immature Grans 0.02 10^3/uL (0.0-0.06); Absolute Basophil Count 0.05 10^3/uL (0.0-0.2); Absolute Eosinophil Count 0.32 10^3/uL (0.0-0.7); Absolute Lymphocyte Count 0.92 10^3/uL (1.2-3.4); Absolute Monocyte Count 0.59 10^3/uL (0.1-0.8); Absolute Neutrophil Count 4.18 10^3/uL (1.2-6.7); Basophils % 0.8; Eosinophils % 5.3; HCT 31.9 % (36.0-46.0); Immature Grans % 0.3; Lymphocytes % 15.1; MCH 29.5 pg (27.0-33.0); MCHC 31.3 % (32.0-36.0); MCV 94 fL (80-95); MPV 9.3 fL (8.0-11.0); Monocytes % 9.7; Neutrophils % 68.8; Platelet Count 181 10^3/uL (130-400); RBC 3.39 10^6/uL (3.93-5.22); RDW 13.5 % (11.7-14.6); RDW-SD 46.2 fL; WBC 6.08 10^3/uL (4.4-10.8)
[2023-10-17 07:32] LABS: ALT 55 U/L (14-59); AST 62 U/L (15-37); Albumin 2.3 g/dL (3.4-5.0); Alkaline Phosphatase 119 U/L (46-116); Anion Gap 5.4 mmol/L (3-11); BUN 17 mg/dL (7-18); Bilirubin, Direct 0.2 mg/dL (0.0-0.2); Bilirubin, Total 0.5 mg/dL (0.2-1.0); CO2 29.6 mmol/L (21.0-32.0); CREATININE 1.1 mg/dL (0.55-1.02); Calcium 8.9 mg/dL (8.5-10.1); Chloride 103 mmol/L (98-107); Estimated GFR 51.75 (mL/min/1.73m2); Glucose 107 mg/dL (74-106); Potassium 4.7 mmol/L (3.5-5.1); Sodium 138 mmol/L (136-145)
[2023-10-17] MEDS: Enoxaparin 40 MG/0.4 ML SYR SC (08:09)
[2023-10-17] MEDS: Acetaminophen 325 MG TAB 650 MG PO ×3 (08:11→15:59)
[2023-10-17] MEDS: Roflumilast 500 MCG TAB PO (08:12)
[2023-10-17] MEDS: FLUoxetine 10 MG TAB PO (08:12)
[2023-10-17] MEDS: Ibuprofen 200 MG TAB 400 MG PO ×3 (08:12→16:01)
[2023-10-17] MEDS: Calcium 600mg/Vit D 200U TAB 1 TAB PO (08:12)
[2023-10-17] MEDS: Multivitamin w/Minerals TAB 1 TAB PO (08:12)
[2023-10-17] MEDS: Famotidine 20 MG TAB PO (08:12)
[2023-10-17] MEDS: Loratidine 10 MG TAB PO (08:13)
[2023-10-17] MEDS: Gabapentin 100 MG CAP PO ×2 (08:13→13:33)
[2023-10-17] MEDS: Metoprolol CR 25 MG TABCR PO (08:14)
[2023-10-17] MEDS: Docusate Sodium 100 MG CAP PO (08:14)
[2023-10-17] MEDS: Aspirin E.C. 81 MG TABEC PO (08:14)
[2023-10-17] MEDS: Lisinopril 5 MG TAB PO (08:14)
[2023-10-17] MEDS: Normal Saline Flush 10 ML SYR IVP (08:15)
[2023-10-17] MEDS: Tiotropium Bromide-Respimat 10 PUFF INH 2 PUFF IH (08:20)
[2023-10-17] MEDS: Albuterol 2.5 MG/3 ML INH SOLN VIAL UPD (08:20)
[2023-10-17] MEDS: Budesonide/Formoterol 160/4.5 6 GM 60 PUFF INH IH (08:20)
[2023-10-17 08:23] VITALS: O2SAT 91
[2023-10-17 09:55] VITALS: BP 107/67; PULSE 61; RESP 16; TEMP 36.9; O2SAT 94
--- NOTE | 2023-10-17 12:43 | PT.INTREAT ---
Date of service: 10/17/23 Time of Service: 10:34 PT Notes Visit Reasons: fractured pelvis Inpatient Physical Therapy Treatment Note [facility] Date: 10/17/23 PRECAUTIONS: Fall, standard, activity as tolerated, protected weightbearing, uses O2 at baseline. SUBJECTIVE: Patient reports feeling really pretty good, all things considered. OBJECTIVE: Supine in bed, agreeable to therapy ? PAIN: c/o discomfort in groin, hip (indicates lateral, superior to greater trochanter), and butt (indicates superior glute and SI joint region) VITALS: ? Pre-Treatment: 83% on 1L in standing ? Post-Treatment: 96 on 4L? BED MOBILITY/TRANSFERS? Rolling L/R: independent Supine-sit: independent ? Sit-supine: independent ? Sit-stand: independent ? Stand-sit: independent ? Bed-Chair: independent ? Chair-bed: independent ? Therapeutic Exercises ([id number]): Direct one-on-one instruction in therapeutic exercises to develop strength, endurance, range of motion and flexibility. Ambulation ? Assistive Device: FWW ? Weight bearing: WBAT with AD Assist: wheelchair follow (unnecessary)? Distance:? 200 feet ? Deviation: slow stephanie, asymmetric and antalgic gait pattern. ? Provided skilled instruction in proper exercise performance Provided skilled manual cues to facilitate proper muscle recruitment and/or form. Manual Therapy: Instructed patient on self t-spine mobilizations and self mobilizations of the first rib to increase lung capacity, minimize SOB, and optimize outcomes. ASSESSMENT:? Patient tolerates therapy well, SaO2 remaining at or above 95% throughout ambulation on 4L/min supplemental O2 PLAN: Continue global strengthening per plan of care until patient is medically cleared for discharge. TREATMENT CODE/TIME: 44 minutes beginning at 10:33
[2023-10-17 14:14] VITALS: RESP 5; RESP 9
[2023-10-17] MEDS: Albuterol/Ipratropium 3 ML UPD VIAL IH (14:14)
--- NOTE | 2023-10-17 14:32 | CHAPLAIN ---
Radha was in bed resting when I visited. She told me about her fall which led to a pelvis fracture. She isn't sure how she fell, may have tripped, and land on her elbow and hip. Radha lives alone in [place] but said her daughter is close by. Radha told me about a tv program that she listens to and the body and fender worker who goes over Bible stories and verses, and really enjoys that. Her daughter recently bought her a new Bible that she likes very much. She was raised [employer]ism, then didn't attend mormonism for a while, but is finding ata and connection more important the older she gets.
[2023-10-17 15:37] VITALS: BP 102/62; PULSE 60; RESP 16; TEMP 36.6; O2SAT 93
--- NOTE | 2023-10-17 16:44 | PDOC.CMDIS ---
Date of service: 10/17/23 Time of Service: 16:44 LACE Index Scoring Tool Questions: Length of Stay (in days): 2 Was the patient admitted via the E.D.?: Yes Comorbidities: Chronic Pulmonary Disease and Any Tumor E.D. Visits: 1 Answers: Total Score: 11 Risk of Readmission: High Risk Care Management Discharge Plan Reason for Hospitalization: Fractured pelvis Discharge Plan: Radha will return home with new home health orders for PT-if indicated. She will transport via private vehicle with her family and follow up with her PCP and plan of care as prescribed. Patient/Family Education Needs: Review discharge instructions, discuss Ask Me Three. Services Needed at Discharge: Home Health Care Services SDOH Health Related Social Needs: No Data to Display
--- NOTE | 2023-10-17 17:30 | W.PM.DS.N ---
Date of service: 10/17/23 Time of Service: 13:00 DS: Diagnosis Discharge Diagnosis (1) Fracture of right inferior pubic ramus: Status: Acute (2) Fracture of right superior pubic ramus: Status: Acute (3) Oxygen dependent: Status: Acute (4) Chronic airway obstruction, mixed type: Status: Acute (5) CAD (coronary artery disease): Status: Chronic (6) TAMRA (obstructive sleep apnea): Status: Chronic (7) Discharge planning issues: Status: Acute Discharge Plan Disposition Patient Disposition: Home Condition: Improving Discharge Details Reason For Visit: fractured pelvis Admit Date/Time: 10/15/23 15:25 Admit Provider: Stewart Moctezuma Attending Provider: Stewart Moctezuma Primary Care Provider: Aliyah De Paz Hospital Course Hospital Course: This 78-year-old female patient with past medical history including oxygen dependency obstructive sleep apnea, asthma, cor pulmonale, arthrosclerotic cardiovascular disease venous insufficiency, and right hip greater trochanteric bursitis who presented to the emergency department at [facility] on 10/15/23 by EMS after sustaining a mechanical fall at home inability to get up, complaint of right hip pain. In the emergency department workup showed for right superior and inferior pubic rami fractures as per imaging. Labs inthe Ed were unremarkable except for mild anemia with H&H 10.9 & 34, with normal MCV.The patient complained of pain and had some ambulatory dysfunction. The hospitalist admitted the patient for evaluation and management of right superior and inferior pubic rami fractures,ambulatory dysfunction most likley due to pain. The patient recieved scheduled acetaminophen and NSAIDs initially, mentioned that she was supposed to be off the home dose of scheduled ibuprofen. Gabapentin was intiated and ibuprofen discontinued. The patient achieved adequate pain control, and will be discharged on schedule acetaminophen and gabapentin; further management as per PCP during follow-up appointment.The patient continued to have her other medicine therapy as per home regimen.Famotidine was added and adjusted to her renal function as per pharmacy consultation.The patient used her home CPAP at night and continued to use oxygen as did at home. Orthopedic consult obtained and f/u with Dr. Beth in 3 weeks recommended with protected weight bearing with a walker, multimodal pain control, dvt ppx, physical therapy physical therapy consult obtained and recommended to continue physical Therapy direction. Initiate Physical Therapy intervention for strengthening, bed mobility, transfers, gait, stairs, balance training, use of walker device. PCP will f/u on further management and monitoring of H&H which was stable during the stay. Discussed with Dr Jose Elias Praters and New Rx's Prescriptions: New gabapentin 100 mg Capsule 100 mg PO TID Qty: 15 0RF famotidine 20 mg Tablet 20 mg PO DAILY Qty: 15 0RF Continued metoprolol succinate 25 mg tablet extended release 24 hr 25 mg PO DAILY Qty: 90 3RF Rx Instructions: Decrease 2' low BP, Wt Loss (DME) compressor, for nebulizer device See Dose Instructions .ROUTE .MEDSUPPLY Qty: 1 0RF Dose Instruction: As directed Rx Instructions: As directed amitriptyline 10 mg tablet 10 mg PO QHS Qty: 90 4RF atorvastatin 80 mg tablet 80 mg PO QHS Qty: 90 3RF Rx [place]: [place] [facility] [place] STEMI fluticasone propionate 50 mcg/actuation spray,suspension 2 spray NS BID PRN (Reason: nasal congestion) Qty: 48 3RF Rx Instructions: for allergic rhinitis ipratropium-albuterol 0.5 mg-3 mg(2.5 mg base)/3 mL solution for nebulization 3 ml inhalation Q4H PRN (Reason: wheezing) Qty: 540 12RF lisinopril 5 mg tablet 5 mg PO DAILY Qty: 90 3RF Rx Instructions: [place] [facility] [place] s/p STEMI acetaminophen [Arthritis Pain Relief (acetam)] 650 MG tablet extended release 650 mg PO PRN aspirin [Adult Low Dose Aspirin] 81 mg tablet,delayed release (DR/EC) 81 mg PO DAILY Qty: 90 3RF (DME) Oxygen 2.5 L Continuous EACH See Rx Instructions .Route .MEDSUPPLY Qty: 1 Rx Instructions: use 2 - 4 liters dependant on exertion, pt feels 2.5 is good. cc roflumilast [Daliresp] 500 mcg tablet 500 mcg PO DAILY Qty: 90 3RF loratadine [Allergy Relief (loratadine)] 10 mg tablet 10 mg PO DAILY Qty: 90 2RF tiotropium bromide [Spiriva with HandiHaler] 18 mcg capsule, w/inhalation device See Rx Instructions .ROUTE .COMPLEX Qty: 90 12RF Hold Instructions: Formulary/Insurance Dose Instruction: INHALE THE CONTENTS OF 1 CAPSULE VIA INHALATION DEVICE DAILY Rx Instructions: INHALE THE CONTENTS OF 1 CAPSULE VIA INHALATION DEVICE DAILY fluticasone propion-salmeterol [Advair Diskus] 500-50 mcg/dose blister with device 1 inh inhalation BID PRN (Reason: Severe wheezing) Qty: 180 12RF fluoxetine 10 mg tablet 10 mg PO DAILY Qty: 90 3RF Rx Instructions: for depressed mood albuterol sulfate [Ventolin HFA] 90 mcg/actuation HFA aerosol inhaler 2 puff inhalation Q4H PRN (Reason: shortness of breath or wheezing) Qty: 18 12RF Discontinued ibuprofen 200 mg tablet 400 mg PO Q6H PRN Discharge Instructions Stand Alone Forms: Nursing Discharge Form Referrals: Abe Beth MD [ [facility] STAFF PHYSICIAN] - 11/05/23 8:00 am (78-year-old female patient complex past medical history including oxygen dependency obstructive sleep apnea asthma cor pulmonale arthrosclerotic cardiovascular disease venous insufficiency right hip greater trochanteric bursitis who presented to the emergency department by EMS after sustaining a mechanical fall found to have sustained a mildly displaced right inferior and superior rami fractures in the setting of significant underlying hip arthritis referred to observation for pain management and PT consult orthopedic consultation with following recommendations: Recommend protected weightbearing with a walker, multimodal pain control, dvt ppx, physical therapy, Follow-up outpatient orthopedics in about 3 weeks. ) Aliyah De Paz DO [Primary Care Provider] - 10/31/23 10:30 am Activity:: Activity as Tolerated Equipment/Supplies:: Oxygen, walker Diet:: As Tolerated Discharge Orders Discharge Orders: Discharge Order (Routine); Ordered 10/17/23 Ordered By: Mary Kay Donohue DS: Summary Time Spent with Patient providing and/or coordinating discharge services: Greater than 30 minutes Status at Discharge Functional status at discharge: uses cane/walker Overall status at discharge: patient is progressing back to baseline Mental Status: mental status grossly normal Speech and Movement: speech and movement normal Mood: congruent mood Affect: normal affect Quality:SDOH Health Related Social Needs: No Data to Display Exam Narrative Exam Narrative: The patient is well groomed, pleasant, without acute distress HENMT: Facial structures with normal appearance Eyes: Well aligned Neck: Normal ROM Neuro:alert and oriented to self, person, place, time and situation. No neurological focal deficit Chest:Chest is symmetrical and normal appearance Resp: Normal respiratory pattern,scattered ronchi clearing somewhat with cough, slight wheesing to upper lungs Cardio: regular rhythm, S1, S2, no murmur, positive pulses to all 4 extremities GI: Abdomen is not distended, soft and non tender, bowel sounds are present Back/spine/Pelvis: No back tenderness, normal alignment, pain to right pelvis on mobilization?push pull Integumentary: Bruise to right elbow Extremities: strength 4/5 to right lower extremity Psych: RASS 0, congruent mood and normal affect. Psych Mental Status: mental status grossly normal Speech and Movement: speech and movement normal Mood: congruent mood Affect: normal affect DS: Data Vitals/I&O Vitals and I&O: Vital Signs Temperature 36.6 C 10/17/23 15:37 Temperature Source Tympanic 10/17/23 15:37 Pulse 60 10/17/23 15:37 Pulse Rhythm Regular 10/17/23 16:52 Respiratory Rate 16 10/17/23 15:37 Respiratory Effort Normal 10/17/23 16:52 Respiratory Depth Normal 10/17/23 16:52 Respiratory Pattern Normal 10/17/23 16:52 Blood Pressure 102/62 10/17/23 15:37 Blood Pressure Mean 91 10/15/23 12:31 Blood Pressure Position Supine 10/15/23 11:28 Pulse Oximetry 93 10/17/23 15:37 Oxygen Delivery Method Room Air 10/17/23 15:37 Oxygen Flow Rate 0 10/17/23 15:37 Pain Level 2 10/17/23 16:01 Comment 2.5 to 4 liters oxygen as chronic use took 2 tylenol after fall 10/15/23 11:28 Intake & Output 10/16/23 10/17/23 10/17/23 23:59 11:59 23:59 Intake Total 300 / 700 400 / 700 Output Total 500 / 500 700 / 700 Balance -500 / -500 -400 / 0 400 / 0 Intake: Oral 300 / 700 400 / 700 Output: Urine 500 / 500 700 / 700 Other: Urine Color Yellow Pale Yellow Urine Appearance Clear Clear Clear Urine Odor Normal None Stool Size Moderate Moderate Stool Characteristics Formed Hard Voiding Methods Bedside Commode Toilet Bedside Commode Data Completed and Pending Labs on day of discharge: Labs from last 24 hours 10/17/23 06:37 WBC 6.08 RBC 3.39 L Hgb 10.0 L Hct 31.9 L MCV 94 MCH 29.5 MCHC 31.3 L RDW 13.5 Plt Count 181 MPV 9.3 Immature Gran % 0.3 Neutrophils % 68.8 Lymphocytes % 15.1 Monocytes % 9.7 Eosinophils % 5.3 Basophils % 0.8 Nucleated RBC % 0.0 Absolute Neutrophils 4.18 Absolute Lymphocytes 0.92 L Absolute Monocytes 0.59 Absolute Eosinophils 0.32 Absolute Basophils 0.05 Sodium 138 Potassium 4.7 Chloride 103 Carbon Dioxide 29.6 Anion Gap 5.4 BUN 17 Creatinine 1.1 H Est GFR (CKD-EPI 2020) 51.75 Glucose 107 H Calcium 8.9 Magnesium 2.0 Total Bilirubin 0.5 Conjugated Bilirubin 0.2 AST 62 H ALT 55 Alkaline Phosphatase 119 H Total Protein 6.0 L Albumin 2.3 L PFSH All Active Problems (Updated 10/15/23 @ 18:17 by Alisa Gasca NP) Discharge planning issues (Acute) Contusion of elbow, right (Acute) Arthritis of right hip (Acute) Fracture of right superior pubic ramus (Acute) Fracture of right inferior pubic ramus (Acute) Abdominal wall hernia (Acute) ASCVD (arteriosclerotic cardiovascular disease) (Acute) At risk of fracture due to osteoporosis (Acute) Abnormal finding on imaging (Acute) Followed by US/CT: AAA, Umb Hernia, Ov Cyst (lft), Renal lesion (lft) .. Elevated serum creatinine (Acute) IMPROVED! .. per december 2021 labs .. re-check for CTA AAA (abdominal aortic aneurysm) (Chronic) 05/[address]; Q6mo recheck d/t 3mm increase.IK 10/25/22 measures 4.5 on US Apparent > 5mm growth since 12/2021, per Abd CT (09/2022). [ ] Vasc, ik .. Stable per 09/2021 CT (4.1cm) .. Hx: 39mm infrarenal; found on 07/30/19 CT.. AAA > 5.5 cm present high risk and surgical review. Oxygen dependent (Acute) 2L ... Can go without if sitting/resting only. 04/2022: 2.5L with URI (2' PulsOx in 80s) Environmental allergies (Acute) Long Hx loratidine, trial cetirizine (03/2021) Personal history of nicotine dependence (Acute) TAMRA (obstructive sleep apnea) (Chronic ~2015) Aníbal- moderately severe CPAP Chronic airway obstruction, mixed type (Acute) GOLD III severe COPD, FEV1 0.9 (41%pred, 48%FVC) 03/2011; significant response dilator; similar 11/07/15 Asthma (Chronic) Cor pulmonale (Acute 03/19/16) edema, hypoxia, arrhythmia at [facility] 02/26/16 Abnormal screening computed tomography (CT) of chest (Acute ~06/30/20) CT (2019) shows NO NODULE. New 1 cm nodule in the left upper lobe. Dr. Miller Umbilical hernia (Acute) ID'd on CT; Surgery Eval for management recommendations CAD (coronary artery disease) (Chronic) [place] [place] .. 2' STEMI ([facility]).. Increased frequency of urination (Acute) Hematuria (Acute) Pelvic mass (Acute 02/24/15) Followed by [facility], yearly imaging planned... Left renal, Left ovarian lesions .. stable, 2020 CT. Renal lesion (Acute) Ovarian cyst, left (Acute) US 1999, 2006; again on MRI of hip 2014, US 2014 Dysuria (Acute) Acute on chronic complaint .. 08/17/21, 07/30/21 ... Cough (Chronic) Chronic, calms with cough syrup/lozenges. Worsens with COPD exacerbations. Venous insufficiency of both lower extremities (Acute 03/19/16) Greater trochanteric bursitis of right hip (Acute 05/16/15) Hip pain, right (Acute 12/26/14) DJD, ? 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 [place] [facility] [place].HE COPD exacerbation Cataracts, bilateral Scheduled for cataract surgery with Dr. Pappas ([facility]) 08/23 (OS) & 09/06 (OD) .. Tubular adenoma of colon (07/23/17) Osteoarthritis, hand (10/17/14) Depressive disorder (07/24/12) Varicose veins COPD (chronic obstructive pulmonary disease) Surgical History Ligation of fallopian tube (10/06/69) Colonoscopy - MAC (07/23/17) Cholecystectomy (10/06/1966) Family History Mother , complications DM at age 67. Diabetes Father , stomach cancer at age 30. No problems noted. 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 Pets and animals: No Sexually active: No Do you think of yourself as: straight/heterosexual Current gender identity: female What is your relationship status?: Panel score (0-1 are the most socially isolated patients): 0 What type of physical activity do you participate in: other Details: Yardwork; Housework Duration: 30-45 minutes/day Frequency: daily Linda/Rastafari: Islam Seatbelt use: always Helmet use: No (Never) Drive intox or ride w/intox lift driver: No Working smoke detector in home: Yes Fire extinguisher in home: Yes Carbon monox detector in home: Yes Do you feel safe at home: Yes Do you feel safe in your relationship?: Yes Time Spent with Patient Time Spent with Patient: >85 minutes Time was spent: preparing to see the patient(eg.review tests), ordering medications,tests, procedures, referring, communicating with other health care transitions manager, indepentently interpreting results, counseling the patient and care coordination
--- NOTE | 2023-10-17 18:03 | PDOC.HHF2F ---
Home Health Referral Home Health Orders Clinical synopsis of why skilled professionals are needed: right superior and inferior pubic rami fractures,ambulatory dysfunction most likley due to pain Medical diagnosis necessitation home health referral: right superior and inferior pubic rami fractures,ambulatory dysfunction most likley due to pain Physical Therapist: Check all that apply Increase strength & endurance for safe mobility at home: Ordered To design/establish home maintenance program: Ordered Fall reduction therapy program for patient with history of frequent falls: Ordered Encounter Date and Reason: I certify that a FTF encounter for this patient was performed on October 17, 2023 and that such encounter was related to the primary reason the patient requires home health services. The encounter was conducted in the following manner: By me as the certifying physician, STEWARDING SUPERVISOR, PA or By an inpatient physician, STEWARDING SUPERVISOR or PA during an inpatient stay who communicated findings to me, Certification And Authentication I certify that I composed the above information based on my clinical judgment relating to this patient's medical condition and, if applicable, clinical findings communicated to me by the NPP or inpatient physician who performed the FTF encounter. Name of Provider that will be monitoring home health services: Aliyah De Paz
== END 2023-10-17 18:39 | disposition home or self-care (01) ==
LOC: ER 16:10 → MS 16:16
PROVIDERS: Nurse Practitioner Acute Care; Admitting Provider Internal Medicine; Emergency Provider Emergency Medicine; PCP Student in an Organized Health Care Education/Training Program; Visit Provider Internal Medicine
DX: S32.591A Other specified fracture of right pubis, initial encounter for closed fracture (principal); S32.511A Fracture of superior rim of right pubis, initial encounter for closed fracture; M16.11 Unilateral primary osteoarthritis, right hip; Z99.81 Dependence on supplemental oxygen; I25.10 Atherosclerotic heart disease of native coronary artery without angina pectoris; J44.9 Chronic obstructive pulmonary disease, unspecified; G47.33 Obstructive sleep apnea (adult) (pediatric); I27.81 Cor pulmonale (chronic); Z95.5 Presence of coronary angioplasty implant and graft; K42.9 Umbilical hernia without obstruction or gangrene; N83.202 Unspecified ovarian cyst, left side; R19.09 Other intra-abdominal and pelvic swelling, mass and lump; N28.9 Disorder of kidney and ureter, unspecified; R30.0 Dysuria; R05.3 Chronic cough; F32.A Depression, unspecified; I87.2 Venous insufficiency (chronic) (peripheral); Z87.891 Personal history of nicotine dependence; M70.61 Trochanteric bursitis, right hip; M81.0 Age-related osteoporosis without current pathological fracture; W01.0XXA Fall on same level from slipping, tripping and stumbling without subsequent striking against object, initial encounter
CPT/HCPCS: 00123; 36415; 73552; 80048; 80053; 80076; 86850; 86900; 86901; 94640; 96372; 96374; 96375; 97110; 97140; 97161; 99285; 99447; J1650; 72170; 72192; 73080; 83735; 85025; 94664; 94667; 94760; 99223; 99233; 99239; J0131; J1885; J2270; J2405; J7613; J7620

== ENCOUNTER 2023-10-30 16:39 | Outpatient (CLI) | payer MEDICARE, SELFPAY ==
--- NOTE | 2023-10-30 15:09 | DI.RAD_ITS ---
Exam(s) XR PELVIS AP EXAM: XR PELVIS AP CLINICAL HISTORY: F/U FRACTURE. TECHNIQUE: 2D digital imaging was performed. Single AP view. COMPARISON: No exams were available for comparison FINDINGS: BONES: Increased displacement at the right superior and inferior pubic ramus fractures. The sacral f ractures are not well seen. No bony destructive lesion is seen. JOINTS: No dislocation present. Degenerative changes again noted of the right hip. SOFT TISSUE: Normal. IMPRESSION: Increased displacement at right pubic ramus fractures. DATA REPOSITORY: RADIATION DOSE DELIVERED:
== END 2023-10-30 16:40 | disposition home or self-care (01) ==
LOC: DIORS 16:43
PROVIDERS: PCP Student in an Organized Health Care Education/Training Program; Referring Provider Student in an Organized Health Care Education/Training Program
DX: M75.81 Other shoulder lesions, right shoulder; M16.11 Unilateral primary osteoarthritis, right hip; S32.511D Fracture of superior rim of right pubis, subsequent encounter for fracture with routine healing; S32.591D Other specified fracture of right pubis, subsequent encounter for fracture with routine healing; W19.XXXD Unspecified fall, subsequent encounter
CPT/HCPCS: 99214; 72170

== ENCOUNTER 2023-11-27 15:12 | Outpatient (CLI) | payer MEDICARE, SELFPAY ==
--- NOTE | 2023-11-27 14:45 | DI.RAD_ITS ---
Exam(s) XR PELVIS AP EXAM: XR PELVIS AP CLINICAL HISTORY: F/U PUBIC RAMI FX. TECHNIQUE: 2D digital imaging was performed. COMPARISON: CR XR PELVIS AP from 10/30/2023 FINDINGS: Single-view: Comminuted fracture of the medial aspect of the right superior and inferior pubic rami again noted. Minimal change from 10/30/2023. No new fractures identified. Right hip appears unchanged. IMPRESSION: Relatively stable appearance of the comminuted pubic rami fractures on the right side when compared t o 10/30/2023. DATA REPOSITORY: RADIATION DOSE DELIVERED:
== END 2023-11-27 15:13 | disposition home or self-care (01) ==
LOC: DIORS 15:12
PROVIDERS: PCP Student in an Organized Health Care Education/Training Program; Referring Provider Student in an Organized Health Care Education/Training Program; Visit Provider Student in an Organized Health Care Education/Training Program
DX: S32.511D Fracture of superior rim of right pubis, subsequent encounter for fracture with routine healing; S32.591D Other specified fracture of right pubis, subsequent encounter for fracture with routine healing; W19.XXXD Unspecified fall, subsequent encounter; M16.11 Unilateral primary osteoarthritis, right hip
CPT/HCPCS: 99213; 72170

== ENCOUNTER 2023-12-08 15:18 | Emergency (ER) | payer MEDICARE, SELFPAY ==
[2023-12-08] VITALS (40 sets, daily range): BP systolic 95–133; BP diastolic 55–81; PULSE 67–82; RESP 15; TEMP 36.6; O2SAT 89–100
--- NOTE | 2023-12-08 16:10 | W.ED.GENAD ---
Discharge Plan Discharge Details Chief Complaint: Cellulitis Primary Care Provider: Aliyah De Paz ED Provider: Linda Rodney Home Meds and New Rx's Prescriptions: No Action metoprolol succinate 25 mg tablet extended release 24 hr 25 mg PO DAILY Qty: 90 3RF Rx Instructions: Decrease 2' low BP, Wt Loss (DME) compressor, for nebulizer device See Dose Instructions .ROUTE .MEDSUPPLY Qty: 1 0RF Dose Instruction: As directed Rx Instructions: As directed amitriptyline 10 mg tablet 10 mg PO QHS Qty: 90 4RF atorvastatin 80 mg tablet 80 mg PO QHS Qty: 90 3RF Rx Instructions: per [facility] [place] d/c 08/29/20 s/p STEMI fluticasone propionate 50 mcg/actuation spray,suspension 2 spray NS BID PRN (Reason: nasal congestion) Qty: 48 3RF Rx Instructions: for allergic rhinitis ipratropium-albuterol 0.5 mg-3 mg(2.5 mg base)/3 mL solution for nebulization 3 ml inhalation Q4H PRN (Reason: wheezing) Qty: 540 12RF lisinopril 5 mg tablet 5 mg PO DAILY Qty: 90 3RF Rx Instructions: per [facility] [place] d/c 08/29/20 s/p STEMI (DME) Hospital bed See Rx Instructions .Route .MEDSUPPLY Qty: 1 0RF Rx Instructions: As directed acetaminophen [Arthritis Pain Relief (acetam)] 650 MG tablet extended release 650 mg PO PRN aspirin [Adult Low Dose Aspirin] 81 mg tablet,delayed release (DR/EC) 81 mg PO DAILY Qty: 90 3RF (DME) Oxygen 2.5 L Continuous EACH See Rx Instructions .Route .MEDSUPPLY Qty: 1 Rx Instructions: use 2 - 4 liters dependant on exertion, pt feels 2.5 is good. cc loratadine [Allergy Relief (loratadine)] 10 mg tablet 10 mg PO DAILY Qty: 90 2RF fluticasone propion-salmeterol [Advair Diskus] 500-50 mcg/dose blister with device 1 inh inhalation BID PRN (Reason: Severe wheezing) Qty: 180 12RF fluoxetine 10 mg tablet 10 mg PO DAILY Qty: 90 3RF Rx Instructions: for depressed mood albuterol sulfate [Ventolin HFA] 90 mcg/actuation HFA aerosol inhaler 2 puff inhalation Q4H PRN (Reason: shortness of breath or wheezing) Qty: 18 12RF tiotropium bromide [Spiriva with HandiHaler] 18 mcg capsule, w/inhalation device See Rx Instructions .ROUTE .COMPLEX Qty: 90 12RF Hold Instructions: Formulary/Insurance Dose Instruction: INHALE THE CONTENTS OF 1 CAPSULE VIA HANDIHALER BY MOUTH DAILY Rx Instructions: INHALE THE CONTENTS OF 1 CAPSULE VIA HANDIHALER BY MOUTH DAILY roflumilast 500 mcg tablet See Rx Instructions .ROUTE .COMPLEX Qty: 90 10RF Dose Instruction: TAKE ONE TABLET BY MOUTH EVERY DAY Rx Instructions: TAKE ONE TABLET BY MOUTH EVERY DAY fluticasone propion-salmeterol [Advair Diskus] 500-50 mcg/dose blister with device 1 inh inhalation BID Qty: 60 12RF famotidine 20 mg Tablet 20 mg PO DAILY Qty: 15 0RF HPI General Date/Time Provider Initiated Documentation: 12/08/23 15:59. HPI Narrative: This 78-year-old female patient presents with a chief complaint of left lower extremity cellulitis. Patient states that Friday night she had some itching on the dorsal aspect of her foot. She scratched this with the heel of her other foot. Friday morning there was a blister there continued to redness. This worsened on Friday. He says when her shoe rubs on it it hurts. Morning the redness had spread to her ankle and there was a red streak going up the anterior aspect of her garcia. She called her PCP and was seen in the office. She says her temperature there was 99 and some change. This morning she said she had some shaking chills. Did take Tylenol around 10 or 11:00 this morning. She has had no documented fever or URI symptoms. There is no chest pain or shortness of breath. She has no abdominal pain, nausea, vomiting, or diarrhea. There is no dysuria. She has edema in the area of the cellulitis around her left ankle and foot. There is no calf pain. She has a mild headache that she usually gets when she has a fever. There is no stiff neck, funny rashes, weakness, or dizziness. She has no sore throat. Related Data Home Medications Medication Instructions Recorded Confirmed acetaminophen 650 mg 650 mg PO PRN 11/08/16 12/08/23 tablet,extended release (Arthritis Pain Relief (acetaminophen) ER) compressor, for nebulizer #1 ea 10/14/18 12/08/23 aspirin 81 mg tablet,delayed 81 mg PO DAILY #90 tabs 07/18/22 12/08/23 release (Adult Low Dose Aspirin) Oxygen #1 ea 08/20/22 12/08/23 loratadine 10 mg tablet (Allergy 10 mg PO DAILY #90 tabs 11/13/22 12/08/23 Relief (loratadine)) atorvastatin 80 mg tablet 80 mg PO QHS #90 tabs 01/31/23 12/08/23 fluticasone propionate 50 2 spray NS BID PRN nasal 01/31/23 12/08/23 mcg/actuation nasal congestion #48 grams spray,suspension ipratropium 0.5 mg-albuterol 3 mg 3 ml inhalation Q4H PRN wheezing 01/31/23 12/08/23 (2.5 mg base)/3 mL nebulization #540 mL soln lisinopril 5 mg tablet 5 mg PO DAILY #90 tabs 01/31/23 12/08/23 amitriptyline 10 mg tablet 10 mg PO QHS #90 tabs 02/28/23 12/08/23 Advair Diskus 500 mcg-50 mcg/dose 1 inh inhalation BID PRN Severe 04/16/23 12/08/23 powder for inhalation (fluticasone wheezing #180 ea propion-salmeterol) fluoxetine 10 mg tablet 10 mg PO DAILY #90 tabs 05/01/23 12/08/23 metoprolol succinate 25 mg 25 mg PO DAILY #90 tabs 08/01/23 12/08/23 tablet,extended release 24 hr Ventolin HFA 90 mcg/actuation 2 puff inhalation Q4H PRN 09/05/23 12/08/23 aerosol inhaler (albuterol sulfate) shortness of breath or wheezing #18 grams famotidine 20 mg tablet 20 mg PO DAILY #15 tabs 10/17/23 12/08/23 Hospital bed #1 ea 10/24/23 12/08/23 roflumilast 500 mcg tablet See Rx Instructions .Route 10/30/23 12/08/23 .COMPLEX #90 tabs tiotropium bromide 18 mcg capsule See Rx Instructions .Route 10/30/23 12/08/23 with inhalation device (Spiriva .COMPLEX #90 caps with HandiHaler) fluticasone 500 mcg-salmeterol 50 1 inh inhalation BID #60 ea 12/01/23 12/08/23 mcg/dose blistr powdr for inhalation (Advair Diskus) Previous Rx's Medication Instructions Recorded compressor, for nebulizer #1 ea 10/14/18 aspirin 81 mg tablet,delayed 81 mg PO DAILY #90 tabs 07/18/22 release (Adult Low Dose Aspirin) loratadine 10 mg tablet (Allergy 10 mg PO DAILY #90 tabs 11/13/22 Relief (loratadine)) atorvastatin 80 mg tablet 80 mg PO QHS #90 tabs 01/31/23 fluticasone propionate 50 2 spray NS BID PRN nasal 01/31/23 mcg/actuation nasal congestion #48 grams spray,suspension ipratropium 0.5 mg-albuterol 3 mg 3 ml inhalation Q4H PRN wheezing 01/31/23 (2.5 mg base)/3 mL nebulization #540 mL soln lisinopril 5 mg tablet 5 mg PO DAILY #90 tabs 01/31/23 amitriptyline 10 mg tablet 10 mg PO QHS #90 tabs 02/28/23 Advair Diskus 500 mcg-50 mcg/dose 1 inh inhalation BID PRN Severe 04/16/23 powder for inhalation (fluticasone wheezing #180 ea propion-salmeterol) fluoxetine 10 mg tablet 10 mg PO DAILY #90 tabs 05/01/23 metoprolol succinate 25 mg 25 mg PO DAILY #90 tabs 08/01/23 tablet,extended release 24 hr Ventolin HFA 90 mcg/actuation 2 puff inhalation Q4H PRN 09/05/23 aerosol inhaler (albuterol sulfate) shortness of breath or wheezing #18 grams famotidine 20 mg tablet 20 mg PO DAILY #15 tabs 10/17/23 Hospital bed #1 ea 10/24/23 roflumilast 500 mcg tablet See Rx Instructions .Route 10/30/23 .COMPLEX #90 tabs tiotropium bromide 18 mcg capsule See Rx Instructions .Route 10/30/23 with inhalation device (Spiriva .COMPLEX #90 caps with HandiHaler) fluticasone 500 mcg-salmeterol 50 1 inh inhalation BID #60 ea 12/01/23 mcg/dose blistr powdr for inhalation (Advair Diskus) Allergies Allergy/AdvReac Type Severity Reaction Status Date / Time Fish Containing Products AdvReac Severe vomiting, Verified 12/08/23 15:24 diarrhea, headache General Stated Complaint: Cellulitis SHAILA: 4 Review of Systems Narrative: See HPI Exam Const General: no acute distress, well developed, well groomed and not in acute distress Nutritional Appearance: well nourished Orientation: alert and oriented x3 HENMT Head: normocephalic and atraumatic Ears: external ears normal Mouth: moist mucous membranes Eyes Conjunctivae: conjunctivae normal Neck Neck: full ROM and supple Chest Chest: normal inspection of the chest Resp Effort & Inspection: normal respiratory effort Auscultation: clear to auscultation bilaterally Cardio Rate: regular rate Rhythm: regular rhythm Heart Sounds: no murmurs and no rubs GI Inspection: normal to inspection Palpation: soft, nontender and other (non distended) Auscultation: normal bowel sounds Skin General skin exam: no rashes or lesions noted and other (pink, warm, dry) Neuro General: patient alert, patient awake and patient oriented x3 Speech: speech normal Motor: other (SALCIDO) Sensory Exam: no sensory deficits noted Extrem General: full ROM Right lower extremity: lower leg (Red streak running up anterior right garcia), ankle (Redness and swelling extend up into the ankle and this also is hot to touch) and foot (Swollen, hot, single macule 0.5 cm, normal sensation/CR, 2+ DP pulse) Psych Mental Status: mental status grossly normal Speech and Movement: speech and movement normal Affect: normal affect Course Vital Signs Vital signs: Vital Signs Temperature 36.6 C 12/08/23 15:21 Pulse 82 12/08/23 15:21 Respiratory Rate 15 12/08/23 15:21 Blood Pressure 133/69 12/08/23 15:21 Pulse Oximetry 95 12/08/23 15:21 Temperature 36.6 C 12/08/23 15:26 Temperature Source Oral 12/08/23 15:26 Pulse 82 12/08/23 15:26 Respiratory Rate 15 12/08/23 15:26 Respiratory Effort Normal 12/08/23 15:26 Blood Pressure 133/69 12/08/23 15:26 Blood Pressure Position Sitting 12/08/23 15:26 Pulse Oximetry 95 12/08/23 15:26 Oxygen Delivery Method Room Air 12/08/23 15:26 Oxygen Flow Rate 0 12/08/23 15:21 Pain Level 3 12/08/23 15:26 Lab/Test Results Lab/Test Results: 12/08/23 16:07 Blood Blood Culture - Pending 12/08/23 16:07 Blood Blood Culture - Pending Medical Decision Making The patient and her daughter were both updated on her test results. The patient really wants to go home. She will use her walker and try not to use her foot much to put it at rest. She says she has taken doxycycline before with good results. She has had IV ceftriaxone and Vanco in the ED. She does not want to stay in the hospital. She is not obese, has no PAD, is not diabetic, and has not had multiple episodes of cellulitis so should be at low risk. Cellulitis that she had in her other leg previously was many years ago. Medical Records Medical records reviewed: Yes I reviewed the patient's medical records. Imaging Data Radiologic Study: Radiologist's impression: R foot xray: NFS. No FB. STS c/w cellulitis Lab Data Lab results reviewed: Yes I reviewed the patient's lab results. Lab results narrative: White blood cell count and lactate are normal. Patient CRP is 4.5 and her sed rate is 55. It is not unexpected to see her inflammatory markers increased. Quality:SDOH Health Related Social Needs: No Data to Display [facility] All Active Problems Right rotator cuff tendonitis (Acute) Arthritis of right hip (Acute) Fracture of right superior pubic ramus (Acute 10/15/23) Fracture of right inferior pubic ramus (Acute 10/15/23) Abdominal wall hernia (Acute) ASCVD (arteriosclerotic cardiovascular disease) (Acute) At risk of fracture due to osteoporosis (Acute) Abnormal finding on imaging (Acute) Followed by US/CT: AAA, Umb Hernia, Ov Cyst (lft), Renal lesion (lft) .. Elevated serum creatinine (Acute) IMPROVED! .. per december 2021 labs .. re-check for CTA AAA (abdominal aortic aneurysm) (Chronic) 05/[address]; Q6mo recheck d/t 3mm increase.IK 10/25/22 measures 4.5 on US Apparent > 5mm growth since 12/2021, per Abd CT (09/2022). [ ] Vasc, ik .. Stable per 09/2021 CT (4.1cm) .. Hx: 39mm infrarenal; found on 07/30/19 CT.. AAA > 5.5 cm present high risk and surgical review. Oxygen dependent (Acute) 2L ... Can go without if sitting/resting only. 04/2022: 2.5L with URI (2' PulsOx in 80s) Environmental allergies (Acute) Long Hx loratidine, trial cetirizine (03/2021) Personal history of nicotine dependence (Acute) Asthma (Chronic) Cor pulmonale (Acute 03/19/16) edema, hypoxia, arrhythmia at [facility] 02/26/16 Abnormal screening computed tomography (CT) of chest (Acute ~06/30/20) CT (2019) shows NO NODULE. New 1 cm nodule in the left upper lobe. Dr. Miller Umbilical hernia (Acute) ID'd on CT; Surgery Eval for management recommendations Increased frequency of urination (Acute) Hematuria (Acute) Pelvic mass (Acute 02/24/15) Followed by [facility], yearly imaging planned... Left renal, Left ovarian lesions .. stable, 2020 CT. Renal lesion (Acute) Ovarian cyst, left (Acute) US 1999, 2006; again on MRI of hip 2014, US 2014 Dysuria (Acute) Acute on chronic complaint .. 08/17/21, 07/30/21 ... Cough (Chronic) Chronic, calms with cough syrup/lozenges. Worsens with COPD exacerbations. Venous insufficiency of both lower extremities (Acute 03/19/16) Greater trochanteric bursitis of right hip (Acute 05/16/15) Medical History Contusion of elbow, right CAD (coronary artery disease) s/p PCI Distal RCA (DON x2)([facility] [place]), 08/2020 .. 2' STEMI ([facility] ED).. TAMRA (obstructive sleep apnea) (~2015) Aníbal- moderately severe CPAP Hip pain, right (12/26/14) DJD, ? AVN on MRI (Dr Llanos) Chronic airway obstruction, mixed type GOLD III severe COPD, FEV1 0.9 (41%pred, 48%FVC) 03/2011; significant response dilator; similar 11/07/[address] elevation myocardial infarction (STEMI) Involving L main coronary artery. Per [facility] [place] 10/31/22 note.HE COPD exacerbation Cataracts, bilateral Scheduled for cataract surgery with Dr. Pappas ([facility]) 08/23 (OS) & 09/06 (OD) .. Tubular adenoma of colon (07/23/17) Osteoarthritis, hand (10/17/14) Depressive disorder (07/24/12) Varicose veins COPD (chronic obstructive pulmonary disease) Surgical History Ligation of fallopian tube (10/06/69) Colonoscopy - MAC (07/23/17) Cholecystectomy (10/06/1966) Family History Mother , complications DM at age 67. Diabetes Father , stomach cancer at age 30. No problems noted. 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 Pets and animals: No Sexually active: No Do you think of yourself as: straight/heterosexual Current gender identity: female What is your relationship status?: Panel score (0-1 are the most socially isolated patients): 0 What type of physical activity do you participate in: other Details: Yardwork; Housework Duration: 30-45 minutes/day Frequency: daily Linda/Buddhist: Adventist Seatbelt use: always Helmet use: No (Never) Drive intox or ride w/intox pack train driver: No Working smoke detector in home: Yes Fire extinguisher in home: Yes Carbon monox detector in home: Yes Do you feel safe at home: Yes Do you feel safe in your relationship?: Yes
[2023-12-08 16:28] LABS: Lactate 0.6 mmol/L (0.6-1.4)
[2023-12-08] MEDS: cefTRIAXone 1 GM/50 ML BAG IVPB (16:28)
[2023-12-08] MEDS: Normal Saline 1,000 ML 1000 ML IV (16:28)
[2023-12-08 16:31] LABS: Abs Immature Grans 0.03 10^3/uL (0.0-0.06); Absolute Basophil Count 0.04 10^3/uL (0.0-0.2); Absolute Eosinophil Count 0.05 10^3/uL (0.0-0.7); Absolute Lymphocyte Count 1.41 10^3/uL (1.2-3.4); Absolute Monocyte Count 0.79 10^3/uL (0.1-0.8); Absolute Neutrophil Count 7.34 10^3/uL (1.2-6.7); Basophils % 0.4; Eosinophils % 0.5; HCT 37.1 % (36.0-46.0); HGB 11.6 g/dL (11.2-15.7); Immature Grans % 0.3; Lymphocytes % 14.6; MCH 28.3 pg (27.0-33.0); MCHC 31.3 % (32.0-36.0); MCV 91 fL (80-95); MPV 9.1 fL (8.0-11.0); Monocytes % 8.2; Platelet Count 219 10^3/uL (130-400); RDW 13.7 % (11.7-14.6); RDW-SD 45.6 fL; WBC 9.66 10^3/uL (4.4-10.8)
[2023-12-08 16:32] LABS: ESR 55 mm/hr (0-30)
[2023-12-08 16:48] LABS: ALT 19 U/L (14-59); AST 25 U/L (15-37); Albumin 2.9 g/dL (3.4-5.0); Alkaline Phosphatase 206 U/L (46-116); Anion Gap 9.7 mmol/L (3-11); BUN 16 mg/dL (7-18); Bilirubin, Total 0.7 mg/dL (0.2-1.0); C-Reactive Protein 4.46 mg/dL (<or=0.5); CO2 27.3 mmol/L (21.0-32.0); CREATININE 0.8 mg/dL (0.55-1.02); Calcium 9.1 mg/dL (8.5-10.1); Chloride 97 mmol/L (98-107); Estimated GFR 75.84 (mL/min/1.73m2); Glucose 91 mg/dL (74-106); Magnesium 1.7 mg/dL (1.8-2.4); Potassium 3.5 mmol/L (3.5-5.1); Sodium 134 mmol/L (136-145); Total Protein 7.8 g/dL (6.4-8.2)
--- NOTE | 2023-12-08 16:57 | DI.RAD_ITS ---
Exam(s) XR FOOT RT COMPLETE EXAM: XR FOOT RT COMPLETE CLINICAL HISTORY: ? PW dorsum foot, r/o FB--cellulitis. TECHNIQUE: 2D digital imaging was performed of the right foot. Three images were obtained. AP, obl ique and lateral views were obtained. COMPARISON: No exams were available for comparison FINDINGS: BONES: No acute fracture is present. No bony destructive lesion is seen. There is a moderate size alcira ntar calcaneal spur. There is an enthesophyte at the posterior calcaneus. JOINTS: No dislocation present. Mild degenerative changes are seen in the foot particularly the inter phalangeal joints and the tarsal joints. SOFT TISSUE: There is soft tissue swelling of the foot. No radiopaque foreign body is identified. V ascular calcifications are present. IMPRESSION: 1. Soft tissue swelling of the foot which may reflect cellulitis. No radiopaque foreign body. 2. No acute fracture or dislocation. DATA REPOSITORY: RADIATION DOSE DELIVERED:
[2023-12-08] MEDS: VANCOMYCIN/WATER (PEG) 1 GM/200 ML BAG IV (18:15)
[2023-12-08] MEDS: Doxycycline Hyclate 100 MG CAP 200 MG PO (19:45)
== END 2023-12-08 19:46 | disposition home or self-care (01) ==
PROVIDERS: Emergency Provider Emergency Medicine; PCP Student in an Organized Health Care Education/Training Program
DX: L03.115 Cellulitis of right lower limb (principal); M77.31 Calcaneal spur, right foot; I25.10 Atherosclerotic heart disease of native coronary artery without angina pectoris; I25.2 Old myocardial infarction; J44.9 Chronic obstructive pulmonary disease, unspecified; Z79.82 Long term (current) use of aspirin; Z99.81 Dependence on supplemental oxygen
CPT/HCPCS: 36415; 80053; 85652; 87040; 96365; 96367; 99284; 73630; 83605; 83735; 85025; 86140; J0696; J3372

== ENCOUNTER 2023-12-17 10:49 | Outpatient (CLI) | payer MEDICARE, SELFPAY ==
[2023-12-17 17:10] LABS: Anion Gap 7.5 mmol/L (3-11); BUN 16 mg/dL (7-18); CO2 28.5 mmol/L (21.0-32.0); CREATININE 0.8 mg/dL (0.55-1.02); Calcium 9.3 mg/dL (8.5-10.1); Chloride 104 mmol/L (98-107); Estimated GFR 75.84 (mL/min/1.73m2); Glucose 84 mg/dL (74-106); Magnesium 1.8 mg/dL (1.8-2.4); Potassium 3.9 mmol/L (3.5-5.1); Sodium 140 mmol/L (136-145)
== END 2023-12-17 10:50 | disposition home or self-care (01) ==
LOC: LBO 12-23 10:50
PROVIDERS: PCP Student in an Organized Health Care Education/Training Program; Visit Provider Student in an Organized Health Care Education/Training Program
DX: I10 Essential (primary) hypertension (principal); E87.8 Other disorders of electrolyte and fluid balance, not elsewhere classified; Z91.89 Other specified personal risk factors, not elsewhere classified; M81.0 Age-related osteoporosis without current pathological fracture
CPT/HCPCS: 36415; 80048; 82306; 82040; 83735

== ENCOUNTER → 2023-12-26 00:13 | Outpatient (CLI) | payer MEDICARE, SELFPAY ==
[2023-12-26] MEDS: Omnipaque 350 MG/ML 100 ML BTL IJ (13:10)
--- NOTE | 2023-12-26 13:10 | DI.CTLCSR_ITS ---
Exam(s) CT CHEST LUNG CANCER SCREEN EXAM: CT CHEST LUNG CANCER SCREEN CLINICAL HISTORY: Screening for lung cancer,FORMER SMOKER, Z87.891 TECHNIQUE: Imaging Protocol: Axial computed tomography images with coronal and sagittal reformatted images were created and reviewed. Low dose screening protocol. COMPARISON: CT CHEST - LUNG CANCER SCREENING from 06/17/[address] CHEST LUNG CANCER SCREEN from 09/26/[address] THORAX ABD/PEL CTA from 07/16/2023 FINDINGS: Tracheobronchial tree: Bilateral lower lobe bronchiectasis. Mild lower lobe bronchial wall thickenin g. Some mucous plugging seen distally in the medial right lower lobe. Mediastinum and [place]: No dominant adenopathy or fluid collection. Pulmonary parenchyma: No consolidation or dominant measurable mass. Marked improvement of previously noted bibasilar densities with minimal residual scarring. Multifocal areas of scarring. Underlying moderate emphysematous changes. Lung Nodules: None. Pleura: No effusion. No pneumothorax. Heart: Prominent fat is again noted at the intra atrial septum, unchanged in appearance compared with 2017. The heart is not dilated. Moderate to severe coronary artery calcifications and or stents ar e seen. Trace pericardial effusion. Aorta: Thoracic aorta non-dilated. Upper abdomen: Unremarkable. Bones: Degenerative changes with flowing endplate osteophytes. Unremarkable for age. Soft Tissues: Unremarkable. IMPRESSION: No suspicious pulmonary nodules. Lower lobe bronchiectasis and mucous plugging medial right lower lobe. Lung RADS Cat 1 - Negative: No nodules and definitely benign nodules Lung-RADS 1.0 CATEGORIES: Category 0 - Prior chest CT exam(s) being located for comparison. Category 1 - Annual screening in 12 months. No nodules or definitely benign nodules. Category 2 - Annual screening in 12 months. Benign appearance. Nodules with low likelihood of becomin g active cancer. Category 3 - 6-month follow-up. Probably benign. Short-term follow-up suggested. Nodules with low lik elihood of becoming active cancer. Category 4A - 3-month follow-up and CT/PET if >8 mm in size. Suspicious finding. Findings which requi re additional testing. Category 4B - Findings which require additional testing and tissue sampling. Category 4X - Category 3 or 4 nodules with additional features or imaging findings that increases the suspicion of malignancy. Modifier S- Potentially clinically significant findings (non lung cancer) RADIATION DOSE DELIVERED: Total DLP DATA REPOSITORY: All CT scans at this facility are submitted to the National Radiology Data Registry (NRDR) Dose Index Registry (DIR) with the [employer] (ACR). RADIATION OPTIMIZATION: All CT scans at this facility use at least one of these dose optimization te chniques: automated exposure control; mA and/or kV adjustment per patient size (includes targeted exa ms where dose is matched to clinical indication); or iterative reconstruction.
[2023-12-26] MEDS: Normal Saline - Diluent 50 ML VIAL IJ (13:11)
--- NOTE | 2023-12-26 13:20 | DI.CT_ITS ---
Exam(s) CT ABDOMEN PELVIS CTA EXAM: CT ABDOMEN PELVIS CTA CLINICAL HISTORY: Eval aneurysm,renal cyst,LT ovarian cyst,PELVIC MASS,ABNL IMAGING. TECHNIQUE: Imaging Protocol: Axial computed tomography images with coronal and sagittal reformatted images were created and reviewed CONTRAST MATERIAL: Intravenous: Omnipaque 350 Contrast volume:100 ml Oral: None COMPARISON: CT CT ABDOMEN PELVIS W from 02/15/[address] THORAX ABD/PEL CTA from 07/16/[address] PELVIC WO from 10/15/2023 FINDINGS: CHEST: LUNG BASES: The amount of infiltrate in both lung bases has significantly decreased when compared to the chest CT scan of 07/16/2023. There are no pleural effusions. ABDOMEN: AORTA: Again noted is a fusiform infrarenal abdominal aortic aneurysm which extends down to but not beyond t he aortic bifurcation and which exhibits a maximum external diameter of 4.9 cm, larger than previous. There is no saccular component. No evidence of extravasation. The common iliac arteries exhibit luminal diameters of 10 mm more below. External iliac arteries als o exhibit normal diameters as do the common femoral arteries and there are no aneurysms evident in th e internal iliac arteries. There is no obvious significant stenosis at the origin of the renal arteries nor more distally in the renal arteries. The celiac and superior mesenteric arteries are patent. LIVER: There are no focal hepatic lesions nor dilatation of intrahepatic ducts. GALLBLADDER/BILIARY: Gallbladder not seen and may be per surgically absent CBD is not dilated. PANCREAS: No evidence of pancreatic mass nor dilatation of the pancreatic duct. SPLEEN: Spleen is not enlarged. There are no intrasplenic lesions. Splenic and portal veins are hernandez nt. ADRENALS: There are no significant adrenal masses. KIDNEYS: No cysts evident. No calculi nor hydronephrosis. No solid renal masses. ABDOMINAL AORTA: See above LYMPH NODES: There is no retroperitoneal nor para-aortic adenopathy. No obvious mesenteric masses. ABDOMINAL WALL: Fat only containing anterior abdominal wall midline umbilical hernia again noted, unc hanged. GI: There is no evidence of bowel obstruction, free air, nor abscess. PELVIS: LYMPH NODES: There is no intrapelvic nor inguinal adenopathy. GI: No evidence of appendicitis.There is sigmoid diverticuli but no evidence of acute diverticulitis. URINARY BLADDER: No calculi nor masses evident REPRODUCTIVE: The previously described well-defined low-density cystic lesion in the left adnexa is u nchanged, measuring 5.6 by 3.2 cm. It has not decreased in size but is not increased in size and is not associated with free fluid in the pelvis. No findings in the right adnexa. OSSEOUS: No significant osseous lesions. No fractures. IMPRESSION: 1. Compared to prior CT scan 02/15/2020 the size of the abdominal aortic aneurysm has increased. It now measures 4.9 cm and there is significantly more mural thrombus than previous. Close follow-up is recommended. The arterial megaly does not continue into the iliac arteries. 2. Stable appearance of the previously described 5.6 x 3.2 cm cystic lesion in the left adnexa. Ther e is no ascites. 3. Other findings as above. RADIATION DOSE DELIVERED: Total DLP DATA REPOSITORY: All CT scans at this facility are submitted to the National Radiology Data Registry (NRDR) Dose Index Registry (DIR) with the [employer] (ACR). RADIATION OPTIMIZATION: All CT scans at this facility use at least one of these dose optimization te chniques: automated exposure control; mA and/or kV adjustment per patient size (includes targeted exa ms where dose is matched to clinical indication); or iterative reconstruction.
== END ==
PROVIDERS: PCP Student in an Organized Health Care Education/Training Program; Visit Provider Student in an Organized Health Care Education/Training Program
DX: N83.202 Unspecified ovarian cyst, left side; Z87.891 Personal history of nicotine dependence; I71.40 Abdominal aortic aneurysm, without rupture, unspecified; Z12.2 Encounter for screening for malignant neoplasm of respiratory organs
CPT/HCPCS: 71271; 74174; J3490

== ENCOUNTER → 2024-02-16 13:00 | Outpatient (BNVA) | payer MEDICARE, SELFPAY | PROVIDERS: PCP Student in an Organized Health Care Education/Training Program; Referring Provider Student in an Organized Health Care Education/Training Program; Visit Provider Physician Assistant Surgical | DX: J44.9 Chronic obstructive pulmonary disease, unspecified (principal); G47.33 Obstructive sleep apnea (adult) (pediatric); Z87.891 Personal history of nicotine dependence; Z99.81 Dependence on supplemental oxygen | CPT/HCPCS: 99214 ==

== ENCOUNTER → 2024-02-20 10:09 | Outpatient (BNVA) | payer MEDICARE, SELFPAY | PROVIDERS: PCP Student in an Organized Health Care Education/Training Program; Referring Provider Student in an Organized Health Care Education/Training Program; Visit Provider Urology | DX: R10.2 Pelvic and perineal pain (principal) | CPT/HCPCS: 81003; 99213 ==

== ENCOUNTER 2024-04-22 19:41 | Outpatient (REF) | payer MEDICARE, SELFPAY ==
[2024-04-22 17:56] LABS: Bilirubin Negative (Negative); Blood Small (Negative); Clarity Sl Cloudy (Clear); Glucose Negative (Negative); Ketones Negative (Negative); Leukocyte Esterase Large (Negative); Nitrite Positive (Negative); Specific Gravity 1.015 (1.005-1.025); Urobilinogen 0.2 mg/dL (Up to 0.2); pH 7.5 (5-8)
[2024-04-22 18:19] LABS: C & S Indicated? C&S Done As Ordered; WBC >50 HPF (0-5)
== END 2024-04-22 19:42 | disposition home or self-care (01) ==
LOC: LBN 19:41
PROVIDERS: PCP Student in an Organized Health Care Education/Training Program; Visit Provider Urology
DX: R35.0 Frequency of micturition (principal); R30.0 Dysuria
CPT/HCPCS: 87077; 81003; 81015; 87086; 87186

== ENCOUNTER → 2024-05-07 00:08 | Outpatient (CLI) | payer MEDICARE, SELFPAY ==
--- NOTE | 2024-05-07 15:42 | DI.MAMMO_ITS ---
Exam(s) MAMMO SCREENING EXAM: MAMMO SCREENING CLINICAL HISTORY: screening, Z12.39 TECHNIQUE: Mammograms were interpreted according to the usual protocol including computer analysis w [employer] CAD system, tomosynthesis and C-view imaging. COMPARISON: 2016 FINDINGS: The breasts are composed of mainly fatty density , Breast Density category A. No suspicious masses or suspicious microcalcifications are seen. No skin thickening or abnormal axillary lymph nodes are seen. There has been no significant change from prior exams. IMPRESSION: BI-RADS Category 1, Negative mammogram Yearly screening mammography is recommended. Breast Density - Category A, fatty density. A negative radiographic report should not delay biopsy if a dominant or clinically suspicious mass is present. Up to ten percent of cancers are not identified on mammography. A negative report may reinforce clinical impression. Adenosis and dense breasts may obscure an underlying neoplasm. False positive reports average 6 to 10%. Patient will receive a letter notifying them of these results.
== END ==
PROVIDERS: PCP Student in an Organized Health Care Education/Training Program; Visit Provider Student in an Organized Health Care Education/Training Program
DX: Z12.39 Encounter for other screening for malignant neoplasm of breast (principal); Z12.31 Encounter for screening mammogram for malignant neoplasm of breast
CPT/HCPCS: 77063; 77067

== ENCOUNTER → 2024-05-18 09:03 | Outpatient (BNVA) | payer MEDICARE, SELFPAY | PROVIDERS: PCP Student in an Organized Health Care Education/Training Program; Visit Provider Internal Medicine Cardiovascular Disease | DX: I25.10 Atherosclerotic heart disease of native coronary artery without angina pectoris (principal) | CPT/HCPCS: 99213 ==

== ENCOUNTER → 2024-05-28 08:37 | Outpatient (BNVA) | payer MEDICARE, SELFPAY | PROVIDERS: PCP Student in an Organized Health Care Education/Training Program; Referring Provider Student in an Organized Health Care Education/Training Program; Visit Provider Urology | DX: R35.0 Frequency of micturition (principal); R30.0 Dysuria | CPT/HCPCS: 81003; 99214 ==

== ENCOUNTER 2024-05-28 09:43 | Outpatient (REF) | payer MEDICARE, SELFPAY | END 2024-05-28 09:44 | disposition home or self-care (01) | LOC: LBN 09:43 | PROVIDERS: PCP Student in an Organized Health Care Education/Training Program; Visit Provider Urology | DX: R30.0 Dysuria (principal); R82.89 Other abnormal findings on cytological and histological examination of urine | CPT/HCPCS: 87077; 87086; 87186 ==

== ENCOUNTER → 2024-06-14 14:56 | Outpatient (BNVA) | payer MEDICARE, SELFPAY | PROVIDERS: PCP Student in an Organized Health Care Education/Training Program; Referring Provider Student in an Organized Health Care Education/Training Program; Visit Provider Urology | DX: N39.0 Urinary tract infection, site not specified (principal) | CPT/HCPCS: 81003; 99213 ==

== ENCOUNTER → 2024-09-14 09:34 | Outpatient (BNVA) | payer MEDICARE, SELFPAY | PROVIDERS: PCP Student in an Organized Health Care Education/Training Program; Referring Provider Student in an Organized Health Care Education/Training Program; Visit Provider Physician Assistant Surgical | DX: J44.9 Chronic obstructive pulmonary disease, unspecified (principal); Z99.81 Dependence on supplemental oxygen; G47.33 Obstructive sleep apnea (adult) (pediatric); J47.9 Bronchiectasis, uncomplicated; Z87.891 Personal history of nicotine dependence | CPT/HCPCS: 99214 ==

== ENCOUNTER → 2024-11-15 13:35 | Outpatient (BNVA) | payer MEDICARE, SELFPAY | PROVIDERS: PCP Nurse Practitioner Family; Referring Provider Nurse Practitioner Family; Visit Provider Physician Assistant Surgical | DX: J45.909 Unspecified asthma, uncomplicated (principal); J47.9 Bronchiectasis, uncomplicated; G47.33 Obstructive sleep apnea (adult) (pediatric); Z99.81 Dependence on supplemental oxygen; Z87.891 Personal history of nicotine dependence | CPT/HCPCS: 36415; 99214 ==

== ENCOUNTER 2024-11-15 16:48 | Outpatient (REF) | payer MEDICARE, SELFPAY ==
[2024-11-15 15:49] LABS: Abs Immature Grans 0.02 10^3/uL (0.0-0.06); Absolute Basophil Count 0.05 10^3/uL (0.0-0.2); Absolute Eosinophil Count 0.14 10^3/uL (0.0-0.7); Absolute Lymphocyte Count 0.96 10^3/uL (1.2-3.4); Absolute Monocyte Count 0.55 10^3/uL (0.1-0.8); Basophils % 0.6 %; Eosinophils % 1.6 %; HCT 32.6 % (36.0-46.0); HGB 10.1 g/dL (11.2-15.7); Immature Grans % 0.2 %; Lymphocytes % 11.3 %; MCH 28.3 pg (27.0-33.0); MCV 91 fL (80-95); MPV 8.8 fL (8.0-11.0); Monocytes % 6.5 %; Neutrophils % 79.8 %; Platelet Count 264 10^3/uL (130-400); RBC 3.57 10^6/uL (3.93-5.22); RDW 14.8 % (11.7-14.6); RDW-SD 49.4 fL; WBC 8.52 10^3/uL (4.4-10.8)
[2024-11-15 16:24] LABS: ALT 28 U/L (14-59); AST 33 U/L (15-37); Albumin 2.3 g/dL (3.4-5.0); Alkaline Phosphatase 138 U/L (46-116); Anion Gap 2.9 mmol/L (3-11); BUN 15 mg/dL (7-18); Bilirubin, Total 0.23 mg/dL (0.2-1.0); CO2 31.1 mmol/L (21.0-32.0); CREATININE 0.8 mg/dL (0.55-1.02); Calcium 8.9 mg/dL (8.5-10.1); Chloride 102 mmol/L (98-107); Estimated GFR 75.37 (mL/min/1.73m2); Glucose 108 mg/dL (74-106); Potassium 3.4 mmol/L (3.5-5.1); Sodium 136 mmol/L (136-145); TSH 3.41 uIU/mL (0.36-3.74); Total Protein 7.1 g/dL (6.4-8.2)
== END 2024-11-15 16:49 | disposition home or self-care (01) ==
LOC: LBN 16:48
PROVIDERS: PCP Nurse Practitioner Family; Visit Provider Physician Assistant Surgical
DX: J47.9 Bronchiectasis, uncomplicated (principal); R53.83 Other fatigue; J44.9 Chronic obstructive pulmonary disease, unspecified; Z99.81 Dependence on supplemental oxygen; G47.33 Obstructive sleep apnea (adult) (pediatric); Z87.891 Personal history of nicotine dependence
CPT/HCPCS: 80053; 87077; 84443; 85025; 87070; 87186; 87205; 87581

== ENCOUNTER 2024-11-26 00:27 | Outpatient (CLI) | payer MEDICARE, SELFPAY ==
--- NOTE | 2024-11-26 06:45 | DI.CT_ITS ---
Exam(s) CT CHEST WO EXAM: CT CHEST WO CLINICAL HISTORY: increased mucus and cough,bronchiectasis,J47.9. TECHNIQUE: Imaging protocol: Axial computed tomography images were obtained and coronal and sagittal reformatted images were created and reviewed. Lung Computer Aided Detection (CAD) was utilized. COMPARISON: CT CT CHEST LUNG CANCER SCREEN from 12/26/2023 FINDINGS: Tracheobronchial tree: There is bronchiectasis present predominantly in the lower lobes. There are a reas of mucous plugging seen in the lower lobes distally. No bronchiectasis is present. Pulmonary parenchyma: Emphysematous changes are present in the lungs. There are new opacities in the lungs particularly in the right lung apex in the lateral aspect of the left upper lobe. Ground-glas s opacities are also seen in the left upper lobe. There is again seen scarring in the dependent port ions of the lungs bilaterally in the lower lobes. Mediastinum and [place]: No dominant adenopathy or fluid collection. The esophagus is unremarkable. Thyroid gland: Unremarkable. Pleura: No effusion or pneumothorax. Heart: Cardiomegaly. Three vessel coronary artery calcification is present. There is again seen fat in the interatrial septum. No pericardial effusion. Aorta: Thoracic aorta non-dilated. Atherosclerotic calcification is present. Upper abdomen: Unremarkable. Lymph nodes: Within normal limits. Soft tissues: Unremarkable. Bones:Within normal limits for the patient's age. IMPRESSION: 1. Interval development of bilateral pulmonary opacities. Differential considerations include atelec tasis, scarring or pneumonia. Please correlate clinically. A follow-up examination in 1 month is re commended to document clearing of the opacities. 2. There is bronchiectasis with mucous plugging seen in the lower lobes bilaterally. 3. Underlying pulmonary emphysema. Unexpected findings RADIATION DOSE DELIVERED: 129.8mGy.cm Total DLP 129.8mGy.cm Total DLP DATA REPOSITORY: All CT scans at this facility are submitted to the National Radiology Data Registry (NRDR) Dose Index Registry (DIR) with the [employer] (ACR). RADIATION OPTIMIZATION: All CT scans at this facility use at least one of these dose optimization te chniques: automated exposure control; mA and/or kV adjustment per patient size (includes targeted exa ms where dose is matched to clinical indication); or iterative reconstruction.
== END 2024-11-26 00:47 ==
LOC: DI 00:27
PROVIDERS: PCP Nurse Practitioner Family; Visit Provider Physician Assistant Surgical
DX: J47.9 Bronchiectasis, uncomplicated (principal); R91.8 Other nonspecific abnormal finding of lung field
CPT/HCPCS: 71250

== ENCOUNTER → 2024-12-16 09:45 | Outpatient (BNVA) | payer MEDICARE, SELFPAY | PROVIDERS: PCP Nurse Practitioner Family; Referring Provider Nurse Practitioner Family; Visit Provider Physician Assistant Surgical | DX: J47.9 Bronchiectasis, uncomplicated (principal); J15.1 Pneumonia due to Pseudomonas; G47.33 Obstructive sleep apnea (adult) (pediatric); I71.40 Abdominal aortic aneurysm, without rupture, unspecified; Z99.81 Dependence on supplemental oxygen; Z87.891 Personal history of nicotine dependence | CPT/HCPCS: 99214 ==

== ENCOUNTER 2024-12-31 00:44 | Outpatient (CLI) | payer MEDICARE, SELFPAY ==
--- NOTE | 2024-12-31 13:59 | DI.CT_ITS ---
Exam(s) CT CHEST WO EXAM: CT CHEST WO CLINICAL HISTORY: 1 month FU pseudomonas pneumonia,j15.1. TECHNIQUE: Multi planar reconstructions were performed. CONTRAST MATERIAL: None COMPARISON: CT CT ABDOMEN PELVIS CTA from 12/26/[address] CHEST WO from 11/26/2024 FINDINGS: CHEST: LUNGS: There has been mild improvement in the multiple areas of bilateral lung infiltrates, this most evident in the lateral aspect of the left upper lobe. Other infiltrates are still present but sligh tly decreased in size. There is 1 area of new infiltrate which is in the posterior basal-lateral bas al segment of the left lower lobe, non cavitated. There are no pleural effusions. MEDIASTINUM: There is no obvious hilar nor mediastinal adenopathy. Visualized thyroid unremarkable.No obvious axillary adenopathy CARDIAC: Heart size is normal. There is again noted mild thickening of the pericardium with thicknes s measuring up to 5 mm consistent with unchanged small pericardial effusion.Caliber of the thoracic a cherie is within upper normal limits. VISUALIZED UPPER ABDOMEN:There is a E large infrarenal abdominal aortic aneurysm which is only partia lly included in the field of view but measures 5 cm. This is evident on prior CT scan of 12/26/2023. OSSEOUS: No significant osseous lesions.No fractures. Multilevel calcification of the anterior longi tudinal ligament evident in the thoracic spinal column.. IMPRESSION: 1. Compared to the prior CT scan of 11/26/2024 there has been some mild improvement in the extensive bilateral infiltrates as described above. Most are slightly smaller or less dense with the exception of the previously present infiltrate in the lateral aspect of the left upper lobe which has mostly r esolved. 2. However on the present study there is some new infiltrate evident in the posterior basal segment o f the left lower lobe. 3. No pleural effusions nor intrathoracic adenopathy. 5 cm abdominal aortic aneurysm partially included in the field of view of this chest study. This was evident on prior abdominal CT scan of December 2023. Please note that the entire abdominal aorta is no t included in the field of view of this chest study. RADIATION DOSE DELIVERED: 132.66mGy.cm Total DLP DATA REPOSITORY: All CT scans at this facility are submitted to the National Radiology Data Registry (NRDR) Dose Index Registry (DIR) with the [employer] (ACR). RADIATION OPTIMIZATION: All CT scans at this facility use at least one of these dose optimization te chniques: automated exposure control; mA and/or kV adjustment per patient size (includes targeted exa ms where dose is matched to clinical indication); or iterative reconstruction.
== END 2024-12-31 01:04 ==
PROVIDERS: PCP Nurse Practitioner Family; Visit Provider Physician Assistant Surgical
DX: J15.1 Pneumonia due to Pseudomonas (principal)
CPT/HCPCS: 71250

== ENCOUNTER 2025-01-01 17:19 | Inpatient (IN) | payer MEDICARE, SELFPAY ==
[2025-01-01] VITALS (45 sets, daily range): BP systolic 108–175; BP diastolic 58–95; PULSE 67–92; RESP 3–26; TEMP 36.6–37.1; O2SAT 84–99
--- NOTE | 2025-01-01 17:30 | RT.EKG_ITS ---
APPROVED REPORT Exam: Resting ECG Reason for Exam: dyspnea Patient Location: E HR:68 bpm ECG Measurements Heart Rate 68 AXIS UT 210 P -58 QRSd 103 QRS 94 QT 384 T 60 QTc 410 Conclusion Sinus or ectopic atrial rhythm...P axis (-45,135) Ventricular premature complex...V complex w/ short R-R interval Right axis deviation...QRS axis ( 91,269) Low voltage, extremity and precordial leads...extremity<0.5mV, precordial<1.0mV Nonspecific T abnormalities, anterior leads...T <-0.10mV, V2-V4
--- NOTE | 2025-01-01 17:30 | DI.RAD_ITS ---
Exam(s) XR PORTABLE CHEST AP EXAM: XR PORTABLE CHEST AP CLINICAL HISTORY: cough, dyspnea. TECHNIQUE: 2D digital imaging was performed. COMPARISON: CR,XR XR CHEST 2V PA LATERAL from 07/16/[address] CHEST WO from 12/31/2024 FINDINGS: Single AP portable view. Heart size is upper normal. The mediastinum is not widened. COPD findings in lung balbuena again noted and there appears to be mild bronchiectasis in the left lowe r lobe the. Mild infiltrate in left lower lobe unchanged The nodular density present in lateral right lung base is no longer seen. No evidence of pulmonary edema. No pleural effusions. IMPRESSION: COPD. Left lower lobe bronchiectasis and mild infiltrate. No pleural effusions. DATA REPOSITORY: RADIATION DOSE DELIVERED:
--- NOTE | 2025-01-01 17:41 | W.ED.GENAD ---
Discharge Plan Disposition Patient Disposition: Admit to [facility] Condition: Stable Discharge Details Clinical Impression: Bronchiectasis, Shortness of breath, COPD exacerbation Primary Care Provider: Rola Stokes ED Provider: Sven Talbert Home Meds and New Rx's Prescriptions: No Action ipratropium-albuterol 0.5 mg-3 mg(2.5 mg base)/3 mL solution for nebulization 3 ml inhalation Q4H PRN (Reason: wheezing) Qty: 540 12RF tiotropium bromide [Spiriva with HandiHaler] 18 mcg capsule, w/inhalation device See Rx Instructions .ROUTE .COMPLEX Qty: 90 12RF Dose Instruction: INHALE THE CONTENTS OF 1 CAPSULE VIA HANDIHALER BY MOUTH DAILY Rx Instructions: INHALE THE CONTENTS OF 1 CAPSULE VIA HANDIHALER BY MOUTH DAILY tobramycin with nebulizer 300 mg/5 mL solution for nebulization 300 mg inhalation BID 28 Days Qty: 280 1RF Rx Instructions: separate doses by at least 6 hours guaifenesin [Mucinex] 600 mg tablet extended release 12hr 600 mg PO BID Qty: 60 12RF (DME) compressor, for nebulizer device See Dose Instructions .ROUTE .MEDSUPPLY Qty: 1 0RF Dose Instruction: As directed Rx Instructions: As directed fluticasone propionate 50 mcg/actuation spray,suspension 2 spray NS BID PRN (Reason: nasal congestion) Qty: 48 3RF Rx Instructions: for allergic rhinitis (DME) Hospital bed See Rx Instructions .Route .MEDSUPPLY Qty: 1 0RF Rx Instructions: As directed fluticasone propion-salmeterol [Advair Diskus] 500-50 mcg/dose blister with device 1 inh inhalation BID PRN (Reason: Severe wheezing) Qty: 180 12RF albuterol sulfate [Ventolin HFA] 90 mcg/actuation HFA aerosol inhaler 2 puff inhalation Q4H PRN (Reason: shortness of breath or wheezing) Qty: 18 12RF sodium chloride 3 % solution for nebulization 4 ml inhalation Q4H PRN (Reason: secretions) Qty: 750 12RF morphine concentrate 100 mg/5 mL (20 mg/mL) solution 5 mg PO Q3H PRN MDD 5 mL PRN (Reason: shortness of breath) Qty: 30 0RF acetaminophen [Arthritis Pain Relief (acetam)] 650 MG tablet extended release 650 mg PO PRN aspirin [Adult Low Dose Aspirin] 81 mg tablet,delayed release (DR/EC) 81 mg PO DAILY Qty: 90 3RF (DME) Oxygen 2.5 L Continuous EACH See Rx Instructions .Route .MEDSUPPLY Qty: 1 Rx Instructions: use 2 - 4 liters dependant on exertion, pt feels 2.5 is good. cc loratadine [Allergy Relief (loratadine)] 10 mg tablet 10 mg PO DAILY Qty: 90 2RF fluticasone propion-salmeterol [Advair Diskus] 500-50 mcg/dose blister with device 1 inh inhalation BID Qty: 60 12RF fluoxetine 10 mg capsule 10 mg PO DAILY Qty: 90 3RF Rx Instructions: capsule instead of tablets as capsules are covered by insurance metoprolol succinate 25 mg tablet extended release 24 hr 25 mg PO DAILY Qty: 90 3RF Rx Instructions: Decrease 2' low BP, Wt Loss clotrimazole 1 % cream 1 applic TP BID Qty: 30 3RF Rx Instructions: Apply as directed estradiol [Estrace] 0.01 % (0.1 mg/gram) cream 2 g vaginal .twice weekly Qty: 42.5 3RF roflumilast 500 mcg tablet See Rx Instructions .ROUTE .COMPLEX Qty: 90 4RF Dose Instruction: TAKE ONE TABLET BY MOUTH EVERY DAY Rx Instructions: TAKE ONE TABLET BY MOUTH EVERY DAY lisinopril 5 mg tablet See Rx Instructions .ROUTE .COMPLEX Qty: 90 3RF Dose Instruction: TAKE ONE TABLET BY MOUTH EVERY DAY Rx Instructions: TAKE ONE TABLET BY MOUTH EVERY DAY HPI General Mode of arrival: wheelchair. Date/Time Provider Initiated Documentation: 01/01/25 17:26. Limitations to Documentation: no limitations. Information obtained by: patient. History of Present Illness 79 year old F presents to the emergency department with the chief complaint of dyspnea,cough, described as moderate, Patient started experiencing this day(s) (3) and it has been constant. No relieving factors improve symptom(s), No exacerbating factors reported . Patient notes cough and shortness of breath; denies chest pain and fever/chills. Patient did receive the following treatments prior to arrival, none Related Data Home Medications ?Medication ?Instructions ?Recorded ?Confirmed acetaminophen 650 mg 650 mg PO PRN 11/08/16 01/01/25 tablet,extended release (Arthritis Pain Relief (acetaminophen) ER) compressor, for nebulizer #1 ea 10/14/18 01/01/25 aspirin 81 mg tablet,delayed 81 mg PO DAILY #90 tabs 07/18/22 01/01/25 release (Adult Low Dose Aspirin) Oxygen #1 ea 08/20/22 01/01/25 loratadine 10 mg tablet (Allergy 10 mg PO DAILY #90 tabs 11/13/22 01/01/25 Relief (loratadine)) fluticasone propionate 50 2 spray NS BID PRN nasal 01/31/23 01/01/25 mcg/actuation nasal congestion #48 grams spray,suspension Hospital bed #1 ea 10/24/23 01/01/25 fluticasone 500 mcg-salmeterol 50 1 inh inhalation BID #60 ea 12/01/23 01/01/25 mcg/dose blistr powdr for inhalation (Advair Diskus) fluoxetine 10 mg capsule 10 mg PO DAILY #90 caps 03/30/24 01/01/25 Advair Diskus 500 mcg-50 mcg/dose 1 inh inhalation BID PRN Severe 06/02/24 01/01/25 powder for inhalation (fluticasone wheezing #180 ea propion-salmeterol) metoprolol succinate 25 mg 25 mg PO DAILY #90 tabs 06/13/24 01/01/25 tablet,extended release 24 hr Ventolin HFA 90 mcg/actuation 2 puff inhalation Q4H PRN 07/29/24 01/01/25 aerosol inhaler (albuterol sulfate) shortness of breath or wheezing #18 grams ipratropium 0.5 mg-albuterol 3 mg 3 ml inhalation Q4H PRN wheezing 09/14/24 01/01/25 (2.5 mg base)/3 mL nebulization #540 mL soln tiotropium bromide 18 mcg capsule See Rx Instructions .Route 09/14/24 01/01/25 with inhalation device (Spiriva .COMPLEX #90 caps with HandiHaler) clotrimazole 1 % topical cream 1 applic topical BID #30 grams 10/11/24 01/01/25 estradiol 0.01% (0.1 mg/gram) 2 g vaginal .twice weekly UTI 01/07/25 03/29/25 vaginal cream (Estrace) prevention #42.5 grams roflumilast 500 mcg tablet See Rx Instructions .Route 11/15/24 01/01/25 .COMPLEX #90 tabs sodium chloride 3 % for 4 ml inhalation Q4H PRN secretions 11/16/24 01/01/25 nebulization #750 mL morphine concentrate 100 mg/5 mL 5 mg (0.25 mL) PO Q3H PRN PRN 12/03/24 01/01/25 (20 mg/mL) oral solution shortness of breath #30 mL lisinopril 5 mg tablet See Rx Instructions .Route 12/06/24 01/01/25 .COMPLEX #90 tabs guaifenesin 600 mg tablet, 600 mg PO BID #60 tabs 12/16/24 01/01/25 extended release 12 hr (Mucinex) tobramycin with nebulizer 300 mg/5 300 mg (5 mL) inhalation BID 28 12/16/24 01/01/25 mL solution for nebulization days #280 mL Previous Rx's ?Medication ?Instructions ?Recorded compressor, for nebulizer #1 ea 10/14/18 aspirin 81 mg tablet,delayed 81 mg PO DAILY #90 tabs 07/18/22 release (Adult Low Dose Aspirin) loratadine 10 mg tablet (Allergy 10 mg PO DAILY #90 tabs 11/13/22 Relief (loratadine)) fluticasone propionate 50 2 spray NS BID PRN nasal 01/31/23 mcg/actuation nasal congestion #48 grams spray,suspension Hospital bed #1 ea 10/24/23 fluticasone 500 mcg-salmeterol 50 1 inh inhalation BID #60 ea 12/01/23 mcg/dose blistr powdr for inhalation (Advair Diskus) fluoxetine 10 mg capsule 10 mg PO DAILY #90 caps 03/30/24 Advair Diskus 500 mcg-50 mcg/dose 1 inh inhalation BID PRN Severe 06/02/24 powder for inhalation (fluticasone wheezing #180 ea propion-salmeterol) metoprolol succinate 25 mg 25 mg PO DAILY #90 tabs 06/13/24 tablet,extended release 24 hr Ventolin HFA 90 mcg/actuation 2 puff inhalation Q4H PRN 07/29/24 aerosol inhaler (albuterol sulfate) shortness of breath or wheezing #18 grams ipratropium 0.5 mg-albuterol 3 mg 3 ml inhalation Q4H PRN wheezing 09/14/24 (2.5 mg base)/3 mL nebulization #540 mL soln tiotropium bromide 18 mcg capsule See Rx Instructions .Route 09/14/24 with inhalation device (Spiriva .COMPLEX #90 caps with HandiHaler) clotrimazole 1 % topical cream 1 applic topical BID #30 grams 10/11/24 estradiol 0.01% (0.1 mg/gram) 2 g vaginal .twice weekly UTI 10/12/24 vaginal cream (Estrace) prevention #42.5 grams roflumilast 500 mcg tablet See Rx Instructions .Route 11/15/24 .COMPLEX #90 tabs sodium chloride 3 % for 4 ml inhalation Q4H PRN secretions 11/16/24 nebulization #750 mL morphine concentrate 100 mg/5 mL 5 mg (0.25 mL) PO Q3H PRN PRN 12/03/24 (20 mg/mL) oral solution shortness of breath #30 mL lisinopril 5 mg tablet See Rx Instructions .Route 12/06/24 .COMPLEX #90 tabs guaifenesin 600 mg tablet, 600 mg PO BID #60 tabs 12/16/24 extended release 12 hr (Mucinex) tobramycin with nebulizer 300 mg/5 300 mg (5 mL) inhalation BID 28 12/16/24 mL solution for nebulization days #280 mL Allergies Allergy/AdvReac Type Severity Reaction Status Date / Time Fish Containing Products AdvReac Severe vomiting, Verified 01/01/25 17:21 diarrhea, headache General Stated Complaint: SOB SHAILA: 3 Review of Systems All systems reviewed & are unremarkable except as noted in HPI and below Constitutional Constitutional: Denies chills, Denies fever(s) and Denies weakness Eyes Eyes: Denies loss of vision ENT Ears, Nose, Mouth, and Throat: Denies change in voice Cardiovascular Cardiovascular: Denies chest pain and Reports dyspnea Respiratory Respiratory: Reports cough and Reports dyspnea Gastrointestinal Gastrointestinal: Denies abdominal pain, Denies nausea and Denies vomiting Musculoskeletal Musculoskeletal: Denies joint swelling Neurologic Neurologic: Denies loss of vision and Denies weakness Exam Const General: no acute distress Orientation: alert HENMT Head: normal to inspection Ears: external ears normal General nose exam: external nose normal Mouth: moist mucous membranes Eyes General: appearance normal, both eyes and all related structures Neck Neck: normal visual inspection Resp Auscultation: wheezes Cardio Jugular venous pressure: no JVD Rate: regular rate Skin General skin exam: no rashes or lesions noted Neuro General: patient alert and patient oriented x3 Extrem General: normal to inspection Psych Mental Status: mental status grossly normal Course Vital Signs Vital signs: Vital Signs Temperature 36.6 C 01/01/25 17:24 Pulse 68 01/01/25 17:24 Respiratory Rate 24 01/01/25 17:24 Blood Pressure 131/85 01/01/25 17:24 Pulse Oximetry 88 L 01/01/25 17:24 Temperature 36.6 C 01/01/25 17:24 Temperature Source Oral 01/01/25 17:24 Pulse 68 01/01/25 17:24 Respiratory Rate 24 01/01/25 17:24 Respiratory Effort Short of Breath 01/01/25 17:37 Blood Pressure 131/85 01/01/25 17:24 Blood Pressure Position Sitting 01/01/25 17:24 Pulse Oximetry 88 L 01/01/25 17:24 Oxygen Delivery Method Room Air 01/01/25 17:24 Oxygen Flow Rate 0 01/01/25 17:24 Pain Level 0 01/01/25 17:24 Medical Decision Making 79-year-old female with a history of COPD and bronchiectasis who is currently on nebulized tobramycin for Pseudomonas pneumonia and had a chest CT yesterday that showed improvement in some of her infiltrates but also some new infiltrates comes in with 3 days of worsening shortness of breath with cough. She denies any high fevers or chest pain. She is well-appearing on exam, she does have diffuse wheezing bilaterally, no JVD or leg swelling or calf tenderness. Given her history of suspected COPD exacerbation, will treat with DuoNeb and IV Solu-Medrol and obtain a CBC, CMP, troponins and proBNP and chest x-ray. Her lung exam findings are consistent with COPD so I doubt entities such as PE and she has no evidence of DVT on exam. He does have a known AAA but has no back or abdominal tenderness so I do not acute worsening of this as the cause for his symptoms. X-ray shows no obvious focal consolidation, labs unremarkable other then ph of 7.3 and pco2 70, no prior to compare to. She still tachypneic and still has diffuse wheezing so DuoNeb was ordered. Second troponin pending but I discussed with her and she does not feel comfortable going home given her tachypnea and continued wheezing feel is reasonable to keep her in the hospital. Given he has increased cough from baseline I will cover with IV antibiotics with levofloxacin. Will discuss with hospitalist about admission for continued nebs and monitoring. Spoke with Dr. Cooper who accepts for admission, recommends zosyn over levofloxacin which I ordered. Differential Diagnosis Differential Diagnosis: COPD, bronchiectasis, pneumonia Medical Records Medical records reviewed: Yes I reviewed the patient's medical records. Lab Data Lab results reviewed: Yes I reviewed the patient's lab results. ECG Data Attestation: I personally reviewed and interpreted this ECG (s) as follows: Prior ECG tracings: available for review Interpretation: sinus rate of 68 no stemi Quality:SDOH Health Related Social Needs: Health related social needs problems with daily activities (Z73.9) Health related social needs details Support, sttengthening PFS All Active Problems (Updated 01/01/25 @ 19:30 by Sven Talbert MD) COPD exacerbation (Acute) Shortness of breath (Acute) Confusion (Acute) Palliative care patient (Acute) Pseudomonas pneumonia (Acute) Bronchiectasis (Acute) Periodic limb movement disorder (Acute 07/09/24) TAMRA (obstructive sleep apnea) (Chronic ~2015) Improved w/ mask (vs pillows), 07/2024, ik .Den Spangler- moderately severe CPAP Right rotator cuff tendonitis (Acute) Arthritis of right hip (Acute) Fracture of right superior pubic ramus (Acute 10/15/23) Fracture of right inferior pubic ramus (Acute 10/15/23) ASCVD (arteriosclerotic cardiovascular disease) (Acute) At risk of fracture due to osteoporosis (Acute) Abnormal finding on imaging (Acute) Followed by US/CT: AAA, Umb Hernia, Ov Cyst (lft), Renal lesion (lft) .. Elevated serum creatinine (Acute) IMPROVED! .. per december 2021 labs .. re-check for CTA AAA (abdominal aortic aneurysm) (Chronic) [facility] Vasc Surg note 09/15/24: AAA measures 5.2cm which now meets criteria for repair, but pt is having a COPD exacerbation, they do plan to contact Pulm and schedule surgery.HE 05/[address]; Q6mo recheck d/t 3mm increase.IK 10/25/22 measures 4.5 on US Apparent > 5mm growth since 12/2021, per Abd CT (09/2022). [ ] Vasc, ik .. Stable per 09/2021 CT (4.1cm) .. Hx: 39mm infrarenal; found on 07/30/19 CT.. AAA > 5.5 cm present high risk and surgical review. Oxygen dependent (Acute) 2L ... Can go without if sitting/resting only. 04/2022: 2.5L with URI (2' PulsOx in 80s) Environmental allergies (Acute) Long Hx loratidine, trial cetirizine (03/2021) Personal history of nicotine dependence (Acute) Asthma (Chronic) Cor pulmonale (Acute 03/19/16) edema, hypoxia, arrhythmia at [facility] 02/26/16 Abnormal screening computed tomography (CT) of chest (Acute ~06/30/20) CT (2019) shows NO NODULE. New 1 cm nodule in the left upper lobe. Dr. Miller Increased frequency of urination (Acute) Much improved on Estrace Hematuria (Acute) Renal lesion (Acute) Dysuria (Acute) Much improved on Estrace .. acute on chronic complaint .. 08/17/21, 07/30/21 ... Cough (Chronic) Chronic, calms with cough syrup/lozenges. Worsens with COPD exacerbations. Venous insufficiency of both lower extremities (Acute 03/19/16) Greater trochanteric bursitis of right hip (Acute 05/16/15) Medical History Abdominal wall hernia Umbilical hernia ID'd on CT; Surgery Eval for management recommendations Pelvic mass (02/24/15) Followed by [facility], yearly imaging planned... Left renal, Left ovarian lesions .. stable, 2020 CT. Ovarian cyst, left US 1999, 2006; again on MRI of hip 2015, US 2015 Contusion of elbow, right CAD (coronary artery disease) s/p PCI Distal RCA (DON x2)([facility]), 08/2020 .. 2' STEMI ([facility] ED).. Hip pain, right (12/26/14) DJD, ? AVN on MRI (Dr Llanos) Chronic airway obstruction, mixed type GOLD III severe COPD, FEV1 0.9 (41%pred, 48%FVC) 03/2011; significant response dilator; similar 11/07/15 COPD exacerbation Cataracts, bilateral Scheduled for cataract surgery with Dr. Pappas ([facility]) 08/23 (OS) & 09/06 (OD) .. Tubular adenoma of colon (07/23/17) Osteoarthritis, hand (10/17/14) Depressive disorder (07/24/12) Varicose veins COPD (chronic obstructive pulmonary disease) Surgical History Ligation of fallopian tube (10/06/69) Colonoscopy - MAC (07/23/17) Cholecystectomy (10/06/1966) Family History Mother , complications DM at age 67. Diabetes Father , stomach cancer at age 30. No problems noted. 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 Pets and animals: No Sexually active: No Do you think of yourself as: straight/heterosexual Current gender identity: female What is your relationship status?: Panel score (0-1 are the most socially isolated patients): 0 What type of physical activity do you participate in: other Details: Yardwork; Housework Duration: 30-45 minutes/day Frequency: daily Linda/Episcopalian: Baptism Seatbelt use: always Helmet use: No (Never) Drive intox or ride w/intox airport shuttle driver: No Working smoke detector in home: Yes Fire extinguisher in home: Yes Carbon monox detector in home: Yes Do you feel safe at home: Yes Do you feel safe in your relationship?: Yes
[2025-01-01 18:07] LABS: Abs Immature Grans 0.02 10^3/uL (0.0-0.06); Absolute Basophil Count 0.04 10^3/uL (0.0-0.2); Absolute Eosinophil Count 0.25 10^3/uL (0.0-0.7); Absolute Lymphocyte Count 0.65 10^3/uL (1.2-3.4); Absolute Monocyte Count 0.51 10^3/uL (0.1-0.8); Absolute Neutrophil Count 4.19 10^3/uL (1.2-6.7); BE (Venous) 7 mmol/L (-2-3); Basophils % 0.7 %; Eosinophils % 4.4 %; HCO3 (Venous) 34 mmol/L (23-28); HCT 37.2 % (36.0-46.0); HGB 11.6 g/dL (11.2-15.7); Immature Grans % 0.4 %; Lymphocytes % 11.5 %; MCH 29.4 pg (27.0-33.0); MCHC 31.2 % (32.0-36.0); MCV 94 fL (80-95); MPV 8.9 fL (8.0-11.0); O2 Sat (Venous) 44 %; Platelet Count 155 10^3/uL (130-400); RBC 3.95 10^6/uL (3.93-5.22); RDW 14.7 % (11.7-14.6); RDW-SD 50.9 fL; TCO2 (Venous) 32 mmol/L (24-29); WBC 5.66 10^3/uL (4.4-10.8); pO2 (Venous) 28 mmHg
[2025-01-01 18:09] LABS: pCO2 (Venous) 70 mmHg (41-51)
[2025-01-01] MEDS: Albuterol/Ipratropium 3 ML UPD VIAL UPD ×3 (18:09→23:25)
[2025-01-01] MEDS: methylPREDNISolone SUCC 125 MG VIAL IVP (18:09)
[2025-01-01] MEDS: Normal Saline Flush 10 ML SYR IVP (18:09)
[2025-01-01 18:37] LABS: ALT 34 U/L (14-59); AST 40 U/L (15-37); Alkaline Phosphatase 147 U/L (46-116); Anion Gap 4.9 mmol/L (3-11); BUN 22 mg/dL (7-18); Bilirubin, Total 0.4 mg/dL (0.2-1.0); CO2 34.1 mmol/L (21.0-32.0); CREATININE 0.8 mg/dL (0.55-1.02); Calcium 9.3 mg/dL (8.5-10.1); Chloride 97 mmol/L (98-107); Estimated GFR 75.37 (mL/min/1.73m2); Glucose 122 mg/dL (74-106); Potassium 4.4 mmol/L (3.5-5.1); Sodium 136 mmol/L (136-145); Total Protein 7.6 g/dL (6.4-8.2); Troponin I 5 ng/L (<or=51)
[2025-01-01 18:41] LABS: Magnesium 1.8 mg/dL (1.8-2.4); NT-proBNP 182 pg/mL (<300)
[2025-01-01 18:42] LABS: Procalcitonin < 0.10 ng/mL
--- NOTE | 2025-01-01 18:56 | DI.VRAD_ITS ---
PROCEDURE INFORMATION: Exam: XR Chest Exam date and time: 01/01/2025 5:50 PM Age: 79 years old Clinical indication: Other: Cough, dyspnea TECHNIQUE: Imaging protocol: Radiologic exam of the chest. Views: 1 view. COMPARISON: CT CHEST WO 31/12/2024 13:54 FINDINGS: Tubes, catheters and devices: EKG wires overlie the chest. Lungs: Large lung volumes. Emphysematous lung disease. Coarse peripheral reticular markings similar to prior chest CT. No focal consolidation. Pleural spaces: Unremarkable. No pleural effusion. No pneumothorax. Heart/Mediastinum: Cardiomegaly. Vasculature: Atherosclerotic disease. Bones/joints: Multilevel degenerative scoliotic changes in the spine. 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 Dictated and Authenticated by: Deb Min MD. Orderin Nitish Machuca MD
--- NOTE | 2025-01-01 19:01 | NUR.NOTE ---
applied technologist informed nurse that pt was not doing her breathing treatment and stated she was struggling to breathe. this bid writer went into assess pt and inquired as to why she had stopped using her nebulizer. Family member stated that she said it was getting hard for her to breathe. Pt was swapped to [place] at 4L and was educated on the use of the nebulizer. Lung sounds were assessed and 1900 troponin was sent to lab. New set of vital signs was taken and call mckeon placed in reach.
[2025-01-01 19:06] LABS: COVID-19 PCR Negative (Negative); Influenza A PCR Negative (Negative); Influenza B PCR Negative (Negative); RSV PCR Negative (Negative); Source Nasopharynx
[2025-01-01 19:33] LABS: Troponin I 4 ng/L (<or=51)
--- NOTE | 2025-01-01 19:57 | W.PM.HP.N ---
Date of service: 01/01/25 Time of Service: 19:58 Assessment and Plan Assessment and plan (1) Pseudomonas pneumonia: Status: Acute Assessment and plan: Initially diagnosed in 11/16/24 Multfocal pneumonia looking at today's CXR and CT scan yesterday showing some improvement and some new infiltrates I think we have to assume this is still pseudomonal and use double coverage, though it may be an unrelated superinfection Pip/tazo and Levofloxacin should also cover regular CAP including atypcials (2) Acute on chronic respiratory failure with hypoxia and hypercapnia: Status: Acute Assessment and plan: VBG on presentation reflects hypercapnea slightly above baseline compensation. Her oxygen requirement is also above baseline at 4 liters at rest (typcially 2L and 4L with exertion. Treated in ED with nebs and solumedrol. Improvement in pCO2 to near baseline compensation (looking at her HCO3) so will admit to floor continue chest PT with bronchietasis (3) COPD exacerbation: Status: Acute Assessment and plan: As above, also continue inhalers (4) AAA (abdominal aortic aneurysm): Status: Chronic Assessment and plan: Known AAA >5cm seen on CT 12/31. Surgerical repair pending clearing of lung infection. No signs/symtpoms of rupture (5) CAD (coronary artery disease): Assessment and plan: Remote h/o stenting. Stable, continue ASA and statin (6) TAMRA (obstructive sleep apnea): Status: Chronic Assessment and plan: home CPAP (7) DVT prophylaxis: Status: Acute Assessment and plan: enoxaparin (8) Palliative care patient: Status: Acute Assessment and plan: consult for continuity. Seen in November, petrona [place] reviewed History of Present Illness History of Present Illness Chief Complaint: cough, SOB Narrative: 79 yo F with asthma/COPD overlap and bronchiectasis on 2 liters home O2, currently being treated for pseudomonas pneumonia diagnosed 11/16/24 with inhaled tobramycin after a course of levofloxacin, ASCVD, AAA, cor pulmonale, and TAMRA who is presenting with 3-4 days of progressively worsening of her chronic cough and shortness of breath. Started with feeling more short of breath, fatigued, and then increased cough. Sputum was getting clear from previous infection, has become green again, though still not as bad as it was 5 weeks ago. She had routine follow up CT yesterday and thought about going to the ED but held off another day. [place] worse today and came in to ED. Nebs help some. She is also doing chest PT. She has a long pulmonary history, sees pulmonology. She has been taking tobramycin nebs as directed. No sick contacts or travel or other exposures. Review of Systems All systems reviewed & are unremarkable except as noted in HPI and below Constitutional Constitutional: Denies chills, Reports fatigue, Denies fever(s), Reports lethargy and Reports poor appetite Respiratory Respiratory: Denies hemoptysis Comments: uses BiPAP Neurologic Comments: some general headaches for past 2 days. Endocrine Endocrine: Reports fatigue PFSH All Active Problems DVT prophylaxis (Acute) Acute on chronic respiratory failure with hypoxia and hypercapnia (Acute) COPD exacerbation (Acute) Shortness of breath (Acute) Confusion (Acute) Palliative care patient (Acute) Pseudomonas pneumonia (Acute) Bronchiectasis (Acute) Periodic limb movement disorder (Acute 07/09/24) Right rotator cuff tendonitis (Acute) Arthritis of right hip (Acute) Fracture of right superior pubic ramus (Acute 10/15/23) Fracture of right inferior pubic ramus (Acute 10/15/23) ASCVD (arteriosclerotic cardiovascular disease) (Acute) At risk of fracture due to osteoporosis (Acute) Abnormal finding on imaging (Acute) Followed by US/CT: AAA, Umb Hernia, Ov Cyst (lft), Renal lesion (lft) .. Asthma (Chronic) Elevated serum creatinine (Acute) IMPROVED! .. per december 2021 labs .. re-check for CTA Renal lesion (Acute) Personal history of nicotine dependence (Acute) Oxygen dependent (Acute) 2L ... Can go without if sitting/resting only. 04/2022: 2.5L with URI (2' PulsOx in 80s) Environmental allergies (Acute) Long Hx loratidine, trial cetirizine (03/2021) TAMRA (obstructive sleep apnea) (Chronic ~2015) Improved w/ mask (vs pillows), 07/2024, ik .Den Spangler- moderately severe CPAP Abnormal screening computed tomography (CT) of chest (Acute ~06/30/20) CT (2019) shows NO NODULE. New 1 cm nodule in the left upper lobe. Dr. Miller Dysuria (Acute) Much improved on Estrace .. acute on chronic complaint .. 08/17/21, 07/30/21 ... Increased frequency of urination (Acute) Much improved on Estrace Hematuria (Acute) Cough (Chronic) Chronic, calms with cough syrup/lozenges. Worsens with COPD exacerbations. AAA (abdominal aortic aneurysm) (Chronic) [facility] Vasc Surg note 09/15/24: AAA measures 5.2cm which now meets criteria for repair, but pt is having a COPD exacerbation, they do plan to contact Pulm and schedule surgery.HE 05/[address]; Q6mo recheck d/t 3mm increase.IK 10/25/22 measures 4.5 on US Apparent > 5mm growth since 12/2021, per Abd CT (09/2022). [ ] Vasc, ik .. Stable per 09/2021 CT (4.1cm) .. Hx: 39mm infrarenal; found on 07/30/19 CT.. AAA > 5.5 cm present high risk and surgical review. Venous insufficiency of both lower extremities (Acute 03/19/16) Greater trochanteric bursitis of right hip (Acute 05/16/15) Cor pulmonale (Acute 03/19/16) edema, hypoxia, arrhythmia at [facility] 02/26/16 Medical History Contusion of elbow, right Abdominal wall hernia CAD (coronary artery disease) s/p PCI Distal RCA (DON x2)([facility]), 08/2020 .. 2' STEMI ([facility] ED).. Umbilical hernia ID'd on CT; Surgery Eval for management recommendations COPD exacerbation Cataracts, bilateral Scheduled for cataract surgery with Dr. Pappas ([facility]) 08/23 (OS) & 09/06 (OD) .. Pelvic mass (02/24/15) Followed by [facility], yearly imaging planned... Left renal, Left ovarian lesions .. stable, 2020 CT. Tubular adenoma of colon (07/23/17) Ovarian cyst, left US 2000, 2006; again on MRI of hip 2014, US 2015 Osteoarthritis, hand (10/17/14) Hip pain, right (12/26/14) DJD, ? AVN on MRI (Dr Llanos) Depressive disorder (07/24/12) Chronic airway obstruction, mixed type GOLD III severe COPD, FEV1 0.9 (41%pred, 48%FVC) 03/2011; significant response dilator; similar 11/07/15 Varicose veins COPD (chronic obstructive pulmonary disease) Surgical History Ligation of fallopian tube (10/06/69) Colonoscopy - MAC (07/23/17) Cholecystectomy (10/06/1966) Family History Mother , complications DM at age 67. Diabetes Father , stomach cancer at age 30. No problems noted. 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 Pets and animals: No Sexually active: No Do you think of yourself as: straight/heterosexual Current gender identity: female What is your relationship status?: Panel score (0-1 are the most socially isolated patients): 0 What type of physical activity do you participate in: other Details: Yardwork; Housework Duration: 30-45 minutes/day Frequency: daily Linda/Pentecostalism: Baptism Seatbelt use: always Helmet use: No (Never) Drive intox or ride w/intox rental car ferry driver: No Working smoke detector in home: Yes Fire extinguisher in home: Yes Carbon monox detector in home: Yes Do you feel safe at home: Yes Do you feel safe in your relationship?: Yes Meds Allergies and Home Medications Allergies Allergy/AdvReac Type Severity Reaction Status Date / Time Fish Containing Products AdvReac Severe vomiting, Verified 01/01/25 17:21 diarrhea, headache Home Medications ?Medication ?Instructions ?Recorded ?Confirmed ?Type acetaminophen 650 mg 650 mg PO PRN 11/08/16 01/01/25 History tablet,extended release (Arthritis Pain Relief (acetaminophen) ER) compressor, for nebulizer #1 ea 10/14/18 01/01/25 Rx aspirin 81 mg tablet,delayed 81 mg PO DAILY #90 tabs 07/18/22 01/01/25 Rx release (Adult Low Dose Aspirin) Oxygen #1 ea 08/20/22 01/01/25 History loratadine 10 mg tablet (Allergy 10 mg PO DAILY #90 tabs 11/13/22 01/01/25 Rx Relief (loratadine)) fluticasone propionate 50 2 spray NS BID PRN nasal 01/31/23 01/01/25 Rx mcg/actuation nasal congestion #48 grams spray,suspension Hospital bed #1 ea 10/24/23 01/01/25 Rx fluticasone 500 mcg-salmeterol 50 1 inh inhalation BID #60 ea 12/01/23 01/01/25 Rx mcg/dose blistr powdr for inhalation (Advair Diskus) fluoxetine 10 mg capsule 10 mg PO DAILY #90 caps 03/30/24 01/01/25 Rx Advair Diskus 500 mcg-50 mcg/dose 1 inh inhalation BID PRN Severe 06/02/24 01/01/25 Rx powder for inhalation (fluticasone wheezing #180 ea propion-salmeterol) metoprolol succinate 25 mg 25 mg PO DAILY #90 tabs 06/13/24 01/01/25 Rx tablet,extended release 24 hr Ventolin HFA 90 mcg/actuation 2 puff inhalation Q4H PRN 07/29/24 01/01/25 Rx aerosol inhaler (albuterol sulfate) shortness of breath or wheezing #18 grams ipratropium 0.5 mg-albuterol 3 mg 3 ml inhalation Q4H PRN wheezing 09/14/24 01/01/25 Rx (2.5 mg base)/3 mL nebulization #540 mL soln tiotropium bromide 18 mcg capsule See Rx Instructions .Route 09/14/24 01/01/25 Rx with inhalation device (Spiriva .COMPLEX #90 caps with HandiHaler) clotrimazole 1 % topical cream 1 applic topical BID #30 grams 10/11/24 01/01/25 Rx estradiol 0.01% (0.1 mg/gram) 2 g vaginal .twice weekly UTI 10/12/24 01/01/25 Rx vaginal cream (Estrace) prevention #42.5 grams roflumilast 500 mcg tablet See Rx Instructions .Route 11/15/24 01/01/25 Rx .COMPLEX #90 tabs sodium chloride 3 % for 4 ml inhalation Q4H PRN secretions 11/16/24 01/01/25 Rx nebulization #750 mL morphine concentrate 100 mg/5 mL 5 mg (0.25 mL) PO Q3H PRN PRN 12/03/24 01/01/25 Rx (20 mg/mL) oral solution shortness of breath #30 mL lisinopril 5 mg tablet See Rx Instructions .Route 12/06/24 01/01/25 Rx .COMPLEX #90 tabs guaifenesin 600 mg tablet, 600 mg PO BID #60 tabs 12/16/24 01/01/25 Rx extended release 12 hr (Mucinex) tobramycin with nebulizer 300 mg/5 300 mg (5 mL) inhalation BID 28 12/16/24 01/01/25 Rx mL solution for nebulization days #280 mL Exam Narrative Exam Narrative: GEN: Alert and oriented x 4, pleasant and cooperative, gives linear history. No distress at rest HEENT: Head atraumatic. Conjunctiva clear, no icterus. PEERL, EOMI. no rhinorrhea noted. MMM, OP red but no exudate. Neck is supple with no masses or lymphadenopathy, trachea midline LUNGS: Diffusely diminished breath sounds with scattered rhonchi, rales left mid chest, dyspneic intermittently with deep cough CV: RRR with no murmurs, gallops, or rubs. ABD: active bowel sounds, soft, nontender and nondistended. No masses. EXT: no cyanosis or edema. Ranjan clubbing in hands (though large heberdens nodes obscure somewhat) MSK: No joint redness or swelling, marisol hypertrophy in DIP/PIPs hands. NEURO: CN 2-12 grossly intact. Normal movement of 4 extremities. Normal speech and coordination. No tremor SKIN: No rashes or open wounds. 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 Most are slightly smaller or less dense with the exception of the previously present infiltrate in the lateral aspect of the left upper lobe which has mostly resolved. 2. However on the present study there is some new infiltrate evident in the posterior basal segment of the left lower lobe. 3. No pleural effusions nor intrathoracic adenopathy. 5 cm abdominal aortic aneurysm partially included in the field of view of this chest study. This was evident on prior abdominal CT scan of December 2023. Please note that the entire abdominal aorta is not included in the field of view of this chest study. Labs 01/01/25 18:00 01/01/25 18:00 Labs: Laboratory Results - last 24 hr 01/01/25 01/01/25 01/01/25 18:00 18: 19:00 WBC 5.66 RBC 3.95 Hgb 11.6 Hct 37.2 MCV 94 MCH 29.4 MCHC 31.2 L RDW 14.7 H Plt Count 155 MPV 8.9 Immature Gran % 0.4 Neutrophils % 74.0 Lymphocytes % 11.5 Monocytes % 9.0 Eosinophils % 4.4 Basophils % 0.7 Nucleated RBC % 0.0 Absolute Neutrophils 4.19 Absolute Lymphocytes 0.65 L Absolute Monocytes 0.51 Absolute Eosinophils 0.25 Absolute Basophils 0.04 VBG pH 7.30 L VBG pCO2 70 H* VBG pO2 28 VBG HCO3 34 H VBG Total CO2 32 H VBG O2 Saturation 44 VBG Base Excess 7 H Sodium 136 Potassium 4.4 Chloride 97 L Carbon Dioxide 34.1 H Anion Gap 4.9 BUN 22 H Creatinine 0.8 Est GFR (CKD-EPI 2020) 75.37 Glucose 122 H Calcium 9.3 Magnesium 1.8 Total Bilirubin 0.4 AST 40 H ALT 34 Alkaline Phosphatase 147 H Troponin I 5 4 NT-Pro-B Natriuret Pep 182 Total Protein 7.6 Albumin 3.0 L Procalcitonin < 0.10 COVID-19 Source Nasopharynx SARS-CoV-2 (PCR) Negative Influenza Type A (PCR) Negative Influenza Type B (PCR) Negative RSV (PCR) Negative Last Vital Signs Temp 36.6 C 01/01/25 17:40 Pulse 86 01/01/25 18:59 Resp 26 H 01/01/25 18:59 BP 175/95 H 01/01/25 18:59 Pulse Ox 93 01/01/25 18:59 Time Spent Time spent with Patient: >75 minutes Time was spent: preparing to see the patient(eg.review tests), obtaining and/or reviewing separately otained hiistory, ordering medications,tests, procedures, referring, communicating with other health pet care technician, indepentently interpreting results, counseling the patient and care coordination
[2025-01-01 20:17] LABS: BE (Venous) 6 mmol/L (-2-3); HCO3 (Venous) 32 mmol/L (23-28); O2 Sat (Venous) 65 %; TCO2 (Venous) 30 mmol/L (24-29); pO2 (Venous) 37 mmHg
[2025-01-01 20:19] LABS: pCO2 (Venous) 65 mmHg (41-51)
[2025-01-01] MEDS: PIPERACILLIN/TAZO 4.5 GM in Normal Saline 100 ML IVPB (20:52)
--- NOTE | 2025-01-01 21:51 | W.PC.ACHO ---
Registration Status: Primary Language: Preferred Language: ED Information & Data Chief Complaint SOB 01/01/25 17:43 Triage Note Pt reports hx of COPD. Has 01/01/25 17:24 had increased SOB over the past few days. Denies CP, reports chest feels tight. No recent fevers. Has had cough, nonproductive. Took morphine earlier today for SOB, also has been taking rescue inhaler. on 3-4 lpm nc at all times. Has complained of dropping sats when walking. No recent fever. Medical / Surgical History (Last Reviewed 12/03/24 @ 08:43 by Naomi Tony NP) Abdominal wall hernia Umbilical hernia Pelvic mass (02/24/15) Ovarian cyst, left Contusion of elbow, right CAD (coronary artery disease) Hip pain, right (12/26/14) Chronic airway obstruction, mixed type COPD exacerbation Cataracts, bilateral Tubular adenoma of colon (07/23/17) Osteoarthritis, hand (10/17/14) Depressive disorder (07/24/12) Varicose veins COPD (chronic obstructive pulmonary disease) (Last Reviewed 12/03/24 @ 08:43 by Naomi Tony NP) Ligation of fallopian tube (10/06/69) Colonoscopy - MAC (07/23/17) Cholecystectomy (10/06/1966) Most Recent Vital Signs Temperature 36.6 C 01/01/25 17:40 Temperature Source Oral 01/01/25 17:40 Pulse 78 01/01/25 21:16 Pulse 82 01/01/25 21:16 Respiratory Rate 22 01/01/25 21:16 Respiratory Effort Short of Breath 01/01/25 17:37 Blood Pressure 108/58 L 01/01/25 21:16 Blood Pressure Mean 75 01/01/25 21:16 Blood Pressure Position Sitting 01/01/25 17:40 Pulse Oximetry 97 01/01/25 21:16 Oxygen Delivery Method Nasal Cannula 01/01/25 18:45 Oxygen Flow Rate 4 01/01/25 18:45 Pain Level 0 01/01/25 21:22 Allergies Fish Containing Products Adverse Reaction (Severe, Verified 01/01/25 17:21) vomiting, diarrhea, headache mavis,cod, ? of shellfish. Active Medications Generic Name Dose Route Start Last Admin Trade Name Freq PRN Reason Stop Dose Admin Piperacillin Sod/Tazobactam 100 mls @ 200 mls/hr 01/01/25 19:43 01/01/25 20:52 Sod 4.5 gm/ Sodium Chloride IVPB 01/01/25 20:12 200 mls/hr NOW ONE Administration Sodium Chloride 0 ml 01/01/25 17:30 01/01/25 18:09 Normal Saline Flush 10 Ml Syr IVP 10 ml PRN PRN Administration IV IV Catheter Type [Left Saline Lock Antecubital] IV Catheter Gauge [Left 20 Antecubital] Diet Orders Category Date Time Status Heart Healthy Eating [DIET] Nutrition 01/02/25 Breakfast Ordered Diagnostics 01/01/25 01/01/25 01/01/25 Range/Units 20:12 19:00 18:25 WBC (4.4-10.8) 10^3/uL RBC (3.93-5.22) 10^6/uL Hgb (11.2-15.7) g/dL Hct (36.0-46.0) % MCV (80-95) fL MCH (27.0-33.0) pg MCHC (32.0-36.0) % RDW (11.7-14.6) % Plt Count (130-400) 10^3/uL MPV (8.0-11.0) fL Immature Gran % % Neutrophils % % Lymphocytes % % Monocytes % % Eosinophils % % Basophils % % Nucleated RBC % (0.0-0.3) % Absolute Neutrophils (1.2-6.7) 10^3/uL Absolute Lymphocytes (1.2-3.4) 10^3/uL Absolute Monocytes (0.1-0.8) 10^3/uL Absolute Eosinophils (0.0-0.7) 10^3/uL Absolute Basophils (0.0-0.2) 10^3/uL VBG pH 7.30 L (7.31-7.41) VBG pCO2 65 H* (41-51) mmHg VBG pO2 37 mmHg VBG HCO3 32 H (23-28) mmol/L VBG Total CO2 30 H (24-29) mmol/L VBG O2 Saturation 65 % VBG Base Excess 6 H (-2-3) mmol/L Sodium (136-145) mmol/L Potassium (3.5-5.1) mmol/L Chloride (98-107) mmol/L Carbon Dioxide (21.0-32.0) mmol/L Anion Gap (3-11) mmol/L BUN (7-18) mg/dL Creatinine (0.55-1.02) mg/dL Est GFR (CKD-EPI 2020) (mL/min/1.73m2) Glucose (74-106) mg/dL Calcium (8.5-10.1) mg/dL Magnesium (1.8-2.4) mg/dL Total Bilirubin (0.2-1.0) mg/dL AST (15-37) U/L ALT (14-59) U/L Alkaline Phosphatase (46-116) U/L Troponin I 4 (<or=51) ng/L NT-Pro-B Natriuret Pep (<300) pg/mL Total Protein (6.4-8.2) g/dL Albumin (3.4-5.0) g/dL Procalcitonin ng/mL COVID-19 Source Nasopharynx SARS-CoV-2 (PCR) Negative (Negative) Influenza Type A (PCR) Negative (Negative) Influenza Type B (PCR) Negative (Negative) RSV (PCR) Negative (Negative) 01/01/25 Range/Units 18:00 WBC 5.66 (4.4-10.8) 10^3/uL RBC 3.95 (3.93-5.22) 10^6/uL Hgb 11.6 (11.2-15.7) g/dL Hct 37.2 (36.0-46.0) % MCV 94 (80-95) fL MCH 29.4 (27.0-33.0) pg MCHC 31.2 L (32.0-36.0) % RDW 14.7 H (11.7-14.6) % Plt Count 155 (130-400) 10^3/uL MPV 8.9 (8.0-11.0) fL Immature Gran % 0.4 % Neutrophils % 74.0 % Lymphocytes % 11.5 % Monocytes % 9.0 % Eosinophils % 4.4 % Basophils % 0.7 % Nucleated RBC % 0.0 (0.0-0.3) % Absolute Neutrophils 4.19 (1.2-6.7) 10^3/uL Absolute Lymphocytes 0.65 L (1.2-3.4) 10^3/uL Absolute Monocytes 0.51 (0.1-0.8) 10^3/uL Absolute Eosinophils 0.25 (0.0-0.7) 10^3/uL Absolute Basophils 0.04 (0.0-0.2) 10^3/uL VBG pH 7.30 L (7.31-7.41) VBG pCO2 70 H* (41-51) mmHg VBG pO2 28 mmHg VBG HCO3 34 H (23-28) mmol/L VBG Total CO2 32 H (24-29) mmol/L VBG O2 Saturation 44 % VBG Base Excess 7 H (-2-3) mmol/L Sodium 136 (136-145) mmol/L Potassium 4.4 (3.5-5.1) mmol/L Chloride 97 L (98-107) mmol/L Carbon Dioxide 34.1 H (21.0-32.0) mmol/L Anion Gap 4.9 (3-11) mmol/L BUN 22 H (7-18) mg/dL Creatinine 0.8 (0.55-1.02) mg/dL Est GFR (CKD-EPI 2020) 75.37 (mL/min/1.73m2) Glucose 122 H (74-106) mg/dL Calcium 9.3 (8.5-10.1) mg/dL Magnesium 1.8 (1.8-2.4) mg/dL Total Bilirubin 0.4 (0.2-1.0) mg/dL AST 40 H (15-37) U/L ALT 34 (14-59) U/L Alkaline Phosphatase 147 H (46-116) U/L Troponin I 5 (<or=51) ng/L NT-Pro-B Natriuret Pep 182 (<300) pg/mL Total Protein 7.6 (6.4-8.2) g/dL Albumin 3.0 L (3.4-5.0) g/dL Procalcitonin < 0.10 ng/mL COVID-19 Source SARS-CoV-2 (PCR) (Negative) Influenza Type A (PCR) (Negative) Influenza Type B (PCR) (Negative) RSV (PCR) (Negative) 01/01/25 20:08 Blood Culture - Pending Blood 01/01/25 19:59 Blood Culture - Pending Blood Intake and Output - 24 Hour Total 01/01/25 17:19 thru 01/01/25 18:00 Intake Total 10 Balance 10 Weight 50.349 kg Intake: IV 10 Falls Risk Assessment History of Falls No History 01/01/25 17:40 Contributing Factors Impairments 01/01/25 17:40 Ambulatory Aids Uses ambulatory device 01/01/25 17:40 Tubes/Lines None 01/01/25 17:40 Gait Evaluation W/no contributing factors 01/01/25 17:40 Cognition No cognitive impairment 01/01/25 17:40 Fall Total Score 28 01/01/25 17:40 Level of Risk Moderate Risk 01/01/25 17:40 Problems (Last Reviewed 12/03/24 @ 08:43 by Naomi Tony, VIK) DVT prophylaxis (Acute) Acute on chronic respiratory failure with hypoxia and hypercapnia (Acute) COPD exacerbation (Acute) Palliative care patient (Acute) Pseudomonas pneumonia (Acute) TAMRA (obstructive sleep apnea) (Chronic ~2016) AAA (abdominal aortic aneurysm) (Chronic) Notes 01/01/25 19:01 Nursing Notes by Sabi Henriquez natural gas plant technician informed nurse that pt was not doing her breathing treatment and stated she was struggling to breathe. this justowriter operator went into assess pt and inquired as to why she had stopped using her nebulizer. Family member stated that she said it was getting hard for her to breathe. Pt was swapped to NC at 4L and was educated on the use of the nebulizer. Lung sounds were assessed and 1900 troponin was sent to lab. New set of vital signs was taken and call mckeon placed in reach. Initialized on 01/01/25 19:01 - END OF NOTE v v v v v v v v v Sending and/or Receiving Nurses: Please use comment section below to note any information pertinent to the patient hand-off not included above. Information / Comments:Pt NK admit to med/surg @ 2151 01/01/25, from the ED, SOB, trouble breathing, COPD. 4L NC. Room 208. Report received from: Sabi Henriquez RN, ED
[2025-01-02] VITALS (15 sets, daily range): BP systolic 100–133; BP diastolic 65–78; PULSE 62–83; RESP 2–24; TEMP 36.8–37.2; O2SAT 91–98
[2025-01-02] MEDS: Enoxaparin 40 MG/0.4 ML SYR SC ×2 (00:25→20:13)
[2025-01-02] MEDS: guaiFENesin 600 MG TABCR PO ×3 (00:25→20:13)
[2025-01-02] MEDS: levoFLOXacin 750 MG/150 ML BAG 100 MG IVPB (01:12)
[2025-01-02] MEDS: Normal Saline Flush 10 ML SYR IVP ×6 (01:13→20:14)
[2025-01-02] MEDS: Acetaminophen 325 MG TAB 650 MG PO (02:42)
[2025-01-02] MEDS: MORPHine Oral Concentrate 20 MG/ML 5 MG PO ×3 (02:43→12:38)
[2025-01-02] MEDS: Albuterol/Ipratropium 3 ML UPD VIAL UPD ×3 (03:35→21:54)
[2025-01-02 05:20] LABS: Abs Immature Grans 0.01 10^3/uL (0.0-0.06); Absolute Basophil Count 0.01 10^3/uL (0.0-0.2); Absolute Eosinophil Count 0.01 10^3/uL (0.0-0.7); Absolute Lymphocyte Count 0.16 10^3/uL (1.2-3.4); Absolute Monocyte Count 0.08 10^3/uL (0.1-0.8); Basophils % 0.2 %; Eosinophils % 0.2 %; HCT 34.1 % (36.0-46.0); HGB 10.8 g/dL (11.2-15.7); Immature Grans % 0.2 %; Lymphocytes % 3.5 %; MCH 28.9 pg (27.0-33.0); MCHC 31.7 % (32.0-36.0); MCV 91 fL (80-95); MPV 9.2 fL (8.0-11.0); Monocytes % 1.8 %; Neutrophils % 94.1 %; Platelet Count 163 10^3/uL (130-400); RBC 3.74 10^6/uL (3.93-5.22); RDW 14.3 % (11.7-14.6); RDW-SD 48.3 fL; WBC 4.57 10^3/uL (4.4-10.8)
[2025-01-02 05:37] LABS: ALT 35 U/L (14-59); AST 42 U/L (15-37); Albumin 2.7 g/dL (3.4-5.0); Alkaline Phosphatase 122 U/L (46-116); Anion Gap 2.3 mmol/L (3-11); BUN 21 mg/dL (7-18); Bilirubin, Total 0.7 mg/dL (0.2-1.0); CO2 29.7 mmol/L (21.0-32.0); CREATININE 0.9 mg/dL (0.55-1.02); Calcium 8.9 mg/dL (8.5-10.1); Chloride 95 mmol/L (98-107); Estimated GFR 65.44 (mL/min/1.73m2); Glucose 146 mg/dL (74-106); Magnesium 1.6 mg/dL (1.8-2.4); Sodium 127 mmol/L (136-145); Total Protein 7.2 g/dL (6.4-8.2)
--- NOTE | 2025-01-02 08:26 | INITIAL_ITS ---
Date of service: 01/02/25 Time of Service: 08:26 Care Management Initial Assmt Initial Assessment Reason for Hospitalization: pneumonia Functional Status/Living Situation Patient Presentation: Radha was sitting up in bed visiting with her family when CM met with her. She appeared to be in good spirits and her daughters and son-in-law participated in the conversation. Radha was alert and oriented and easily engaged with CM. Radha reported that she lives alone in her own single family home in [place]. She has 5 children and many grandchildren and great grandchildren. Her children all visit often and help provide care for her as needed. Radha is independent with ADLs including bathing, dressing and meals, however she has some short term memory issues and has had several falls. The family tries to have someone with her most of the time for medication management and safety. Capri is the primary mill house supervisor although Jelena and the other children help out as well. Radha has a cane which she uses on occasion and she has [employer] moderate needs with Chantelle Marti as her sample case porter. She has a homemaker who comes in once a week to help with cleaning floors and bathrooms who is paid through [employer]. 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 She has a Life Alert, a cane and home Oxygen which she wears all the time. She uses 4L/min with activity and 2-3 L/min at rest. . Town of Residence: [place] Resides with: Alone Natural Supports: children and grandchildren Employment Status: Retired Instrumental Activities of Daily Living (ADLs): Independent Medications Medication Management: No Issues/Barriers identified Advance Directives Advance Directives: Do you have an Advance Directive: Y 10/20/23 11:01 AD On File at [facility]: Y 10/20/23 11:01 Date Asked 01/01/25 01/01/25 20:04 AD Date Reviewed 01/01/25 01/01/25 20:04 COLST On File at [facility] COLST Date Scanned Code Status Resuscitation Status DNR/DNI Insurance Coverage/Financial Issues Insurance: Medicare [place] Care Team Visit Care Team Role Provider Type Subhash Owens MD MD [facility] STAFF PHYSICIAN Rola Stokes APRN Primary Care Provider NURSE PRACTITIONER Sven Talbert MD Emergency Provider [facility] STAFF PHYSICIAN Jewel Cooper Admit Provider [facility] STAFF PHYSICIAN Attending Provider Discharge Potential Discharge Needs: PCP F/U Appt and Other (pulmonology) Anticipated Barriers to Discharge: None Identified Patient/Family Education Needs: Review discharge instructions, discuss Ask Me Three Plan: Anticipate Radha will be discharged home with no new services when medically ready. She will follow up with her community providers and plan of care and transport with family. CM will follow and continue to support discharge planning efforts. Social Determinants of Health Screening Social Determinants of Health last assessed: 01/02/25 Will the Patient Participate in the Screening?: Yes Do you worry about having a steady place to live?: no Problems where you live: no known problems In the past 12 months, have you had to go without electric, gas, oil or water in your home?: no Have you or anyone in your house had to go without enough food to eat?: no Has lack of transportation kept you from medical appointments or from doing things needed for daily living?: no Has anyone in your life made you feel unsafe or unsupported?: no How hard is it for you to pay for the very basics like food, housing, medical care, and heating? Would you say it is:: Not hard at all Do you want help finding or keeping work or a job?: I do not need or want help If for any reason you need help with day-to-day activities such as bathing, preparing meals, shopping, managing finances, etc., do you get the help you need?: I get all the help I need How often do you feel lonely or isolated from those around you?: Never Do you speak a language other than Occitan at home?: No Does the patient want assistance with any of the above?: No Social Determinants of Health Comments([facility] Details): Maybe going to look into [place], and help w/ transportation. Home chores help once per week curently. PFSH All Active Problems DVT prophylaxis (Acute) Acute on chronic respiratory failure with hypoxia and hypercapnia (Acute) COPD exacerbation (Acute) Shortness of breath (Acute) Confusion (Acute) Palliative care patient (Acute) Pseudomonas pneumonia (Acute) Bronchiectasis (Acute) Periodic limb movement disorder (Acute 07/09/24) TAMRA (obstructive sleep apnea) (Chronic ~2015) Improved w/ mask (vs pillows), 07/2024, charles Spangler- moderately severe CPAP Right rotator cuff tendonitis (Acute) Arthritis of right hip (Acute) Fracture of right superior pubic ramus (Acute 10/15/23) Fracture of right inferior pubic ramus (Acute 10/15/23) ASCVD (arteriosclerotic cardiovascular disease) (Acute) At risk of fracture due to osteoporosis (Acute) Abnormal finding on imaging (Acute) Followed by US/CT: AAA, Umb Hernia, Ov Cyst (lft), Renal lesion (lft) .. Elevated serum creatinine (Acute) IMPROVED! .. per december 2021 labs .. re-check for CTA AAA (abdominal aortic aneurysm) (Chronic[place] [facility] [place]: AAA measures 5.2cm which now meets criteria for repair, but pt is having a COPD exacerbation, they do plan to contact Pulm and schedule surgery.HE 05/[address]; Q6mo recheck d/t 3mm increase.IK 10/25/22 measures 4.5 on US Apparent > 5mm growth since 12/2021, per Abd CT (09/2022). [ ] Vasc, ik .. Stable per 09/2021 CT (4.1cm) .. Hx: 39mm infrarenal; found on 07/30/19 CT.. AAA > 5.5 cm present high risk and surgical review. Oxygen dependent (Acute) 2L ... Can go without if sitting/resting only. 04/2022: 2.5L with URI (2' PulsOx in 80s) Environmental allergies (Acute) Long Hx loratidine, trial cetirizine (03/2021) Personal history of nicotine dependence (Acute) Asthma (Chronic) Cor pulmonale (Acute 03/19/16) edema, hypoxia, arrhythmia at [facility] 02/26/16 Abnormal screening computed tomography (CT) of chest (Acute ~06/30/20) CT (2019) shows NO NODULE. New 1 cm nodule in the left upper lobe. Dr. Miller Increased frequency of urination (Acute) Much improved on Estrace Hematuria (Acute) Renal lesion (Acute) Dysuria (Acute) Much improved on Estrace .. acute on chronic complaint .. 08/17/21, 07/30/21 ... Cough (Chronic) Chronic, calms with cough syrup/lozenges. Worsens with COPD exacerbations. Venous insufficiency of both lower extremities (Acute 03/19/16) Greater trochanteric bursitis of right hip (Acute 05/16/15) Medical History Contusion of elbow, right Abdominal wall hernia CAD (coronary artery disease) s/p [place] Distal [place] [place] .. 2' STEMI ([facility] ED).. Umbilical hernia ID'd on CT; Surgery Eval for management recommendations COPD exacerbation Cataracts, bilateral Scheduled for cataract surgery with Dr. Pappas ([facility]) 08/23 (OS) & 09/06 (OD) .. Pelvic mass (02/24/15) Followed by [facility], yearly imaging planned... Left renal, Left ovarian lesions .. stable, 2020 CT. Tubular adenoma of colon (07/23/17) Ovarian cyst, left US 1999, 2006; again on MRI of hip 2014, US 2014 Osteoarthritis, hand (10/17/14) Hip pain, right (12/26/14) DJD, ? AVN on MRI (Dr Llanos) Depressive disorder (07/24/12) Chronic airway obstruction, mixed type GOLD III severe COPD, FEV1 0.9 (41%pred, 48%FVC) 03/2011; significant response dilator; similar 11/07/15 Varicose veins COPD (chronic obstructive pulmonary disease) Surgical History Ligation of fallopian tube (10/06/69) Colonoscopy - MAC (07/23/17) Cholecystectomy (10/06/1966) Family History Mother , complications DM at age 67. Diabetes Father , stomach cancer at age 30. No problems noted. 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 Pets and animals: No Sexually active: No Do you think of yourself as: straight/heterosexual Current gender identity: female What is your relationship status?: Panel score (0-1 are the most socially isolated patients): 0 What type of physical activity do you participate in: other Details: Yardwork; Housework Duration: 30-45 minutes/day Frequency: daily Linda/Jew: Episcopalian Seatbelt use: always Helmet use: No (Never) Drive intox or ride w/intox starting gate driver: No Working smoke detector in home: Yes Fire extinguisher in home: Yes Carbon monox detector in home: Yes Do you feel safe at home: Yes Do you feel safe in your relationship?: Yes
[2025-01-02] MEDS: Roflumilast 500 MCG TAB PO (09:00)
[2025-01-02] MEDS: Loratidine 10 MG TAB PO (09:00)
[2025-01-02] MEDS: Metoprolol CR 25 MG TABCR PO (09:00)
[2025-01-02] MEDS: Aspirin E.C. 81 MG TABEC PO (09:00)
[2025-01-02] MEDS: predniSONE 20 MG TAB 40 MG PO (09:00)
[2025-01-02] MEDS: Lisinopril 5 MG TAB PO (09:00)
[2025-01-02] MEDS: FLUoxetine 10 MG TAB PO (09:00)
--- NOTE | 2025-01-02 09:23 | W.PM.PROGNOT ---
Date of Service Date of service: 01/02/25 Time of Service: 09:24 Assessment and Plan Assessment and plan (1) Pseudomonas pneumonia: Status: Acute Assessment and plan: -Initially diagnosed in 11/16/24 -Multfocal pneumonia looking CXR on admission and CT scan 12/31 showing some improvement and some new infiltrates -at this point, it appears to be recurrent/failed outpatient therapy for pseudomonas -started on zosyn and levoquin, will continue -depending on patients improvement, she may require bronchoscopy/BAL for definitive diagnosis and treatment (2) Acute on chronic respiratory failure with hypoxia and hypercapnia: Status: Acute Assessment and plan: -VBG on presentation reflects hypercapnea slightly above baseline compensation. -also required increased O2; up to 4L at rest, usually 2L at rest and 4L with exertion -CO2 improved on repeat VBG -wean O2 as tolerated with goal 88-92% (3) COPD exacerbation: Status: Acute Assessment and plan: -treated with solumedrol and nebs in ED -started on daily 40mg PO prednisone AM 01/02, will continue -continue scheduled nebs and PRN inhalers (4) AAA (abdominal aortic aneurysm): Status: Chronic Assessment and plan: -Known AAA >5cm seen on CT 12/31. -Surgerical repair pending clearing of lung infection. -No signs/symtpoms of rupture (5) CAD (coronary artery disease): Assessment and plan: -Remote h/o stenting. - Stable, continue ASA and statin (6) TAMRA (obstructive sleep apnea): Status: Chronic Assessment and plan: -continue home CPAP HS (7) DVT prophylaxis: Status: Acute Assessment and plan: -enoxaparin (8) Palliative care patient: Status: Acute Assessment and plan: -consult for continuity. -Seen in November, petrona [place] reviewed Subjective Subjective Interval history since last seen: Patient states that she is feeling a little better as compared to admission but that she is still experiencing significant exertional dyspnea and is not back to her baseline. Exam Narrative Exam Narrative: well appearing older female siting up in the bed in no acute distress, AOx4, 2L NC in place, heart RRR, lungs with mild diffuse course breath sounds, abdomen soft, non-tender, non-distended Objective Last Vital Signs Temp 99.0 F 01/02/25 07:22 Pulse 75 01/02/25 07:22 Resp 18 01/02/25 07:22 BP 107/75 01/02/25 07:22 Pulse Ox 98 01/02/25 07:22 Laboratory Results - last 24 hr 01/01/25 01/01/25 01/01/25 18:00 18:25 19:00 WBC 5.66 RBC 3.95 Hgb 11.6 Hct 37.2 MCV 94 MCH 29.4 MCHC 31.2 L RDW 14.7 H Plt Count 155 MPV 8.9 Immature Gran % 0.4 Neutrophils % 74.0 Lymphocytes % 11.5 Monocytes % 9.0 Eosinophils % 4.4 Basophils % 0.7 Nucleated RBC % 0.0 Absolute Neutrophils 4.19 Absolute Lymphocytes 0.65 L Absolute Monocytes 0.51 Absolute Eosinophils 0.25 Absolute Basophils 0.04 VBG pH 7.30 L VBG pCO2 70 H* VBG pO2 28 VBG HCO3 34 H VBG Total CO2 32 H VBG O2 Saturation 44 VBG Base Excess 7 H Sodium 136 Potassium 4.4 Chloride 97 L Carbon Dioxide 34.1 H Anion Gap 4.9 BUN 22 H Creatinine 0.8 Est GFR (CKD-EPI 2020) 75.37 Glucose 122 H Calcium 9.3 Magnesium 1.8 Total Bilirubin 0.4 AST 40 H ALT 34 Alkaline Phosphatase 147 H Troponin I 5 4 NT-Pro-B Natriuret Pep 182 Total Protein 7.6 Albumin 3.0 L Procalcitonin < 0.10 COVID-19 Source Nasopharynx SARS-CoV-2 (PCR) Negative Influenza Type A (PCR) Negative Influenza Type B (PCR) Negative RSV (PCR) Negative 01/01/25 01/02/25 20:12 04:44 WBC 4.57 RBC 3.74 L Hgb 10.8 L Hct 34.1 L MCV 91 MCH 28.9 MCHC 31.7 L RDW 14.3 Plt Count 163 MPV 9.2 Immature Gran % 0.2 Neutrophils % 94.1 Lymphocytes % 3.5 Monocytes % 1.8 Eosinophils % 0.2 Basophils % 0.2 Nucleated RBC % 0.0 Absolute Neutrophils 4.30 Absolute Lymphocytes 0.16 L Absolute Monocytes 0.08 L Absolute Eosinophils 0.01 Absolute Basophils 0.01 VBG pH 7.30 L VBG pCO2 65 H* VBG pO2 37 VBG HCO3 32 H VBG Total CO2 30 H VBG O2 Saturation 65 VBG Base Excess 6 H Sodium 127 L Potassium 5.0 Chloride 95 L Carbon Dioxide 29.7 Anion Gap 2.3 L BUN 21 H Creatinine 0.9 Est GFR (CKD-EPI 2020) 65.44 Glucose 146 H Calcium 8.9 Magnesium 1.6 L Total Bilirubin 0.7 AST 42 H ALT 35 Alkaline Phosphatase 122 H Troponin I NT-Pro-B Natriuret Pep Total Protein 7.2 Albumin 2.7 L Procalcitonin COVID-19 Source SARS-CoV-2 (PCR) Influenza Type A (PCR) Influenza Type B (PCR) RSV (PCR) Time Spent with Patient Time Spent with Patient: >50 minutes Time was spent: preparing to see the patient(eg.review tests), obtaining and/or reviewing separately otained hiistory, ordering medications,tests, procedures, referring, communicating with other health care services manager, indepentently interpreting results, counseling the patient and care coordination
[2025-01-02] MEDS: Budesonide/Formoterol 160/4.5 6 GM 60 PUFF INH IH ×2 (09:47→19:49)
--- NOTE | 2025-01-02 10:41 | PHA.REVIEW2 ---
Pharmacy Admission Review Admission Clinical Review Admission Pharmacy Review: DVT prophylaxis (Acute) Acute on chronic respiratory failure with hypoxia and hypercapnia (Acute) COPD exacerbation (Acute) Palliative care patient (Acute) Pseudomonas pneumonia (Acute) Fish Containing Products Adverse Reaction (Severe, Verified 01/01/25 17:21) vomiting, diarrhea, headache Resuscitation Status DNR/DNI Height 5 ft 2 in Weight 53.524 kg Comments Comments/Follow Ups: Watch kidney function (Zosyn dose) Pharmacy Admission Review Renal Dosing Renal Dosing: BUN 21 mg/dL (7-18) H 01/02/25 04:44 Creatinine 0.9 mg/dL (0.55-1.02) 01/02/25 04:44 Medications needing adjustments: Reviewed (CrCl 39.18 mL/min, BUN decreased from 22) List of meds needing interventions: Spoke to provider regarding Zosyn dose. Should technically be reduced for CrCl <40, told provider we will monitor and change dose if kidney function decreases any further. Anticoagulation Anticoagulation: Hgb 10.8 g/dL (11.2-15.7) L 01/02/25 04:44 Hct 34.1 % (36.0-46.0) L 01/02/25 04:44 Plt Count 163 10^3/uL (130-400) 01/02/25 04:44 Creatinine 0.9 mg/dL (0.55-1.02) 01/02/25 04:44 DVT Prophylaxis: Reviewed (Hgb decreased from 11.6) Medications: Enoxaparin (40mg adily) Opiate Usage Evaluate Pain Scale/Pains Meds: Reviewed (morphine oral concentrate 5mg PO q3h PRN - from home med list, no doses given) Scheduled Bowel Reg ordered if on Opiates?: No Relevant Labs Relevant Labs: Sodium 127 mmol/L (136-145) L 01/02/25 04:44 Potassium 5.0 mmol/L (3.5-5.1) 01/02/25 04:44 Chloride 95 mmol/L (98-107) L 01/02/25 04:44 Magnesium 1.6 mg/dL (1.8-2.4) L 01/02/25 04:44 Electrolytes, C-Reactive P, ESR: Reviewed (Na 127 and Mg 1.6 - no replacement ordered at this time, AST increased from 40 to 42) Cardiac Review Cardiac Review: Troponin I 4 ng/L (<or=51) 01/01/25 19:00 NT-Pro-B Natriuret Pep 182 pg/mL (<300) 01/01/25 18:00 BP, HR, EF%: Reviewed (BP and HR WNL, oxygen flow rate 2) List meds needing interventions: Has orders for lisinopril 5mg and metoprolol XL 25mg daily QTc Review QTc: Reviewed (410 from 01/01/25) IV to PO Switch IV Medications: Reviewed (levofloxacin and Zosyn) Home Meds Home Med List reviewed: Intervened Relevent Home Meds Not ordered & why?: Advair (substituted with Symbicort per pharmacy protocol), Spiriva (holding per overnight pharmacy as patient has scheduled Duonebs ordered) and tobramycin nebulizer solution (never filled due to insurance issues per provider) Called nurse to confirm what days of the week patient uses estradiol cream. Per nurse patient uses on Sundays and Wednesdays. Patient will have brought in for Friday if she is still inpatient. I changed order to patients own. Patient recently filled atorvastatin but not on home med list. Nurse confirmed with patient that she does take it at home. Added to home med list and informed provider. No order at this time. Current Meds Current Medication Order Review: Reviewed Pharmacy Antibiotic Review Relevant Labs: Relevant Labs 01/01/25 18:00 Procalcitonin < 0.10 WBC 4.57 10^3/uL (4.4-10.8) 01/02/25 04:44 Procalcitonin < 0.10 ng/mL 01/01/25 18:00 Temperature 37.2 C Temperature 36.8 C Microbiology 01/02/25 00:09 Gram Stain - Final Sputum Gram Positive Cocci Pharmacy Antibiotic Activity: C/S review and Reviewed, no change Comments: Patient is on levofloxacin (renally adjusted) and Zosyn, day 1, for pseudomonas pneumonia. Pseudomonas confirmed during last admission (see sputum culture from 11/15/24). Blood cultures pending. Comments Comments/Follow Ups: Watch kidney function (Zosyn dose)
[2025-01-02] MEDS: Docusate Sodium 100 MG CAP PO (16:15)
[2025-01-02] MEDS: Ondansetron 4 MG/2 ML VIAL IVP (16:15)
[2025-01-02] MEDS: Nystatin 500000 UNITS/5 ML SUSP 5ML CUP PO (20:13)
[2025-01-02] MEDS: Clotrimazole 1% 15 GM TUBE TP (20:14)
[2025-01-03] VITALS (17 sets, daily range): BP systolic 104–121; BP diastolic 67–87; PULSE 61–92; RESP 2–19; TEMP 36.6–37.5; O2SAT 88–99
[2025-01-03] MEDS: Albuterol/Ipratropium 3 ML UPD VIAL UPD ×4 (03:37→21:42)
[2025-01-03 06:34] LABS: HCT 31.9 % (36.0-46.0); HGB 10.5 g/dL (11.2-15.7); MCH 28.9 pg (27.0-33.0); MCHC 32.9 % (32.0-36.0); MCV 88 fL (80-95); MPV 9.2 fL (8.0-11.0); Platelet Count 173 10^3/uL (130-400); RBC 3.63 10^6/uL (3.93-5.22); RDW 14.2 % (11.7-14.6); RDW-SD 45.6 fL; WBC 5.46 10^3/uL (4.4-10.8)
[2025-01-03 07:16] LABS: BUN 20 mg/dL (7-18); CREATININE 0.8 mg/dL (0.55-1.02); Calcium 9.2 mg/dL (8.5-10.1); Chloride 94 mmol/L (98-107); Estimated GFR 75.37 (mL/min/1.73m2); Glucose 100 mg/dL (74-106); Potassium 4.7 mmol/L (3.5-5.1); Sodium 127 mmol/L (136-145)
--- NOTE | 2025-01-03 07:26 | W.PALLCONSUL ---
Date of service: 01/03/25 Time of Service: 07:27 History of Present Illness History of Present Illness Chief Complaint: difficulty breathing Narrative: Radha is a 79-year-old woman with COPD. She is oxygen dependent. She lives alone and normally does quite well for herself. She states that on the day of admission she felt very panicky because she could not get her breath. She was afraid because she was alone but also had trouble breathing. In the ER she was found to have pneumonia and is receiving antibiotics She has recently started with palliative care. She is a DNR/DNI. She also uses intermittent morphine to help with shortness of breath She does have a lifeline at home. She lives in [place] across from the pot shop. She is not a frequent flyer at the pot shop but states that it does give her entertainment as she watches the numerous cars going in and out often She admits that she often forgets to turn her oxygen down after she turns it up while ambulating. She knows she is supposed to but does not know why Consults Consult date: 01/03/25 Requesting physician: Jewel Cooper Assessment and Plan Assessment and plan (1) Palliative care patient: Status: Acute (2) Acute hyponatremia: Status: Acute Assessment and plan: She is hyponatremic. Hospitalist will address this. She has run low in the past but in general she is in the normal range. Concerns with hypercapnia?I explained to her about carbon dioxide and oxygen and how she needs the extra oxygen on exertion but how it can actually work against her if she continues with a high amount when she is resting. She states that she is going to try to do better and that it was helpful to understand why it would not be good to keep the oxygen at a high level while resting CODE STATUS?she is a DNR/DNI. She was very happy to complete this paperwork with Namoi Darden after recent visit. She feels that she is getting wonderful care and that at this time does not need anything but looking forward to going home when appropriate I also emphasized the importance of her using her incentive spirometer to help to keep her lungs open Thank you very much for this consult. Normal will follow-up with Naomi Nair outpatient Review of Systems Narrative: She states that she is feeling much much better. She is not anxious to go home but she is looking forward to it. She feels that she is getting excellent care at [facility] and really enjoys the nurses, winks at me and says especially the male nurses and doctors [facility] All Active Problems (Updated 01/03/25 @ 08:01 by Charley Monzon MD, DC) Acute hyponatremia (Acute) DVT prophylaxis (Acute) Acute on chronic respiratory failure with hypoxia and hypercapnia (Acute) COPD exacerbation (Acute) Shortness of breath (Acute) Confusion (Acute) Palliative care patient (Acute) Pseudomonas pneumonia (Acute) Bronchiectasis (Acute) Periodic limb movement disorder (Acute 07/09/24) Right rotator cuff tendonitis (Acute) Arthritis of right hip (Acute) Fracture of right superior pubic ramus (Acute 10/15/23) Fracture of right inferior pubic ramus (Acute 10/15/23) ASCVD (arteriosclerotic cardiovascular disease) (Acute) At risk of fracture due to osteoporosis (Acute) Abnormal finding on imaging (Acute) Followed by US/CT: AAA, Umb Hernia, Ov Cyst (lft), Renal lesion (lft) .. Asthma (Chronic) Elevated serum creatinine (Acute) IMPROVED! .. per december 2021 labs .. re-check for CTA Renal lesion (Acute) Personal history of nicotine dependence (Acute) Oxygen dependent (Acute) 2L ... Can go without if sitting/resting only. 04/2022: 2.5L with URI (2' PulsOx in 80s) Environmental allergies (Acute) Long Hx loratidine, trial cetirizine (03/2021) TAMRA (obstructive sleep apnea) (Chronic ~2015) Improved w/ mask (vs pillows), 07/2024, ik .Den Spangler- moderately severe CPAP Abnormal screening computed tomography (CT) of chest (Acute ~06/30/20) CT (2019) shows NO NODULE. New 1 cm nodule in the left upper lobe. Dr. Miller Dysuria (Acute) Much improved on Estrace .. acute on chronic complaint .. 08/17/21, 07/30/21 ... Increased frequency of urination (Acute) Much improved on Estrace Hematuria (Acute) Cough (Chronic) Chronic, calms with cough syrup/lozenges. Worsens with COPD exacerbations. AAA (abdominal aortic aneurysm) (Chronic) [facility] Vasc Surg note 09/15/24: AAA measures 5.2cm which now meets criteria for repair, but pt is having a COPD exacerbation, they do plan to contact Pulm and schedule surgery.HE 05/[address]; Q6mo recheck d/t 3mm increase.IK 10/25/22 measures 4.5 on US Apparent > 5mm growth since 12/2021, per Abd CT (09/2022). [ ] Vasc, ik .. Stable per 09/2021 CT (4.1cm) .. Hx: 39mm infrarenal; found on 07/30/19 CT.. AAA > 5.5 cm present high risk and surgical review. Venous insufficiency of both lower extremities (Acute 03/19/16) Greater trochanteric bursitis of right hip (Acute 05/16/15) Cor pulmonale (Acute 03/19/16) edema, hypoxia, arrhythmia at [facility] 02/26/16 Medical History Contusion of elbow, right Abdominal wall hernia CAD (coronary artery disease) s/p PCI Distal RCA (DON x2)([facility]), 08/2020 .. 2' STEMI ([facility] ED).. Umbilical hernia ID'd on CT; Surgery Eval for management recommendations COPD exacerbation Cataracts, bilateral Scheduled for cataract surgery with Dr. Pappas ([facility]) 08/23 (OS) & 09/06 (OD) .. Pelvic mass (02/24/15) Followed by [facility], yearly imaging planned... Left renal, Left ovarian lesions .. stable, 2020 CT. Tubular adenoma of colon (07/23/17) Ovarian cyst, left US 1999, 2006; again on MRI of hip 2014, US 2014 Osteoarthritis, hand (10/17/14) Hip pain, right (12/26/14) DJD, ? AVN on MRI (Dr Llanos) Depressive disorder (07/24/12) Chronic airway obstruction, mixed type GOLD III severe COPD, FEV1 0.9 (41%pred, 48%FVC) 03/2011; significant response dilator; similar 11/07/15 Varicose veins COPD (chronic obstructive pulmonary disease) Surgical History Ligation of fallopian tube (10/06/69) Colonoscopy - MAC (07/23/17) Cholecystectomy (10/06/1966) Family History Mother , complications DM at age 67. Diabetes Father , stomach cancer at age 30. No problems noted. 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 Pets and animals: No Sexually active: No Do you think of yourself as: straight/heterosexual Current gender identity: female What is your relationship status?: Panel score (0-1 are the most socially isolated patients): 0 What type of physical activity do you participate in: other Details: Yardwork; Housework Duration: 30-45 minutes/day Frequency: daily Linda/Yarsanism: Sikh Seatbelt use: always Helmet use: No (Never) Drive intox or ride w/intox 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 HEENT?within normal limits heart is regular and not tachycardic, lungs she does have airflow in all lung balbuena, but fairly shallow. I did not hear any wheezing today. Mood good Results Last Vital Signs Temp 98.6 F 01/02/25 22:56 Pulse 61 01/03/25 03:44 Resp 16 01/03/25 03:44 BP 100/65 01/02/25 22:56 Pulse Ox 94 01/03/25 03:37 12/31/24 IMPRESSION: 1. Compared to the prior CT scan of 11/26/2024 there has been some mild improvement in the extensive bilateral infiltrates as described above. Most are slightly smaller or less dense with the exception of the previously present infiltrate in the lateral aspect of the left upper lobe which has mostly resolved. 2. However on the present study there is some new infiltrate evident in the posterior basal segment of the left lower lobe. 3. No pleural effusions nor intrathoracic adenopathy. 5 cm abdominal aortic aneurysm partially included in the field of view of this chest study. This was evident on prior abdominal CT scan of December 2023. Please note that the entire abdominal aorta is not included in the field of view of this chest study. Labs 01/03/25 05:47 01/03/25 05:47 Labs: Laboratory Results - last 24 hr 01/03/25 05:47 WBC 5.46 RBC 3.63 L Hgb 10.5 L Hct 31.9 L MCV 88 MCH 28.9 MCHC 32.9 RDW 14.2 Plt Count 173 MPV 9.2 Sodium 127 L Potassium 4.7 Chloride 94 L Carbon Dioxide 31.0 Anion Gap 2.0 L BUN 20 H Creatinine 0.8 Est GFR (CKD-EPI 2020) 75.37 Glucose 100 Calcium 9.2 Time Spent Time Spent with Patient Time Spent(min): 39
[2025-01-03] MEDS: Loratidine 10 MG TAB PO (07:54)
[2025-01-03] MEDS: Normal Saline Flush 10 ML SYR IVP ×3 (07:54→20:10)
[2025-01-03] MEDS: predniSONE 20 MG TAB 40 MG PO (07:54)
[2025-01-03] MEDS: Roflumilast 500 MCG TAB PO (07:54)
[2025-01-03] MEDS: FLUoxetine 10 MG TAB PO (07:54)
[2025-01-03] MEDS: Metoprolol CR 25 MG TABCR PO (07:54)
[2025-01-03] MEDS: guaiFENesin 600 MG TABCR PO ×2 (07:54→20:09)
[2025-01-03] MEDS: Nystatin 500000 UNITS/5 ML SUSP 5ML CUP PO ×3 (07:54→20:10)
[2025-01-03] MEDS: Aspirin E.C. 81 MG TABEC PO (07:54)
[2025-01-03] MEDS: Lisinopril 5 MG TAB PO (07:54)
[2025-01-03] MEDS: Docusate Sodium 100 MG CAP PO (08:04)
[2025-01-03] MEDS: Budesonide/Formoterol 160/4.5 6 GM 60 PUFF INH IH ×2 (08:16→20:06)
--- NOTE | 2025-01-03 08:36 | PDOC.CMPRO ---
Date of service: 01/03/25 Time of Service: 08:36 Care Management Progress Note Progress Note Text Progress Note Text: Radha was sitting up in a chair when CM met with her. She was pleasant in interaction and easily engaged with CM. Radha informed CM that she is feeling good today. She has been out of bed ambulating to the bathroom with her walker. In discussing discharge planning, Radha expressed interest in [facility] through home health. A referral will be sent upon discharge. Radha again talked about her family and the strong support they provide her. Someone will be staying with her most of the time and she is happy about that. Her only concern is that she doesn't want any of her family to miss work and lose money because of her. In conversation yesterday her daughters indicated to CM that they are pursuing correction Medicaid for Radha so that her youngest daughter Capri can be paid for providing her care. Discharge Potential Discharge Needs: PCP F/U Appt Anticipated Barriers to Discharge: None Identified Patient/Family Education Needs: Review discharge instructions, discuss Ask Me Three Transportation: Private vehicle Plan: Anticipate Radha will be discharged home with no new services when medically ready. She will follow up with her community providers and plan of care and transport with family. CM will follow and continue to support discharge planning efforts. Social Determinants of Health Screening Social Determinants of Health last assessed: 01/04/25 Will the Patient Participate in the Screening?: Yes Do you worry about having a steady place to live?: no Problems where you live: no known problems In the past 12 months, have you had to go without electric, gas, oil or water in your home?: no Have you or anyone in your house had to go without enough food to eat?: no Has lack of transportation kept you from medical appointments or from doing things needed for daily living?: no Has anyone in your life made you feel unsafe or unsupported?: no How hard is it for you to pay for the very basics like food, housing, medical care, and heating? Would you say it is:: Not hard at all Do you want help finding or keeping work or a job?: I do not need or want help If for any reason you need help with day-to-day activities such as bathing, preparing meals, shopping, managing finances, etc., do you get the help you need?: I get all the help I need How often do you feel lonely or isolated from those around you?: Never Do you speak a language other than Italian at home?: No Does the patient want assistance with any of the above?: No Social Determinants of Health Comments(SDCT Details): Maybe going to look into [facility], and help w/ transportation. Home chores help once per week curently.
--- NOTE | 2025-01-03 09:45 | PGE_ITS ---
Date of Service Date of service: 01/03/25 Time of Service: 09:45 Assessment and Plan Assessment and plan (1) Pseudomonas pneumonia: Status: Acute Assessment and plan: -Initially diagnosed in 11/16/24 -Multfocal pneumonia looking CXR on admission and CT scan 12/31 showing some improvement and some new infiltrates -at this point, it appears to be recurrent/failed outpatient therapy for pseudomonas -started on zosyn and levoquin, will continue (2) Acute on chronic respiratory failure with hypoxia and hypercapnia: Status: Acute Assessment and plan: -VBG on presentation reflects hypercapnea slightly above baseline compensation. -CO2 improved on repeat VBG -also required increased O2; up to 4L at rest, usually 2L at rest and 4L with exertion -Worked with respiratory therapy, patient is now on room air at rest, only requiring supplemental oxygen with ambulation and at bedtime -wean O2 as tolerated with goal 88-92% (3) COPD exacerbation: Status: Acute Assessment and plan: -treated with solumedrol and nebs in ED -started on daily 40mg PO prednisone AM 01/02, will continue -continue scheduled nebs and PRN inhalers (4) AAA (abdominal aortic aneurysm): Status: Chronic Assessment and plan: -Known AAA >5cm seen on CT 12/31. -Surgerical repair pending clearing of lung infection. -No signs/symtpoms of rupture (5) CAD (coronary artery disease): Assessment and plan: -Remote h/o stenting. - Stable, continue ASA and statin (6) TAMRA (obstructive sleep apnea): Status: Chronic Assessment and plan: -continue home CPAP HS (7) DVT prophylaxis: Status: Acute Assessment and plan: -enoxaparin (8) Palliative care patient: Status: Acute Assessment and plan: -consult for continuity. -Seen in November, petrona [place] reviewed Subjective Subjective Interval history since last seen: Patient states that she is feeling better today. She is happy to work with respiratory therapy on education on her oxygen requirements, as it appears she may only require supplemental oxygen with ambulation and sleep. Otherwise she has no complaints or concerns at this time. Exam Narrative Exam Narrative: well appearing older female siting up in the bed in no acute distress, AOx4, no supplemental oxygen while at rest, heart RRR, lungs with mild diffuse course breath sounds, abdomen soft, non-tender, non-distended Objective Last Vital Signs Temp 98.2 F 01/03/25 07:47 Pulse 70 01/03/25 09:20 Resp 16 01/03/25 09:04 BP 121/81 01/03/25 07:47 Pulse Ox 89 L 01/03/25 09:21 Laboratory Results - last 24 hr 01/03/25 05:47 WBC 5.46 RBC 3.63 L Hgb 10.5 L Hct 31.9 L MCV 88 MCH 28.9 MCHC 32.9 RDW 14.2 Plt Count 173 MPV 9.2 Sodium 127 L Potassium 4.7 Chloride 94 L Carbon Dioxide 31.0 Anion Gap 2.0 L BUN 20 H Creatinine 0.8 Est GFR (CKD-EPI 2020) 75.37 Glucose 100 Calcium 9.2 Time Spent with Patient Time Spent with Patient: >50 minutes Time was spent: preparing to see the patient(eg.review tests), obtaining and/or reviewing separately otained hiistory, ordering medications,tests, procedures, referring, communicating with other health home health care physician, indepentently interpreting results, counseling the patient and care coordination
--- NOTE | 2025-01-03 10:51 | W.NUTRFU ---
Date of service: 01/03/25 Time of Service: 10:00 Nutrition Note NOTE: pt asleep on visit -did not disturb 79yo with pseudomonas pna, acute resp failure/COPD exac, hx of CAD. 10kg wt loss noted x1 year. pt lives alone but well supported by family. 01/02 total protein wnl and albumin low at 2.7. COPD sx's can increase kcal needs and influence po intake due to possible O2 changs while eating. Liberalized diet from herat healthy to regular to support po intake (pt with low sodium lab as well at 127). Moving bowels ok with BM reported today. Allergy to fish products relayed to kitchen will support patient with continued regular meals and offer ONS as accepted/desired. Time Spent in Nutritional Counseling and Treatment: 0
--- NOTE | 2025-01-03 14:03 | RESPIRATORY ---
Pt's current prescription is 2L at rest, 4L pulse-dose regulator with portable tank with exertion. DME: Jr. Pt is able to maintain SpO2 resting on room air at this time. Walked with 4L pulse-dose and pt was just barely able to maintain SpO2 88% with this. Pt had difficulty triggering the pulse-dose regulator with each breath. In speaking with patient, it was found [facility] Radha's nebulizer machine is through [facility], and her nebulizer medication is shipped to her from [facility].
--- NOTE | 2025-01-03 18:37 | RESPIRATORY ---
PT TO NOT USE CPAP FRIDAY NIGHT - OBTAINING ABG Friday TO QUALIFY FOR TRILOGY NIV MACHINE.
[2025-01-03] MEDS: Enoxaparin 40 MG/0.4 ML SYR SC (20:10)
[2025-01-03] MEDS: levoFLOXacin 750 MG/150 ML BAG 100 MG IVPB (22:06)
[2025-01-04 04:08] VITALS: PULSE 62; RESP 16; RESP 2; RESP 9; O2SAT 92
[2025-01-04] MEDS: Albuterol/Ipratropium 3 ML UPD VIAL UPD ×2 (04:08→09:12)
[2025-01-04 04:16] VITALS: PULSE 65; RESP 18; RESP 5
[2025-01-04 06:24] LABS: BE 6 mmol/L (-2-3); HCO3 31 mmol/L (22-26); pCO2 51 mmHg (35-45); pH 7.39 (7.35-7.45); pO2 89 mmHg (80-105); sO2 98 % (95-98); tCO2 28 mmol/L (23-27)
[2025-01-04 06:26] LABS: FIO2 Unknown/Not Given %; FIO2L Unknown/Not Given L
[2025-01-04 07:30] VITALS: BP 124/76; PULSE 77; TEMP 36.4; O2SAT 100
[2025-01-04 07:42] VITALS: O2SAT 89
[2025-01-04] MEDS: Normal Saline Flush 10 ML SYR IVP (08:33)
[2025-01-04] MEDS: Nystatin 500000 UNITS/5 ML SUSP 5ML CUP PO ×2 (08:33→14:13)
[2025-01-04] MEDS: Lisinopril 5 MG TAB PO (08:33)
[2025-01-04] MEDS: Fluticasone NASAL SPRAY 16 GM BTL NS (08:34)
[2025-01-04] MEDS: predniSONE 20 MG TAB 40 MG PO (08:34)
[2025-01-04] MEDS: Roflumilast 500 MCG TAB PO (08:34)
[2025-01-04] MEDS: Aspirin E.C. 81 MG TABEC PO (08:34)
[2025-01-04] MEDS: Loratidine 10 MG TAB PO (08:34)
[2025-01-04] MEDS: guaiFENesin 600 MG TABCR PO (08:34)
[2025-01-04] MEDS: FLUoxetine 10 MG TAB PO (08:34)
[2025-01-04] MEDS: Metoprolol CR 25 MG TABCR PO (08:34)
[2025-01-04] MEDS: Clotrimazole 1% 15 GM TUBE TP (08:35)
[2025-01-04] MEDS: Acetaminophen 325 MG TAB 650 MG PO (08:38)
--- NOTE | 2025-01-04 08:44 | PDOC.CMPRO ---
Date of service: 01/04/25 Time of Service: 08:44 Care Management Progress Note Discharge Potential Discharge Needs: PCP F/U Appt Anticipated Barriers to Discharge: None Identified Patient/Family Education Needs: Review discharge instructions, discuss Ask Me Three Transportation: Private vehicle Plan: Anticipate Radha will be discharged home with new home health services for [facility]. She will follow up with her community providers and plan of care and transport with family. CM will follow and continue to support discharge planning efforts. Social Determinants of Health Screening Social Determinants of Health last assessed: 01/04/25 Will the Patient Participate in the Screening?: Yes Do you worry about having a steady place to live?: no Problems where you live: no known problems In the past 12 months, have you had to go without electric, gas, oil or water in your home?: no Have you or anyone in your house had to go without enough food to eat?: no Has lack of transportation kept you from medical appointments or from doing things needed for daily living?: no Has anyone in your life made you feel unsafe or unsupported?: no How hard is it for you to pay for the very basics like food, housing, medical care, and heating? Would you say it is:: Not hard at all Do you want help finding or keeping work or a job?: I do not need or want help If for any reason you need help with day-to-day activities such as bathing, preparing meals, shopping, managing finances, etc., do you get the help you need?: I get all the help I need How often do you feel lonely or isolated from those around you?: Never Do you speak a language other than Hungarian at home?: No Does the patient want assistance with any of the above?: No Social Determinants of Health Comments(SDTN Details): Maybe going to look into [facility], and help w/ transportation. Home chores help once per week curently. Health Related Social Needs Health related social needs: problems with daily activities (Z73.9)
[2025-01-04 09:12] VITALS: PULSE 59; RESP 9; O2SAT 91
[2025-01-04] MEDS: Budesonide/Formoterol 160/4.5 6 GM 60 PUFF INH IH (09:12)
[2025-01-04] MEDS: LORazepam 0.5 MG TAB PO ×2 (09:40→16:02)
[2025-01-04 10:55] VITALS: BP 121/78; PULSE 82; TEMP 37; O2SAT 91
--- NOTE | 2025-01-04 11:01 | PDOC.CMDIS ---
Date of service: 01/04/25 Time of Service: 11:01 LACE Index Scoring Tool Questions: Length of Stay (in days): 3 Was the patient admitted via the E.D.?: Yes Comorbidities: Previous M.I. and Chronic Pulmonary Disease E.D. Visits: 1 Answers: Total Score: 10 Risk of Readmission: High Risk Care Management Discharge Plan Reason for Hospitalization: Pneumonia Discharge Plan: Radha will be discharged home with new home health orders for [facility]. She will follow up with her PCP and plan of care and transport with family. Patient/Family Education Needs: Review of discharge instructions, limitations, follow up plan and discuss Ask Me Three Services Needed at Discharge: Home Health Care Services SDOH Health Related Social Needs: Health related social needs problems with daily activities (Z73.9) Health related social needs details Support, sttengthening
--- NOTE | 2025-01-04 11:47 | PDOC.HHF2F_ITS ---
Home Health Referral Home Health Orders Clinical synopsis of why skilled professionals are needed: COPD, chronic hypoxic respiratory failure, Pseudomonas pneumonia Registered Nurse: Check all that apply Instruct on new or changed medication(s)/assess compliance: Ordered Physical Therapist: Check all that apply Increase strength & endurance for safe mobility at home: Ordered To design/establish home maintenance program: Ordered Fall reduction therapy program for patient with history of frequent falls: Ordered Home safety evaluation and teaching/gait training including stair management (if applicable): Ordered [facility]: Ordered Encounter Date and Reason: I certify that a FTF encounter for this patient was performed on January 04, 2025 and that such encounter was related to the primary reason the patient requires home health services. The encounter was conducted in the following manner: * By me as the certifying physician, INSIDE SALES CONSULTANT, PA or * By an inpatient physician, INSIDE SALES CONSULTANT or PA during an inpatient stay who communicated findings to me, Certification And Authentication I certify that I composed the above information based on my clinical judgment relating to this patient's medical condition and, if applicable, clinical findings communicated to me by the NPP or inpatient physician who performed the FTF encounter. Name of Provider that will be monitoring home health services: Rola Stokes
--- NOTE | 2025-01-04 11:48 | W.PM.DS.N ---
Date of service: 01/04/25 Time of Service: 11:48 DS: Diagnosis Discharge Diagnosis (1) Pseudomonas pneumonia: Status: Acute (2) Acute on chronic respiratory failure with hypoxia and hypercapnia: Status: Acute (3) COPD exacerbation: Status: Acute (4) AAA (abdominal aortic aneurysm): Status: Chronic (5) CAD (coronary artery disease): (6) TAMRA (obstructive sleep apnea): Status: Chronic (7) DVT prophylaxis: Status: Acute (8) Palliative care patient: Status: Acute Discharge Plan Disposition Patient Disposition: Home W/Home Health Services Condition: Good Discharge Details Reason For Visit: pneumonia, COPD, bronchiecta Admit Date/Time: 01/01/25 19:41 Admit Provider: Jewel Cooper Attending Provider: Jewel Cooper Primary Care Provider: Rola Stokes Hospital Course Hospital Course: Patient initially presented with signs and symptoms that appear to be secondary to their failed outpatient therapy or recurrence of Pseudomonas pneumonia for which the patient had previously been on inhaled antibiotics but had interruption of her prescription due to insurance reasons. However, upon admission she had increased oxygen requirements from her baseline up to 4 L nasal cannula at rest that rapidly improved with initiation of Zosyn and Levaquin. During hospitalization patient had been reevaluated for her home oxygen requirement and she was also found to be hypercapnic on admission and was determined to only require 2 L of nasal cannula with ambulation no longer requiring oxygen at rest. Patient had significant education on her oxygen requirement and SpO2 goals with respiratory therapy. Ultimately, given that she had improved and actually was determined to require less oxygen than on admission it was determined that she was stable for discharge home with recommendation to continue inhaled antibiotics as well as an additional week of p.o. Levaquin. Home Meds and New Rx's Prescriptions: New prednisone 20 mg Tablet 40 mg PO DAILY Qty: 5 0RF (DME) Oxygen Tank See Rx Instructions .Route Qty: 1 0RF Rx Instructions: 2L with ambulation Continued ipratropium-albuterol 0.5 mg-3 mg(2.5 mg base)/3 mL solution for nebulization 3 ml inhalation Q4H PRN (Reason: wheezing) Qty: 540 12RF tiotropium bromide [Spiriva with HandiHaler] 18 mcg capsule, w/inhalation device See Rx Instructions .ROUTE .COMPLEX Qty: 90 12RF Dose Instruction: INHALE THE CONTENTS OF 1 CAPSULE VIA HANDIHALER BY MOUTH DAILY Rx Instructions: INHALE THE CONTENTS OF 1 CAPSULE VIA HANDIHALER BY MOUTH DAILY tobramycin with nebulizer 300 mg/5 mL solution for nebulization 300 mg inhalation BID 28 Days Qty: 280 1RF Rx Instructions: separate doses by at least 6 hours guaifenesin [Mucinex] 600 mg tablet extended release 12hr 600 mg PO BID Qty: 60 12RF (DME) compressor, for nebulizer device See Dose Instructions .ROUTE .MEDSUPPLY Qty: 1 0RF Dose Instruction: As directed Rx Instructions: As directed fluticasone propionate 50 mcg/actuation spray,suspension 2 spray NS BID PRN (Reason: nasal congestion) Qty: 48 3RF Rx Instructions: for allergic rhinitis (DME) Hospital bed See Rx Instructions .Route .MEDSUPPLY Qty: 1 0RF Rx Instructions: As directed albuterol sulfate [Ventolin HFA] 90 mcg/actuation HFA aerosol inhaler 2 puff inhalation Q4H PRN (Reason: shortness of breath or wheezing) Qty: 18 12RF sodium chloride 3 % solution for nebulization 4 ml inhalation Q4H PRN (Reason: secretions) Qty: 750 12RF morphine concentrate 100 mg/5 mL (20 mg/mL) solution 5 mg PO Q3H PRN MDD 5 mL PRN (Reason: shortness of breath) Qty: 30 0RF acetaminophen [Arthritis Pain Relief (acetam)] 650 MG tablet extended release 650 mg PO PRN aspirin [Adult Low Dose Aspirin] 81 mg tablet,delayed release (DR/EC) 81 mg PO DAILY Qty: 90 3RF loratadine [Allergy Relief (loratadine)] 10 mg tablet 10 mg PO DAILY Qty: 90 2RF fluticasone propion-salmeterol [Advair Diskus] 500-50 mcg/dose blister with device 1 inh inhalation BID Qty: 60 12RF fluoxetine 10 mg capsule 10 mg PO DAILY Qty: 90 3RF Rx Instructions: capsule instead of tablets as capsules are covered by insurance metoprolol succinate 25 mg tablet extended release 24 hr 25 mg PO DAILY Qty: 90 3RF Rx Instructions: Decrease 2' low BP, Wt Loss clotrimazole 1 % cream 1 applic TP BID Qty: 30 3RF Rx Instructions: Apply as directed estradiol [Estrace] 0.01 % (0.1 mg/gram) cream 2 g vaginal .twice weekly Qty: 42.5 3RF roflumilast 500 mcg tablet See Rx Instructions .ROUTE .COMPLEX Qty: 90 4RF Dose Instruction: TAKE ONE TABLET BY MOUTH EVERY DAY Rx Instructions: TAKE ONE TABLET BY MOUTH EVERY DAY lisinopril 5 mg tablet See Rx Instructions .ROUTE .COMPLEX Qty: 90 3RF Dose Instruction: TAKE ONE TABLET BY MOUTH EVERY DAY Rx Instructions: TAKE ONE TABLET BY MOUTH EVERY DAY atorvastatin 80 mg tablet 80 mg PO HS Patient Comments: TAKE ONE TABLET BY MOUTH AT BEDTIME Discontinued (DME) Oxygen 2.5 L Continuous EACH See Rx Instructions .Route .MEDSUPPLY Qty: 1 Rx Instructions: use 2 - 4 liters dependant on exertion, pt feels 2.5 is good. cc Discharge Instructions Activity:: Activity as Tolerated Equipment/Supplies:: No Equipment Needed Diet:: As Tolerated Discharge Orders Discharge Orders: Discharge Order (Routine); Ordered 01/04/25 Ordered By: Subhash Owens DS: Summary Time Spent with Patient providing and/or coordinating discharge services: Greater than 30 minutes Status at Discharge Functional status at discharge: independent ambulation Overall status at discharge: patient is back to baseline Mental Status: mental status grossly normal Speech and Movement: speech and movement normal Mood: congruent mood Affect: normal affect Quality:SDOH Health Related Social Needs: Health related social needs problems with daily activities (Z73.9) Health related social needs details Support, sttengthening Exam Narrative Exam Narrative: well appearing older female siting up in the bed in no acute distress, AOx4, no supplemental oxygen while at rest, heart RRR, lungs with mild diffuse course breath sounds, abdomen soft, non-tender, non-distended Psych Mental Status: mental status grossly normal Speech and Movement: speech and movement normal Mood: congruent mood Affect: normal affect DS: Data Vitals/I&O Vitals and I&O: Vital Signs Temperature 98.6 F 01/04/25 10:55 Temperature Source Temporal Artery Scan 01/04/25 10:55 Pulse 82 01/04/25 10:55 Pulse Rhythm Regular 01/01/25 21:52 Pulse 82 01/01/25 21:16 Respiratory Rate 18 01/04/25 04:16 Respiratory Effort Short of Breath, Labored, Accessory Muscle Use 01/01/25 21:52 Respiratory Depth Shallow 01/01/25 21:52 Respiratory Pattern Tachypnea 01/01/25 21:52 Blood Pressure 121/78 01/04/25 10:55 Blood Pressure Mean 75 01/01/25 21:16 Blood Pressure Position Sitting 01/01/25 17:40 Pulse Oximetry 91 L 01/04/25 10:55 Oxygen Delivery Method Nasal Cannula 01/04/25 09:12 Oxygen Flow Rate 2 01/04/25 09:12 Pain Level 0 01/04/25 10:55 Comment pt requested to not be woken up for 3 AM vitals 01/04/25 02:53 Intake & Output 01/03/25 01/04/25 01/04/25 17:59 05:59 17:59 Intake Total 600 / 600 250 / 850 550 / 550 Output Total 300 / 300 Balance 300 / 300 250 / 550 550 / 550 Weight 121 lb 7.595 oz 119 lb 11.376 oz Intake: IV 110 / 110 250 / 360 50 / 50 Oral 490 / 490 500 / 500 Output: Urine 300 / 300 Other: Urine Color Yellow Pale Yellow Urine Appearance Cloudy Clear Urine Odor Normal None Comment voided large amount Stool Size Small Small Small Stool Characteristics Soft Soft Soft Formed Data Completed and Pending Labs on day of discharge: Labs from last 24 hours 01/04/25 06:15 ABG Sample Site Unknown ABG pH 7.39 ABG pCO2 51 H ABG pO2 89 ABG HCO3 31 H ABG Total CO2 28 H ABG O2 Saturation 98 ABG Base Excess 6 H Oxygen Liter Flow Unknown/Not Given FiO2 Unknown/Not Given Preliminary micro results at discharge 01/02/25 00:09 Sputum Culture - Preliminary Sputum Normal Elin Effie albicans 01/01/25 20:08 Blood Culture - Preliminary Blood NO GROWTH 48 HOURS 01/01/25 19:59 Blood Culture - Preliminary Blood NO GROWTH 48 HOURS PFSH All Active Problems (Updated 01/03/25 @ 08:01 by Charley Monzon MD, [place]) Acute hyponatremia (Acute) DVT prophylaxis (Acute) Acute on chronic respiratory failure with hypoxia and hypercapnia (Acute) COPD exacerbation (Acute) Shortness of breath (Acute) Confusion (Acute) Palliative care patient (Acute) Pseudomonas pneumonia (Acute) Bronchiectasis (Acute) Periodic limb movement disorder (Acute 07/09/24) TAMRA (obstructive sleep apnea) (Chronic ~2015) Improved w/ mask (vs pillows), 07/2024, ik .Den Spangler- moderately severe CPAP Right rotator cuff tendonitis (Acute) Arthritis of right hip (Acute) Fracture of right superior pubic ramus (Acute 10/15/23) Fracture of right inferior pubic ramus (Acute 10/15/23) ASCVD (arteriosclerotic cardiovascular disease) (Acute) At risk of fracture due to osteoporosis (Acute) Abnormal finding on imaging (Acute) Followed by US/CT: AAA, Umb Hernia, Ov Cyst (lft), Renal lesion (lft) .. Elevated serum creatinine (Acute) IMPROVED! .. per december 2021 labs .. re-check for CTA AAA (abdominal aortic aneurysm) (Chronic) [facility] [place] Vasc Surg note 09/15/24: AAA measures 5.2cm which now meets criteria for repair, but pt is having a COPD exacerbation, they do plan to contact Pulm and schedule surgery.HE 05/[address]; Q6mo recheck d/t 3mm increase.IK 10/25/22 measures 4.5 on US Apparent > 5mm growth since 12/2021, per Abd CT (09/2022). [ ] Vasc, ik .. Stable per 09/2021 CT (4.1cm) .. Hx: 39mm infrarenal; found on 07/30/19 CT.. AAA > 5.5 cm present high risk and surgical review. Oxygen dependent (Acute) 2L ... Can go without if sitting/resting only. 04/2022: 2.5L with URI (2' PulsOx in 80s) Environmental allergies (Acute) Long Hx loratidine, trial cetirizine (03/2021) Personal history of nicotine dependence (Acute) Asthma (Chronic) Cor pulmonale (Acute 03/19/16) edema, hypoxia, arrhythmia at [facility] 02/26/16 Abnormal screening computed tomography (CT) of chest (Acute ~06/30/20) CT (2019) shows NO NODULE. New 1 cm nodule in the left upper lobe. Dr. Miller Increased frequency of urination (Acute) Much improved on Estrace Hematuria (Acute) Renal lesion (Acute) Dysuria (Acute) Much improved on Estrace .. acute on chronic complaint .. 08/17/21, 07/30/21 ... Cough (Chronic) Chronic, calms with cough syrup/lozenges. Worsens with COPD exacerbations. Venous insufficiency of both lower extremities (Acute 03/19/16) Greater trochanteric bursitis of right hip (Acute 05/16/15) Medical History Contusion of elbow, right Abdominal wall hernia CAD (coronary artery disease) s/p PCI Distal RCA (DON x2)([facility] [place]), 08/2020 .. 2' STEMI ([facility] ED).. Umbilical hernia ID'd on CT; Surgery Eval for management recommendations COPD exacerbation Cataracts, bilateral Scheduled for cataract surgery with Dr. Pappas ([facility]) 08/23 (OS) & 09/06 (OD) .. Pelvic mass (02/24/15) Followed by [facility], yearly imaging planned... Left renal, Left ovarian lesions .. stable, 2020 CT. Tubular adenoma of colon (07/23/17) Ovarian cyst, left US 1999, 2006; again on MRI of hip 2014, US 2014 Osteoarthritis, hand (10/17/14) Hip pain, right (12/26/14) DJD, ? AVN on MRI (Dr Llanos) Depressive disorder (07/24/12) Chronic airway obstruction, mixed type GOLD III severe COPD, FEV1 0.9 (41%pred, 48%FVC) 03/2011; significant response dilator; similar 11/07/15 Varicose veins COPD (chronic obstructive pulmonary disease) Surgical History Ligation of fallopian tube (10/06/69) Colonoscopy - MAC (07/23/17) Cholecystectomy (10/06/1966) Family History Mother , complications DM at age 67. Diabetes Father , stomach cancer at age 30. No problems noted. 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 Pets and animals: No Sexually active: No Do you think of yourself as: straight/heterosexual Current gender identity: female What is your relationship status?: Panel score (0-1 are the most socially isolated patients): 0 What type of physical activity do you participate in: other Details: Yardwork; Housework Duration: 30-45 minutes/day Frequency: daily Linda/Bahai: Moravian Seatbelt use: always Helmet use: No (Never) Drive intox or ride w/intox 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
== END 2025-01-04 16:06 | disposition home health service (06) | DRG 177 ==
LOC: ER 20:04 → MS 21:35
PROVIDERS: Admitting Provider Family Medicine; Emergency Provider Emergency Medicine; PCP Nurse Practitioner Family; Responsible Provider Family Medicine; Visit Provider Family Medicine
DX: J15.1 Pneumonia due to Pseudomonas (principal); J96.21 Acute and chronic respiratory failure with hypoxia; J96.22 Acute and chronic respiratory failure with hypercapnia; J44.0 Chronic obstructive pulmonary disease with (acute) lower respiratory infection; J44.1 Chronic obstructive pulmonary disease with (acute) exacerbation; E87.1 Hypo-osmolality and hyponatremia; J47.9 Bronchiectasis, uncomplicated; I71.43 Infrarenal abdominal aortic aneurysm, without rupture; F32.A Depression, unspecified; I25.10 Atherosclerotic heart disease of native coronary artery without angina pectoris; G47.33 Obstructive sleep apnea (adult) (pediatric); Z99.81 Dependence on supplemental oxygen; I27.81 Cor pulmonale (chronic); G47.61 Periodic limb movement disorder; Z87.891 Personal history of nicotine dependence; I87.2 Venous insufficiency (chronic) (peripheral); Z95.5 Presence of coronary angioplasty implant and graft; N83.292 Other ovarian cyst, left side
CPT/HCPCS: 00123; 36415; 80048; 80053; 82805; 84145; 85027; 87040; 87637; 93005; 94618; 94640; 94761; 96365; 96375; 99285; J1650; 36600; 71045; 83735; 83880; 84484; 85025; 87070; 87205; 93010; 94664; 94667; 94668; 94760; 99223; 99233; 99239; J1956; J2405; J2543; J2919; J7512; J7620

== ENCOUNTER 2025-01-05 15:02 | Inpatient (IN) | payer MEDICARE, SELFPAY ==
[2025-01-05] VITALS (30 sets, daily range): BP systolic 112–152; BP diastolic 71–95; PULSE 42–101; RESP 13–34; TEMP 36.6; O2SAT 71–97
--- NOTE | 2025-01-05 15:00 | DI.RAD_ITS ---
Exam(s) XR PORTABLE CHEST AP EXAM: XR PORTABLE CHEST AP CLINICAL HISTORY: cough dyspnea. TECHNIQUE: 2D digital imaging was performed. COMPARISON: CT CT CHEST WO from 12/31/2024 CR,XR XR PORTABLE CHEST AP from 01/01/2025 FINDINGS: Single AP portable view. Chest leads in place. Heart size upper normal. The mediastinum is not widened. COPD lung findings again noted. Increased markings in both suprahilar upper lobes again noted, more prominent on the right side. Also in the left lower lobe retrocardiac region but unchanged from prev ious. There are no pleural effusions. No pulmonary edema. Mild scoliosis convex right again noted. IMPRESSION: COPD. Increased markings both upper lobes and left lower lobe again noted, slightly increased in the right upper lobe when compared to 01/01/2025. No pleural effusions. No pulmonary edema. DATA REPOSITORY: RADIATION DOSE DELIVERED:
--- NOTE | 2025-01-05 15:02 | ED.GENADUL_ITS ---
Discharge Plan Disposition Patient Disposition: Admit to [facility] Condition: Stable Discharge Details Chief Complaint: RespSymp Clinical Impression: Shortness of breath Primary Care Provider: Rola Stokes ED Provider: Sven Talbert Home Meds and New Rx's Prescriptions: No Action ipratropium-albuterol 0.5 mg-3 mg(2.5 mg base)/3 mL solution for nebulization 3 ml inhalation Q4H PRN (Reason: wheezing) Qty: 540 12RF tiotropium bromide [Spiriva with HandiHaler] 18 mcg capsule, w/inhalation device See Rx Instructions .ROUTE .COMPLEX Qty: 90 12RF Dose Instruction: INHALE THE CONTENTS OF 1 CAPSULE VIA HANDIHALER BY MOUTH DAILY Rx Instructions: INHALE THE CONTENTS OF 1 CAPSULE VIA HANDIHALER BY MOUTH DAILY tobramycin with nebulizer 300 mg/5 mL solution for nebulization 300 mg inhalation BID 28 Days Qty: 280 1RF Rx Instructions: separate doses by at least 6 hours guaifenesin [Mucinex] 600 mg tablet extended release 12hr 600 mg PO BID Qty: 60 12RF (DME) compressor, for nebulizer device See Dose Instructions .ROUTE .MEDSUPPLY Qty: 1 0RF Dose Instruction: As directed Rx Instructions: As directed fluticasone propionate 50 mcg/actuation spray,suspension 2 spray NS BID PRN (Reason: nasal congestion) Qty: 48 3RF Rx Instructions: for allergic rhinitis (DME) Hospital bed See Rx Instructions .Route .MEDSUPPLY Qty: 1 0RF Rx Instructions: As directed albuterol sulfate [Ventolin HFA] 90 mcg/actuation HFA aerosol inhaler 2 puff inhalation Q4H PRN (Reason: shortness of breath or wheezing) Qty: 18 12RF sodium chloride 3 % solution for nebulization 4 ml inhalation Q4H PRN (Reason: secretions) Qty: 750 12RF morphine concentrate 100 mg/5 mL (20 mg/mL) solution 5 mg PO Q3H PRN MDD 5 mL PRN (Reason: shortness of breath) Qty: 30 0RF acetaminophen [Arthritis Pain Relief (acetam)] 650 MG tablet extended release 650 mg PO PRN aspirin [Adult Low Dose Aspirin] 81 mg tablet,delayed release (DR/EC) 81 mg PO DAILY Qty: 90 3RF loratadine [Allergy Relief (loratadine)] 10 mg tablet 10 mg PO DAILY Qty: 90 2RF fluticasone propion-salmeterol [Advair Diskus] 500-50 mcg/dose blister with device 1 inh inhalation BID Qty: 60 12RF fluoxetine 10 mg capsule 10 mg PO DAILY Qty: 90 3RF Rx Instructions: capsule instead of tablets as capsules are covered by insurance metoprolol succinate 25 mg tablet extended release 24 hr 25 mg PO DAILY Qty: 90 3RF Rx Instructions: Decrease 2' low BP, Wt Loss clotrimazole 1 % cream 1 applic TP BID Qty: 30 3RF Rx Instructions: Apply as directed estradiol [Estrace] 0.01 % (0.1 mg/gram) cream 2 g vaginal .twice weekly Qty: 42.5 3RF roflumilast 500 mcg tablet See Rx Instructions .ROUTE .COMPLEX Qty: 90 4RF Dose Instruction: TAKE ONE TABLET BY MOUTH EVERY DAY Rx Instructions: TAKE ONE TABLET BY MOUTH EVERY DAY lisinopril 5 mg tablet See Rx Instructions .ROUTE .COMPLEX Qty: 90 3RF Dose Instruction: TAKE ONE TABLET BY MOUTH EVERY DAY Rx Instructions: TAKE ONE TABLET BY MOUTH EVERY DAY levofloxacin 500 mg tablet 500 mg PO DAILY Qty: 7 0RF atorvastatin 80 mg tablet 80 mg PO HS Patient Comments: TAKE ONE TABLET BY MOUTH AT BEDTIME prednisone 20 mg Tablet 40 mg PO DAILY Qty: 5 0RF (DME) Oxygen Tank See Rx Instructions .Route Qty: 1 0RF Rx Instructions: 2L with ambulation lorazepam [Ativan] 0.5 mg tablet 0.5 mg PO TID PRNQty: 15 0RF HPI General Mode of arrival: EMS . Date/Time Provider Initiated Documentation: 01/05/25 15:08 . Limitations to Documentation: no limitations . Information obtained by: patient . History of Present Illness 79 year old F presents to the emergency department with the chief complaint of dyspnea, described as moderate, Patient started experiencing this day(s) (1) and it has been constant. Rest improves symptom(s), Movement worsens symptoms . Patient notes cough. Patient did receive the following treatments prior to arrival, none Related Data Home Medications ?Medication ?Instructions ?Recorded ?Confirmed acetaminophen 650 mg 650 mg PO PRN 11/08/16 01/05/25 tablet,extended release (Arthritis Pain Relief (acetaminophen) ER) compressor, for nebulizer #1 ea 10/14/18 01/05/25 aspirin 81 mg tablet,delayed 81 mg PO DAILY #90 tabs 07/18/22 01/05/25 release (Adult Low Dose Aspirin) loratadine 10 mg tablet (Allergy 10 mg PO DAILY #90 tabs 11/13/22 01/05/25 Relief (loratadine)) fluticasone propionate 50 2 spray NS BID PRN nasal 01/31/23 01/05/25 mcg/actuation nasal congestion #48 grams spray,suspension Hospital bed #1 ea 10/24/23 01/05/25 fluticasone 500 mcg-salmeterol 50 1 inh inhalation BID #60 ea 12/01/23 01/05/25 mcg/dose blistr powdr for inhalation (Advair Diskus) fluoxetine 10 mg capsule 10 mg PO DAILY #90 caps 03/30/24 01/05/25 metoprolol succinate 25 mg 25 mg PO DAILY #90 tabs 06/13/24 01/05/25 tablet,extended release 24 hr Ventolin HFA 90 mcg/actuation 2 puff inhalation Q4H PRN 07/29/24 01/05/25 aerosol inhaler (albuterol sulfate) shortness of breath or wheezing #18 grams ipratropium 0.5 mg-albuterol 3 mg 3 ml inhalation Q4H PRN wheezing 09/14/24 01/05/25 (2.5 mg base)/3 mL nebulization #540 mL soln tiotropium bromide 18 mcg capsule See Rx Instructions .Route 09/14/24 01/05/25 with inhalation device (Spiriva .COMPLEX #90 caps with HandiHaler) clotrimazole 1 % topical cream 1 applic topical BID #30 grams 10/11/24 01/05/25 estradiol 0.01% (0.1 mg/gram) 2 g vaginal .twice weekly UTI 10/12/24 01/05/25 vaginal cream (Estrace) prevention #42.5 grams roflumilast 500 mcg tablet See Rx Instructions .Route 11/15/24 01/05/25 .COMPLEX #90 tabs sodium chloride 3 % for 4 ml inhalation Q4H PRN secretions 11/16/24 01/05/25 nebulization #750 mL morphine concentrate 100 mg/5 mL 5 mg (0.25 mL) PO Q3H PRN PRN 12/03/24 01/05/25 (20 mg/mL) oral solution shortness of breath #30 mL lisinopril 5 mg tablet See Rx Instructions .Route 12/06/24 01/05/25 .COMPLEX #90 tabs guaifenesin 600 mg tablet, 600 mg PO BID #60 tabs 12/16/24 01/05/25 extended release 12 hr (Mucinex) tobramycin with nebulizer 300 mg/5 300 mg (5 mL) inhalation BID 28 12/16/24 01/05/25 mL solution for nebulization days #280 mL atorvastatin 80 mg tablet 80 mg PO HS 01/02/25 01/05/25 Oxygen #1 ea 01/04/25 01/05/25 lorazepam 0.5 mg tablet (Ativan) 0.5 mg PO TID PRN #15 tabs 01/04/25 01/05/25 prednisone 20 mg tablet 40 mg (2 x 20 mg) PO DAILY #5 tabs 01/04/25 01/05/25 levofloxacin 500 mg tablet 500 mg PO DAILY #7 tabs 01/05/25 01/05/25 lorazepam 1 mg tablet 1 mg PO Q4H PRN anxiety, TORRES or 01/05/25 01/05/25 nausea #6 tabs morphine concentrate 100 mg/5 mL 5 - 20 mg (0.25 - 1 mL) PO Q1-4H 01/05/25 01/05/25 (20 mg/mL) oral solution PRN moderate to severe pain or shortness of breath #30 mL Previous Rx's ?Medication ?Instructions ?Recorded compressor, for nebulizer #1 ea 10/14/18 aspirin 81 mg tablet,delayed 81 mg PO DAILY #90 tabs 07/18/22 release (Adult Low Dose Aspirin) loratadine 10 mg tablet (Allergy 10 mg PO DAILY #90 tabs 11/13/22 Relief (loratadine)) fluticasone propionate 50 2 spray NS BID PRN nasal 01/31/23 mcg/actuation nasal congestion #48 grams spray,suspension Hospital bed #1 ea 10/24/23 fluticasone 500 mcg-salmeterol 50 1 inh inhalation BID #60 ea 12/01/23 mcg/dose blistr powdr for inhalation (Advair Diskus) fluoxetine 10 mg capsule 10 mg PO DAILY #90 caps 03/30/24 metoprolol succinate 25 mg 25 mg PO DAILY #90 tabs 06/13/24 tablet,extended release 24 hr Ventolin HFA 90 mcg/actuation 2 puff inhalation Q4H PRN 07/29/24 aerosol inhaler (albuterol sulfate) shortness of breath or wheezing #18 grams ipratropium 0.5 mg-albuterol 3 mg 3 ml inhalation Q4H PRN wheezing 09/14/24 (2.5 mg base)/3 mL nebulization #540 mL soln tiotropium bromide 18 mcg capsule See Rx Instructions .Route 09/14/24 with inhalation device (Spiriva .COMPLEX #90 caps with HandiHaler) clotrimazole 1 % topical cream 1 applic topical BID #30 grams 10/11/24 estradiol 0.01% (0.1 mg/gram) 2 g vaginal .twice weekly UTI 10/12/24 vaginal cream (Estrace) prevention #42.5 grams roflumilast 500 mcg tablet See Rx Instructions .Route 11/15/24 .COMPLEX #90 tabs sodium chloride 3 % for 4 ml inhalation Q4H PRN secretions 11/16/24 nebulization #750 mL morphine concentrate 100 mg/5 mL 5 mg (0.25 mL) PO Q3H PRN PRN 12/03/24 (20 mg/mL) oral solution shortness of breath #30 mL lisinopril 5 mg tablet See Rx Instructions .Route 12/06/24 .COMPLEX #90 tabs guaifenesin 600 mg tablet, 600 mg PO BID #60 tabs 12/16/24 extended release 12 hr (Mucinex) tobramycin with nebulizer 300 mg/5 300 mg (5 mL) inhalation BID 28 12/16/24 mL solution for nebulization days #280 mL Oxygen #1 ea 01/04/25 lorazepam 0.5 mg tablet (Ativan) 0.5 mg PO TID PRN #15 tabs 01/04/25 prednisone 20 mg tablet 40 mg (2 x 20 mg) PO DAILY #5 tabs 01/04/25 levofloxacin 500 mg tablet 500 mg PO DAILY #7 tabs 01/05/25 lorazepam 1 mg tablet 1 mg PO Q4H PRN anxiety, TORRES or 01/05/25 nausea #6 tabs morphine concentrate 100 mg/5 mL 5 - 20 mg (0.25 - 1 mL) PO Q1-4H 01/05/25 (20 mg/mL) oral solution PRN moderate to severe pain or shortness of breath #30 mL Allergies Allergy/AdvReac Type Severity Reaction Status Date / Time Fish Containing Products AdvReac Severe vomiting, Verified 01/05/25 14:51 diarrhea, headache General Stated Complaint: RespSymp SHAILA: 4 Review of Systems All systems reviewed & are unremarkable except as noted in HPI and below Constitutional Constitutional: Denies chills, Denies fever(s) and Denies weakness Cardiovascular Cardiovascular: Denies chest pain and Reports dyspnea Respiratory Respiratory: Reports cough and Reports dyspnea Gastrointestinal Gastrointestinal: Denies abdominal pain, Denies nausea and Denies vomiting Neurologic Neurologic: Denies weakness Psychiatric Psychiatric: Denies depression Endocrine Endocrine: Denies heat intolerance Exam Const General: no acute distress Orientation: alert HENMT Head: normal to inspection Ears: external ears normal General nose exam: external nose normal Mouth: moist mucous membranes Eyes General: appearance normal, both eyes and all related structures Neck Neck: normal visual inspection Resp Auscultation: rhonchi and wheezes Cardio Jugular venous pressure: no JVD Rate: regular rate Skin General skin exam: no rashes or lesions noted Neuro General: patient alert and patient oriented x3 Extrem General: normal to inspection Psych Mental Status: mental status grossly normal Course Vital Signs Vital signs: Vital Signs Temperature 36.6 C 01/05/25 14:47 Pulse 83 01/05/25 14:47 Respiratory Rate 18 01/05/25 14:47 Blood Pressure 152/95 H 01/05/25 14:47 Pulse Oximetry 86 L 01/05/25 14:47 Temperature 36.6 C 01/05/25 14:51 Pulse 83 01/05/25 14:51 Respiratory Rate 18 01/05/25 14:51 Blood Pressure 152/95 H 01/05/25 14:51 Pulse Oximetry 86 L 01/05/25 14:51 Oxygen Delivery Method Nasal Cannula 01/05/25 14:51 Oxygen Flow Rate 2 01/05/25 14:51 Medical Decision Making 79-year-old female with a history of bronchiectasis, COPD on home oxygen and recently discharged yesterday after being admitted for worsening of her respiratory status and pneumonia comes in with continued shortness of breath since being home yesterday. She denies any type of movement she gets short of breath. She denies any chest pain or chest pressure. She also has a cough. Denies any fevers. She is alert and oriented on arrival, she is able to speak in 4-5 word sentences. She has wheezing at the apices bilaterally and at the bases has rhonchi bilaterally. No leg swelling or calf tenderness. I suspect worsening of her underlying lung disease, will check a CBC CMP and VBG and chest x-ray and treat her symptoms with a DuoNeb. She already took prednisone today which was continued when she was discharged. Labs unremarkable and x-ray shows no clear infiltrates. Patient stable and feels better. Patient and family requested potential transfer to [facility] as they were thinking that they would get an expedited specialist follow-up if this happened, I did call [facility] and unfortunately they able to have capacity to transfer. Patient and family met with palliative and plan to start hospice tomorrow, would like to stay overnight, will discuss with Dr. Owens Differential Diagnosis Differential Diagnosis: COPD, anxiety, respiratory failure Quality:SDOH Health Related Social Needs: Health related social needs problems with daily activi ties (Z73.9) Health related social needs details [facility] Active Problems (Updated 01/05/25 @ 17:56 by Sven Talbert MD) ACP (advance care planning) (Acute) Encounter for hospice care discussion (Acute) Anxiety (Chronic) Comfort measures only status (Acute) Shortness of breath (Acute) Confusion (Acute) Palliative care patient (Acute) Pseudomonas pneumonia (Acute) Bronchiectasis (Acute) Periodic limb movement disorder (Acute 07/09/24) TAMRA (obstructive sleep apnea) (Chronic ~2015) Improved w/ mask (vs pillows), 07/2024, ik .. Aníbal- moderately severe CPAP Right rotator cuff tendonitis (Acute) Arthritis of right hip (Acute) Fracture of right superior pubic ramus (Acute 10/15/23) Fracture of right inferior pubic ramus (Acute 10/15/23) ASCVD (arteriosclerotic cardiovascular disease) (Acute) At risk of fracture due to osteoporosis (Acute) Abnormal finding on imaging (Acute) Followed by US/CT: AAA, Umb Hernia, Ov Cyst (lft), Renal lesion (lft) .. Elevated serum creatinine (Acute) IMPROVED! .. per december 2021 labs .. re-check for CTA AAA (abdominal aortic aneurysm) (Chronic) [facility] Vasc Surg note 09/15/24: AAA measures 5.2cm which now meets criteria for repair, but pt is having a COPD exacerbation, they do plan to contact Pulm and schedule surgery.HE 05/[address]; Q6mo recheck d/t 3mm increase.IK 10/25/22 measures 4.5 on US Apparent > 5mm growth since 12/2021, per Abd CT (09/2022). [ ] Vasc, ik .. Stable per 09/2021 CT (4.1cm) .. Hx: 39mm infrarenal; found on 07/30/19 CT.. AAA > 5.5 cm present high risk and surgical review. Oxygen dependent (Acute) 2L ... Can go without if sitting/resting only. 04/2022: 2.5L with URI (2' PulsOx in 80s) Environmental allergies (Acute) Long Hx loratidine, trial cetirizine (03/2021) Personal history of nicotine dependence (Acute) Asthma (Chronic) Cor pulmonale (Acute 03/19/16) edema, hypoxia, arrhythmia at [facility] 02/26/16 Abnormal screening computed tomography (CT) of chest (Acute ~06/30/20) CT (2019) shows NO NODULE. New 1 cm nodule in the left upper lobe. Dr. Miller Increased frequency of urination (Acute) Much improved on Estrace Hematuria (Acute) Renal lesion (Acute) Dysuria (Acute) Much improved on Estrace .. acute on chronic complaint .. 08/17/21, 07/30/21 ... Cough (Chronic) Chronic, calms with cough syrup/lozenges. Worsens with COPD exacerbations. Venous insufficiency of both lower extremities (Acute 03/19/16) Greater trochanteric bursitis of right hip (Acute 05/16/15) Medical History Abdominal wall hernia Umbilical hernia ID'd on CT; Surgery Eval for management recommendations Pelvic mass (02/24/15) Followed by [facility], yearly imaging planned... Left renal, Left ovarian lesions .. stable, 2020 CT. Ovarian cyst, left US 1999, 2006; again on MRI of hip 2015, US 2014 Contusion of elbow, right CAD (coronary artery disease) s/p PCI Distal RCA (DON x2)([facility]), 08/2020 .. 2' STEMI ([facility] ED).. Hip pain, right (12/26/14) DJD, ? AVN on MRI (Dr Llanos) Chronic airway obstruction, mixed type GOLD III severe COPD, FEV1 0.9 (41%pred, 48%FVC) 03/2011; significant response dilator; similar 11/07/15 COPD exacerbation Cataracts, bilateral Scheduled for cataract surgery with Dr. Pappas ([facility]) 08/23 (OS) & 09/06 (OD) .. Tubular adenoma of colon (07/23/17) Osteoarthritis, hand (10/17/14) Depressive disorder (07/24/12) Varicose veins COPD (chronic obstructive pulmonary disease) Surgical History Ligation of fallopian tube (10/06/69) Colonoscopy - MAC (07/23/17) Cholecystectomy (10/06/1966) Family History Mother , complications DM at age 67. Diabetes Father , stomach cancer at age 30. No problems noted. Social History Smoking/Tobacco Use Status: Former Tobacco Use Tobacco: How many years used: 30 Counseling given: other Smoking risk assessment performed?: Yes Alcohol Intake: never Drug use: Never Substance use type: does not use Adopted: No Caregiver/Support person: No Foster care: No Household members: none Housing: house Number of Children: 4 number of grandchildren: 8 Communication Needs: None Education Level: high school Do you need help understanding health information?: Rarely current occupation: M[employer] in [employer] - retired Pets and animals: No Sexually active: No Do you think of yourself as: straight/heterosexual Current gender identity: female What is your relationship status?: Panel score (0-1 are the most socially isolated patients): 0 What type of physical activity do you participate in: other Details: Yardwork; Housework Duration: 30-45 minutes/day Frequency: daily Linda/Restorationist: Restoration Seatbelt use: always Helmet use: No (Never) Drive intox or ride w/intox locomotive driver: No Working smoke detector in home: Yes Fire extinguisher in home: Yes Carbon monox detector in home: Yes Do you feel safe at home: Yes Do you feel safe in your relationship?: Yes
[2025-01-05] MEDS: Albuterol/Ipratropium 3 ML UPD VIAL UPD (15:11)
[2025-01-05 15:14] LABS: BE (Venous) 8 mmol/L (-2-3); HCO3 (Venous) 34 mmol/L (23-28); O2 Sat (Venous) 41 %; TCO2 (Venous) 31 mmol/L (24-29); pH (Venous) 7.34 (7.31-7.41); pO2 (Venous) 26 mmHg
[2025-01-05 15:15] LABS: Abs Immature Grans 0.02 10^3/uL (0.0-0.06); Absolute Basophil Count 0.02 10^3/uL (0.0-0.2); Absolute Eosinophil Count 0.03 10^3/uL (0.0-0.7); Absolute Neutrophil Count 5.51 10^3/uL (1.2-6.7); Basophils % 0.3 %; Eosinophils % 0.4 %; HCT 40.4 % (36.0-46.0); HGB 12.8 g/dL (11.2-15.7); Immature Grans % 0.3 %; Lymphocytes % 14.5 %; MCH 28.8 pg (27.0-33.0); MCHC 31.7 % (32.0-36.0); MCV 91 fL (80-95); MPV 8.6 fL (8.0-11.0); Monocytes % 11.9 %; Neutrophils % 72.6 %; Platelet Count 208 10^3/uL (130-400); RBC 4.45 10^6/uL (3.93-5.22); RDW 14.6 % (11.7-14.6); RDW-SD 48.9 fL; WBC 7.58 10^3/uL (4.4-10.8)
[2025-01-05 15:16] LABS: pCO2 (Venous) 62 mmHg (41-51)
[2025-01-05 15:38] LABS: ALT 44 U/L (14-59); AST 40 U/L (15-37); Alkaline Phosphatase 100 U/L (46-116); Anion Gap 5.8 mmol/L (3-11); BUN 15 mg/dL (7-18); Bilirubin, Total 0.3 mg/dL (0.2-1.0); CO2 33.2 mmol/L (21.0-32.0); CREATININE 0.7 mg/dL (0.55-1.02); Calcium 9.7 mg/dL (8.5-10.1); Chloride 93 mmol/L (98-107); Estimated GFR 88.47 (mL/min/1.73m2); Glucose 120 mg/dL (74-106); Magnesium 1.9 mg/dL (1.8-2.4); Potassium 3.7 mmol/L (3.5-5.1); Sodium 132 mmol/L (136-145); Total Protein 7.6 g/dL (6.4-8.2)
--- NOTE | 2025-01-05 17:33 | W.PALLCONSUL ---
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 Today she started experiencing significant anxiety/panic with difficulty breathing. She tried rescue inhaler, then Ativan 0.5mg and finally morphine 0.25mL, she did eventually get some relief after all 3, but was already calling for ambulance by this time. In ED received nebulizer, whihc helped her feel much better, she is now feeling more comfortable. Radha's family is prepared to support her and have been staying in her home with her to provide caregiving support. She has all DME equipment she needs at this time. Radha is interested in having increased supports in home via hospice program. Family is also supportive of this. She has been watching her O2 levels at home often, will wear monitor and hyperfocus on numbers, which make anxieyt/work load increase. There have been changes in her instructions for resp, including her continuous O2 levels, this has made it confusing for everyone, tan her. She is aware she is supposed to lower continous O2 to 2L w/rest, but keeps forgetting, has been keeping on 4L. Aware this increases her CO2 levels and confusion. - started process for Trilogy machine, potentially in pulmonlogy dept to see if she qualifies, did have qualification letter provided by hospitalist post discharge yesterday - she is hypoxic on 2L at rest, below 88% at rest without oxygen - dyspnea at rest, worse w/speaking, eating, extreme w/movement; - low appetite with weight loss - has had PNA several times in past year preference would be to remain supported through EOL in home. primary caregiver Capri now on way home. Because of her panic/dyspnea this morning, she would feel most comfortable doing one night in hospital pending hospice admission tomorrow. preference for admission sometime between 10a-1p. 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 style care: no monitoring of VS, tele; goal to provide supportive care for sxs management (2) Shortness of breath: Status: Acute Assessment and plan: morphine w/good effect morphine 5mg q2h scheduled while awake, per family preference and review - will adjust when on hospice morphine 5mg q1h PRN if needed (3) Pseudomonas pneumonia: Status: Acute Assessment and plan: recent hospitalization (4) AAA (abdominal aortic aneurysm): Status: Chronic Assessment and plan: not surgical candidate d/t resp status - reviewed may consider in future, pending recovery (5) Oxygen dependent: Status: Acute (6) Cough: Status: Chronic Assessment and plan: morphine as above (7) Anxiety: Status: Chronic Assessment and plan: reviewed anxiey/dyspnea cycle to continue Ativan 0.5mg q4h PRN (8) Palliative care patient: Status: Acute Assessment and plan: PC will transition to hospice (9) Encounter for hospice care discussion: Status: Acute Assessment and plan: COPD admitting dx: hypoxic on RA at rest, dyspnea at rest worse w/limited effort; weight loss, recent hospitalizations r/t PNA no DME needs at this time referral sent to hospice, orders faxed (10) ACP (advance care planning): Status: Acute Assessment and plan: reviewed hospice criteria, eligibility and benefit reviewed symptom management with medications, specifically morphine and lorazepam; plan for more routine scheduled morphine to stay on top of dyspnea, transition to PRN as able in future reviewed GOC tonight, plan to stay in hospital for more support and help as needed, primary caregiver returning home tomorrow, hospice admission tomorrow spent 40m w/ACP Review of Systems Narrative: as per HPI PFSH All Active Problems (Updated 01/05/25 @ 17:47 by Yvonne Alvarado NP) ACP (advance care planning) (Acute) Encounter for hospice care discussion (Acute) Anxiety (Chronic) Comfort measures only status (Acute) Shortness of breath (Acute) Confusion (Acute) Palliative care patient (Acute) Pseudomonas pneumonia (Acute) Bronchiectasis (Acute) Periodic limb movement disorder (Acute 07/09/24) TAMRA (obstructive sleep apnea) (Chronic ~2015) Improved w/ mask (vs pillows), 07/2024, charles Spangler- moderately severe CPAP Right rotator cuff tendonitis (Acute) Arthritis of right hip (Acute) Fracture of right superior pubic ramus (Acute 10/15/23) Fracture of right inferior pubic ramus (Acute 10/15/23) ASCVD (arteriosclerotic cardiovascular disease) (Acute) At risk of fracture due to osteoporosis (Acute) Abnormal finding on imaging (Acute) Followed by US/CT: AAA, Umb Hernia, Ov Cyst (lft), Renal lesion (lft) .. Elevated serum creatinine (Acute) IMPROVED! .. per december 2021 labs .. re-check for CTA AAA (abdominal aortic aneurysm) (Chronic) [facility] [place] Vasc Surg note 09/15/24: AAA measures 5.2cm which now meets criteria for repair, but pt is having a COPD exacerbation, they do plan to contact Pulm and schedule surgery.HE 05/[address]; Q6mo recheck d/t 3mm increase.IK 10/25/22 measures 4.5 on US Apparent > 5mm growth since 12/2021, per Abd CT (09/2022). [ ] Vasc, ik .. Stable per 09/2021 CT (4.1cm) .. Hx: 39mm infrarenal; found on 07/30/19 CT.. AAA > 5.5 cm present high risk and surgical review. Oxygen dependent (Acute) 2L ... Can go without if sitting/resting only. 04/2022: 2.5L with URI (2' PulsOx in 80s) Environmental allergies (Acute) Long Hx loratidine, trial cetirizine (03/2021) Personal history of nicotine dependence (Acute) Asthma (Chronic) Cor pulmonale (Acute 03/19/16) edema, hypoxia, arrhythmia at [facility] 02/26/16 Abnormal screening computed tomography (CT) of chest (Acute ~06/30/20) CT (2019) shows NO NODULE. New 1 cm nodule in the left upper lobe. Dr. Miller Increased frequency of urination (Acute) Much improved on Estrace Hematuria (Acute) Renal lesion (Acute) Dysuria (Acute) Much improved on Estrace .. acute on chronic complaint .. 08/17/21, 07/30/21 ... Cough (Chronic) Chronic, calms with cough syrup/lozenges. Worsens with COPD exacerbations. Venous insufficiency of both lower extremities (Acute 03/19/16) Greater trochanteric bursitis of right hip (Acute 05/16/15) Medical History Abdominal wall hernia Umbilical hernia ID'd on CT; Surgery Eval for management recommendations Pelvic mass (02/24/15) Followed by [facility], yearly imaging planned... Left renal, Left ovarian lesions .. stable, 2020 CT. Ovarian cyst, left US 1999, 2006; again on MRI of hip US 2014 Contusion of elbow, right CAD (coronary artery disease) s/p PCI Distal RCA (DON x2)([facility] [place] [facility]), 08/2020 .. 2' STEMI ([facility] ED).. Hip pain, right (12/26/14) DJD, ? AVN on MRI (Dr Llanos) Chronic airway obstruction, mixed type GOLD III severe COPD, FEV1 0.9 (41%pred, 48%FVC) 03/2011; significant response dilator; similar 11/07/15 COPD exacerbation Cataracts, bilateral Scheduled for cataract surgery with Dr. Pappas ([facility]) 08/23 (OS) & 09/06 (OD) .. Tubular adenoma of colon (07/23/17) Osteoarthritis, hand (10/17/14) Depressive disorder (07/24/12) Varicose veins COPD (chronic obstructive pulmonary disease) Surgical History Ligation of fallopian tube (10/06/69) Colonoscopy - MAC (07/23/17) Cholecystectomy (10/06/1966) Family History Mother , complications DM at age 67. Diabetes Father , stomach cancer at age 30. No problems noted. 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 Pets and animals: No Sexually active: No Do you think of yourself as: straight/heterosexual Current gender identity: female What is your relationship status?: Panel score (0-1 are the most socially isolated patients): 0 What type of physical activity do you participate in: other Details: Yardwork; Housework Duration: 30-45 minutes/day Frequency: daily Linda/Jew: Cheondoism Seatbelt use: always Helmet use: No (Never) Drive intox or ride w/intox local intermodal truck driver: No Working smoke detector in home: Yes Fire extinguisher in home: Yes Carbon monox detector in home: Yes Do you feel safe at home: Yes Do you feel safe in your relationship?: Yes Exam Narrative Exam Narrative: General: older chronically ill appearing female, thin HEENT: normocephalic, atraumatic, hearing grossly WNL Resp: tachynpic and labored at rest w/NC in place; speaks full sentences w/increased resp workload, O2 drops down to 77% lowest, ranging between 83-88% w/speech Skin: atrophy Psych: anxious, MS congruent, cooperative; insight limited, judgment fair Results Last Vital Signs Temp 97.9 F 01/05/25 14:51 Pulse 88 01/05/25 15:10 Resp 24 01/05/25 15:31 BP 152/95 H 01/05/25 14:51 Pulse Ox 77 L 01/05/25 15:10 Labs 01/05/25 15:07 01/05/25 15:07 Labs: Laboratory Results - last 24 hr 01/05/25 15:07 WBC 7.58 RBC 4.45 Hgb 12.8 D Hct 40.4 MCV 91 MCH 28.8 MCHC 31.7 L RDW 14.6 Plt Count 208 MPV 8.6 Immature Gran % 0.3 Neutrophils % 72.6 Lymphocytes % 14.5 Monocytes % 11.9 Eosinophils % 0.4 Basophils % 0.3 Nucleated RBC % 0.0 Absolute Neutrophils 5.51 Absolute Lymphocytes 1.10 L Absolute Monocytes 0.90 H Absolute Eosinophils 0.03 Absolute Basophils 0.02 VBG pH 7.34 VBG pCO2 62 H* VBG pO2 26 VBG HCO3 34 H VBG Total CO2 31 H VBG O2 Saturation 41 VBG Base Excess 8 H Sodium 132 L Potassium 3.7 D Chloride 93 L Carbon Dioxide 33.2 H Anion Gap 5.8 BUN 15 Creatinine 0.7 Est GFR (CKD-EPI 2020) 88.47 Glucose 120 H Calcium 9.7 Magnesium 1.9 Total Bilirubin 0.3 AST 40 H ALT 44 Alkaline Phosphatase 100 Total Protein 7.6 Albumin 3.0 L Time Spent Time Spent with Patient Time Spent(min): 90
--- NOTE | 2025-01-05 17:37 | W.PM.HP.N ---
Date of service: 01/05/25 Time of Service: 17:37 Assessment and Plan Assessment and plan (1) Comfort measures only status: Status: Acute Assessment and plan: - As noted in HPI, patient presented back after short failed stay at home that was due to anxiety related to patient's oxygen requirements and need for additional home support as well as more regular administration of Ativan and morphine for anxiety and air hunger -Patient and all of her involved family members are very clear and supportive of decision to transition to hospice care which include will be set up for tomorrow 01/06/2025 -In the meanwhile patient will be admitted under comfort measures only -She will not have telemetry, will not have vital signs checked -Patient will be allowed to titrate her oxygen as she sees fit -Liquid morphine 5 mg to q. hours scheduled while awake, with an additional order for 5 mg every hour as needed -Lorazepam p.o. 0.5 mg every 4 hours as needed (2) Pseudomonas pneumonia: Status: Acute Assessment and plan: -This is the reason for patient's previous hospitalization -At this time we will continue inhaled tobramycin as well as Levaquin that was prescribed at discharge (3) Acute on chronic respiratory failure with hypoxia and hypercapnia: Status: Resolved Assessment and plan: -Titrate oxygen to comfort as noted above (4) COPD exacerbation: Status: Resolved Assessment and plan: -At this time we will continue the p.o. prednisone that was prescribed at discharge (5) CAD (coronary artery disease): Assessment and plan: -Continue home aspirin and statin (6) TAMRA (obstructive sleep apnea): Status: Chronic Assessment and plan: -continue home CPAP HS if patient wants to use it overnight (7) Palliative care patient: Status: Acute Assessment and plan: -Seen in ED, will be going home with home hospice services tomorrow 01/06/2025 History of Present Illness History of Present Illness Chief Complaint: Anxiety/shortness of breath Narrative: 79-year-old female with a past medical history of COPD, chronic hypoxic respiratory failure, with recent hospitalization for acute on chronic hypoxic respiratory failure and hypercarbic respiratory failure who presents to the emergency department with complaints of worsening shortness of breath. Patient was just recently hospitalized for an exacerbation of COPD in combination with was thought to have been failed outpatient therapy/recurrent Pseudomonas pneumonia. She was here for an additional 2 days after improvement of her symptoms in order to work on her ambulatory oxygen requirements and instruction on how to use supplemental oxygen. Patient also had significant anxiety and was given Ativan and was thought to have been well enough to go home. However, shortly after going home and within 24 hours the patient had significant anxiety related to her oxygen requirements, causing her to appear blue in the face with concerns for worsening hypoxia resulting her to present back to the emergency department. Upon arrival to the emergency department by myself was able to touch base with the patient's stepdaughter who stated that they were going to seek a hospice/palliative care consultation, that all family members involved including the patient herself wish to focus on more comfort directed care in order to not worry the patient regarding her oxygen requirements or concerns related to any as needed anxiolytic or liquid morphine for her shortness of breath. Patient was graciously seen by palliative care RAIL EXPRESS CLERK and Jenny who recommended the patient be admitted overnight and will be set up with a transition to home with home hospice tomorrow 01/06/2025. While hospitalized, patient will be admitted under HARDWARE TECHNICIAN status. Review of Systems All systems reviewed & are unremarkable except as noted in HPI and below PFSH All Active Problems (Updated 01/05/25 @ 17:40 by Subhash Owens MD) Comfort measures only status (Acute) Shortness of breath (Acute) Confusion (Acute) Palliative care patient (Acute) Pseudomonas pneumonia (Acute) Bronchiectasis (Acute) Periodic limb movement disorder (Acute 07/09/24) TAMRA (obstructive sleep apnea) (Chronic ~2015) Improved w/ mask (vs pillows), 07/2024, ik .. Aníbal- moderately severe CPAP Right rotator cuff tendonitis (Acute) Arthritis of right hip (Acute) Fracture of right superior pubic ramus (Acute 10/15/23) Fracture of right inferior pubic ramus (Acute 10/15/23) ASCVD (arteriosclerotic cardiovascular disease) (Acute) At risk of fracture due to osteoporosis (Acute) Abnormal finding on imaging (Acute) Followed by US/CT: AAA, Umb Hernia, Ov Cyst (lft), Renal lesion (lft) .. Elevated serum creatinine (Acute) IMPROVED! .. per december 2021 labs .. re-check for CTA AAA (abdominal aortic aneurysm) (Chronic) [facility] [place] Vasc Surg note 09/15/24: AAA measures 5.2cm which now meets criteria for repair, but pt is having a COPD exacerbation, they do plan to contact Pulm and schedule surgery.HE 05/[address]; Q6mo recheck d/t 3mm increase.IK 10/25/22 measures 4.5 on US Apparent > 5mm growth since 12/2021, per Abd CT (09/2022). [ ] Vasc, ik .. Stable per 09/2021 CT (4.1cm) .. Hx: 39mm infrarenal; found on 07/30/19 CT.. AAA > 5.5 cm present high risk and surgical review. Oxygen dependent (Acute) 2L ... Can go without if sitting/resting only. 04/2022: 2.5L with URI (2' PulsOx in 80s) Environmental allergies (Acute) Long Hx loratidine, trial cetirizine (03/2021) Personal history of nicotine dependence (Acute) Asthma (Chronic) Cor pulmonale (Acute 03/19/16) edema, hypoxia, arrhythmia at [facility] 02/26/16 Abnormal screening computed tomography (CT) of chest (Acute ~06/30/20) CT (2019) shows NO NODULE. New 1 cm nodule in the left upper lobe. Dr. Miller Increased frequency of urination (Acute) Much improved on Estrace Hematuria (Acute) Renal lesion (Acute) Dysuria (Acute) Much improved on Estrace .. acute on chronic complaint .. 08/17/21, 07/30/21 ... Cough (Chronic) Chronic, calms with cough syrup/lozenges. Worsens with COPD exacerbations. Venous insufficiency of both lower extremities (Acute 03/19/16) Greater trochanteric bursitis of right hip (Acute 05/16/15) Medical History Contusion of elbow, right Abdominal wall hernia CAD (coronary artery disease) s/p PCI Distal RCA (DON x2)([facility]), 08/2020 .. 2' STEMI ([facility]).. Umbilical hernia ID'd on CT; Surgery Eval for management recommendations COPD exacerbation Cataracts, bilateral Scheduled for cataract surgery with Dr. Pappas ([facility]) 08/23 (OS) & 09/06 (OD) .. Pelvic mass (02/24/15) Followed by [facility], yearly imaging planned... Left renal, Left ovarian lesions .. stable, 2020 CT. Tubular adenoma of colon (07/23/17) Ovarian cyst, left US 1999, 2006; again on MRI of hip 2015, US 2015 Osteoarthritis, hand (10/17/14) Hip pain, right (12/26/14) DJD, ? AVN on MRI (Dr Llanos) Depressive disorder (07/24/12) Chronic airway obstruction, mixed type GOLD III severe COPD, FEV1 0.9 (41%pred, 48%FVC) 03/2011; significant response dilator; similar 11/07/15 Varicose veins COPD (chronic obstructive pulmonary disease) Surgical History Ligation of fallopian tube (10/06/69) Colonoscopy - MAC (07/23/17) Cholecystectomy (10/06/1966) Family History Mother , complications DM at age 67. Diabetes Father , stomach cancer at age 30. No problems noted. 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 Pets and animals: No Sexually active: No Do you think of yourself as: straight/heterosexual Current gender identity: female What is your relationship status?: Panel score (0-1 are the most socially isolated patients): 0 What type of physical activity do you participate in: other Details: Yardwork; Housework Duration: 30-45 minutes/day Frequency: daily Linda/Jew: Pentecostal Seatbelt use: always Helmet use: No (Never) Drive intox or ride w/intox diesel pile driver 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: No Working smoke detector in home: Yes Fire extinguisher in home: Yes Carbon monox detector in home: Yes Do you feel safe at home: Yes Do you feel safe in your relationship?: Yes Meds Allergies and Home Medications Allergies Allergy/AdvReac Type Severity Reaction Status Date / Time Fish Containing Products AdvReac Severe vomiting, Verified 01/05/25 14:51 diarrhea, headache Home Medications ?Medication ?Instructions ?Recorded ?Confirmed ?Type acetaminophen 650 mg 650 mg PO PRN 11/08/16 01/05/25 History tablet,extended release (Arthritis Pain Relief (acetaminophen) ER) compressor, for nebulizer #1 ea 10/14/18 01/05/25 Rx aspirin 81 mg tablet,delayed 81 mg PO DAILY #90 tabs 07/18/22 01/05/25 Rx release (Adult Low Dose Aspirin) loratadine 10 mg tablet (Allergy 10 mg PO DAILY #90 tabs 11/13/22 01/05/25 Rx Relief (loratadine)) fluticasone propionate 50 2 spray NS BID PRN nasal 01/31/23 01/05/25 Rx mcg/actuation nasal congestion #48 grams spray,suspension Hospital bed #1 ea 10/24/23 01/05/25 Rx fluticasone 500 mcg-salmeterol 50 1 inh inhalation BID #60 ea 12/01/23 01/05/25 Rx mcg/dose blistr powdr for inhalation (Advair Diskus) fluoxetine 10 mg capsule 10 mg PO DAILY #90 caps 03/30/24 01/05/25 Rx metoprolol succinate 25 mg 25 mg PO DAILY #90 tabs 06/13/24 01/05/25 Rx tablet,extended release 24 hr Ventolin HFA 90 mcg/actuation 2 puff inhalation Q4H PRN 07/29/24 01/05/25 Rx aerosol inhaler (albuterol sulfate) shortness of breath or wheezing #18 grams ipratropium 0.5 mg-albuterol 3 mg 3 ml inhalation Q4H PRN wheezing 09/14/24 01/05/25 Rx (2.5 mg base)/3 mL nebulization #540 mL soln tiotropium bromide 18 mcg capsule See Rx Instructions .Route 09/14/24 01/05/25 Rx with inhalation device (Spiriva .COMPLEX #90 caps with HandiHaler) clotrimazole 1 % topical cream 1 applic topical BID #30 grams 10/11/24 01/05/25 Rx estradiol 0.01% (0.1 mg/gram) 2 g vaginal .twice weekly UTI 10/12/24 01/05/25 Rx vaginal cream (Estrace) prevention #42.5 grams roflumilast 500 mcg tablet See Rx Instructions .Route 11/15/24 01/05/25 Rx .COMPLEX #90 tabs sodium chloride 3 % for 4 ml inhalation Q4H PRN secretions 11/16/24 01/05/25 Rx nebulization #750 mL morphine concentrate 100 mg/5 mL 5 mg (0.25 mL) PO Q3H PRN PRN 12/03/24 01/05/25 Rx (20 mg/mL) oral solution shortness of breath #30 mL lisinopril 5 mg tablet See Rx Instructions .Route 12/06/24 01/05/25 Rx .COMPLEX #90 tabs guaifenesin 600 mg tablet, 600 mg PO BID #60 tabs 12/16/24 01/05/25 Rx extended release 12 hr (Mucinex) tobramycin with nebulizer 300 mg/5 300 mg (5 mL) inhalation BID 28 12/16/24 01/05/25 Rx mL solution for nebulization days #280 mL atorvastatin 80 mg tablet 80 mg PO HS 01/02/25 01/05/25 History Oxygen #1 ea 01/04/25 01/05/25 Rx lorazepam 0.5 mg tablet (Ativan) 0.5 mg PO TID PRN #15 tabs 01/04/25 01/05/25 Rx prednisone 20 mg tablet 40 mg (2 x 20 mg) PO DAILY #5 tabs 01/04/25 01/05/25 Rx levofloxacin 500 mg tablet 500 mg PO DAILY #7 tabs 01/05/25 01/05/25 Rx Exam Narrative Exam Narrative: Chronically ill-appearing but much less anxious looking older female laying in bed in no acute distress, appears to be breathing without any difficulty, appears awake alert oriented and clear in her decision to pursue who hospice and comfort directed care Results Labs 01/05/25 15:07 01/05/25 15:07 Labs: Laboratory Results - last 24 hr 01/05/25 15:07 WBC 7.58 RBC 4.45 Hgb 12.8 D Hct 40.4 MCV 91 MCH 28.8 MCHC 31.7 L RDW 14.6 Plt Count 208 MPV 8.6 Immature Gran % 0.3 Neutrophils % 72.6 Lymphocytes % 14.5 Monocytes % 11.9 Eosinophils % 0.4 Basophils % 0.3 Nucleated RBC % 0.0 Absolute Neutrophils 5.51 Absolute Lymphocytes 1.10 L Absolute Monocytes 0.90 H Absolute Eosinophils 0.03 Absolute Basophils 0.02 VBG pH 7.34 VBG pCO2 62 H* VBG pO2 26 VBG HCO3 34 H VBG Total CO2 31 H VBG O2 Saturation 41 VBG Base Excess 8 H Sodium 132 L Potassium 3.7 D Chloride 93 L Carbon Dioxide 33.2 H Anion Gap 5.8 BUN 15 Creatinine 0.7 Est GFR (CKD-EPI 2020) 88.47 Glucose 120 H Calcium 9.7 Magnesium 1.9 Total Bilirubin 0.3 AST 40 H ALT 44 Alkaline Phosphatase 100 Total Protein 7.6 Albumin 3.0 L Last Vital Signs Temp 97.9 F 01/05/25 14:51 Pulse 88 01/05/25 15:10 Resp 24 01/05/25 15:31 BP 152/95 H 01/05/25 14:51 Pulse Ox 77 L 01/05/25 15:10 Time Spent Time spent with Patient: >75 minutes Time was spent: preparing to see the patient(eg.review tests), obtaining and/or reviewing separately otained hiistory, ordering medications,tests, procedures, referring, communicating with other health foster care social worker, indepentently interpreting results, counseling the patient and care coordination
[2025-01-05] MEDS: MORPHine Oral Solution 10 MG/5 ML CUP 5 MG PO ×3 (17:38→22:42)
[2025-01-05] MEDS: LORazepam 2 MG/1 ML Oral Concentrate 0.5 MG PO (17:39)
--- NOTE | 2025-01-05 18:07 | NUR.NOTE ---
admission paged after [phone], was paged at [phone]. Admission page was ok'd by bone plant supervisor. Nursing Note:
--- NOTE | 2025-01-05 18:24 | W.PC.ACHO ---
Registration Status: Primary Language: Preferred Language: ED Information & Data Chief Complaint RespSymp 01/05/25 15:07 Triage Note pt called ems r/t increased 01/05/25 14:47 SOB, needing increased o2 at home. 2.5 morphine, 1 mg Ativan, albuterol neb. Medical / Surgical History (Last Reviewed 01/05/25 @ 17:41 by Yvonne Alvarado NP) Abdominal wall hernia Umbilical hernia Pelvic mass (02/24/15) Ovarian cyst, left Contusion of elbow, right CAD (coronary artery disease) Hip pain, right (12/26/14) Chronic airway obstruction, mixed type COPD exacerbation Cataracts, bilateral Tubular adenoma of colon (07/23/17) Osteoarthritis, hand (10/17/14) Depressive disorder (07/24/12) Varicose veins COPD (chronic obstructive pulmonary disease) (Last Reviewed 01/05/25 @ 17:41 by Yvonne Alvarado NP) Ligation of fallopian tube (10/06/69) Colonoscopy - MAC (07/23/17) Cholecystectomy (10/06/1966) Most Recent Vital Signs Temperature 36.6 C 01/05/25 14:51 Pulse 91 H 01/05/25 18:01 Pulse 83 01/05/25 18:01 Respiratory Rate 16 01/05/25 18:01 Respiratory Effort Short of Breath 01/05/25 15:18 Respiratory Depth Normal 01/05/25 15:18 Blood Pressure 138/83 01/05/25 18:00 Blood Pressure Mean 97 01/05/25 18:00 Pulse Oximetry 90 L 01/05/25 18:01 Oxygen Delivery Method Nasal Cannula 01/05/25 14:51 Oxygen Flow Rate 2 01/05/25 14:51 Allergies Fish Containing Products Adverse Reaction (Severe, Verified 01/05/25 14:51) vomiting, diarrhea, headache mavis,cod, ? of shellfish. IV IV Catheter Type [Left Saline Lock Antecubital] IV Catheter Gauge [Left 20 Antecubital] Diagnostics 01/05/25 Range/Units 15:07 WBC 7.58 (4.4-10.8) 10^3/uL RBC 4.45 (3.93-5.22) 10^6/uL Hgb 12.8 D (11.2-15.7) g/dL Hct 40.4 (36.0-46.0) % MCV 91 (80-95) fL MCH 28.8 (27.0-33.0) pg MCHC 31.7 L (32.0-36.0) % RDW 14.6 (11.7-14.6) % Plt Count 208 (130-400) 10^3/uL MPV 8.6 (8.0-11.0) fL Immature Gran % 0.3 % Neutrophils % 72.6 % Lymphocytes % 14.5 % Monocytes % 11.9 % Eosinophils % 0.4 % Basophils % 0.3 % Nucleated RBC % 0.0 (0.0-0.3) % Absolute Neutrophils 5.51 (1.2-6.7) 10^3/uL Absolute Lymphocytes 1.10 L (1.2-3.4) 10^3/uL Absolute Monocytes 0.90 H (0.1-0.8) 10^3/uL Absolute Eosinophils 0.03 (0.0-0.7) 10^3/uL Absolute Basophils 0.02 (0.0-0.2) 10^3/uL VBG pH 7.34 (7.31-7.41) VBG pCO2 62 H* (41-51) mmHg VBG pO2 26 mmHg VBG HCO3 34 H (23-28) mmol/L VBG Total CO2 31 H (24-29) mmol/L VBG O2 Saturation 41 % VBG Base Excess 8 H (-2-3) mmol/L Sodium 132 L (136-145) mmol/L Potassium 3.7 D (3.5-5.1) mmol/L Chloride 93 L (98-107) mmol/L Carbon Dioxide 33.2 H (21.0-32.0) mmol/L Anion Gap 5.8 (3-11) mmol/L BUN 15 (7-18) mg/dL Creatinine 0.7 (0.55-1.02) mg/dL Est GFR (CKD-EPI 2020) 88.47 (mL/min/1.73m2) Glucose 120 H (74-106) mg/dL Calcium 9.7 (8.5-10.1) mg/dL Magnesium 1.9 (1.8-2.4) mg/dL Total Bilirubin 0.3 (0.2-1.0) mg/dL AST 40 H (15-37) U/L ALT 44 (14-59) U/L Alkaline Phosphatase 100 (46-116) U/L Total Protein 7.6 (6.4-8.2) g/dL Albumin 3.0 L (3.4-5.0) g/dL Intake and Output - 24 Hour Total 01/05/25 14:30 thru 01/05/25 14:47 Weight 57.878 kg Falls Risk Assessment History of Falls No History 01/05/25 15:17 Contributing Factors No Factors 01/05/25 15:17 Ambulatory Aids Independent 01/05/25 15:17 Tubes/Lines None 01/05/25 15:17 Gait Evaluation No gait disturbance 01/05/25 15:17 Cognition No cognitive impairment 01/05/25 15:17 Fall Total Score 0 01/05/25 15:17 Level of Risk Standard/Low Risk 01/05/25 15:17 Problems (Last Reviewed 01/05/25 @ 17:41 by Yvonne Alvarado NP) ACP (advance care planning) (Acute) Encounter for hospice care discussion (Acute) Anxiety (Chronic) Comfort measures only status (Acute) Shortness of breath (Acute) Palliative care patient (Acute) Pseudomonas pneumonia (Acute) TAMRA (obstructive sleep apnea) (Chronic ~2016) AAA (abdominal aortic aneurysm) (Chronic) Oxygen dependent (Acute) Cough (Chronic) Notes 01/05/25 18:07 Nursing Notes by Elizabet Ortega admission paged after [phone], was paged at [phone]. Admission page was ok'd by plastering supervisor. Nursing Note: Initialized on 01/05/25 18:07 - END OF NOTE v v v v v v v v v Sending and/or Receiving Nurses: Please use comment section below to note any information pertinent to the patient hand-off not included above. Information / Comments: Report received from: Report received from RICK Phipps (ED),head to toe report given, questions answered.
[2025-01-05] MEDS: guaiFENesin 600 MG TABCR PO (22:42)
[2025-01-05] MEDS: Normal Saline Flush 10 ML SYR IVP (22:43)
[2025-01-06 01:08] VITALS: RESP 35
[2025-01-06] MEDS: MORPHine Oral Solution 10 MG/5 ML CUP 5 MG PO ×3 (03:06→09:43)
[2025-01-06] MEDS: levoFLOXacin 500 MG TAB PO (07:30)
[2025-01-06] MEDS: LORazepam 1 MG TAB 0.5 MG PO (07:30)
--- NOTE | 2025-01-06 08:58 | CMDISCH_ITS ---
Date of service: 01/06/25 Time of Service: 08:58 LACE Index Scoring Tool Questions: Length of Stay (in days): 1 Was the patient admitted via the E.D.?: Yes Comorbidities: Previous M.I. and Chronic Pulmonary Disease E.D. Visits: 2 Answers: Total Score: 9 Risk of Readmission: Low Risk Care Management Discharge Plan Reason for Hospitalization: [employer] Discharge Plan: Radha will be discharged home with a resumption of home health orders for PT and she will be admitted to hospice this afternoon. She will follow up with her PCP and plan of care and transport with family. Patient/Family Education Needs: Review of discharge instructions, limitations, follow up plan and discuss Ask Me Three Services Needed at Discharge: Home Health Care Services SDOH Health Related Social Needs: Health related social needs problems with daily activi ties (Z73.9) Health related social needs details Support, henry shetty
--- NOTE | 2025-01-06 08:59 | DSE_ITS ---
Date of service: 01/06/25 Time of Service: 08:59 DS: Diagnosis Discharge Diagnosis (1) Comfort measures only status: Status: Acute (2) Shortness of breath: Status: Acute (3) Pseudomonas pneumonia: Status: Acute (4) AAA (abdominal aortic aneurysm): Status: Chronic (5) Oxygen dependent: Status: Acute (6) Cough: Status: Chronic (7) Anxiety: Status: Chronic (8) Palliative care patient: Status: Acute (9) Encounter for hospice care discussion: Status: Acute (10) ACP (advance care planning): Status: Acute (11) TAMRA (obstructive sleep apnea): Status: Chronic (12) CAD (coronary artery disease): (13) COPD exacerbation: Status: Resolved (14) Acute on chronic respiratory failure with hypoxia and hypercapnia: Status: Resolved Discharge Plan Disposition Patient Disposition: Home W/Hospice Services Condition: Good Discharge Details Reason For Visit: [employer] Admit Date/Time: 01/05/25 17:37 Admit Provider: Subhash Owens Attending Provider: Subhash Owens Primary Care Provider: Rola Stokes Hospital Course Hospital Course: Patient presented back to the hospital on 01/05/2025 after a short hospitalization and discharged on 01/04/2025 for acute chronic hypoxic respiratory failure, COPD exacerbation and recurrent or failed outpatient therapy for Pseudomonas pneumonia. Patient had her oxygen requirements changed at previous discharge based on diligent work and strong recommendation from respiratory therapy, however patient went home and had significant difficulty with her respiratory symptoms primarily due to high anxiety and inability to appropriately manage her oxygen requirement. She was brought back to the hospital in the afternoon of 01/05/2025, and both the patient and her family decided the best course of action would be for the patient to transition to comfort measures only and to discharge with home hospice services which were very rapidly set up with the assistance of palliative care and hospice nurse practitioner Shira Alvarado. Given that the patient has appropriate medications and hospice services set up at home, it was determined that she was ready for discharge home on Hospice. Home Meds and New Rx's Prescriptions: Continued ipratropium-albuterol 0.5 mg-3 mg(2.5 mg base)/3 mL solution for nebulization 3 ml inhalation Q4H PRN (Reason: wheezing) Qty: 540 12RF tiotropium bromide [Spiriva with HandiHaler] 18 mcg capsule, w/inhalation device See Rx Instructions .ROUTE .COMPLEX Qty: 90 12RF Dose Instruction: INHALE THE CONTENTS OF 1 CAPSULE VIA HANDIHALER BY MOUTH DAILY Rx Instructions: INHALE THE CONTENTS OF 1 CAPSULE VIA HANDIHALER BY MOUTH DAILY tobramycin with nebulizer 300 mg/5 mL solution for nebulization 300 mg inhalation BID 28 Days Qty: 280 1RF Rx Instructions: separate doses by at least 6 hours guaifenesin [Mucinex] 600 mg tablet extended release 12hr 600 mg PO BID Qty: 60 12RF (DME) compressor, for nebulizer device See Dose Instructions .ROUTE .MEDSUPPLY Qty: 1 0RF Dose Instruction: As directed Rx Instructions: As directed fluticasone propionate 50 mcg/actuation spray,suspension 2 spray NS BID PRN (Reason: nasal congestion) Qty: 48 3RF Rx Instructions: for allergic rhinitis (DME) Hospital bed See Rx Instructions .Route .MEDSUPPLY Qty: 1 0RF Rx Instructions: As directed albuterol sulfate [Ventolin HFA] 90 mcg/actuation HFA aerosol inhaler 2 puff inhalation Q4H PRN (Reason: shortness of breath or wheezing) Qty: 18 12RF sodium chloride 3 % solution for nebulization 4 ml inhalation Q4H PRN (Reason: secretions) Qty: 750 12RF lorazepam 1 mg tablet 1 mg PO Q4H PRN (Reason: anxiety, TORRES or nausea) Qty: 6 5RF Rx Instructions: Hospice Patient acetaminophen [Arthritis Pain Relief (acetam)] 650 MG tablet extended release 650 mg PO PRN aspirin [Adult Low Dose Aspirin] 81 mg tablet,delayed release (DR/EC) 81 mg PO DAILY Qty: 90 3RF loratadine [Allergy Relief (loratadine)] 10 mg tablet 10 mg PO DAILY Qty: 90 2RF fluticasone propion-salmeterol [Advair Diskus] 500-50 mcg/dose blister with device 1 inh inhalation BID Qty: 60 12RF fluoxetine 10 mg capsule 10 mg PO DAILY Qty: 90 3RF Rx Instructions: capsule instead of tablets as capsules are covered by insurance metoprolol succinate 25 mg tablet extended release 24 hr 25 mg PO DAILY Qty: 90 3RF Rx Instructions: Decrease 2' low BP, Wt Loss clotrimazole 1 % cream 1 applic TP BID Qty: 30 3RF Rx Instructions: Apply as directed estradiol [Estrace] 0.01 % (0.1 mg/gram) cream 2 g vaginal .twice weekly Qty: 42.5 3RF roflumilast 500 mcg tablet See Rx Instructions .ROUTE .COMPLEX Qty: 90 4RF Dose Instruction: TAKE ONE TABLET BY MOUTH EVERY DAY Rx Instructions: TAKE ONE TABLET BY MOUTH EVERY DAY lisinopril 5 mg tablet See Rx Instructions .ROUTE .COMPLEX Qty: 90 3RF Dose Instruction: TAKE ONE TABLET BY MOUTH EVERY DAY Rx Instructions: TAKE ONE TABLET BY MOUTH EVERY DAY levofloxacin 500 mg tablet 500 mg PO DAILY Qty: 7 0RF atorvastatin 80 mg tablet 80 mg PO HS Patient Comments: TAKE ONE TABLET BY MOUTH AT BEDTIME prednisone 20 mg Tablet 40 mg PO DAILY Qty: 5 0RF (DME) Oxygen Tank See Rx Instructions .Route Qty: 1 0RF Rx Instructions: 2L with ambulation lorazepam [Ativan] 0.5 mg tablet 0.5 mg PO TID PRNQty: 15 0RF Changed morphine concentrate 100 mg/5 mL (20 mg/mL) solution 5 mg PO Q4H MDD 5 mL Qty: 30 0RF morphine concentrate 100 mg/5 mL (20 mg/mL) solution 5 - 20 mg PO Q1H MDD 5 mL PRN (Reason: moderate to severe pain or shortness of breath) Qty: 30 0RF Rx Instructions: Hospice Patient Discharge Instructions Activity:: Activity as Tolerated Equipment/Supplies:: No Equipment Needed Diet:: As Tolerated Discharge Orders Discharge Orders: Discharge Order (Routine); Ordered 01/06/25 Ordered By: Subhash Owens DS: Summary Time Spent with Patient providing and/or coordinating discharge services: Greater than 30 minutes Status at Discharge Functional status at discharge: independent ambulation Overall status at discharge: patient is back to baseline Mental Status: mental status grossly normal Speech and Movement: speech and movement normal Mood: congruent mood Affect: normal affect Quality:SDOH Health Related Social Needs: Health related social needs problems with daily activi ties (Z73.9) Health related social needs details Support, sttengthe sena Exam Narrative Exam Narrative: Chronically ill-appearing but much less anxious looking older female laying in bed in no acute distress, appears to be breathing without any difficulty, appears awake alert oriented and clear in her decision to pursue who hospice and comfort directed care Psych Mental Status: mental status grossly normal Speech and Movement: speech and movement normal Mood: congruent mood Affect: normal affect DS: Data Vitals/I&O Vitals and I&O: Vital Signs Temperature 97.9 F 01/05/25 14:51 Pulse 91 H 01/05/25 18:01 Pulse 83 01/05/25 18:01 Respiratory Rate 35 H 01/06/25 01:08 Respiratory Effort Short of Breath 01/05/25 15:18 Respiratory Depth Normal 01/05/25 15:18 Blood Pressure 138/83 01/05/25 18:00 Blood Pressure Mean 97 01/05/25 18:00 Pulse Oximetry 90 L 01/05/25 18:01 Oxygen Delivery Method Nasal Cannula 01/05/25 14:51 Oxygen Flow Rate 2 01/05/25 14:51 Fraction of Inspired Oxygen (FIO2) 30 01/06/25 01:08 Intake & Output 01/05/25 01/06/25 01/06/25 17:59 05:59 17:59 Intake Total 110 / 110 Balance 110 / 110 Weight 127 lb 9.6 oz Intake: IV 10 / 10 Oral 100 / 100 Other: Comment Large void both incontinent while asleep and on BSC Data Completed and Pending Labs on day of discharge: Labs from last 24 hours 01/05/25 15:07 WBC 7.58 RBC 4.45 Hgb 12.8 D Hct 40.4 MCV 91 MCH 28.8 MCHC 31.7 L RDW 14.6 Plt Count 208 MPV 8.6 Immature Gran % 0.3 Neutrophils % 72.6 Lymphocytes % 14.5 Monocytes % 11.9 Eosinophils % 0.4 Basophils % 0.3 Nucleated RBC % 0.0 Absolute Neutrophils 5.51 Absolute Lymphocytes 1.10 L Absolute Monocytes 0.90 H Absolute Eosinophils 0.03 Absolute Basophils 0.02 VBG pH 7.34 VBG pCO2 62 H* VBG pO2 26 VBG HCO3 34 H VBG Total CO2 31 H VBG O2 Saturation 41 VBG Base Excess 8 H Sodium 132 L Potassium 3.7 D Chloride 93 L Carbon Dioxide 33.2 H Anion Gap 5.8 BUN 15 Creatinine 0.7 Est GFR (CKD-EPI 2020) 88.47 Glucose 120 H Calcium 9.7 Magnesium 1.9 Total Bilirubin 0.3 AST 40 H ALT 44 Alkaline Phosphatase 100 Total Protein 7.6 Albumin 3.0 L PFSH All Active Problems (Updated 01/06/25 @ 08:15 by Subhash Owens MD) ACP (advance care planning) (Acute) Encounter for hospice care discussion (Acute) Anxiety (Chronic) Comfort measures only status (Acute) Shortness of breath (Acute) Confusion (Acute) Palliative care patient (Acute) Pseudomonas pneumonia (Acute) Bronchiectasis (Acute) Periodic limb movement disorder (Acute 07/09/24) TAMRA (obstructive sleep apnea) (Chronic ~2015) Improved w/ mask (vs pillows), 07/2024, ik .. Aníbal- moderately severe CPAP Right rotator cuff tendonitis (Acute) Arthritis of right hip (Acute) Fracture of right superior pubic ramus (Acute 10/15/23) Fracture of right inferior pubic ramus (Acute 10/15/23) ASCVD (arteriosclerotic cardiovascular disease) (Acute) At risk of fracture due to osteoporosis (Acute) Abnormal finding on imaging (Acute) Followed by US/CT: AAA, Umb Hernia, Ov Cyst (lft), Renal lesion (lft) .. Elevated serum creatinine (Acute) IMPROVED! .. per december 2021 labs .. re-check for CTA AAA (abdominal aortic aneurysm) (Chronic) [facility] [place] 09/15/24: AAA measures 5.2cm which now meets criteria for repair, but pt is having a COPD exacerbation, they do plan to contact Pulm and schedule surgery.HE 05/[address]; Q6mo recheck d/t 3mm increase.IK 10/25/22 measures 4.5 on US Apparent > 5mm growth since 12/2021, per Abd CT (09/2022). [ ] Vasc, ik .. Stable per 09/2021 CT (4.1cm) .. Hx: 39mm infrarenal; found on 07/30/19 CT.. AAA > 5.5 cm present high risk and surgical review. Oxygen dependent (Acute) 2L ... Can go without if sitting/resting only. 04/2022: 2.5L with URI (2' PulsOx in 80s) Environmental allergies (Acute) Long Hx loratidine, trial cetirizine (03/2021) Personal history of nicotine dependence (Acute) Asthma (Chronic) Cor pulmonale (Acute 03/19/16) edema, hypoxia, arrhythmia at [facility] 02/26/16 Abnormal screening computed tomography (CT) of chest (Acute ~06/30/20) CT (2019) shows NO NODULE. New 1 cm nodule in the left upper lobe. Dr. Miller Increased frequency of urination (Acute) Much improved on Estrace Hematuria (Acute) Renal lesion (Acute) Dysuria (Acute) Much improved on Estrace .. acute on chronic complaint .. 08/17/21, 07/30/21 ... Cough (Chronic) Chronic, calms with cough syrup/lozenges. Worsens with COPD exacerbations. Venous insufficiency of both lower extremities (Acute 03/19/16) Greater trochanteric bursitis of right hip (Acute 05/16/15) Medical History Abdominal wall hernia Umbilical hernia ID'd on CT; Surgery Eval for management recommendations Pelvic mass (02/24/15) Followed by [facility], yearly imaging planned... Left renal, Left ovarian lesions .. stable, 2020 CT. Ovarian cyst, left US 1999, 2006; again on MRI of hip 2014, US 2014 Contusion of elbow, right CAD (coronary artery disease) s/p PCI Distal RCA [place]DON x2[place] 08/2020 .. 2' STEMI ([facility]).. Hip pain, right (12/26/14) DJD, ? AVN on MRI (Dr Llanos) Chronic airway obstruction, mixed type GOLD III severe COPD, FEV1 0.9 (41%pred, 48%FVC) 03/2011; significant response dilator; similar 11/07/15 COPD exacerbation Cataracts, bilateral Scheduled for cataract surgery with Dr. Pappas ([facility]) 08/23 (OS) & 09/06 (OD) .. Tubular adenoma of colon (07/23/17) Osteoarthritis, hand (10/17/14) Depressive disorder (07/24/12) Varicose veins COPD (chronic obstructive pulmonary disease) Surgical History Ligation of fallopian tube (10/06/69) Colonoscopy - MAC (07/23/17) Cholecystectomy (10/06/1966) Family History Mother , complications DM at age 67. Diabetes Father , stomach cancer at age 30. No problems noted. 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 Pets and animals: No Sexually active: No Do you think of yourself as: straight/heterosexual Current gender identity: female What is your relationship status?: Panel score (0-1 are the most socially isolated patients): 0 What type of physical activity do you participate in: other Details: Yardwork; Housework Duration: 30-45 minutes/day Frequency: daily Linda/Worship: Buddhist Seatbelt use: always Helmet use: No (Never) Drive intox or ride w/intox local company tanker driver: No Working smoke detector in home: Yes Fire extinguisher in home: Yes Carbon monox detector in home: Yes Do you feel safe at home: Yes Do you feel safe in your relationship?: Yes Time Spent with Patient Time Spent with Patient: <45 minutes Time was spent: preparing to see the patient(eg.review tests), obtaining and/or reviewing separately otained hiistory, ordering medications,tests, procedures, referring, communicating with other health rn coronary care unit, indepentently interpreting results, counseling the patient and care coordination
[2025-01-06] MEDS: Budesonide/Formoterol 160/4.5 6 GM 60 PUFF INH IH (09:19)
[2025-01-06 09:20] VITALS: RESP 5; RESP 9
[2025-01-06] MEDS: Albuterol/Ipratropium 3 ML UPD VIAL IH (09:20)
[2025-01-06] MEDS: Loratidine 10 MG TAB PO (09:43)
[2025-01-06] MEDS: predniSONE 20 MG TAB 40 MG PO (09:43)
[2025-01-06] MEDS: Metoprolol CR 25 MG TABCR PO (09:43)
[2025-01-06] MEDS: guaiFENesin 600 MG TABCR PO (09:43)
[2025-01-06] MEDS: FLUoxetine 10 MG TAB PO (09:43)
[2025-01-06] MEDS: Aspirin E.C. 81 MG TABEC PO (09:43)
--- NOTE | 2025-01-06 11:50 | W.PALPGNOTE ---
Date of service: 01/06/25 Time of Service: 07:45 Assessment and Plan Assessment and plan (1) Comfort measures only status: Status: Acute Assessment and plan: Did well overnight - doing better w/o oxygen saturation monitoring (2) Shortness of breath: Status: Acute Assessment and plan: agreeable to trial stretching out morphine scheduled dose now that feeling stable - pt preference to continue scheduled at this time, d/t fear/anxiety of returning/worsening dyspnea morphine 5mg q4h scheduled - consider futher spacing in future once stable in home on hospice morphine 4mg q1h PRN still available, reviewed with family recommend dose of morphine prior to discharge home for anticipatory dyspnea (3) AAA (abdominal aortic aneurysm): Status: Chronic Assessment and plan: not surgical candidate d/t resp status - reviewed may consider in future, pending recovery (4) Oxygen dependent: Status: Acute (5) Anxiety: Status: Chronic Assessment and plan: reviewed anxiey/dyspnea cycle to continue Ativan 0.5mg q4h PRN (6) Palliative care patient: Status: Acute Assessment and plan: PC will transition to hospice (7) Encounter for hospice care discussion: Status: Acute Assessment and plan: COPD admitting dx: hypoxic on RA at rest, dyspnea at rest worse w/limited effort; weight loss, recent hospitalizations r/t PNA no DME needs at this time referral sent to hospice, orders faxed yesterday plan for admission today 01/06/25 in afternoon (8) ACP (advance care planning): Status: Acute Assessment and plan: reviewed morphine dosing, typical schedule is PRN vs scheduled, pt and family preference to continue scheduled at this time, goal of stability - reviewed may try to space out dosing more in future need for review of constipation concerns, passed on to hospice team for review today on admission reviewed hospice admission plan reviewed w/Dinah life expectancy is anticipated to be longer than days at this time, difficult to predict given acute dyspnea, recent URI illnesses, but after settled in home, w/correct supports, may have better handle on accurate life expectancy. Based on today, she does not appear to be actively dying. life expectancy weeks to months spent 15m w/ACP (9) Chronic airway obstruction, mixed type: Assessment and plan: admitting diagnosis - recent PNAs Subjective Subjective Interval history since last seen: Radha did well overnight. She woke up around 3a feeling dyspnic, which was resolved w/morphine. Tolerating morphine well, continues to work for dyspnea. - had done q2h scheduled morphine. Anxiety much more controlled today, feeling much better Daughter Capri at bedside, planning on being primary caregiver for patient once discharges home today. No concerns today. Requesting hospice medications written out for orders for help in understanding new schedule. Would like to get home and settled first before hospice admission meeting. Exam Narrative Exam Narrative: General: older chronically ill appearing female, thin; calm, comfortable HEENT: normocephalic, atraumatic, hearing grossly WNL Resp: regular resp rate and effort, speaks full sentences; no cough Skin: atrophy Psych: MS congruent, cooperative; insight limited, judgment fair Objective Last Vital Signs Temp 97.9 F 01/05/25 14:51 Pulse 91 H 01/05/25 18:01 Resp 35 H 01/06/25 01:08 BP 138/83 01/05/25 18:00 Pulse Ox 90 L 01/05/25 18:01 Laboratory Results - last 24 hr 01/05/25 15:07 WBC 7.58 RBC 4.45 Hgb 12.8 D Hct 40.4 MCV 91 MCH 28.8 MCHC 31.7 L RDW 14.6 Plt Count 208 MPV 8.6 Immature Gran % 0.3 Neutrophils % 72.6 Lymphocytes % 14.5 Monocytes % 11.9 Eosinophils % 0.4 Basophils % 0.3 Nucleated RBC % 0.0 Absolute Neutrophils 5.51 Absolute Lymphocytes 1.10 L Absolute Monocytes 0.90 H Absolute Eosinophils 0.03 Absolute Basophils 0.02 VBG pH 7.34 VBG pCO2 62 H* VBG pO2 26 VBG HCO3 34 H VBG Total CO2 31 H VBG O2 Saturation 41 VBG Base Excess 8 H Sodium 132 L Potassium 3.7 D Chloride 93 L Carbon Dioxide 33.2 H Anion Gap 5.8 BUN 15 Creatinine 0.7 Est GFR (CKD-EPI 2020) 88.47 Glucose 120 H Calcium 9.7 Magnesium 1.9 Total Bilirubin 0.3 AST 40 H ALT 44 Alkaline Phosphatase 100 Total Protein 7.6 Albumin 3.0 L
== END 2025-01-06 10:07 | disposition hospice, home (50) | DRG 177 ==
LOC: ER 17:56 → MS 18:35
PROVIDERS: Admitting Provider Family Medicine; Emergency Provider Emergency Medicine; PCP Nurse Practitioner Family; Responsible Provider Family Medicine; Visit Provider Family Medicine
DX: J15.1 Pneumonia due to Pseudomonas (principal); J96.21 Acute and chronic respiratory failure with hypoxia; J96.22 Acute and chronic respiratory failure with hypercapnia; J44.1 Chronic obstructive pulmonary disease with (acute) exacerbation; J47.0 Bronchiectasis with acute lower respiratory infection; I25.10 Atherosclerotic heart disease of native coronary artery without angina pectoris; Z99.81 Dependence on supplemental oxygen; G47.33 Obstructive sleep apnea (adult) (pediatric); Z51.5 Encounter for palliative care; F41.9 Anxiety disorder, unspecified; G47.61 Periodic limb movement disorder; Z87.891 Personal history of nicotine dependence; I87.2 Venous insufficiency (chronic) (peripheral); Z95.5 Presence of coronary angioplasty implant and graft; I25.2 Old myocardial infarction; F32.A Depression, unspecified
CPT/HCPCS: 00123; 36415; 80053; 82805; 94640; 99285; 71045; 83735; 85025; 94660; 99223; 99239; J3490; J7512; J7620

== ENCOUNTER 2025-03-22 17:38 | Outpatient (REF) | payer MEDICARE, SELFPAY ==
[2025-03-22 17:57] LABS: Bilirubin Negative (Negative); Blood Negative (Negative); Clarity Clear (Clear); Glucose Negative (Negative); Ketones Negative (Negative); Leukocyte Esterase Small (Negative); Nitrite Negative (Negative); Specific Gravity <= 1.005 (1.005-1.025); Urobilinogen 0.2 mg/dL (Up to 0.2)
[2025-03-22 18:02] LABS: Bacteria Few HPF (Negative); C & S Indicated? Yes; Casts Negative LPF (Negative); Crystals Negative HPF (Negative); Epithelial Cells Few HPF (Negative); Mucus Negative (Negative); RBC 0-2 HPF (0-2)
== END 2025-03-22 17:39 | disposition home or self-care (01) ==
LOC: LBN 17:38
PROVIDERS: PCP Nurse Practitioner Family; Visit Provider Family Medicine
DX: R33.9 Retention of urine, unspecified (principal); R32 Unspecified urinary incontinence
CPT/HCPCS: 81003; 81015; 87086